=== PATIENT | female | born 1970 | race Caucasian/White ===

== ENCOUNTER 2017-11-16 12:12 | Emergency (ER) | payer OTHER, SELFPAY ==
[2017-11-16] VITALS (9 sets, daily range): BP systolic 144–177; BP diastolic 87–101; PULSE 101–111; RESP 16–23; TEMP 36.3; O2SAT 100
--- NOTE | 2017-11-16 12:49 | PC.NURSE ---
Pt alert and oriented x3. States she had a minor seizure this am, witnessed by her mother. She said she was able to sit down and does not recall the event, but her mother states it was short lived and she was visibly shaking. No injuries sustained. Maintaining her own airway. Feeling nauseated. Vomiting bile. States she is being worked up for gastric paresis at . She is being considered for a feeding tube. Hx of type 1 diabetes. She has had DKA in the past and been hospitalized for it. States she has not been eating or drinking much for past week.
[2017-11-16 12:51] LABS: pH VBG 7.44 (7.31-7.41)
[2017-11-16] MEDS: SODIUM CHLORIDE 0.9% 1,000 ML 1000 ML IV ×2 (13:00→17:30)
--- NOTE | 2017-11-16 13:15 | ED.SEIZURE ---
HPI - Seizure General Chief Complaint: Seizure Stated Complaint: DIABETIC,VOMITING,NOT EATING OR DRINKING,SEIZURE Time Seen by Provider: 11/16/17 12:25 Source: patient Mode of arrival: ambulatory Limitations: no limitations History of Present Illness HPI Narrative: Patient is a 47-year-old female who has a history of type 1 diabetes presenting with vomiting for 6 days. She has an insulin pump she has been trying to keep tabs on her sugar. 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 She did not lose urine or bite her tongue this was a very brief 1. She is being worked up for possible gastroparesis. She is unable to take Reglan it causes multiple side effects for her. She has anti nausea medication at home and has really not been able to keep any of it down. She has diffuse overall abdominal pain. Related Data Home Medications Medication Instructions Recorded Confirmed albuterol sulfate [Ventolin HFA] 2 puff INHALATION PRN PRN 11/16/17 11/16/17 calcipotriene [Dovonex] 1 applic TOPICAL PRN PRN 11/16/17 11/16/17 cholecalciferol (vitamin D3) 2,000 units PO DAILY 11/16/17 11/16/17 [Vitamin D3] cyanocobalamin (vitamin B-12) 1 ml IM QMONTH 11/16/17 11/16/17 escitalopram oxalate 20 mg PO DAILY 11/16/17 11/16/17 gabapentin 300 - 600 mg PO DAILY 11/16/17 11/16/17 glucagon (human recombinant) 1 dose IM DIRECTED 11/16/17 11/16/17 [Glucagon Emergency Kit (human)] insulin lispro [Humalog U-100 1 dose CONTINUOUS IV INFUSION PRN 11/16/17 11/16/17 Insulin] PRN levothyroxine 1 tab PO DAILY 11/16/17 11/16/17 lovastatin 5 mg PO DAILY 11/16/17 11/16/17 multivitamin with iron 1 tab PO DAILY 11/16/17 11/16/17 omeprazole 20 mg PO DAILY 11/16/17 11/16/17 ondansetron 4 mg PO PRN PRN 11/16/17 11/16/17 potassium chloride 10 meq PO BID 11/16/17 11/16/17 promethazine 12.5 mg PO PRN PRN 11/16/17 11/16/17 ranitidine HCl 300 mg PO DAILY 11/16/17 11/16/17 tacrolimus [Protopic] 1 applic TOPICAL PRN PRN 11/16/17 11/16/17 Previous Rx's Medication Instructions Recorded promethazine 25 mg [place] Q6H PRN #10 each 11/16/17 Allergies Allergy/AdvReac Type Severity Reaction Status Date / Time latex [LATEX] Allergy Intermediate Verified 11/16/17 13:51 Review of Systems Review of Systems All systems reviewed & are unremarkable except as noted in HPI and below Constitutional Denies chills, Denies fever(s), Denies lethargy and Denies weakness Cardiovascular Denies chest pain, Denies irregular heart rhythm, Denies lightheadedness, Denies palpitations, Denies dyspnea, Denies dyspnea on exertion and Denies orthopnea Respiratory Denies cough, Denies dyspnea, Denies dyspnea on exertion and Denies wheezing Gastrointestinal Gastrointestinal: Reports as per HPI, Denies constipation and Denies diarrhea Genitourinary Denies hematuria, Denies flank pain, Denies urinary incontinence and Denies urinary urgency Musculoskeletal Denies back pain, Denies muscle weakness, Denies numbness and Denies tingling Integumentary/Breasts Denies pruritus, Denies erythema, Denies rash and Denies wounds Neurologic Denies numbness, Denies tingling and Denies weakness Endocrine Denies palpitations Allergic/Immunologic Denies wheezing PFSH Medical History Type 1 diabetes (Acute) Exam Initial Vital Signs Initial Vital Signs: Vital Signs Temperature 97.4 F L 11/16/17 12:23 Pulse Rate 111 H 11/16/17 12:23 Respiratory Rate 18 11/16/17 12:23 Blood Pressure 144/91 H 11/16/17 12:23 Pulse Oximetry 100 11/16/17 12:23 GENERAL: Alert female appears in [id number] distress HEENT: Head atraumatic,EOMI, pupils reactive, face symmetric, dry mucous membranes CARDIOVASCULAR: Regular rate and rhythm without murmurs, rubs or gallops. RESPIRATORY: Breath sounds equal bilaterally, no wheezes rales or rhonchi. ABDOMEN: Soft, diffuse abdominal pain no guarding no rebound no distension : No CVA tenderness EXTREMITIES: Normal range of motion, no clubbing or edema. Neurovascularly intact NEUROLOGICAL: Alert and oriented x4.Normal gait and speech. Cranial nerves II through XII grossly intact. SKIN: Warm, dry, no laceration, no petechiae, no rashes or lesions. Course Orders Ordered: ED Orders 11/16/17 12:31 Complete Blood Count AUTO DIFF Stat Comprehensive Metabolic Panel Stat Ketones (Beta-Hydroxybutyrate) Stat Lactate (Lactic Acid) Stat Procalcitonin Stat 11/16/17 12:36 pH VBG Routine 11/16/17 13:16 EKG-12 Lead Stat 11/16/17 13:19 Lipase Stat 11/16/17 13:56 Blood Culture Stat 11/16/17 14:40 Urine Culture Stat Urine Microscopic Stat 11/16/17 18:47 Electrolytes Stat Discontinued Medications Sodium Chloride (Normal Saline 0.9%) 1,000 mls @ 1,000 mls/hr IV BOLUS ONE Stop: 11/16/17 14:14 Last Infusion: 11/16/17 14:03 Dose: 0 mls/hr Admin: 11/16/17 13:00 Dose: 1,000 mls/hr Potassium Chloride 40 meq/ (Sodium Chloride) 520 mls @ 130 mls/hr IV NOW ONE Stop: 11/16/17 17:50 Last Infusion: 11/16/17 19:08 Dose: 0 mls/hr Admin: 11/16/17 14:47 Dose: 130 mls/hr Sodium Chloride (Normal Saline 0.9%) 1,000 mls @ 1,000 mls/hr IV BOLUS ONE Stop: 11/16/17 18:33 Last Infusion: 11/16/17 19:08 Dose: 0 mls/hr Admin: 11/16/17 17:30 Dose: 1,000 mls/hr Ondansetron HCl (Zofran) 4 mg IV NOW ONE Stop: 11/16/17 13:25 Last Admin: 11/16/17 13:24 Dose: 4 mg Pantoprazole Sodium (Protonix) 40 mg IV NOW ONE Stop: 11/16/17 13:24 Last Admin: 11/16/17 13:24 Dose: 40 mg Potassium Chloride (Potassium Chloride) 40 meq PO NOW ONE Stop: 11/16/17 13:52 Last Admin: 11/16/17 14:04 Dose: 40 meq Vital Signs - 8 hr 11/16/17 12:23 11/16/17 13:00 11/16/17 14:05 Temperature 97.4 F L Pulse Rate 110 H 105 H 105 H Respiratory Rate 18 Blood Pressure 144/90 H Blood Pressure [Right Arm] 144/91 H 163/95 H 163/95 H Pulse Oximetry 100 100 100 11/16/17 14:47 11/16/17 16:30 11/16/17 18:19 Temperature Pulse Rate 101 H 110 H 110 H Respiratory Rate 20 19 23 Blood Pressure Blood Pressure [Right Arm] 168/95 H 154/92 H 155/101 H Pulse Oximetry 100 100 11/16/17 18:39 Temperature Pulse Rate 108 H Respiratory Rate 21 Blood Pressure Blood Pressure [Right Arm] 177/92 H Pulse Oximetry 100 MDM - Seizure Lab Data Attestation: I reviewed the patient's lab results. Anion gap 31 Repeat anion gap 16 Result diagrams: 11/16/17 12:31 11/16/17 18:47 Lab Results 11/16/17 11/16/17 11/16/17 Range/Units 12:31 12:31 12:31 WBC 9.3 (4.5-11.0) X10^3/uL RBC 4.58 (4.0-5.2) X10^6/uL Hgb 13.6 (12.0-16.0) g/dL Hct 41.3 (36-46) % MCV 90.2 (80-100) fL MCH 29.6 (26-34) PG MCHC 32.8 (30-36) % RDW 19.0 H (11.6-14.8) % Plt Count 215 (150-400) X10^3/uL Neut % (Auto) 74.3 (50-75) % Lymph % (Auto) 11.3 L (25-40) % Boy[place] % (Auto) 13.8 (3-14) % Eos % (Auto) 0.3 L (2-4) % Baso % (Auto) 0.3 (0-2) % Neut # (Auto) 6900 H (6798-5842) /uL VBG pH (7.31-7.41) Sodium 127 L (137-145) mmol/L Potassium 2.6 L* (3.4-5.1) mmol/L Chloride 78 L (98-107) mmol/L Carbon Dioxide 21 L (22-32) mmol/L BUN 23 H (7-17) mg/dL Creatinine 0.80 (0.52-1.04) mg/dL Estimated GFR > 60.0 (>60) mL/min BUN/Creatinine Ratio 28.8 H (6-22) Glucose 275 H (70-100) mg/dL Lactate (0.7-2.1) mmol/L Calcium 10.2 (8.4-10.2) mg/dL Total Bilirubin 1.5 H (0.2-1.3) mg/dL AST 70 H (14-36) IU/L ALT 45 (9-52) IU/L Alkaline Phosphatase 118 (38-126) U/L Total Protein 8.3 H (6.3-8.2) g/dL Albumin 5.0 (3.5-5.0) g/dL Globulin 3.3 (1.7-4.1) g/dL Albumin/Globulin Ratio 1.5 (1.0-2.8) Lipase (23-300) U/L Procalcitonin 0.18 (<0.5) ng/mL Urine RBC (0-5/HPF) Urine WBC (0-5/HPF) Ur Squamous Epith Cells Urine Bacteria (None) Urine Mucus (Negative) Urine Yeast (None) Ur Culture Indicated? Micro UA Comment Ketones 9.20 H (<0.27) mmol/L 11/16/17 11/16/17 11/16/17 Range/Units 12:31 12:36 13:19 WBC (4.5-11.0) X10^3/uL RBC (4.0-5.2) X10^6/uL Hgb (12.0-16.0) g/dL Hct (36-46) % MCV (80-100) fL MCH (26-34) PG MCHC (30-36) % RDW (11.6-14.8) % Plt Count (150-400) X10^3/uL Neut % (Auto) (50-75) % Lymph % (Auto) (25-40) % Boyle % (Auto) (3-14) % Eos % (Auto) (2-4) % Baso % (Auto) (0-2) % Neut # (Auto) (4545-9223) /uL VBG pH 7.44 H (7.31-7.41) Sodium (137-145) mmol/L Potassium (3.4-5.1) mmol/L Chloride (98-107) mmol/L Carbon Dioxide (22-32) mmol/L BUN (7-17) mg/dL Creatinine (0.52-1.04) mg/dL Estimated GFR (>60) mL/min BUN/Creatinine Ratio (6-22) Glucose (70-100) mg/dL Lactate 1.9 (0.7-2.1) mmol/L Calcium (8.4-10.2) mg/dL Total Bilirubin (0.2-1.3) mg/dL AST (14-36) IU/L ALT (9-52) IU/L Alkaline Phosphatase (38-126) U/L Total Protein (6.3-8.2) g/dL Albumin (3.5-5.0) g/dL Globulin (1.7-4.1) g/dL Albumin/Globulin Ratio (1.0-2.8) Lipase 372 H (23-300) U/L Procalcitonin (<0.5) ng/mL Urine RBC (0-5/HPF) Urine WBC (0-5/HPF) Ur Squamous Epith Cells Urine Bacteria (None) Urine Mucus (Negative) Urine Yeast (None) Ur Culture Indicated? Micro UA Comment Ketones (<0.27) mmol/L 11/16/17 11/16/17 Range/Units 14:40 18:47 WBC (4.5-11.0) X10^3/uL RBC (4.0-5.2) X10^6/uL Hgb (12.0-16.0) g/dL Hct (36-46) % MCV (80-100) fL MCH (26-34) PG MCHC (30-36) % RDW (11.6-14.8) % Plt Count (150-400) X10^3/uL Neut % (Auto) (50-75) % Lymph % (Auto) (25-40) % Boyle % (Auto) (3-14) % Eos % (Auto) (2-4) % Baso % (Auto) (0-2) % Neut # (Auto) (7907-9520) /uL VBG pH (7.31-7.41) Sodium 127 L (137-145) mmol/L Potassium 3.9 D (3.4-5.1) mmol/L Chloride 89 L (98-107) mmol/L Carbon Dioxide 22 (22-32) mmol/L BUN (7-17) mg/dL Creatinine (0.52-1.04) mg/dL Estimated GFR (>60) mL/min BUN/Creatinine Ratio (6-22) Glucose (70-100) mg/dL Lactate (0.7-2.1) mmol/L Calcium (8.4-10.2) mg/dL Total Bilirubin (0.2-1.3) mg/dL AST (14-36) IU/L ALT (9-52) IU/L Alkaline Phosphatase (38-126) U/L Total Protein (6.3-8.2) g/dL Albumin (3.5-5.0) g/dL Globulin (1.7-4.1) g/dL Albumin/Globulin Ratio (1.0-2.8) Lipase (23-300) U/L Procalcitonin (<0.5) ng/mL Urine RBC None seen (0-5/HPF) Urine WBC 1-5/hpf (0-5/HPF) Ur Squamous Epith Cells 1-5 /hpf Urine Bacteria Moderate (10-30) H (None) Urine Mucus 1+ H (Negative) Urine Yeast 5-10/hpf H (None) Ur Culture Indicated? Specimen cultured Micro UA Comment Not Reportable Ketones (<0.27) mmol/L Point of Care Testing Glucose POC 265 Urine Dip Bedside Urine Glucose 100 mg/dl Bedside Urine Bilirubin - Negative Bedside Urine Ketone +++ 80 Urine Specific [place] 1.030 Bedside Urine Occult Blood - Negative Bedside Urine pH 6.0 Bedside Urine Protein + 30 Bedside Urine Urobilinogen +/- 1mg Bedside Urine Nitrite - Negative Bedside Urine Leukocytes - Negative Esterase MDM Narrative Medical decision making narrative: Patient is not acidotic on VBG she does have an initial anion gap of 31 of glucose of 275, she does have ketones. She is hydrated with multiple L of IV fluids her potassium has been replaced. She has been monitored in the ED for 6 hr she has had no repeat vomiting her abdomen remained soft. She is tolerating crackers and juice. She overall is feeling much better. Her sodium remains of slightly low- she says that her sodium has been low that been monitoring as an outpatient. She is scheduled to have her calcium recheck his they said that was slightly high it is on the higher end of normal today. Overall patient a better ready and able to go home. Discharge Plan Departure Patient Disposition: Home Clinical Impression: Diabetic gastroparesis, Acute hypokalemia Instructions: Gastroparesis Activity Restrictions/Additional Instructions: *You have been diagnosed with gastroparesis, hypokalemia *What to do: Increase the fluids as tolerated recommend Gatorade or Gatorade like substance may increase diet as tolerated as well *Continue to take medications as directed Phenergan 25 mg suppositories if unable to tolerate Zofran or oral medication *Follow up with your primary care provider in 2-3 days *Return to ER if you should have persistent or worsening vomiting inability to tolerate fluids or any new, worsening or concerning symptoms Prescriptions: New promethazine 25 mg suppository 25 mg IL Q6H PRN (Reason: nausea and vomiting) Qty: 10 RF: 0 No Action glucagon (human recombinant) [Glucagon Emergency Kit (human)] 1 mg kit 1 dose IM DIRECTED RF: 0 ranitidine HCl 300 mg tablet 300 mg PO DAILY RF: 0 potassium chloride 10 mEq tablet extended release 10 meq PO BID RF: 0 lovastatin 10 mg tablet 5 mg PO DAILY RF: 0 levothyroxine 50 mcg tablet 1 tab PO DAILY RF: 0 cyanocobalamin (vitamin B-12) 1,000 mcg/mL solution 1 ml IM QMONTH RF: 0 gabapentin 300 mg capsule 300 - 600 mg PO DAILY RF: 0 omeprazole 20 mg capsule,delayed release(DR/EC) 20 mg PO DAILY RF: 0 insulin lispro [Humalog U-100 Insulin] 100 unit/mL solution 1 dose Continuous IV Infusion PRN PRN (Reason: bolus) RF: 0 escitalopram oxalate 20 mg tablet 20 mg PO DAILY RF: 0 promethazine 12.5 mg tablet 12.5 mg PO PRN PRN (Reason: Nausea) RF: 0 tacrolimus [Protopic] 0.1 % Ointment 1 applic Topical PRN PRN (Reason: as directed) RF: 0 calcipotriene [Dovonex] 0.005 % Cream 1 applic Topical PRN PRN (Reason: as directed) RF: 0 albuterol sulfate [Ventolin HFA] 90 mcg/actuation Hfa Aerosol Inhaler 2 puff Inhalation PRN PRN (Reason: Shortness Of Breath) RF: 0 ondansetron 4 mg tablet,disintegrating 4 mg PO PRN PRN (Reason: Nausea And Vomiting) RF: 0 multivitamin with iron Tablet 1 tab PO DAILY RF: 0 cholecalciferol (vitamin D3) [Vitamin D3] 2,000 unit Capsule 2,000 units PO DAILY RF: 0 Referrals: Sandra Nathan PA-C [Primary Care Provider] -
[2017-11-16 13:23] LABS: Add Manual Diff / Slide Review NO; Basophils Percent Auto 0.3 % (0-2); Eosinophils Percent Auto 0.3 % (2-4); Hematocrit 41.3 % (36-46); Hemoglobin 13.6 g/dL (12.0-16.0); Lymphocytes Percent Auto 11.3 % (25-40); Mean Corpuscular HGB Conc 32.8 % (30-36); Mean Corpuscular Hemoglobin 29.6 PG (26-34); Mean Corpuscular Volume 90.2 fL (80-100); Monocytes Percent Auto 13.8 % (3-14); Neutrophils Absolute Auto 6900 /uL (3000-5900); Neutrophils Percent Auto 74.3 % (50-75); Platelet Count 215 X10^3/uL (150-400); Red Blood Cell Count 4.58 X10^6/uL (4.0-5.2); White Blood Cell Count 9.3 X10^3/uL (4.5-11.0)
[2017-11-16] MEDS: PANTOPRAZOLE 40 MG VIAL IV (13:24)
[2017-11-16] MEDS: ONDANSETRON 4 MG/2 ML INJ IV (13:24)
[2017-11-16 13:25] LABS: HEMOLYSIS < 15 (0-50)
[2017-11-16 13:31] LABS: Alanine Aminotransferase 45 IU/L (9-52); Albumin Globulin Ratio 1.5 (1.0-2.8); Alkaline Phosphatase 118 U/L (38-126); Aspartate Aminotransferase 70 IU/L (14-36); BUN Creatinine Ratio 28.8 (6-22); Bilirubin Total 1.5 mg/dL (0.2-1.3); Blood Urea Nitrogen 23 mg/dL (7-17); Calcium 10.2 mg/dL (8.4-10.2); Carbon Dioxide 21 mmol/L (22-32); Chloride 78 mmol/L (98-107); Estimated Glomerular Filt Rate > 60.0 mL/min (>60); Globulin 3.3 g/dL (1.7-4.1); Glucose 275 mg/dL (70-100); Lactate (Lactic Acid) 1.9 mmol/L (0.7-2.1); Sodium 127 mmol/L (137-145); Total Protein 8.3 g/dL (6.3-8.2)
[2017-11-16 13:38] LABS: Potassium 2.6 mmol/L (3.4-5.1)
[2017-11-16 13:46] LABS: Procalcitonin 0.18 ng/mL (<0.5)
[2017-11-16 13:51] LABS: Lipase 372 U/L (23-300)
[2017-11-16] MEDS: POTASSIUM CHLORIDE 20 MEQ/15 ML UDC 40 MEQ PO (14:04)
[2017-11-16] MEDS: POTASSIUM CHLORIDE 40 MEQ in SODIUM CHLORIDE 0.9% 500 ML 130 ML IV (14:47)
[2017-11-16 14:56] LABS: RBC Urine None Seen (0-5/HPF)
[2017-11-16 15:08] LABS: Bacteria Urine Moderate (10-30); Culture Indicated Urine Specimen Cultured; Mucus Urine 1+ (Negative); Squamous Epithelial Cell Urine 1-5 /HPF; WBC Urine 1-5/HPF (0-5/HPF)
[2017-11-16 19:39] LABS: Carbon Dioxide 22 mmol/L (22-32); Chloride 89 mmol/L (98-107); HEMOLYSIS < 15 (0-50); Potassium 3.9 mmol/L (3.4-5.1); Sodium 127 mmol/L (137-145)
== END 2017-11-16 20:02 | disposition home or self-care (01) ==
PROVIDERS: Emergency Provider Emergency Medicine; Family Provider Physician Assistant Medical; PCP Physician Assistant Medical
DX: E10.43 Type 1 diabetes mellitus with diabetic autonomic (poly)neuropathy (principal); K31.84 Gastroparesis; E87.6 Hypokalemia; Z96.41 Presence of insulin pump (external) (internal)
CPT/HCPCS: 36415; 36591; 80051; 80053; 81003; 81015; 82009; 82962; 83605; 83690; 83986; 84145; 85025; 87040; 87086; 93005; 93010; 96361; 96365; 96366; 96375; 99285; C9113; J2405; J3480

== ENCOUNTER 2017-12-22 07:32 | Emergency (ER) | payer OTHER, SELFPAY ==
[2017-12-22 07:38] VITALS: BP 153/96; PULSE 102; RESP 14; TEMP 36.8; O2SAT 97; BMI 20.3
--- NOTE | 2017-12-22 07:40 | ED.WOUNDLAC ---
HPI - Wound/Laceration General Chief Complaint: Wound/Laceration Stated Complaint: FELL Time Seen by Provider: 12/22/17 07:40 Source: patient Mode of arrival: ambulatory Limitations: no limitations History of Present Illness HPI narrative: 47-year-old female here for evaluation of a laceration that she sustained from a fall approximately 8 hr ago. Patient states that at 1 o'clock in the morning she was walking through her garage when she tripped over her cat. She states she fell and hit her face on the ground. No loss of consciousness. Was able to get up afterwards. She states she did not know that she injured her nose until she woke up this morning and noticed that there was blood. No extremity injuries. She was ambulatory afterwards. The patient is a type 1 diabetic but she states she tripped and fell and this was not related to her diabetes. Related Data Home Medications Medication Instructions Recorded Confirmed albuterol sulfate [Ventolin HFA] 2 puff INHALATION PRN PRN 11/16/17 11/16/17 calcipotriene [Dovonex] 1 applic TOPICAL PRN PRN 11/16/17 11/16/17 cholecalciferol (vitamin D3) 2,000 units PO DAILY 11/16/17 11/16/17 [Vitamin D3] cyanocobalamin (vitamin B-12) 1 ml IM QMONTH 11/16/17 11/16/17 escitalopram oxalate 20 mg PO DAILY 11/16/17 11/16/17 gabapentin 300 - 600 mg PO DAILY 11/16/17 11/16/17 glucagon (human recombinant) 1 dose IM DIRECTED 11/16/17 11/16/17 [Glucagon Emergency Kit (human)] insulin lispro [Humalog U-100 1 dose CONTINUOUS IV INFUSION PRN 11/16/17 11/16/17 Insulin] PRN levothyroxine 1 tab PO DAILY 11/16/17 11/16/17 lovastatin 5 mg PO DAILY 11/16/17 11/16/17 multivitamin with iron 1 tab PO DAILY 11/16/17 11/16/17 omeprazole 20 mg PO DAILY 11/16/17 11/16/17 ondansetron 4 mg PO PRN PRN 11/16/17 11/16/17 potassium chloride 10 meq PO BID 11/16/17 11/16/17 promethazine 12.5 mg PO PRN PRN 11/16/17 11/16/17 ranitidine HCl 300 mg PO DAILY 11/16/17 11/16/17 tacrolimus [Protopic] 1 applic TOPICAL PRN PRN 11/16/17 11/16/17 Previous Rx's Medication Instructions Recorded promethazine 25 mg [place] Q6H PRN #10 each 11/16/17 Allergies Allergy/AdvReac Type Severity Reaction Status Date / Time latex [LATEX] Allergy Intermediate Verified 12/22/17 07:38 Review of Systems Constitutional Denies frequent falls and Denies headache(s) Eyes Denies blurry vision, Denies diplopia, Denies loss of peripheral vision and Denies loss of vision ENT Ears, Nose, Mouth, and Throat: Denies dental pain, Denies vertigo, Denies dizziness, Denies dry mouth, Denies headache(s), Denies hearing loss, Denies nasal congestion, Reports nasal trauma, Reports nose pain, Denies disequilibrium, Denies tinnitus, Denies sinus pressure, Denies sore throat, Denies throat swelling and Denies tongue swelling Comments: Cut over the bridge of the nose Cardiovascular Denies chest pain and Denies dyspnea Respiratory Denies dyspnea Gastrointestinal Gastrointestinal: Denies abdominal pain Musculoskeletal Denies myalgias, Denies arthralgias and Denies numbness Integumentary/Breasts Comments: Cut over the bridge of the nose, abrasions to face Neurologic Denies confusion, Denies vertigo, Denies dizziness, Denies frequent falls, Denies headache(s), Denies loss of vision, Denies memory loss, Denies numbness and Denies disequilibrium Psychiatric Denies confusion and Denies memory loss Hematologic/Lymphatic Denies easy bleeding and Denies easy bruising Allergic/Immunologic Denies throat swelling and Denies tongue swelling [facility] Medical History Type 1 diabetes (Acute) Surgical History No pertinent past surgical history (Acute) Social History Smoking Status: Current some day smoker Exam Initial Vital Signs Initial Vital Signs: Vital Signs Temperature 98.2 F 12/22/17 07:38 Pulse Rate 102 H 12/22/17 07:38 Respiratory Rate 14 12/22/17 07:38 Blood Pressure 153/96 H 12/22/17 07:38 Pulse Oximetry 97 10 07:38 Const General: cooperative, healthy appearing, comfortable, well developed, well groomed and No acute distress Orientation: alert, awake and oriented x3 HENMT Head: contusion, No palpable skull fracture and No raccoon eyes Ears: TM's normal bilaterally Nose: No external nose normal, septum normal, No epistaxis, No nasal discharge, No TMJ tender and other (Cut over the bridge of the nose) Face and sinus: face symmetric, abrasion, laceration (Over bridge of nose), no sinus tenderness and no tenderness Mouth: oral mucosae normal Teeth and gingiva: dentition normal Throat: posterior oropharynx normal Eyes Pupils: PERRL EOM: EOM intact bilaterally Resp Effort & Inspection: normal respiratory effort Back/Spine/Pelvis Cervical Spine: No collar present, No cervical muscular tenderness, No pain with cervical ROM, No scars present, No cervical spasm, No cervical spinal tenderness and No step off deformity Skin Other: 2 cm cut over the bridge of the nose Multiple abrasions to the face Neuro General: alert, awake and oriented x3 Extrem General: normal to inspection and capillary refill normal Psych Appearance: grossly normal and well kempt Procedures Laceration Repair Laceration 1: Site: face Size (cm): 2 Description: irregular Depth: simple, single layer Local Anesthetic: lidocaine 1% Amount of anesthesia used (mL): 3 Pre-repair: wound explored, irrigated extensively and deep structures intact Skin layer closed with: other (Chromic) Size (cm): 5-0 Number of sutures: 7 Technique: simple, interrupted Course Vital Signs - 8 hr 12/22/17 07:38 Temperature 98.2 F Pulse Rate 102 H Respiratory Rate 14 Blood Pressure 153/96 H Pulse Oximetry 97 MDM - Wound/Laceration MDM Narrative Medical decision making narrative: Patient with what appears to be a mechanical fall. Has abrasions to her face. Laceration over the bridge of the nose closed as described above. No cervical spine tenderness. No palpable fractures. Patient is ambulatory. She is up-to-date on tetanus. Will hold on radiologic studies for now. Patient was given care instructions with regard to the cut on her face and also the abrasions. She was given return precautions. She expressed understanding and agreement with plan. Discharge Plan Departure Patient Disposition: Home Clinical Impression: Laceration Instructions: How to Care for a Laceration After Repair Activity Restrictions/Additional Instructions: The stitches are absorbable the should not need to be removed. You can shower like normal. Use soap and water like normal. Do not scrub the area over your nose. The the wounds that you sustained could potentially lead to some black eyes. At this happens this is not unexpected. Return to the emergency department for any new or worsening symptoms. Call your primary care doctor for follow-up. Prescriptions: No Action glucagon (human recombinant) [Glucagon Emergency Kit (human)] 1 mg kit 1 dose IM DIRECTED RF: 0 ranitidine HCl 300 mg tablet 300 mg PO DAILY RF: 0 potassium chloride 10 mEq tablet extended release 10 meq PO BID RF: 0 lovastatin 10 mg tablet 5 mg PO DAILY RF: 0 levothyroxine 50 mcg tablet 1 tab PO DAILY RF: 0 cyanocobalamin (vitamin B-12) 1,000 mcg/mL solution 1 ml IM QMONTH RF: 0 gabapentin 300 mg capsule 300 - 600 mg PO DAILY RF: 0 omeprazole 20 mg capsule,delayed release(DR/EC) 20 mg PO DAILY RF: 0 insulin lispro [Humalog U-100 Insulin] 100 unit/mL solution 1 dose Continuous IV Infusion PRN PRN (Reason: bolus) RF: 0 escitalopram oxalate 20 mg tablet 20 mg PO DAILY RF: 0 promethazine 12.5 mg tablet 12.5 mg PO PRN PRN (Reason: Nausea) RF: 0 tacrolimus [Protopic] 0.1 % Ointment 1 applic Topical PRN PRN (Reason: as directed) RF: 0 calcipotriene [Dovonex] 0.005 % Cream 1 applic Topical PRN PRN (Reason: as directed) RF: 0 albuterol sulfate [Ventolin HFA] 90 mcg/actuation Hfa Aerosol Inhaler 2 puff Inhalation PRN PRN (Reason: Shortness Of Breath) RF: 0 ondansetron 4 mg tablet,disintegrating 4 mg PO PRN PRN (Reason: Nausea And Vomiting) RF: 0 multivitamin with iron Tablet 1 tab PO DAILY RF: 0 cholecalciferol (vitamin D3) [Vitamin D3] 2,000 unit Capsule 2,000 units PO DAILY RF: 0 promethazine 25 mg suppository 25 mg HI Q6H PRN (Reason: nausea and vomiting) Qty: 10 RF: 0
[2017-12-22 08:22] VITALS: BP 146/90; PULSE 90; RESP 15; O2SAT 97
--- NOTE | 2017-12-22 08:22 | PC.NURSE ---
dr couch placed 7 absorable sutures to bridge of nose.
== END 2017-12-22 08:23 | disposition home or self-care (01) ==
PROVIDERS: Emergency Provider Emergency Medicine; Family Provider Physician Assistant Medical; PCP Physician Assistant Medical
DX: S01.21XA Laceration without foreign body of nose, initial encounter (principal); W01.198A Fall on same level from slipping, tripping and stumbling with subsequent striking against other object, initial encounter
CPT/HCPCS: 12001; 12011; 99282; 99283

== ENCOUNTER 2018-05-15 14:29 | Inpatient (IN) | payer OTHER, SELFPAY ==
[2018-05-15] VITALS (8 sets, daily range): BP systolic 154–185; BP diastolic 78–99; PULSE 95–125; RESP 18–20; TEMP 36.9–38.8; O2SAT 95–100; BMI 23.7; BMI 25.7
--- NOTE | 2018-05-15 15:55 | ED_ITS ---
HPI - Extremity Injury (Upper) <Audra Steinberg PA-C - Last Filed: 05/15/18 21:40> General Chief Complaint: Extremity Injury, Upper Stated Complaint: SWELLING/REDNESS IN LEFT ARM/HAND Time Seen by Provider: 05/15/18 16:21 Source: patient Mode of arrival: ambulatory Limitations: no limitations History of Present Illness HPI narrative: This 47-year-old female comes to ED due to worsening pain and swelling in her left arm. She had a fall and states that she fractured for ribs on Wednesday. She also had a cut on her left elbow, but was moving her arm okay and had an x-ray, no acute fracture was found. She states that she has had some gradual increase in pain and swelling, but yesterday noted that the arm was starting to get red and then she had acutely worsening pain and rapidly sweating redness along with chills and sweats since awakening this morning. The arm is swollen and she is having a lot of difficulty moving the elbow due to pain. She has been taking some [place] as needed for the rib pain, not on any other new medications. She states that her ribs are also tender but nothing acutely worse, no shortness of breath. (She has mild asthma but has not needed her inhaler). She states her blood sugars are high today. She denies any other acute symptoms or injury. She does have psoriasis and states that she has had a lot of red patches on that arm and elsewhere. Related Data Home Medications Medication Instructions Recorded Confirmed albuterol sulfate [Ventolin HFA] 2 puff INHALATION PRN PRN 11/16/17 05/15/18 calcipotriene [Dovonex] 1 applic TOPICAL PRN PRN 11/16/17 05/15/18 cholecalciferol (vitamin D3) 2,000 units PO DAILY 11/16/17 05/15/18 [Vitamin D3] cyanocobalamin (vitamin B-12) 1 ml IM QMONTH 11/16/17 05/16/18 escitalopram oxalate 20 mg PO DAILY 11/16/17 05/15/18 gabapentin 300 mg PO BID 11/16/17 05/15/18 glucagon (human recombinant) 1 dose IM DIRECTED 11/16/17 05/16/18 [Glucagon Emergency Kit (human)] insulin lispro [Humalog U-100 1 dose CONTINUOUS IV INFUSION PRN 11/16/17 05/15/18 Insulin] PRN levothyroxine 1 tab PO DAILY 11/16/17 05/15/18 lovastatin 5 mg PO BEDTIME 11/16/17 05/15/18 multivitamin with iron 1 tab PO DAILY 11/16/17 05/15/18 omeprazole 20 mg PO DAILY 11/16/17 05/15/18 ondansetron 4 mg PO PRN PRN 11/16/17 05/15/18 potassium chloride 10 meq PO BID 11/16/17 05/15/18 promethazine 12.5 mg PO PRN PRN 11/16/17 05/16/18 ranitidine HCl 300 mg PO BEDTIME 11/16/17 05/15/18 tacrolimus [Protopic] 1 applic TOPICAL PRN PRN 11/16/17 05/15/18 gabapentin 600 mg PO BEDTIME 05/15/18 05/15/18 Previous Rx's Medication Instructions Recorded promethazine 25 mg UT Q6H PRN #10 each 11/16/17 Allergies Allergy/AdvReac Type Severity Reaction Status Date / Time latex [LATEX] Allergy Intermediate Verified 05/15/18 14:49 Review of Systems <Audra Steinberg PA-C - Last Filed: 05/15/18 21:40> Review of Systems ROS Unobtainable: All systems reviewed & are unremarkable except as noted in HPI and below PFSH <Audra Steinberg PA-C - Last Filed: 05/15/18 21:40> Medical History Guttate psoriasis (Acute) Left rib fracture (Acute) Asthma, mild (Chronic) Gastroparesis (Chronic) Psoriasis (Chronic) Type 1 diabetes (Chronic) Surgical History History of (Acute) History of carpal tunnel release of both wrists (Acute) No pertinent past surgical history (Chronic) Family History Father Trauma Mother Hypertension Diabetes mellitus COPD (chronic obstructive pulmonary disease) Social History household members: spouse Smoking Status: Former smoker alcohol intake: never Social History household members: spouse Smoking Status: Former smoker alcohol intake: never Exam <Audra Steinberg PA-C - Last Filed: 05/15/18 21:40> Narrative Exam Narrative: GENERAL APPEARANCE: Patient sitting comfortably, in no distress. HEENT: PERRL, EOMI NECK: Supple LUNGS: Clear to auscultation bilaterally. HEART: Rate and rhythm regular without murmur, normal S1 and S2, no S3 or S4. MUSCULOSKELETAL: There is effusion over the left elbow joint that extends proximally and distally to the elbow, most notable over the olecranon. She is tender over the elbow and surrounding areas, and has limited flexion /extension of the elbow secondary to tenderness. No tenderness over the shoulder, wrist, or left hand fingers where she has normal range of motion. DERMATOLOGIC: There is a scabbed laceration over the left olecranon that has some yellowish hard slough centrally. There is erythema over the olecranon and posterior upper arm and forearm. This does not extend to the shoulder or wrist but does extend to the anterior surfaces, not quite circumferential. This overlies numerous pink plaques. Skin is tender. Warm to touch. On repeat exam warmth and erythema are a bit improved, there is a mix of pus and serous fluid draining from the olecrannon NEUROLOGIC: Patient is alert and oriented, normal speech, good historian Initial Vital Signs Initial Vital Signs: Vital Signs Temperature 101.9 F H 05/15/18 14:44 Pulse Rate 123 H 05/15/18 14:44 Respiratory Rate 18 05/15/18 14:44 Blood Pressure 185/96 H 05/15/18 14:44 Pulse Oximetry 100 05/15/18 14:44 <Renny Pryor MD - Last Filed: 05/16/18 19:27> Initial Vital Signs Initial Vital Signs: Vital Signs Temperature 101.9 F H 05/15/18 14:44 Pulse Rate 123 H 05/15/18 14:44 Respiratory Rate 18 05/15/18 14:44 Blood Pressure 185/96 H 05/15/18 14:44 Pulse Oximetry 100 05/15/18 14:44 Course <Audra Steinberg PA-C - Last Filed: 05/15/18 21:40> Additional Information: Dr. Pryor has also evaluated patient and we have reviewed labwork and radiology findings. he is in agreement that patient needs hospital admission with orthopedics consult in the morning. I have spoken with Dr. Alexis, access control specialist hospitalist who agrees with admission and also Dr. Bacon access control specialist for orthopedics who is agreeable with consult tomorrow. I have added on ESR and CRP per his request Orders Ordered: ED Orders 05/17/18 09:30 Vancomycin Trough Urgent Hydrocodone Bitart/Acetaminophen ([place] 5/325) 1 tab PO Q4HR PRN PRN Reason: Pain, Moderate (4-6) Last Admin: 05/16/18 15:49 Dose: 1 tab Admin: 05/16/18 10:31 Dose: 1 tab Admin: 05/15/18 21:09 Dose: 1 tab Albuterol (Ventolin Hfa) 2 puff INH Q4H PRN PRN Reason: Shortness Of Breath Enoxaparin Sodium (Lovenox) 40 mg SUBCUT DAILY [facility] Last Admin: 05/16/18 09:15 Dose: 40 mg Escitalopram Oxalate (Lexapro) 20 mg PO DAILY [facility] Last Admin: 05/16/18 09:15 Dose: 20 mg Gabapentin (Neurontin) 600 mg PO BEDTIME [facility] Last Admin: 05/16/18 00:45 Dose: 600 mg Gabapentin (Neurontin) 300 mg PO BID@0900,1500 [facility] Last Admin: 05/16/18 14:46 Dose: 300 mg Admin: 05/16/18 09:15 Dose: 300 mg Sodium Chloride (Normal Saline 0.9%) 1,000 mls @ 100 mls/hr IV CONT [facility] Last Admin: 05/16/18 13:01 Dose: 100 mls/hr Infusion: 05/16/18 12:11 Dose: 100 mls/hr Admin: 05/16/18 02:11 Dose: 100 mls/hr Infusion: 05/16/18 02:11 Dose: 100 mls/hr Admin: 05/15/18 19:41 Dose: 100 mls/hr Piperacillin/Tazobactam/Dextrose (Zosyn) 3.375 gm in 50 mls @ 100 mls/hr IV Q6HR [facility] Last Admin: 05/16/18 18:50 Dose: 50 mls/hr Infusion: 05/16/18 14:00 Dose: 50 mls/hr Admin: 05/16/18 13:00 Dose: 50 mls/hr Infusion: 05/16/18 07:22 Dose: 50 mls/hr Admin: 05/16/18 06:22 Dose: 50 mls/hr Infusion: 05/16/18 00:46 Dose: 0 mls/hr Admin: 05/15/18 23:35 Dose: 100 mls/hr Vancomycin HCl/Dextrose (Vancomycin) 1,000 mg in 200 mls @ 200 mls/hr IV Q6H [facility] Last Infusion: 05/16/18 18:33 Dose: 200 mls/hr Admin: 05/16/18 15:52 Dose: 200 mls/hr Infusion: 05/16/18 11:21 Dose: 200 mls/hr Admin: 05/16/18 10:21 Dose: 200 mls/hr Influenza Virus Vaccine (Flu Vaccine) 0.5 ml IM .ONCE ONE Stop: 05/17/18 09:01 Levothyroxine Sodium (Synthroid) 50 mcg PO QACBREAK [facility] Last Admin: 05/16/18 09:15 Dose: 50 mcg Lovastatin (Mevacor) 5 mg PO NOW [facility] Morphine Sulfate (Morphine) 4 mg IV Q4HR PRN PRN Reason: Pain, Severe (7-10) Last Admin: 05/16/18 18:49 Dose: 4 mg Admin: 05/16/18 06:28 Dose: 4 mg Insulin Lispro 1 (Pump) 1 dose INJ ACHS [facility] Last Admin: 05/16/18 18:18 Dose: 1 dose Admin: 05/16/18 12:46 Dose: 1 dose Tacrolimus (Protopic () 1 Application) 1 applictn TOP PRN PRN PRN Reason: as directed Calcipotriene ( Dovonex) 1 Application 1 applictn TOP PRN PRN PRN Reason: as directed Ondansetron HCl (Zofran Odt) 4 mg PO Q6H PRN PRN Reason: Nausea And Vomiting Pantoprazole Sodium (Protonix) 20 mg PO 0600 [facility] Last Admin: 05/16/18 06:22 Dose: 20 mg Promethazine HCl (Phenadoz) 25 mg UT Q6H PRN PRN Reason: nausea and vomiting Ranitidine HCl (Zantac) 300 mg PO NOW [facility] Vancomycin HCl (Vancomycin Trough) 1 request MIS 1130 [facility] Stop: 05/17/18 09:31 Vitamin D (Vitamin D3) 2,000 unit PO DAILY [facility] Last Admin: 05/16/18 09:15 Dose: 2,000 unit Discontinued Medications Diphtheria/Tetanus/Acell Pertussis (Adacel) 0.5 ml IM .ONCE ONE Stop: 05/16/18 09:28 Last Admin: 05/16/18 10:21 Dose: 0.5 ml Gabapentin (Neurontin) 600 mg PO DAILY [facility] Gabapentin (Neurontin) 300 mg PO DAILY [facility] Clindamycin Phosphate (Cleocin) 600 mg in 50 mls @ 50 mls/hr IV NOW ONE Stop: 05/15/18 17:28 Last Infusion: 05/15/18 17:48 Dose: 0 mls/hr Admin: 05/15/18 16:39 Dose: 50 mls/hr Sodium Chloride (Normal Saline 0.9%) 1,000 mls @ 1,000 mls/hr IV BOLUS ONE Stop: 05/15/18 17:31 Last Infusion: 05/15/18 18:28 Dose: 0 mls/hr Admin: 05/15/18 16:39 Dose: 1,000 mls/hr Sodium Chloride (Normal Saline 0.9%) 1,000 mls @ 1,000 mls/hr IV BOLUS ONE Stop: 05/15/18 19:15 Last Infusion: 05/15/18 18:50 Dose: 0 mls/hr Admin: 05/15/18 18:27 Dose: 1,000 mls/hr Vancomycin HCl/Dextrose (Vancomycin) 1,000 mg in 200 mls @ 200 mls/hr IV Q12H [facility] Last Admin: 05/16/18 09:59 Dose: Not Given Admin: 05/15/18 21:00 Dose: 200 mls/hr Influenza Virus Vaccine (Flu Vaccine) 0.5 ml IM .ONCE ONE Stop: 05/15/18 19:41 Last Admin: 05/15/18 20:45 Dose: Not Given Influenza Virus Vaccine (Flu Vaccine) 0.5 ml IM .ONCE ONE Stop: 05/16/18 09:01 Last Admin: 05/16/18 12:55 Dose: Not Given Ketorolac Tromethamine (Toradol) 30 mg IV NOW ONE Stop: 05/15/18 17:00 Last Admin: 05/15/18 17:01 Dose: 30 mg Lovastatin (Mevacor) 5 mg PO DAILY [facility] Morphine Sulfate (Morphine) 4 mg IV NOW ONE Stop: 05/15/18 16:30 Last Admin: 05/15/18 16:38 Dose: 4 mg Ondansetron HCl (Zofran) 4 mg IV NOW ONE Stop: 05/15/18 16:30 Last Admin: 05/15/18 16:39 Dose: 4 mg Ranitidine HCl (Zantac) 300 mg PO DAILY [facility] Vital Signs - 8 hr 05/16/18 15:00 05/16/18 16:27 Temperature 98.2 F Pulse Rate 85 Respiratory Rate 13 Blood Pressure 147/92 H Pulse Oximetry 96 96 <Renny Pryor MD - Last Filed: 05/16/18 19:27> Orders Ordered: ED Orders 05/17/18 09:30 Vancomycin Trough Urgent Hydrocodone Bitart/Acetaminophen ([place] 5/325) 1 tab PO Q4HR PRN PRN Reason: Pain, Moderate (4-6) Last Admin: 05/16/18 15:49 Dose: 1 tab Admin: 05/16/18 10:31 Dose: 1 tab Admin: 05/15/18 21:09 Dose: 1 tab Albuterol (Ventolin Hfa) 2 puff INH Q4H PRN PRN Reason: Shortness Of Breath Enoxaparin Sodium (Lovenox) 40 mg SUBCUT DAILY [facility] Last Admin: 05/16/18 09:15 Dose: 40 mg Escitalopram Oxalate (Lexapro) 20 mg PO DAILY [facility] Last Admin: 05/16/18 09:15 Dose: 20 mg Gabapentin (Neurontin) 600 mg PO BEDTIME [facility] Last Admin: 05/16/18 00:45 Dose: 600 mg Gabapentin (Neurontin) 300 mg PO BID@0900,1500 [facility] Last Admin: 05/16/18 14:46 Dose: 300 mg Admin: 05/16/18 09:15 Dose: 300 mg Sodium Chloride (Normal Saline 0.9%) 1,000 mls @ 100 mls/hr IV CONT [facility] Last Admin: 05/16/18 13:01 Dose: 100 mls/hr Infusion: 05/16/18 12:11 Dose: 100 mls/hr Admin: 05/16/18 02:11 Dose: 100 mls/hr Infusion: 05/16/18 02:11 Dose: 100 mls/hr Admin: 05/15/18 19:41 Dose: 100 mls/hr Piperacillin/Tazobactam/Dextrose (Zosyn) 3.375 gm in 50 mls @ 100 mls/hr IV Q6HR [facility] Last Admin: 05/16/18 18:50 Dose: 50 mls/hr Infusion: 05/16/18 14:00 Dose: 50 mls/hr Admin: 05/16/18 13:00 Dose: 50 mls/hr Infusion: 05/16/18 07:22 Dose: 50 mls/hr Admin: 05/16/18 06:22 Dose: 50 mls/hr Infusion: 05/16/18 00:46 Dose: 0 mls/hr Admin: 05/15/18 23:35 Dose: 100 mls/hr Vancomycin HCl/Dextrose (Vancomycin) 1,000 mg in 200 mls @ 200 mls/hr IV Q6H [facility] Last Infusion: 05/16/18 18:33 Dose: 200 mls/hr Admin: 05/16/18 15:52 Dose: 200 mls/hr Infusion: 05/16/18 11:21 Dose: 200 mls/hr Admin: 05/16/18 10:21 Dose: 200 mls/hr Influenza Virus Vaccine (Flu Vaccine) 0.5 ml IM .ONCE ONE Stop: 05/17/18 09:01 Levothyroxine Sodium (Synthroid) 50 mcg PO QACBREAK [facility] Last Admin: 05/16/18 09:15 Dose: 50 mcg Lovastatin (Mevacor) 5 mg PO NOW [facility] Morphine Sulfate (Morphine) 4 mg IV Q4HR PRN PRN Reason: Pain, Severe (7-10) Last Admin: 05/16/18 18:49 Dose: 4 mg Admin: 05/16/18 06:28 Dose: 4 mg Insulin Lispro 1 (Pump) 1 dose INJ ACHS [facility] Last Admin: 05/16/18 18:18 Dose: 1 dose Admin: 05/16/18 12:46 Dose: 1 dose Tacrolimus (Protopic () 1 Application) 1 applictn TOP PRN PRN PRN Reason: as directed Calcipotriene ( Dovonex) 1 Application 1 applictn TOP PRN PRN PRN Reason: as directed Ondansetron HCl (Zofran Odt) 4 mg PO Q6H PRN PRN Reason: Nausea And Vomiting Pantoprazole Sodium (Protonix) 20 mg PO 0600 [facility] Last Admin: 05/16/18 06:22 Dose: 20 mg Promethazine HCl (Phenadoz) 25 mg UT Q6H PRN PRN Reason: nausea and vomiting Ranitidine HCl (Zantac) 300 mg PO NOW [facility] Vancomycin HCl (Vancomycin Trough) 1 request MIS 0930 [facility] Stop: 05/17/18 09:31 Vitamin D (Vitamin D3) 2,000 unit PO DAILY [facility] Last Admin: 05/16/18 09:15 Dose: 2,000 unit Discontinued Medications Diphtheria/Tetanus/Acell Pertussis (Adacel) 0.5 ml IM .ONCE ONE Stop: 05/16/18 09:28 Last Admin: 05/16/18 10:21 Dose: 0.5 ml Gabapentin (Neurontin) 600 mg PO DAILY [facility] Gabapentin (Neurontin) 300 mg PO DAILY [facility] Clindamycin Phosphate (Cleocin) 600 mg in 50 mls @ 50 mls/hr IV NOW ONE Stop: 05/15/18 17:28 Last Infusion: 05/15/18 17:48 Dose: 0 mls/hr Admin: 05/15/18 16:39 Dose: 50 mls/hr Sodium Chloride (Normal Saline 0.9%) 1,000 mls @ 1,000 mls/hr IV BOLUS ONE Stop: 05/15/18 17:31 Last Infusion: 05/15/18 18:28 Dose: 0 mls/hr Admin: 05/15/18 16:39 Dose: 1,000 mls/hr Sodium Chloride (Normal Saline 0.9%) 1,000 mls @ 1,000 mls/hr IV BOLUS ONE Stop: 05/15/18 19:15 Last Infusion: 05/15/18 18:50 Dose: 0 mls/hr Admin: 05/15/18 18:27 Dose: 1,000 mls/hr Vancomycin HCl/Dextrose (Vancomycin) 1,000 mg in 200 mls @ 200 mls/hr IV Q12H [facility] Last Admin: 05/16/18 09:59 Dose: Not Given Admin: 05/15/18 21:00 Dose: 200 mls/hr Influenza Virus Vaccine (Flu Vaccine) 0.5 ml IM .ONCE ONE Stop: 05/15/18 19:41 Last Admin: 05/15/18 20:45 Dose: Not Given Influenza Virus Vaccine (Flu Vaccine) 0.5 ml IM .ONCE ONE Stop: 05/16/18 09:01 Last Admin: 05/16/18 12:55 Dose: Not Given Ketorolac Tromethamine (Toradol) 30 mg IV NOW ONE Stop: 05/15/18 17:00 Last Admin: 05/15/18 17:01 Dose: 30 mg Lovastatin (Mevacor) 5 mg PO DAILY [facility] Morphine Sulfate (Morphine) 4 mg IV NOW ONE Stop: 05/15/18 16:30 Last Admin: 05/15/18 16:38 Dose: 4 mg Ondansetron HCl (Zofran) 4 mg IV NOW ONE Stop: 05/15/18 16:30 Last Admin: 05/15/18 16:39 Dose: 4 mg Ranitidine HCl (Zantac) 300 mg PO DAILY [facility] Vital Signs - 8 hr 05/16/18 15:00 05/16/18 16:27 Temperature 98.2 F Pulse Rate 85 Respiratory Rate 13 Blood Pressure 147/92 H Pulse Oximetry 96 96 MDM - Extremity Injury (Upper) <Audra Steinberg PA-C - Last Filed: 05/15/18 21:40> Lab Data Attestation: I reviewed the patient's lab results. Result diagrams: 05/16/18 04:55 05/16/18 04:55 Lab Results 05/15/18 05/15/18 05/15/18 Range/Units 16:15 16:15 16:15 WBC 9.8 (4.5-11.0) X10^3/uL RBC 3.43 L (4.0-5.2) X10^6/uL Hgb 10.3 L (12.0-16.0) g/dL Hct 31.6 L (36-46) % MCV 92.1 (80-100) fL MCH 29.9 (26-34) PG MCHC 32.5 (30-36) % RDW 18.2 H (11.6-14.8) % Plt Count 237 (150-400) X10^3/uL Neut % (Auto) 67.3 (50-75) % Lymph % (Auto) 15.2 L (25-40) % [place] % (Auto) 16.1 H (3-14) % Eos % (Auto) 0.8 L (2-4) % Baso % (Auto) 0.6 (0-2) % Neut # (Auto) 6600 (9728-6106) /uL Lymph # (Auto) 1500 (7103-3707) /uL [place] # (Auto) 1600 H (0-900) /uL Eos # (Auto) 100 (0-450) /uL Baso # (Auto) 100 (0-100) /uL ESR (0-20) MM/HR PT 11.1 (10.1-12.7) SECONDS INR 1.0 (0.9-1.3) APTT 30 (26.4-36.2) SECONDS Sodium 126 L (137-145) mmol/L Potassium 4.7 (3.4-5.1) mmol/L Chloride 88 L (98-107) mmol/L Carbon Dioxide 28 (22-32) mmol/L BUN 12 (7-17) mg/dL Creatinine 0.50 L (0.52-1.04) mg/dL Estimated GFR > 60.0 (>60) mL/min BUN/Creatinine Ratio 24.0 H (6-22) Glucose 321 H (70-100) mg/dL Lactate (0.7-2.1) mmol/L Calcium 9.1 (8.4-10.2) mg/dL Total Bilirubin 0.4 (0.2-1.3) mg/dL AST 31 (14-36) IU/L ALT 23 (9-52) IU/L Alkaline Phosphatase 119 (38-126) U/L C-Reactive Protein (<1.0) mg/dL Total Protein 6.5 (6.3-8.2) g/dL Albumin 3.7 (3.5-5.0) g/dL Globulin 2.8 (1.7-4.1) g/dL Albumin/Globulin Ratio 1.3 (1.0-2.8) 05/15/18 05/15/18 05/15/18 Range/Units 16:15 16:32 16:32 WBC (4.5-11.0) X10^3/uL RBC (4.0-5.2) X10^6/uL Hgb (12.0-16.0) g/dL Hct (36-46) % MCV (80-100) fL MCH (26-34) PG MCHC (30-36) % RDW (11.6-14.8) % Plt Count (150-400) X10^3/uL Neut % (Auto) (50-75) % Lymph % (Auto) (25-40) % [place] % (Auto) (3-14) % Eos % (Auto) (2-4) % Baso % (Auto) (0-2) % Neut # (Auto) (0798-7949) /uL Lymph # (Auto) (8360-1436) /uL [place] # (Auto) (0-900) /uL Eos # (Auto) (0-450) /uL Baso # (Auto) (0-100) /uL ESR 52 H (0-20) MM/HR PT (10.1-12.7) SECONDS INR (0.9-1.3) APTT (26.4-36.2) SECONDS Sodium (137-145) mmol/L Potassium (3.4-5.1) mmol/L Chloride (98-107) mmol/L Carbon Dioxide (22-32) mmol/L BUN (7-17) mg/dL Creatinine (0.52-1.04) mg/dL Estimated GFR (>60) mL/min BUN/Creatinine Ratio (6-22) Glucose (70-100) mg/dL Lactate 2.1 (0.7-2.1) mmol/L Calcium (8.4-10.2) mg/dL Total Bilirubin (0.2-1.3) mg/dL AST (14-36) IU/L ALT (9-52) IU/L Alkaline Phosphatase (38-126) U/L C-Reactive Protein 8.6 H (<1.0) mg/dL Total Protein (6.3-8.2) g/dL Albumin (3.5-5.0) g/dL Globulin (1.7-4.1) g/dL Albumin/Globulin Ratio (1.0-2.8) 05/16/18 05/16/18 Range/Units 04:55 04:55 WBC 7.5 (4.5-11.0) X10^3/uL RBC 3.05 L (4.0-5.2) X10^6/uL Hgb 9.3 L (12.0-16.0) g/dL Hct 28.3 L (36-46) % MCV 92.7 (80-100) fL MCH 30.6 (26-34) PG MCHC 33.0 (30-36) % RDW 17.9 H (11.6-14.8) % Plt Count 200 (150-400) X10^3/uL Neut % (Auto) 62.4 (50-75) % Lymph % (Auto) 19.5 L (25-40) % [place] % (Auto) 14.6 H (3-14) % Eos % (Auto) 2.9 (2-4) % Baso % (Auto) 0.6 (0-2) % Neut # (Auto) 4700 (2079-3578) /uL Lymph # (Auto) 1500 (1004-0596) /uL [place] # (Auto) 1100 H (0-900) /uL Eos # (Auto) 200 (0-450) /uL Baso # (Auto) 0 (0-100) /uL ESR (0-20) MM/HR PT (10.1-12.7) SECONDS INR (0.9-1.3) APTT (26.4-36.2) SECONDS Sodium 133 L (137-145) mmol/L Potassium 4.0 (3.4-5.1) mmol/L Chloride 101 (98-107) mmol/L Carbon Dioxide 27 (22-32) mmol/L BUN 10 (7-17) mg/dL Creatinine 0.50 L (0.52-1.04) mg/dL Estimated GFR > 60.0 (>60) mL/min BUN/Creatinine Ratio 20.0 (6-22) Glucose 178 H D (70-100) mg/dL Lactate (0.7-2.1) mmol/L Calcium 8.8 (8.4-10.2) mg/dL Total Bilirubin (0.2-1.3) mg/dL AST (14-36) IU/L ALT (9-52) IU/L Alkaline Phosphatase (38-126) U/L C-Reactive Protein (<1.0) mg/dL Total Protein (6.3-8.2) g/dL Albumin (3.5-5.0) g/dL Globulin (1.7-4.1) g/dL Albumin/Globulin Ratio (1.0-2.8) Point of Care Testing Glucose POC 278 Urine Dip Bedside Urine Glucose 500 mg/dl Bedside Urine Bilirubin - Negative Bedside Urine Ketone - Negative Urine Specific [place] 1.015 Bedside Urine Occult Blood - Negative Bedside Urine pH 8.0 Bedside Urine Protein - Negative Bedside Urine Urobilinogen - Negative Bedside Urine Nitrite - Negative Bedside Urine Leukocytes - Negative Esterase Imaging Data elbow: Radiologist's impression: [address] [address] XRay Report Signed Patient: Micki Jimenez [facility]#: [id number] : 1970Acct:[id number] Age/Sex: 47 / FDate of Service: 05/15/18 Loc: ED Accession Number: [id number] Procedure: XR elbow LT min 3V Ordering Provider: Audra Steinberg P.A-C PROCEDURE: XR ELBOW LT MIN 3V INDICATIONS: pain, swelling s/p fall, cellulitis TECHNIQUE: 3 views of the elbow were acquired. COMPARISON: None. FINDINGS: Bones: No acute fractures or dislocations. No suspicious bony lesions. Soft tissues: No elbow joint effusion. No suspicious soft tissue calcifications. There is soft tissue swelling overlying the posterior left elbow with subcutaneous foci of gas. Soft tissue swelling extends a short distance proximal and distal to the elbow. No other areas of subcutaneous gas identified. IMPRESSION: Focal soft tissue swelling centered predominantly over the posterior elbow at the level of the olecranon process with a few locules of soft tissue gas. Findings may represent sequela of penetrating injury. However, recommend correlating with physical examination. Findings are discussed with АЛЕКСАНДР Steinberg at 1758 hours. Dictated by: Jose Hodge M.D. on 05/15/2018 at 17:54 Approved by: Jose Hodge M.D. on 05/15/2018 at 18:01 <Renny Pryor MD - Last Filed: 05/16/18 19:27> Lab Data Lab Results 05/15/18 05/15/18 05/15/18 Range/Units 16:15 16:15 16:15 WBC 9.8 (4.5-11.0) X10^3/uL RBC 3.43 L (4.0-5.2) X10^6/uL Hgb 10.3 L (12.0-16.0) g/dL Hct 31.6 L (36-46) % MCV 92.1 (80-100) fL MCH 29.9 (26-34) PG MCHC 32.5 (30-36) % RDW 18.2 H (11.6-14.8) % Plt Count 237 (150-400) X10^3/uL Neut % (Auto) 67.3 (50-75) % Lymph % (Auto) 15.2 L (25-40) % [place] % (Auto) 16.1 H (3-14) % Eos % (Auto) 0.8 L (2-4) % Baso % (Auto) 0.6 (0-2) % Neut # (Auto) 6600 (9570-6241) /uL Lymph # (Auto) 1500 (8774-6574) /uL [place] # (Auto) 1600 H (0-900) /uL Eos # (Auto) 100 (0-450) /uL Baso # (Auto) 100 (0-100) /uL ESR (0-20) MM/HR PT 11.1 (10.1-12.7) SECONDS INR 1.0 (0.9-1.3) APTT 30 (26.4-36.2) SECONDS Sodium 126 L (137-145) mmol/L Potassium 4.7 (3.4-5.1) mmol/L Chloride 88 L (98-107) mmol/L Carbon Dioxide 28 (22-32) mmol/L BUN 12 (7-17) mg/dL Creatinine 0.50 L (0.52-1.04) mg/dL Estimated GFR > 60.0 (>60) mL/min BUN/Creatinine Ratio 24.0 H (6-22) Glucose 321 H (70-100) mg/dL Lactate (0.7-2.1) mmol/L Calcium 9.1 (8.4-10.2) mg/dL Total Bilirubin 0.4 (0.2-1.3) mg/dL AST 31 (14-36) IU/L ALT 23 (9-52) IU/L Alkaline Phosphatase 119 (38-126) U/L C-Reactive Protein (<1.0) mg/dL Total Protein 6.5 (6.3-8.2) g/dL Albumin 3.7 (3.5-5.0) g/dL Globulin 2.8 (1.7-4.1) g/dL Albumin/Globulin Ratio 1.3 (1.0-2.8) 05/15/18 05/15/18 05/15/18 Range/Units 16:15 16:32 16:32 WBC (4.5-11.0) X10^3/uL RBC (4.0-5.2) X10^6/uL Hgb (12.0-16.0) g/dL Hct (36-46) % MCV (80-100) fL MCH (26-34) PG MCHC (30-36) % RDW (11.6-14.8) % Plt Count (150-400) X10^3/uL Neut % (Auto) (50-75) % Lymph % (Auto) (25-40) % [place] % (Auto) (3-14) % Eos % (Auto) (2-4) % Baso % (Auto) (0-2) % Neut # (Auto) (9663-7904) /uL Lymph # (Auto) (4497-9858) /uL [place] # (Auto) (0-900) /uL Eos # (Auto) (0-450) /uL Baso # (Auto) (0-100) /uL ESR 52 H (0-20) MM/HR PT (10.1-12.7) SECONDS INR (0.9-1.3) APTT (26.4-36.2) SECONDS Sodium (137-145) mmol/L Potassium (3.4-5.1) mmol/L Chloride (98-107) mmol/L Carbon Dioxide (22-32) mmol/L BUN (7-17) mg/dL Creatinine (0.52-1.04) mg/dL Estimated GFR (>60) mL/min BUN/Creatinine Ratio (6-22) Glucose (70-100) mg/dL Lactate 2.1 (0.7-2.1) mmol/L Calcium (8.4-10.2) mg/dL Total Bilirubin (0.2-1.3) mg/dL AST (14-36) IU/L ALT (9-52) IU/L Alkaline Phosphatase (38-126) U/L C-Reactive Protein 8.6 H (<1.0) mg/dL Total Protein (6.3-8.2) g/dL Albumin (3.5-5.0) g/dL Globulin (1.7-4.1) g/dL Albumin/Globulin Ratio (1.0-2.8) 05/16/18 05/16/18 Range/Units 04:55 04:55 WBC 7.5 (4.5-11.0) X10^3/uL RBC 3.05 L (4.0-5.2) X10^6/uL Hgb 9.3 L (12.0-16.0) g/dL Hct 28.3 L (36-46) % MCV 92.7 (80-100) fL MCH 30.6 (26-34) PG MCHC 33.0 (30-36) % RDW 17.9 H (11.6-14.8) % Plt Count 200 (150-400) X10^3/uL Neut % (Auto) 62.4 (50-75) % Lymph % (Auto) 19.5 L (25-40) % [place] % (Auto) 14.6 H (3-14) % Eos % (Auto) 2.9 (2-4) % Baso % (Auto) 0.6 (0-2) % Neut # (Auto) 4700 (7817-7697) /uL Lymph # (Auto) 1500 (9787-9950) /uL [place] # (Auto) 1100 H (0-900) /uL Eos # (Auto) 200 (0-450) /uL Baso # (Auto) 0 (0-100) /uL ESR (0-20) MM/HR PT (10.1-12.7) SECONDS INR (0.9-1.3) APTT (26.4-36.2) SECONDS Sodium 133 L (137-145) mmol/L Potassium 4.0 (3.4-5.1) mmol/L Chloride 101 (98-107) mmol/L Carbon Dioxide 27 (22-32) mmol/L BUN 10 (7-17) mg/dL Creatinine 0.50 L (0.52-1.04) mg/dL Estimated GFR > 60.0 (>60) mL/min BUN/Creatinine Ratio 20.0 (6-22) Glucose 178 H D (70-100) mg/dL Lactate (0.7-2.1) mmol/L Calcium 8.8 (8.4-10.2) mg/dL Total Bilirubin (0.2-1.3) mg/dL AST (14-36) IU/L ALT (9-52) IU/L Alkaline Phosphatase (38-126) U/L C-Reactive Protein (<1.0) mg/dL Total Protein (6.3-8.2) g/dL Albumin (3.5-5.0) g/dL Globulin (1.7-4.1) g/dL Albumin/Globulin Ratio (1.0-2.8) Point of Care Testing Glucose POC 278 Urine Dip Bedside Urine Glucose 500 mg/dl Bedside Urine Bilirubin - Negative Bedside Urine Ketone - Negative Urine Specific [place] 1.015 Bedside Urine Occult Blood - Negative Bedside Urine pH 8.0 Bedside Urine Protein - Negative Bedside Urine Urobilinogen - Negative Bedside Urine Nitrite - Negative Bedside Urine Leukocytes - Negative Esterase Discharge Plan Departure Patient Disposition: Admitted As Inpatient Clinical Impression: Cellulitis of left elbow Discharge Date/Time: 05/15/18 18:53 Interventions: ED Discharge Assessment Last Done: 05/15/18 18:53 Admit Date/Time: 05/15/18 18:33 Admit Provider: Harrison Alexis <Renny Pryor MD - Last Filed: 05/16/18 19:27> Cosign ED Attending Cosignature Attestation: I reviewed the case with the provider, examined the patient. I agree with the evaluation and disposition plan.
--- NOTE | 2018-05-15 16:29 | DI.RAD.S_ITS ---
PROCEDURE: XR ELBOW LT MIN 3V INDICATIONS: pain, swelling s/p fall, cellulitis TECHNIQUE: 3 views of the elbow were acquired. COMPARISON: None. FINDINGS: Bones: No acute fractures or dislocations. No suspicious bony lesions. Soft tissues: No elbow joint effusion. No suspicious soft tissue calcifications. There is soft tissue swelling overlying the posterior left elbow with subcutaneous foci of gas. Soft tissue swelling extends a short distance proximal and distal to the elbow. No other areas of subcutaneous gas identified. IMPRESSION: Focal soft tissue swelling centered predominantly over the posterior elbow at the level of the olecranon process with a few locules of soft tissue gas. Findings may represent sequela of penetrating injury. However, recommend correlating with physical examination. Findings are discussed with АЛЕКСАНДР Steinberg at 1758 hours. Dictated by: Jose Hodge M.D. on 05/15/2018 at 17:54 Approved by: Jose Hodge M.D. on 05/15/2018 at 18:01
[2018-05-15] MEDS: MORPHINE 4 MG/ML INJ IV (16:38)
[2018-05-15] MEDS: SODIUM CHLORIDE 0.9% 1,000 ML 1000 ML IV ×2 (16:39→18:27)
[2018-05-15] MEDS: CLINDAMYCIN 600 MG/50 ML PIGGYBACK 50 MG IV (16:39)
[2018-05-15] MEDS: ONDANSETRON 4 MG/2 ML INJ IV (16:39)
[2018-05-15 16:43] LABS: Prothrombin Time 11.1 SECONDS (10.1-12.7)
[2018-05-15 16:45] LABS: Add Manual Diff / Slide Review NO; Basophils Absolute Auto 100 /uL (0-100); Basophils Percent Auto 0.6 % (0-2); Eosinophils Absolute Auto 100 /uL (0-450); Eosinophils Percent Auto 0.8 % (2-4); Hematocrit 31.6 % (36-46); Hemoglobin 10.3 g/dL (12.0-16.0); Lymphocytes Absolute Auto 1500 /uL (1100-4500); Lymphocytes Percent Auto 15.2 % (25-40); Mean Corpuscular HGB Conc 32.5 % (30-36); Mean Corpuscular Hemoglobin 29.9 PG (26-34); Mean Corpuscular Volume 92.1 fL (80-100); Monocytes Absolute Auto 1600 /uL (0-900); Monocytes Percent Auto 16.1 % (3-14); Neutrophils Absolute Auto 6600 /uL (1500-7000); Neutrophils Percent Auto 67.3 % (50-75); Platelet Count 237 X10^3/uL (150-400); Red Blood Cell Count 3.43 X10^6/uL (4.0-5.2); Red Cell Distribution Width 18.2 % (11.6-14.8); White Blood Cell Count 9.8 X10^3/uL (4.5-11.0)
[2018-05-15 16:46] LABS: PTT Partial Thromboplastin Tim 30 SECONDS (26.4-36.2)
[2018-05-15 16:48] LABS: Alanine Aminotransferase 23 IU/L (9-52); Albumin 3.7 g/dL (3.5-5.0); Albumin Globulin Ratio 1.3 (1.0-2.8); Alkaline Phosphatase 119 U/L (38-126); Aspartate Aminotransferase 31 IU/L (14-36); Bilirubin Total 0.4 mg/dL (0.2-1.3); Blood Urea Nitrogen 12 mg/dL (7-17); Calcium 9.1 mg/dL (8.4-10.2); Carbon Dioxide 28 mmol/L (22-32); Chloride 88 mmol/L (98-107); Estimated Glomerular Filt Rate > 60.0 mL/min (>60); Globulin 2.8 g/dL (1.7-4.1); Glucose 321 mg/dL (70-100); HEMOLYSIS < 15 (0-50); Lactate (Lactic Acid) 2.1 mmol/L (0.7-2.1); Potassium 4.7 mmol/L (3.4-5.1); Sodium 126 mmol/L (137-145); Total Protein 6.5 g/dL (6.3-8.2)
[2018-05-15] MEDS: KETOROLAC 60 MG/2 ML VIAL 30 MG IV (17:01)
--- NOTE | 2018-05-15 18:42 | P.HP_ITS ---
History of Present Illness Date Patient Seen: 05/15/18 Time Patient Seen: 18:43 Chief complaint: SWELLING/REEDNESS IN LEFT ARM/HAND Narrative: This is a 47-year-old type 1 diabetic on an insulin pump who has severe peripheral neuropathy and falls frequently. During 1 of her recent falls she badly contused the left elbow and broke 4 ribs on that side. She was evaluated in the [facility] Emergency Department a few days ago. She also followed up with her physician security assistant Karli Nathan in [place] a few days ago. She says at that time the left elbow just had a small abrasion on it. She presents now to the emergency department with severe cellulitis of the left elbow and infectious bursitis of the olecranon on that side. There is an open wound draining yellow pus at the tip of the olecranon, now being cultured. She has felt feverish and has had increased pain and swelling in the left arm along with noticing the redness in the last 3 or 4 days. Her last A1c was 9.5. She is on an insulin pump receiving 0.5 units of regular insulin basal and 2-3 units bolus per meal. Her lactate level is 2.1 and her white blood cell count is not elevated. She also has chronic hyponatremia with her last recorded sodium here of 127 consistent with the 126 we are finding now. 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 Soft tissue gas is seen in the x-ray of the elbow. This does not clinically appear to be necrotizing fasciitis at this time. Patient History Medical History Guttate psoriasis (Acute) Left rib fracture (Acute) Asthma, mild (Chronic) Gastroparesis (Chronic) Psoriasis (Chronic) Type 1 diabetes (Chronic) Surgical History History of (Acute) History of carpal tunnel release of both wrists (Acute) No pertinent past surgical history (Chronic) Family History Father Trauma Mother Hypertension Diabetes mellitus COPD (chronic obstructive pulmonary disease) Social History Smoking Status: Current some day smoker Family & Social History Family History Father Trauma Mother Hypertension Diabetes mellitus COPD (chronic obstructive pulmonary disease) Social History: 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 No smoking, no alcohol use, no marijuana, no drugs. Her primary care is PETER Nathan in [place] Safety & Behavioral: Feels Safe in Current Yes Environment Been Physically Hurt or No Threatened By a Person Tobacco & Substance use: Smoking Status Current some day smoker Substance Use Type does not use Meds Home Medications Medication Instructions Recorded Confirmed Type albuterol sulfate [Ventolin HFA] 2 puff INHALATION PRN PRN 11/16/17 11/16/17 History calcipotriene [Dovonex] 1 applic TOPICAL PRN PRN 11/16/17 11/16/17 History cholecalciferol (vitamin D3) 2,000 units PO DAILY 11/16/17 11/16/17 History [Vitamin D3] cyanocobalamin (vitamin B-12) 1 ml IM QMONTH 11/16/17 11/16/17 History escitalopram oxalate 20 mg PO DAILY 11/16/17 11/16/17 History gabapentin 300 - 600 mg PO DAILY 11/16/17 11/16/17 History glucagon (human recombinant) 1 dose IM DIRECTED 11/16/17 11/16/17 History [Glucagon Emergency Kit (human)] insulin lispro [Humalog U-100 1 dose CONTINUOUS IV INFUSION PRN 11/16/17 11/16/17 History Insulin] PRN levothyroxine 1 tab PO DAILY 11/16/17 11/16/17 History lovastatin 5 mg PO DAILY 11/16/17 11/16/17 History multivitamin with iron 1 tab PO DAILY 11/16/17 11/16/17 History omeprazole 20 mg PO DAILY 11/16/17 11/16/17 History ondansetron 4 mg PO PRN PRN 11/16/17 11/16/17 History potassium chloride 10 meq PO BID 11/16/17 11/16/17 History promethazine 12.5 mg PO PRN PRN 11/16/17 11/16/17 History promethazine 25 mg [place] Q6H PRN #10 each 11/16/17 Rx ranitidine HCl 300 mg PO DAILY 11/16/17 11/16/17 History tacrolimus [Protopic] 1 applic TOPICAL PRN PRN 11/16/17 11/16/17 History Allergies Allergy/AdvReac Type Severity Reaction Status Date / Time latex [LATEX] Allergy Intermediate Verified 05/15/18 14:49 Review of Systems Review of Systems Positive for fever, left arm pain, left arm redness, peripheral neuropathy numbness. Negative for coughing, nausea, vomiting, abdominal pain,, joint pain, seizures, headaches, trouble talking, new allergies, bleeding, dysuria, diarrhea. All systems reviewed & are unremarkable except as noted in HPI and below Exam Vital Signs (past 8 hours): - 05/15/18 14:44 05/15/18 17:05 05/15/18 17:30 Temperature 101.9 F H Pulse Rate 123 H 125 H 118 H Respiratory Rate 18 18 20 Blood Pressure 185/96 H Blood Pressure [Right Arm] 161/78 H 159/78 H Pulse Oximetry 100 95 97 05/15/18 17:33 05/15/18 17:47 Temperature 99.4 F Pulse Rate 120 H Respiratory Rate Blood Pressure Blood Pressure [Right Arm] Pulse Oximetry 96 Oxygen Delivery Method Room Air Narrative Exam Narrative: Alert and oriented x3. She appears to be in mild distress from left arm swelling and pain/stiffness. Pupils are equally round and reactive to light and accommodation. Sclerae are pink And nonicteric. Extraocular muscles are tested intact. There is no lymph nodes felt head, neck, supraclavicular Area. There is no thyromegaly. JVD is less than 6 cm and there are no carotid bruits heard. Heart is regular rate and rhythm without murmur. Lungs are clear to auscultation bilaterally. Abdomen is soft, bowel sounds positive, mildly tender diffusely, no organomegaly. Extremities have no ankle edema. The right arm is normal. The left arm is diffusely swollen from the fingers which are puffy up to just below the shoulder. There is a 1 cm draining pus scabbed at the tip of the left olecranon. Diffusely out from that area is pinkness and swelling going about correction up to the shoulder and correction down to the wrist. The neuro exam. Cranial nerves 2-12 tested intact. Deep tendon reflexes are normal. She has diffuse decreased sensation in a stocking and glove distribution. Motor function is 4/5 throughout. Objective Labs Result Diagrams: 05/15/18 16:15 05/15/18 16:15 Labs: Laboratory Results - last 24 hr 05/15/18 05/15/18 05/15/18 16:15 16:15 16:15 WBC 9.8 RBC 3.43 L Hgb 10.3 L Hct 31.6 L MCV 92.1 MCH 29.9 MCHC 32.5 RDW 18.2 H Plt Count 237 Neut % (Auto) 67.3 Lymph % (Auto) 15.2 L [place] % (Auto) 16.1 H Eos % (Auto) 0.8 L Baso % (Auto) 0.6 Neut # (Auto) 6600 Lymph # (Auto) 1500 [place] # (Auto) 1600 H Eos # (Auto) 100 Baso # (Auto) 100 PT 11.1 INR 1.0 APTT 30 Sodium 126 L Potassium 4.7 Chloride 88 L Carbon Dioxide 28 BUN 12 Creatinine 0.50 L Estimated GFR > 60.0 BUN/Creatinine Ratio 24.0 H Glucose 321 H Lactate Calcium 9.1 Total Bilirubin 0.4 AST 31 ALT 23 Alkaline Phosphatase 119 Total Protein 6.5 Albumin 3.7 Globulin 2.8 Albumin/Globulin Ratio 1.3 05/15/18 16:15 WBC RBC Hgb Hct MCV MCH MCHC RDW Plt Count Neut % (Auto) Lymph % (Auto) [place] % (Auto) Eos % (Auto) Baso % (Auto) Neut # (Auto) Lymph # (Auto) [place] # (Auto) Eos # (Auto) Baso # (Auto) PT INR APTT Sodium Potassium Chloride Carbon Dioxide BUN Creatinine Estimated GFR BUN/Creatinine Ratio Glucose Lactate 2.1 Calcium Total Bilirubin AST ALT Alkaline Phosphatase Total Protein Albumin Globulin Albumin/Globulin Ratio Assessment & Plan Assessment & Plan narrative: 1. Left arm Cellulitis -a culture was done in the emergency department. Pending that culture result she will be on vancomycin and Zosyn. She received 1 dose of clindamycin in the emergency department. 2. Left Olecranon Infectious Bursitis -ortho has been contacted and will see her in the morning for possible elbow washout if indicated. -she will be kept NPO after midnight in case she goes for surgery in the morning. Dextrose will need to be given IV if her blood sugars drop out because of that. Her reported recent A1c is 9.5 so she may not need dextrose, we will have to see. -soft tissue gas was seen on the x-ray. This is most likely because of the open wound at the area. Watch for signs of necrotizing fasciitis. 3. DM 1 -she will continue on her insulin pump at a basal rate of 0.5 units per hour with 2-3 units bolus with each meal. Blood sugars will be followed and optimized. 4. Diabetic Gastroparesis -she will be continued on her Zantac and omeprazole along with her usual antiemetics. 5. Depression -continue escitalopram. 6. Diabetic Peripheral Neuropathy -continue gabapentin. 6. Anemia, probably secondary to chronic disease. -repeat CBC tomorrow and treat if indicated. 8. Hyponatremia -this is reportedly stable and most likely related to her diabetes/gastroparesis .
[2018-05-15 19:21] LABS: C-Reactive Protein Quant 8.6 mg/dL (<1.0)
[2018-05-15 19:27] LABS: Erythrocyte Sedimentation Rate 52 MM/HR (0-20)
[2018-05-15] MEDS: SODIUM CHLORIDE 0.9% 1,000 ML 100 ML IV (19:41)
[2018-05-15] MEDS: VANCOMYCIN 1,000 MG/200 ML FROZ.PIGGY 200 MG IV (21:00)
[2018-05-15] MEDS: HYDROCODONE/ACET 5/325 TABLET 1 TAB PO (21:09)
--- NOTE | 2018-05-15 23:31 | PC.NURSE ---
Admit note: Pt brought from ER to rm 227 via gurney, able to transfer to bed, gait steady. Does report falling several days ago, w/injury to elbow & ribs. Left elbow with drsg CDI, cellulitis extending from upper arm to hand, redness within pen lucy from ER assessment. IV Vanco infused. Home meds reviewed with patient. Pt has own insulin pump, insertion site to left upper abd, site CDI. Has own supplies for pump, states basal rate of 0.5 units/hour. CBG at bedtime was 282, pt gave own sliding scale bolus via pump & home regimen. I called Dr Nathan to obtain correct order for Gabapentin as patient states takes three times/day. Statin & Ranitidine dose changed from AM to PM. aware patient is to be NPO at midnight, new order given for IV Morphine prn overnight as patient reports she gets nauseated if takes [place] on empty stomach. Pt oriented to room & call button, aware bed alarm is on & to call staff & have them present before getting OOB. Asked me to turn off bed alarm but I repeated fall precaution rationale & hospital protocol. Full report given to Zahira SHINE RN.
[2018-05-15] MEDS: PIPERACILLIN-TAZO 3.375 GM/50 ML FROZ.PIGGY IV (23:35)
[2018-05-16] VITALS (8 sets, daily range): BP systolic 147–154; BP diastolic 84–97; PULSE 85–95; RESP 13–19; TEMP 36.8–37.2; O2SAT 96–100
[2018-05-16] MEDS: GABAPENTIN 600 MG TABLET PO ×2 (00:45→20:23)
[2018-05-16] MEDS: SODIUM CHLORIDE 0.9% 1,000 ML 100 ML IV ×2 (02:11→13:01)
[2018-05-16 05:37] LABS: Add Manual Diff / Slide Review NO; Basophils Absolute Auto 0 /uL (0-100); Basophils Percent Auto 0.6 % (0-2); Eosinophils Absolute Auto 200 /uL (0-450); Eosinophils Percent Auto 2.9 % (2-4); Hematocrit 28.3 % (36-46); Hemoglobin 9.3 g/dL (12.0-16.0); Lymphocytes Absolute Auto 1500 /uL (1100-4500); Lymphocytes Percent Auto 19.5 % (25-40); Mean Corpuscular Hemoglobin 30.6 PG (26-34); Mean Corpuscular Volume 92.7 fL (80-100); Monocytes Absolute Auto 1100 /uL (0-900); Monocytes Percent Auto 14.6 % (3-14); Neutrophils Absolute Auto 4700 /uL (1500-7000); Neutrophils Percent Auto 62.4 % (50-75); Platelet Count 200 X10^3/uL (150-400); Red Blood Cell Count 3.05 X10^6/uL (4.0-5.2); Red Cell Distribution Width 17.9 % (11.6-14.8); White Blood Cell Count 7.5 X10^3/uL (4.5-11.0)
[2018-05-16 05:44] LABS: Blood Urea Nitrogen 10 mg/dL (7-17); Calcium 8.8 mg/dL (8.4-10.2); Carbon Dioxide 27 mmol/L (22-32); Chloride 101 mmol/L (98-107); Estimated Glomerular Filt Rate > 60.0 mL/min (>60); Glucose 178 mg/dL (70-100); HEMOLYSIS < 15 (0-50); Sodium 133 mmol/L (137-145)
[2018-05-16] MEDS: PANTOPRAZOLE 20 MG TABLET PO (06:22)
[2018-05-16] MEDS: PIPERACILLIN-TAZO 3.375 GM/50 ML FROZ.PIGGY IV ×4 (06:22→23:37)
[2018-05-16] MEDS: MORPHINE 4 MG/ML INJ IV ×2 (06:28→18:49)
--- NOTE | 2018-05-16 08:41 | CM.DANOTE ---
Addendum entered by Cynthia Lua LPN 05/16/18 09:11: Followed up on insurance status with [facility]. Gabby Nicole has just confirmed that pt has active [facility] PPO. Original Note: Discharge Planning/Care Management DCP: assessment: case received, EMR reviewed and met with pt. Introduced self and role. Pt is a 47 year old female who admitted to care of hospitalist team yesterday evening. Payer: listed as self pay at this time. Will followup with [facility] for further info re this. PCP: DR. Pato Nathan Pt carries a dx of type I IDDM and is on an insulin pump. Pt confirms that she lives with her Rafael in the [facility]. P: follow prn for any d/c needs that arise. Full dx and POC are currently in process. CM Discharge Assessment Start: 05/16/18 08:39 Freq: Status: Active Protocol: Document 05/16/18 08:39 ITV (Rec: 05/16/18 08:41 ITV [id number]) Discharge Planning Assessment Advance Directives? No History Provided By Patient Medical Record Prior Living Arrangements House Household Members spouse Whiteboard Updated in Patient Room with Yes name and ext. # of Criminal Justice Professor Review Status In Process Next Review Type Continued Stay Review
[2018-05-16] MEDS: CHOLECALCIFEROL (VITAMIN D3) 1,000 UNIT TABLET 2000 UNIT PO (09:15)
[2018-05-16] MEDS: ENOXAPARIN 40 MG/0.4 ML SYRINGE SUBCUT (09:15)
[2018-05-16] MEDS: ESCITALOPRAM 10 MG TABLET 20 MG PO (09:15)
[2018-05-16] MEDS: LEVOTHYROXINE 50 MCG TABLET PO (09:15)
[2018-05-16] MEDS: GABAPENTIN 300 MG CAPSULE PO ×2 (09:15→14:46)
[2018-05-16] MEDS: VANCOMYCIN 1,000 MG/200 ML FROZ.PIGGY 200 MG IV ×3 (10:21→21:22)
[2018-05-16] MEDS: TET,DIPH,PERTUSS(ACELL),VAC/PF 0.5 ML SYRINGE IM (10:21)
[2018-05-16] MEDS: HYDROCODONE/ACET 5/325 TABLET 1 TAB PO ×4 (10:31→23:41)
--- NOTE | 2018-05-16 12:15 | PC.NURSE ---
Day shift Pt is A&O able to make needs known. Left elbow has redness and warmth but is receding from outlined boarders, has scab to elbow that is intact with moderate amount of serous fluid draining of dressing and sheets. cleaned site with NS and covered with gauze and rolled gauze, arm is elevated with pillow in bed. Left hand continues to be swollen reports slight improvement. Pt has insulin pump is managing per home routine. Call light within reach and bed alarm on. Received VVO from dr bell this am for diabetic diet, no surgery states will continue with abx.
[2018-05-16] MEDS: INSULIN LISPRO PUMP 1 EACH INJ ×2 (12:46→18:18)
--- NOTE | 2018-05-16 16:53 | PC.NURSE ---
Addendum entered by Gabriella Roman R.N. 05/16/18 21:44: Pt had shower earlier this evening. Dsg changed to left elbow, small spot w/drainage noted Redness decreasing from original borders. IVF contiue as per orders. Call light w/in reach. Condition remains essentially unchanged. Original Note: Pt awake, med at 1550 w/ Vicodin for discomfort w/good relief. Dsg to the left elbow CDI. Lungs clear, SpO2 97% RA. IV NS infusing @ 100cc/hr via pump into the RFA w/o incidence. Pt states insulin pump functioning properly. Call light w/in reach.
--- NOTE | 2018-05-16 19:27 | PM.PN.1 ---
Subjective Date Patient Seen: 05/16/18 Interval history: Patient is 47-year-old female with type 1 diabetes, on insulin pump, admitted due to left arm cellulitis and infectious bursitis of the olecranon. She states there is still a lot of pain in the elbow area but notes improvement of the redness. 1. Left olecranon infectious bursitis with cellulitis of the left arm -this is secondary to abrasion of elbow due to recent fall -the left elbow continues to drain pus but with improvement of erythema on the arm -wound cultures negative at 24 hr -ortho re-evaluated patient and recommending to continue IV antibiotic therapy at this time -continue antibiotic therapy with vancomycin and Zosyn 2. DM 1, poor control, last A1c 9.5 -she will continue on her insulin pump at a basal rate of 0.5 units per hour with 2-3 units bolus with each meal. Blood sugars will be followed and optimized. 3. Diabetic Gastroparesis -she will be continued on her Zantac and omeprazole along with her usual antiemetics. 4. Depression -continue escitalopram. 5. Diabetic Peripheral Neuropathy -continue gabapentin. 6. Anemia, probably secondary to chronic disease. -slight worsening anemia likely inflammatory block, no intervention required 7. Hyponatremia -mild, stable Exam Vital Signs (past 8 hours): - 05/16/18 15:00 05/16/18 16:27 Temperature 98.2 F Pulse Rate 85 Respiratory Rate 13 Blood Pressure 147/92 H Pulse Oximetry 96 96 Oxygen Delivery Method Room Air Narrative Exam Narrative: General: Alert very pleasant female no acute distress Extremities: There is improvement of macular erythema of the left upper and lower arm, erythema now more concentrated around the olecranon, there is abrasion on olecranon where pus has been reported draining, currently no pus drainage seen Objective Labs Result Diagrams: 05/16/18 04:55 05/16/18 04:55 Labs: Laboratory Results - last 24 hr 05/15/18 05/16/18 05/16/18 16:32 04:55 04:55 WBC 7.5 RBC 3.05 L Hgb 9.3 L Hct 28.3 L MCV 92.7 MCH 30.6 MCHC 33.0 RDW 17.9 H Plt Count 200 Neut % (Auto) 62.4 Lymph % (Auto) 19.5 L [place] % (Auto) 14.6 H Eos % (Auto) 2.9 Baso % (Auto) 0.6 Neut # (Auto) 4700 Lymph # (Auto) 1500 [place] # (Auto) 1100 H Eos # (Auto) 200 Baso # (Auto) 0 ESR 52 H Sodium 133 L Potassium 4.0 Chloride 101 Carbon Dioxide 27 BUN 10 Creatinine 0.50 L Estimated GFR > 60.0 BUN/Creatinine Ratio 20.0 Glucose 178 H D Calcium 8.8 Quality VTE Deep Vein Thrombosis/Pulmonary Embolism Present on Admission: No
[2018-05-17] VITALS (9 sets, daily range): BP systolic 129–173; BP diastolic 76–100; PULSE 87–116; RESP 15–21; TEMP 36.6–37.6; O2SAT 92–100
[2018-05-17] MEDS: VANCOMYCIN 1,000 MG/200 ML FROZ.PIGGY 200 MG IV ×3 (03:59→21:10)
[2018-05-17] MEDS: SODIUM CHLORIDE 0.9% 1,000 ML 100 ML IV ×2 (03:59→17:43)
[2018-05-17] MEDS: HYDROCODONE/ACET 5/325 TABLET 1 TAB PO ×2 (04:06→08:44)
[2018-05-17] MEDS: LEVOTHYROXINE 50 MCG TABLET PO (06:25)
[2018-05-17] MEDS: PANTOPRAZOLE 20 MG TABLET PO (06:25)
[2018-05-17] MEDS: PIPERACILLIN-TAZO 3.375 GM/50 ML FROZ.PIGGY IV ×3 (06:25→18:10)
[2018-05-17] MEDS: ESCITALOPRAM 10 MG TABLET 20 MG PO (08:43)
[2018-05-17] MEDS: ENOXAPARIN 40 MG/0.4 ML SYRINGE SUBCUT (08:43)
[2018-05-17] MEDS: CHOLECALCIFEROL (VITAMIN D3) 1,000 UNIT TABLET 2000 UNIT PO (08:43)
[2018-05-17] MEDS: GABAPENTIN 300 MG CAPSULE PO ×2 (08:44→13:38)
--- NOTE | 2018-05-17 08:56 | PC.NURSE ---
Addendum entered by Jocelyne Allen R.N. 05/17/18 10:57: received call from lab and vanco trough 22.8 holding vanco called pharmacy awaiting new dosing. Original Note: Day Shift Pt is A&O able to make needs known. Rates pain to left elbow 7/10 medicated per emar. dressing is dry and intact with shadow drainage, redness and warmth has decreased since yesterdays assessment. continues to have edema to elbow hand Brisk cap refill, denies numbness or tingling, Strong pulse to left hand. pt is not able to bend left elbow fully. Call light within reach and bed alarm on.
[2018-05-17] MEDS: INSULIN LISPRO PUMP 1 EACH INJ ×4 (10:29→21:07)
[2018-05-17 10:52] LABS: Vancomycin Trough 22.8 ug/mL (10-20)
[2018-05-17] MEDS: VANCOMYCIN TROUGH 1 REQUEST MISC (11:23)
[2018-05-17] MEDS: OXYCODONE IR 5 MG TABLET PO ×4 (11:57→21:05)
[2018-05-17] MEDS: INFLUENZA VACCINE 0.5 ML SYRINGE IM (11:58)
--- NOTE | 2018-05-17 18:18 | PM.CN ---
History of Present Illness Date Patient Seen: 05/16/18 Time Patient Seen: 08:00 Chief complaint: SWELLING/REEDNESS IN LEFT ARM/HAND Narrative: 48-year-old female diabetic approximately 1 week after a fall on her left elbow with resultant abrasion. Patient states that she was seemingly recovering well from her fall with minor soreness in the elbow but the day prior to admission developed marked increased pain, swelling and redness, and small amount of drainage from the posterior aspect of the elbow. Patient was admitted to the hospitalist for assessment evaluation for probable cellulitis and a consultation requested for evaluation of possible abscess or bursitis. Patient has been afebrile but has significant pain and stiffness in the left elbow. PFSH Medical History Guttate psoriasis (Acute) Left rib fracture (Acute) Asthma, mild (Chronic) Gastroparesis (Chronic) Psoriasis (Chronic) Type 1 diabetes (Chronic) Surgical History History of (Acute) History of carpal tunnel release of both wrists (Acute) No pertinent past surgical history (Chronic) Family History Father Trauma Mother Hypertension Diabetes mellitus COPD (chronic obstructive pulmonary disease) Social History household members: spouse Smoking Status: Former smoker alcohol intake: never Social History household members: spouse Smoking Status: Former smoker alcohol intake: never Meds Home Medications Medication Instructions Recorded Confirmed Type albuterol sulfate [Ventolin HFA] 2 puff INHALATION PRN PRN 11/16/17 05/15/18 History calcipotriene [Dovonex] 1 applic TOPICAL PRN PRN 11/16/17 05/15/18 History cholecalciferol (vitamin D3) 2,000 units PO DAILY 11/16/17 05/15/18 History [Vitamin D3] cyanocobalamin (vitamin B-12) 1 ml IM QMONTH 11/16/17 05/16/18 History escitalopram oxalate 20 mg PO DAILY 11/16/17 05/15/18 History gabapentin 300 mg PO BID 11/16/17 05/15/18 History glucagon (human recombinant) 1 dose IM DIRECTED 11/16/17 05/16/18 History [Glucagon Emergency Kit (human)] insulin lispro [Humalog U-100 1 dose CONTINUOUS IV INFUSION PRN 11/16/17 05/15/18 History Insulin] PRN levothyroxine 1 tab PO DAILY 11/16/17 05/15/18 History lovastatin 5 mg PO BEDTIME 11/16/17 05/15/18 History multivitamin with iron 1 tab PO DAILY 11/16/17 05/15/18 History omeprazole 20 mg PO DAILY 11/16/17 05/15/18 History ondansetron 4 mg PO PRN PRN 11/16/17 05/15/18 History potassium chloride 10 meq PO BID 11/16/17 05/15/18 History promethazine 12.5 mg PO PRN PRN 11/16/17 05/16/18 History promethazine 25 mg [place] Q6H PRN #10 each 11/16/17 05/16/18 Rx ranitidine HCl 300 mg PO BEDTIME 11/16/17 05/15/18 History tacrolimus [Protopic] 1 applic TOPICAL PRN PRN 11/16/17 05/15/18 History gabapentin 600 mg PO BEDTIME 05/15/18 05/15/18 History Allergies Allergy/AdvReac Type Severity Reaction Status Date / Time latex [LATEX] Allergy Intermediate Verified 05/15/18 14:49 Review of Systems Review of Systems All systems reviewed & are unremarkable except as noted in HPI and below Exam Vital Signs (past 8 hours): - 05/17/18 12:00 05/17/18 16:52 Temperature 97.8 F 98.2 F Pulse Rate 99 H 94 H Respiratory Rate 16 20 Blood Pressure 146/82 H 162/100 H Pulse Oximetry 98 98 Oxygen Delivery Method Room Air Narrative Exam Narrative: Patient is awake, alert, oriented and in no obvious distress other than discomfort due to left elbow pain. Patient is afebrile and her vital signs are stable. HEENT normocephalic atraumatic, lungs clear to auscultation, heart regular rate rhythm, abdomen benign. Examination of left upper extremity demonstrates diffuse erythema over the posterior olecranon with a small punctate opening area with a small amount of granulation tissue. The erythema appears to be decreased relative to a sharpie marker around the posterior aspect of the elbow and the patient's perception is that this is improved since admission after starting intravenous antibiotics. Elbow range of motion is 30-120 degrees with posterior pain on forced flexion. Sensation and circulation are intact distally. There is no purulent drainage at this time. Objective Labs Result Diagrams: 05/16/18 04:55 05/16/18 04:55 Labs: Laboratory Results - last 24 hr 05/17/18 05/17/18 09:46 13:42 Nasal Screen MRSA (PCR) Negative for mrsa Vancomycin Trough 22.8 H* Assessment & Plan Assessment & Plan narrative: Patient with posterior elbow cellulitis and possible olecranon bursitis with a small area of open drainage. The drainage has been cultured the patient appears to be on appropriate antibiotics and has already seen some clinical improvement and less than 24 hr. Recommend continued IV antibiotics and monitor progress. We discussed the option of irrigation and debridement should her symptoms and infection fail to resolve on IV antibiotics alone. Patient understands and agrees and will be reassessed tomorrow.
--- NOTE | 2018-05-17 18:23 | P.CONS_ITS ---
History of Present Illness Date Patient Seen: 05/16/18 Time Patient Seen: 08:00 Chief complaint: SWELLING/REEDNESS IN LEFT ARM/HAND Narrative: 48-year-old female diabetic approximately 1 week after a fall on her left elbow with resultant abrasion. Patient states that she was seemingly re covering well from her fall with minor soreness in the elbow but the day prior to admission developed marked increased pain, swelling and redness, and small amount of drainage from the posterior aspect of the elbow. Patient was admitted to the hospitalist for assessment evaluation for probable cellulitis and a consultation requested for evaluation of possible abscess or bursitis. Patient has been afebrile but has significant pain and stiffness in the left elbow. PFSH Medical History Guttate psoriasis (Acute) Left rib fracture (Acute) Asthma, mild (Chronic) Gastroparesis (Chronic) Psoriasis (Chronic) Type 1 diabetes (Chronic) Surgical History History of (Acute) History of carpal tunnel release of both wrists (Acute) No pertinent past surgical history (Chronic) Family History Father Trauma Mother Hypertension Diabetes mellitus COPD (chronic obstructive pulmonary disease) Social History household members: spouse Smoking Status: Former smoker alcohol intake: never Social History household members: spouse Smoking Status: Former smoker alcohol intake: never Meds Home Medications Medication Instructions Recorded Confirmed Type albuterol sulfate [Ventolin HFA] 2 puff INHALATION PRN PRN 11/16/17 05/15/18 History calcipotriene [Dovonex] 1 applic TOPICAL PRN PRN 11/16/17 05/15/18 History cholecalciferol (vitamin D3) 2,000 units PO DAILY 11/16/17 05/15/18 History [Vitamin D3] cyanocobalamin (vitamin B-12) 1 ml IM QMONTH 11/16/17 05/16/18 History escitalopram oxalate 20 mg PO DAILY 11/16/17 05/15/18 History gabapentin 300 mg PO BID 11/16/17 05/15/18 History glucagon (human recombinant) 1 dose IM DIRECTED 11/16/17 05/16/18 History [Glucagon Emergency Kit (human)] insulin lispro [Humalog U-100 1 dose CONTINUOUS IV INFUSION PRN 11/16/1705/31 History Insulin] PRN levothyroxine 1 tab PO DAILY 11/16/17 05/15/18 History lovastatin 5 mg PO BEDTIME 11/16/17 05/15/18 History multivitamin with iron 1 tab PO DAILY 11/16/17 05/15/18 History omeprazole 20 mg PO DAILY 11/16/17 05/15/18 History ondansetron 4 mg PO PRN PRN 11/16/17 05/15/18 History potassium chloride 10 meq PO BID 11/16/17 05/15/18 History promethazine 12.5 mg PO PRN PRN 11/16/17 05/16/18 History promethazine 25 mg NC Q6H PRN #10 each 11/16/17 05/16/18 Rx ranitidine HCl 300 mg PO BEDTIME 11/16/17 05/15/18 History tacrolimus [Protopic] 1 applic TOPICAL PRN PRN 11/16/17 05/15/18 History gabapentin 600 mg PO BEDTIME 05/15/18 05/15/18 History Allergies Allergy/AdvReac Type Severity Reaction Status Date / Time latex [LATEX] Allergy Intermediate Verified 05/15/18 14:49 Review of Systems Review of Systems All systems reviewed & are unremarkable except as noted in HPI and below Exam Vital Signs (past 8 hours): - 05/17/18 12:00 05/17/18 16:52 Temperature 97.8 F 98.2 F Pulse Rate 99 H 94 H Respiratory Rate 16 20 Blood Pressure 146/82 H 162/100 H Pulse Oximetry 98 98 Oxygen Delivery Method Room Air Narrative Exam Narrative: Patient is awake, alert, oriented and in no obvious distress other than discomfort due to left elbow pain. Patient is afebrile and her vital signs are stable. HEENT normocephalic atraumatic, lungs clear to auscultation, heart regular rate rhythm, abdomen benign. Examination of left upper extremity demonstrates diffuse erythema over the posterior olecranon with a small punctate opening area with a small amount of granulation tissue. The erythema appears to be decreased relative to a sharpie marker around the posterior aspect of the elbow and the patient's perception is that this is improved since admission after starting intravenous antibiotics. Elbow range of motion is 30- 120 degrees with posterior pain on forced flexion. Sensation and circulation are intact distally. There is no purulent drainage at this time. Objective Labs Result Diagrams: 05/16/18 04:55 05/16/18 04:55 Labs: Laboratory Results - last 24 hr 05/17/18 05/17/18 09:46 13:42 Nasal Screen MRSA (PCR) Negative for mrsa Vancomycin Trough 22.8 H* Assessment & Plan Assessment & Plan narrative: Patient with posterior elbow cellulitis and possible olecranon bursitis with a small area of open drainage. The drainage has been cultured the patient appears to be on appropriate antibiotics and has already seen some clinical improvement and less than 24 hr. Recommend continued IV antibiotics and monitor progress. We discussed the option of irrigation and debridement should her symptoms and infection fail to resolve on IV antibiotics alone. Patient understands and agrees and will be reassessed tomorrow.
--- NOTE | 2018-05-17 18:26 | P.PN_ITS ---
Subjective Date Patient Seen: 05/17/18 Time Patient Seen: 18:23 Interval history: Although patient's condition appeared to be improving this morning on reassessment this evening patient stating that she is having increasing pain yet again and feels that she has lost some mobility of her e lbow. She states that her dressing was changed just recently and there was further drainage of clear fluid. Her cultures have come back with no growth. Exam Vital Signs (past 8 hours): - 05/17/18 12:00 05/17/18 16:52 Temperature 97.8 F 98.2 F Pulse Rate 99 H 94 H Respiratory Rate 16 20 Blood Pressure 146/82 H 162/100 H Pulse Oximetry 98 98 Oxygen Delivery Method Room Air Narrative Exam Narrative: Patient remains afebrile and her vital signs are stable. Examination of left elbow demonstrates a focal area of fairly significant erythema directly over the posterior olecranon, the small open area remains open with granulation tissue although there is no obvious purulence or drainage. Range of motion of the elbow is 30 to about 100? and there is pain on extremes of motion. Objective Labs Result Diagrams: 05/16/18 04:55 05/16/18 04:55 Labs: Laboratory Results - last 24 hr 05/17/18 05/17/18 09:46 13:42 Nasal Screen MRSA (PCR) Negative for mrsa Vancomycin Trough 22.8 H* Assessment & Plan Assessment & Plan narrative: After initial positive response to intravenous antibiotics the patient appears to have had worsening of her symptoms during the course of the day today. We discussed the nature of condition and options and I would recommend proceeding with incision and drainage irrigation debridement and bursectomy tomorrow. Patient understands and agrees. Quality VTE Deep Vein Thrombosis/Pulmonary Embolism Present on Admission: No
--- NOTE | 2018-05-17 18:47 | PC.NURSE ---
Addendum entered by Gabriella Roman R.N. 05/17/18 21:58: Med at 2100 for discomfort w/minimal relief. IVF continue a per orders. Condition remains sessentilaly unchanged. Relatively uneventful evening. Call light w/in reach, call appropriately for needs. Continue w/plan of care. Original Note: Pt up ad min in room. Lungs clear, SpO2 97% RA Ledt elbow redened and painful. Small amount white oozing present. NS infusing @ 100cc/hr via pump into the RFA w/o incidence. Pt states CBG 219; pt gave herself 2u insulin from pump. Med @ 1800 w/ oxycodone for discomfort. Call light w/in reach.
--- NOTE | 2018-05-17 19:20 | P.PN_ITS ---
Subjective Date Patient Seen: 05/17/18 Interval history: Patient is 47-year-old female with type 1 diabetes, on insulin pump, admitted due to left arm cellulitis and infectious bursitis of the olecranon. She states there is still a lot of pain in the elbow area with slight drainage. Exam Vital Signs (past 8 hours): - 05/17/18 12:00 05/17/18 16:52 05/17/18 18:47 Temperature 97.8 F 98.2 F Pulse Rate 99 H 94 H Respiratory Rate 16 20 Blood Pressure 146/82 H 162/100 H Pulse Oximetry 98 98 97 Oxygen Delivery Method Room Air Narrative Exam Narrative: General: Alert very pleasant female no acute distress Extremities: There is still significant edema and erythema above and below the elbow, concentrated around the olecranon, there is abrasion on olecranon where pus has been reported draining, currently no pus drainage seen Objective Labs Result Diagrams: 05/16/18 04:55 05/16/18 04:55 Labs: Laboratory Results - last 24 hr 05/17/18 05/17/18 09:46 13:42 Nasal Screen MRSA (PCR) Negative for mrsa Vancomycin Trough 22.8 H* Assessment & Plan Assessment & Plan narrative: 1. Left olecranon infectious bursitis with cell ulitis of the left arm -this is secondary to abrasion of elbow due to recent fall -the olecranon bursitis does not seem significantly better, and Dr. Bacon planning to I and D and washout in OR tomorrow afternoon -wound cultures negative, final -continue antibiotic therapy with vancomycin and Zosyn, noting elevated vancomycin trough level, pharmacy adjusting dose 2. DM 1, poor control, last A1c 9.5 -she will continue on her insulin pump at a basal rate of 0.5 units per hour with 2-3 units bolus with each meal. Blood sugars will be followed and optimized. 3. Diabetic Gastroparesis -she will be continued on her Zantac and omeprazole along with her usual antiemetics. 4. Depression -continue escitalopram. 5. Diabetic Peripheral Neuropathy -continue gabapentin. 6. Anemia, probably secondary to chronic disease. -worsening anemia likely inflammatory block, no intervention required -recheck in a.m. 7. Hyponatremia -mild, stable Quality VTE Deep Vein Thrombosis/Pulmonary Embolism Present on Admission: No
[2018-05-17] MEDS: GABAPENTIN 600 MG TABLET PO (21:06)
[2018-05-18] VITALS (28 sets, daily range): BP systolic 119–192; BP diastolic 65–110; PULSE 82–104; RESP 12–20; TEMP 36.4–37.6; O2SAT 88–98; BMI 25.7
[2018-05-18] MEDS: OXYCODONE IR 5 MG TABLET PO ×3 (00:07→06:17)
[2018-05-18] MEDS: PIPERACILLIN-TAZO 3.375 GM/50 ML FROZ.PIGGY IV ×4 (00:07→18:35)
[2018-05-18] MEDS: VANCOMYCIN 1,000 MG/200 ML FROZ.PIGGY 200 MG IV ×3 (04:52→22:01)
[2018-05-18 05:54] LABS: Add Manual Diff / Slide Review NO; Basophils Absolute Auto 100 /uL (0-100); Basophils Percent Auto 0.7 % (0-2); Eosinophils Absolute Auto 200 /uL (0-450); Eosinophils Percent Auto 2.4 % (2-4); Hemoglobin 9.9 g/dL (12.0-16.0); Lymphocytes Absolute Auto 1300 /uL (1100-4500); Lymphocytes Percent Auto 17.5 % (25-40); Mean Corpuscular HGB Conc 32.1 % (30-36); Mean Corpuscular Hemoglobin 29.9 PG (26-34); Mean Corpuscular Volume 93.2 fL (80-100); Monocytes Absolute Auto 1600 /uL (0-900); Monocytes Percent Auto 21.4 % (3-14); Neutrophils Absolute Auto 4200 /uL (1500-7000); Platelet Count 328 X10^3/uL (150-400); Red Blood Cell Count 3.32 X10^6/uL (4.0-5.2); Red Cell Distribution Width 18.1 % (11.6-14.8); White Blood Cell Count 7.3 X10^3/uL (4.5-11.0)
[2018-05-18 05:56] LABS: BUN Creatinine Ratio 8.3 (6-22); Blood Urea Nitrogen 5 mg/dL (7-17); Carbon Dioxide 29 mmol/L (22-32); Chloride 96 mmol/L (98-107); Estimated Glomerular Filt Rate > 60.0 mL/min (>60); Glucose 273 mg/dL (70-100); HEMOLYSIS < 15 (0-50); Sodium 131 mmol/L (137-145)
[2018-05-18] MEDS: LEVOTHYROXINE 50 MCG TABLET PO (06:17)
[2018-05-18] MEDS: PANTOPRAZOLE 20 MG TABLET PO (06:17)
[2018-05-18] MEDS: SODIUM CHLORIDE 0.9% 1,000 ML 100 ML IV (08:20)
[2018-05-18] MEDS: GABAPENTIN 300 MG CAPSULE PO (08:26)
[2018-05-18] MEDS: INSULIN LISPRO PUMP 1 EACH INJ ×3 (08:28→22:01)
--- NOTE | 2018-05-18 09:34 | P.PN_ITS ---
Subjective Date Patient Seen: 05/18/18 Time Patient Seen: 09:31 Interval history: Hospital day 4. Patient has left elbow olecranon cellulitis/bursitis. She initially improved with IV antibiotic within symptoms worsened yesterday. She does note some increase in pain today and more limitat ion and elbow motion. She was seen by Dr. Bacon yesterday and he plans on doing I and D of her posterior elbow later today. She has been on vancomycin and Zosyn. Exam Vital Signs (past 8 hours): - 05/18/18 03:58 05/18/18 07:00 Temperature 98.7 F 98.6 F Pulse Rate 101 H 97 H Respiratory Rate 20 16 Blood Pressure 152/65 H 160/95 H Pulse Oximetry 94 95 Oxygen Delivery Method Room Air Narrative Exam Narrative: Left arm. Mild to moderate edema noted to the elbow area with mild erythema. There is a small hole noted at the olecranon point without active drainage. Moderate tenderness on palpation around the posterior elbow. Elbow active motion 90-110 degrees with pain. Objective Labs Result Diagrams: 05/18/18 05:10 05/18/18 05:10 Labs: Laboratory Results - last 24 hr 05/17/18 05/17/18 05/18/18 09:46 13:42 05:10 WBC 7.3 RBC 3.32 L Hgb 9.9 L Hct 31.0 L MCV 93.2 MCH 29.9 MCHC 32.1 RDW 18.1 H Plt Count 328 Neut % (Auto) 58.0 Lymph % (Auto) 17.5 L [place] % (Auto) 21.4 H Eos % (Auto) 2.4 Baso % (Auto) 0.7 Neut # (Auto) 4200 Lymph # (Auto) 1300 [place] # (Auto) 1600 H Eos # (Auto) 200 Baso # (Auto) 100 Sodium Potassium Chloride Carbon Dioxide BUN Creatinine Estimated GFR BUN/Creatinine Ratio Glucose Calcium Nasal Screen MRSA (PCR) Negative for mrsa Vancomycin Trough 22.8 H* 05/18/18 05:10 WBC RBC Hgb Hct MCV MCH MCHC RDW Plt Count Neut % (Auto) Lymph % (Auto) [place] % (Auto) Eos % (Auto) Baso % (Auto) Neut # (Auto) Lymph # (Auto) [place] # (Auto) Eos # (Auto) Baso # (Auto) Sodium 131 L Potassium 4.0 Chloride 96 L Carbon Dioxide 29 BUN 5 L Creatinine 0.60 Estimated GFR > 60.0 BUN/Creatinine Ratio 8.3 Glucose 273 H Calcium 9.0 Nasal Screen MRSA (PCR) Vancomycin Trough Assessment & Plan Assessment & Plan narrative: Plan: Patient scheduled for left elbow I and D later this afternoon by Dr. Bacon. Anticipate that she will probably be in the hospital another 1-2 days after that. Quality VTE Deep Vein Thrombosis/Pulmonary Embolism Present on Admission: No
[2018-05-18] MEDS: ENOXAPARIN 40 MG/0.4 ML SYRINGE SUBCUT (10:12)
[2018-05-18] MEDS: MORPHINE 4 MG/ML INJ IV ×2 (10:13→14:07)
--- NOTE | 2018-05-18 10:49 | PC.NURSE ---
Addendum entered by Jocelyne Allen R.N. 05/18/18 13:35: pt checked self bs and was 171. Original Note: Day Shift Pt is A&O able to make needs known. Continues to be NPO for I&D this afternoon with ortho. Pt has increased pain to left elbow, noted to having increased swelling around scab site, decrease ROM to elbow, unable to tolerate having dressing on elbow. Spoke with АЛЕКСАНДР lópez to give Lovenox and and gabapentin and switch pain medication to IV until surgery. Rates pain 7/10 to elbow medicated with IV MS. Is elevated in bed. Checked own BS at 1020 and 188. spouse at bedside. call light within reach and bed alarm for safety
[2018-05-18 13:24] LABS: Vancomycin Trough 18.7 ug/mL (10-20)
[2018-05-18] MEDS: VANCOMYCIN TROUGH 1 REQUEST MISC (13:34)
--- NOTE | 2018-05-18 15:53 | PC.NURSE ---
Addendum entered by Gabriella Roman R.N. 05/18/18 22:15: Pt returned to room in stable condition. Left elbow dsg CDI. Pulses ++ IVF restarted as per orders. Pt pain at a 10/10, med w/dilaudid w/minimal relief Give MS 0.5 IVP w/ improved results. Stable post op course. Call light with in reach, call appropriately for needs. Continue w/plan of care. Original Note: Pt assisted to BR IV NS @ 100cc/hr infusing into the RFA w/o incidence. Pt awaiting surgery this afternoon. Left elbow remains reddened, warm and tender to touch. Small oozing white liquid noted. Call light w/in reach. Calls appropriately for needs.
[2018-05-18] MEDS: LACTATED RINGERS 1,000 ML 42 ML IV (16:18)
--- NOTE | 2018-05-18 16:49 | PM.PREOP ---
Pre-operative Note Interval Note History & Physical reviewed/Exam performed by Physician: Yes Changes to H&P: No
--- NOTE | 2018-05-18 17:15 | SUR.OPER ---
Supine on padded OR bed, head on pillow, arms secured on padded arm boards at <90 degrees abduction, legs uncrossed, safety belt at thigh, tape over blanket over lower legs.
[2018-05-18] MEDS: fentaNYL 100 MCG/2 ML INJ 50 MCG IV ×5 (17:50→18:45)
--- NOTE | 2018-05-18 17:54 | PM.OP.1 ---
Operative Date/Time/Diagnoses Date of procedure: 05/18/18 Time of procedure: 17:54 Pre-op diagnosis: Septic olecranon bursitis left elbow Post-op diagnosis: same Procedure & Clinicians Procedure: incision and drainage, irrigation and debridement of left elbow including olecranon bursectomy Same procedure as scheduled: Yes Indications: 48-year-old female status post fall with contusion and abrasion over the posterior elbow. Approximately 1 week after injury developed sudden onset of pain swelling and erythema including a small punctate area of drainage. Patient was admitted to [facility] where she was placed on intravenous antibiotics and initially had good response to the antibiotics with significant improvement in pain, erythema, and swelling. After the initial improvement however symptoms persisted and in fact slightly worsened so we have discussed the nature of condition, treatment options, risks, and benefits and recommend incision and drainage, irrigation debridement and removal of the bursa. Patient understands and agrees and gives informed consent. Surgeon: Romulo Bacon Click Yes if Unassisted: Yes Anesthesia Type: General Operative Notes Findings: small subcutaneous pocket directly overlying the posterior border of the olecranon including a moderately thickened bursa with only a small amount of purulent material contained. Closure Type: primary Specimen(s): none sent Prosthetic devices, grafts, tissues, transplants, or devices: Quarter-inch Nu Gauze through the subcutaneous layer to be pulled on postop day 2. Estimated Blood Loss (mL): 20 Tourniquet time (min): 20 Procedure in detail: after satisfactory induction of a general anesthetic and administration of IV antibiotics, a tourniquet was placed high on the left arm and the left upper extremities prepped draped in usual sterile fashion. Posterolateral elliptical incision was made, ellipsing out the small punctate open area of granulation tissue. The ellipse of skin along with a segment of the olecranon bursa was then sharply removed, the incision was approximately 3 in. The olecranon bursa was identified and dissected off of the posterior triceps expansion. There was no tracking medially but a small amount of tracking ( approximately 1-2 cm) anteriorly. This area was cleared of all fibrinous material and granulation tissue which was minimal using combination of sponge, curette, and rongeur. After satisfactory debridement back to normal-appearing tissue the wound was copiously irrigated. A quarter-inch Nu Gauze was placed entering through a puncture wound proximal laterally and exiting through the distal extent of the incision. The incision was closed loosely over the Nu Gauze with interrupted mattress sutures of 2 0 nylon. and Adaptic was placed over the wound and then a well-padded bandage in Everardo over wrap were applied. The anesthetic was terminated. Complications: none Condition: stable Disposition: PACU Plan for aftercare: Patient will be undergoing care of the hospitalist and continue IV antibiotics until there are no further signs of cellulitis. The Nu Gauze can be removed postop day 1 (tomorrow) and dressing changes as needed sutures removed at approximately 2 weeks postop depending on healing.
[2018-05-18] MEDS: LABETALOL 20 MG/4 ML SYRINGE 5 MG IV (18:17)
--- NOTE | 2018-05-18 18:27 | SUR.PHASEI ---
Prolonged PACU stay due to VS management. Analgesic without significant difference, but post Labvetolol sig change seen. ? if neuropathy shielding actual sensory response but BP indicating somatic pain.
--- NOTE | 2018-05-18 19:39 | SUR.PHASEI ---
Prolonged PACU stay related to untoward VS, O2 needs, pain control. IV also stopped running, ?internal pressure > IV rate after fluids slowed. Need to stay determined as well by timing of med receipt. Patient was quite patient and wholey awake throughout.
[2018-05-18] MEDS: LACTATED RINGERS 1,000 ML 125 ML IV (20:30)
[2018-05-18] MEDS: HYDROMORPHONE 2 MG TABLET PO (21:10)
[2018-05-18] MEDS: MORPHINE 2 MG/ML INJ 0.5 MG IV ×2 (21:54→23:08)
[2018-05-18] MEDS: POTASSIUM CHLORIDE 10 MEQ TAB PO (21:57)
[2018-05-18] MEDS: GABAPENTIN 600 MG TABLET PO (21:57)
--- NOTE | 2018-05-18 22:07 | PM.PN.1 ---
Subjective Date Patient Seen: 05/18/18 Interval history: Micki Jimenez is a 47-year-old female with type 1 diabetes, on insulin pump, admitted due to left arm cellulitis and infectious bursitis of the olecranon. The patient is resting in bed comfortably and in no acute distress. She continues to endorse significant pain around left elbow. Fluctuent area present with purulent cone without drainage today. She is unable to have full range of motion due to infection bursitis. She denies headache, cough, shortness of breath, chest pain, abdominal pain, nausea, vomiting, fever, chills, dysuria, diarrhea or constipation. She is voiding and eliminating without difficulty. She is up ambulating independently. Exam Vital Signs (past 8 hours): - 05/18/18 15:43 05/18/18 15:45 05/18/18 16:20 Temperature 97.9 F 99.6 F Pulse Rate 97 H 84 Respiratory Rate 20 20 Blood Pressure 141/95 H 165/88 H Pulse Oximetry 97 92 98 05/18/18 17:37 05/18/18 17:42 05/18/18 17:47 Temperature 97.6 F Pulse Rate 100 H 98 H 100 H Respiratory Rate 12 15 16 Blood Pressure 165/105 H 163/101 H 181/107 H Pulse Oximetry 93 88 L 98 05/18/18 17:57 05/18/18 18:02 05/18/18 18:07 Temperature Pulse Rate 96 H 98 H 84 Respiratory Rate 14 12 16 Blood Pressure 181/95 H 188/100 H 192/110 H Pulse Oximetry 97 94 95 05/18/18 18:12 05/18/18 18:17 05/18/18 18:18 Temperature Pulse Rate 90 96 H 82 Respiratory Rate 16 14 Blood Pressure 176/97 H 192/110 H 163/93 H Pulse Oximetry 95 97 05/18/18 18:23 05/18/18 18:28 05/18/18 18:37 Temperature 98.6 F 98.4 F Pulse Rate 82 88 90 Respiratory Rate 18 18 14 Blood Pressure 161/91 H 166/93 H 164/98 H Pulse Oximetry 96 97 96 05/18/18 18:47 05/18/18 18:59 05/18/18 19:02 Temperature 98.1 F Pulse Rate 90 88 88 Respiratory Rate 15 15 16 Blood Pressure 171/96 H 163/91 H 163/91 H Pulse Oximetry 97 97 96 05/18/18 19:15 05/18/18 19:45 05/18/18 20:15 Temperature 97.7 F 97.8 F Pulse Rate 87 104 H 103 H Respiratory Rate 20 20 20 Blood Pressure 151/92 H 147/80 H 119/73 Pulse Oximetry 90 L 05/18/18 21:15 Temperature Pulse Rate 95 H Respiratory Rate Blood Pressure 156/83 H Pulse Oximetry Oxygen Delivery Method Nasal Cannula Oxygen Flow Rate 0 Narrative Exam Narrative: General: Middle-aged female lying in bed and in no acute distress, well-developed, well-nourished, appropriately interactive. HEENT: Normocephalic, atraumatic. External ears without defect. Pupils equal, round, and reactive to light. Anicteric sclerae, moist conjunctivae, and no lid lag. Oropharynx free of erythema and cobble stoning with moist mucosa. Flushed appearing cheeks bilaterally. Neck: Supple with full range of motion. No lymphadenopathy or thyromegaly. Cardiovascular: Regular rate and rhythm without murmurs, rubs, or gallops appreciated Pulmonary: Clear to auscultation bilaterally without crackles, wheezes, or rhonchi. Normal respiratory effort with no use of accessory muscles. Abdomen: soft, bowel sounds present, nontender, nondistended. No hepatosplenomegaly or masses appreciated. Extremities: Significant erythema around left olecranon with fluctuant mass and purulent cone without drainage. Significant tenderness to palpation of left olecranon and left forearm.No clubbing, cyanosis, or edema Of other extremities. Skin: Normal temperature, turgor, and texture; no rash, ulcers, or subcutaneous nodules appreciated. Neurological: Cranial nerves grossly intact. Psychiatric: Normal mood and affect. Alert and oriented to person, place, and time. Objective Labs Result Diagrams: 05/19/18 05:15 05/19/18 08:34 Labs: Laboratory Results - last 24 hr 05/18/18 05/18/18 05/18/18 05:10 05:10 12:45 WBC 7.3 RBC 3.32 L Hgb 9.9 L Hct 31.0 L MCV 93.2 MCH 29.9 MCHC 32.1 RDW 18.1 H Plt Count 328 Neut % (Auto) 58.0 Lymph % (Auto) 17.5 L [place] % (Auto) 21.4 H Eos % (Auto) 2.4 Baso % (Auto) 0.7 Neut # (Auto) 4200 Lymph # (Auto) 1300 [place] # (Auto) 1600 H Eos # (Auto) 200 Baso # (Auto) 100 Sodium 131 L Potassium 4.0 Chloride 96 L Carbon Dioxide 29 BUN 5 L Creatinine 0.60 Estimated GFR > 60.0 BUN/Creatinine Ratio 8.3 Glucose 273 H Calcium 9.0 Vancomycin Trough 18.7 Assessment & Plan Assessment & Plan narrative: Micki Jimenez is a 47-year-old female with type 1 diabetes, on insulin pump, admitted due to left arm cellulitis and infectious bursitis of the olecranon. 1. Left olecranon infectious bursitis with cellulitis of the left arm, present on admission. Active. -This is secondary to abrasion of elbow due to recent fall. -Wound cultures positive for MSSA. -Continue antibiotic therapy with Zosyn for now to cover anaerobes. Plan for I &D with washout today and then will plan to narrow antibiotic coverage. -Consulted Orthopedic surgery and we appreciate their time and care of the patient. Due to minimal improvement in olecranon infectious bursitis, Dr. Bacon planning to I&D and washout this afternoon. 2. diabetes mellitus type 1 on insulin pump, present on admission. Stable. -Poor control, last A1c 9.5%. -She will continue on her insulin pump at a basal rate of 0.5 units per hour with 2-3 units bolus with each meal. Blood sugars will be followed and optimized. 3. Diabetic gastroparesis, present on admission. Stable. -She will be continued on her Zantac and omeprazole along with her usual antiemetics. 4. Diabetic peripheral neuropathy -Continue gabapentin. 5. Depression, present on admission. Stable. -Continue escitalopram. 6. Acute on chronic anemia, present on admission. Acute portion resolved. -Worsening anemia likely inflammatory block, no intervention required. Chronic portion is anemia of chronic disease related to diabetes. -Continue to monitor CBC daily. 7. Chronic hyponatremia, present on admission. Stable. -Mild, stable. Disposition: Likely discharge in several days depending on improvement in infectious bursitis after I&D with washout. Quality VTE Deep Vein Thrombosis/Pulmonary Embolism Present on Admission: No
[2018-05-19] MEDS: HYDROMORPHONE 2 MG TABLET PO ×10 (00:10→22:51)
[2018-05-19] MEDS: INSULIN LISPRO PUMP 1 EACH INJ ×4 (00:21→20:33)
[2018-05-19 03:47] VITALS: BP 144/88; PULSE 101; RESP 16; TEMP 36.9; O2SAT 95
[2018-05-19] MEDS: VANCOMYCIN 1,000 MG/200 ML FROZ.PIGGY 200 MG IV (04:39)
--- NOTE | 2018-05-19 04:55 | PC.NURSE ---
NOC SHIFT/Pain-- Patient in a lot of pain at beginning of shift. Patient very worried about hand swelling. Patient educated on cellulitis and symptoms of the infection/inflammation process, education on I and D surgery also discussed with patient with verbal understanding received. CMS intact, 2+ edema to L hand/wrist, 2+ radial pulse palpated. Dilaudid helpful for pain management. Ice packs and elevation encouraged with patient for comfort. Patient able to rest after multiple pain interventions. No acute distress, will continue to monitor.
[2018-05-19 05:55] LABS: Hematocrit 31.8 % (36-46); Hemoglobin 10.3 g/dL (12.0-16.0); Mean Corpuscular HGB Conc 32.2 % (30-36); Mean Corpuscular Hemoglobin 30.1 PG (26-34); Mean Corpuscular Volume 93.5 fL (80-100); Platelet Count 359 X10^3/uL (150-400); Red Cell Distribution Width 18.3 % (11.6-14.8); White Blood Cell Count 8.9 X10^3/uL (4.5-11.0)
[2018-05-19] MEDS: LACTATED RINGERS 1,000 ML 125 ML IV (06:15)
[2018-05-19 08:00] VITALS: BP 158/90; PULSE 104; RESP 16; TEMP 37; O2SAT 96
[2018-05-19] MEDS: LEVOTHYROXINE 50 MCG TABLET PO (08:07)
[2018-05-19] MEDS: GABAPENTIN 300 MG CAPSULE PO (08:07)
[2018-05-19] MEDS: ESCITALOPRAM 10 MG TABLET 20 MG PO (08:08)
[2018-05-19] MEDS: POTASSIUM CHLORIDE 10 MEQ TAB PO ×2 (08:09→20:31)
[2018-05-19] MEDS: MULTIVIT,CALC,MINS/IRON/FOLIC 1 TABLET 1 TAB PO (08:09)
--- NOTE | 2018-05-19 08:51 | PM.PNPO.1 ---
Subjective Date Patient Seen: 05/19/18 Time Patient Seen: 08:51 Interval history: Hospital day 5, postop day 1 following left elbow olecranon bursectomy and I and D by Dr. Bacon. She was found have a small pocket of purulence and thickened bursa. Dressing was packed with Nu Gauze. Patient has remained stable postoperatively. She was restarted on vancomycin By Dr. Bacon postoperatively. Her culture did note moderate growth of Staph aureus which was pansensitive. Patient is being followed by hospitalist who wishes to discontinue the vancomycin and change her to a different antibiotic. Pain controlled with Dilaudid. Exam Vital Signs (past 8 hours): - 05/19/18 03:47 Temperature 98.4 F Pulse Rate 101 H Respiratory Rate 16 Blood Pressure 144/88 H Pulse Oximetry 95 Oxygen Delivery Method Nasal Cannula Oxygen Flow Rate 0 Narrative Exam Narrative: Left arm. Good blanching and sensation to hand. 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 There is moderate swelling of her hand which I think is related to her Everardo wrap around the elbow restricting return of flow. Everardo wrap in place without drainage. Objective Labs Result Diagrams: 05/19/18 05:15 05/18/18 05:10 Labs: Laboratory Results - last 24 hr 05/18/18 05/19/18 12:45 05:15 WBC 8.9 RBC 3.40 L Hgb 10.3 L Hct 31.8 L MCV 93.5 MCH 30.1 MCHC 32.2 RDW 18.3 H Plt Count 359 Vancomycin Trough 18.7 Assessment & Plan Post-op Postoperative Procedures Operation Date: 05/18/18 16:15 Actual Procedures Side Surgeon p Incision and Drainage Wound/Extremity-Elbow Left Romulo Bacon MD Plan: Patient will have her dressing changed and the Nu Gauze removed later today by orthopedic PA with dry dressing applied. Patient will be changed to a different antibiotic chosen by hospitalist since culture was pansensitive. Patient will be discharged home pending clearance by hospitalist. She will need a postop visit with Dr. Bacon at the [facility] office at 2 weeks postop. Quality VTE Deep Vein Thrombosis/Pulmonary Embolism Present on Admission: No
[2018-05-19 09:45] LABS: Alanine Aminotransferase 36 IU/L (9-52); Albumin 3.6 g/dL (3.5-5.0); Albumin Globulin Ratio 1.1 (1.0-2.8); Alkaline Phosphatase 166 U/L (38-126); Aspartate Aminotransferase 53 IU/L (14-36); Bilirubin Total 0.3 mg/dL (0.2-1.3); Blood Urea Nitrogen 3 mg/dL (7-17); Calcium 8.9 mg/dL (8.4-10.2); Carbon Dioxide 28 mmol/L (22-32); Chloride 91 mmol/L (98-107); Estimated Glomerular Filt Rate > 60.0 mL/min (>60); Globulin 3.2 g/dL (1.7-4.1); Glucose 258 mg/dL (70-100); HEMOLYSIS < 15 (0-50); Magnesium 1.2 mg/dL (1.6-2.3); Potassium 3.7 mmol/L (3.4-5.1); Sodium 130 mmol/L (137-145); Total Protein 6.8 g/dL (6.3-8.2)
--- NOTE | 2018-05-19 10:56 | PC.NURSE ---
Pt up to bathroom independently. States pain in elbow gets worse towards the end of the 3 hour interval. Receiving 2mg Dilaudid. Noted left upper ext has swelling distal to the operated site. Everardo wrap CDI, plan for PA to remove packing later this afternoon and replace with gauze dressing.
--- NOTE | 2018-05-19 12:00 | PT.IIE ---
Current Diagnoses Cellulitis of left upper limb (05/15/18) Surgery Performed Operation Date: 05/18/18 16:15 Actual Procedures p Incision and Drainage Wound/Extremity-Elbow(Left) - Romulo Bacon MD Surgical History (Last Updated 05/15/18 @ 18:47 by Harrison Alexis MD) History of (Acute) History of carpal tunnel release of both wrists (Acute) No pertinent past surgical history (Chronic) Medical History (Last Updated 05/15/18 @ 18:48 by Harrison Alexis MD) Guttate psoriasis (Acute) Left rib fracture (Acute) Asthma, mild (Chronic) Gastroparesis (Chronic) Psoriasis (Chronic) Type 1 diabetes (Chronic) Physical Therapy Inpatient Evaluation/Re-Eval M1 PT/OT-IP Prior Functional Status Start: 05/19/18 12:06 Freq: NEEDED Status: Active Protocol: Document 05/19/18 11:30 HH (Rec: 05/19/18 12:41 [id number]) Medical Review Prior Functional Status Medical History Reviewed Yes Communication no deficits noted. able to make needs known Mobility and Gait Pt was an independent ambulator at home and community. Pt states she has low energy level depends on the day due to her gastroparesis and type 1 IDDM. Pt mostly stays home and able to go to grocery store or town for errands if it's a good day. Activities of Daily Living and IADL's Pt was independent for ADLs and IADLs. Social History Household Members spouse family Living Arrangements House Number of Floors (Floors) One Floor Number of Stairs To Enter/Railing? 1 JENIFFER without railing Home Environment High Toilet Tub/Shower Home Equipment Shower Seat with Backrest Grab Bars In Shower Employment Status Unemployed Additional Social History Comment Pt lives with her and her mom in a 1 level home with 1 JENIFFER. Pt's mom is an independent ambulator with 4WW at home SPC for community mobility. She is also independent for ADLs but some assist for IADLs from pt and pt's Rafael. Pt is currently unemployed due to her ongoing medical issues. Pt fell last week and broke her L ribs and contusion and abrasion over the L posterior elbow. Her elbow was infected and had erthema with drainage. Pt has gastroparesis, type I IDDM and peripheral neuropathy which causes to have multiple episodes a month that she feels extremely weak. Pt states she fell multiple times before due to her occasional L knee buckling and L foot drop. Pt currently received tx at for gastroparesis and outpatient PT for her L foot drop. Pt also mentioned she has episodes of vertigo primarily positional changes that gives her spinning sensation for 30s to 60s each, which causes LOB sometimes. M2 PT-IP Current Condition Start: 05/19/18 12:06 Freq: NEEDED Status: Active Protocol: Document 05/19/18 11:30 HH (Rec: 05/19/18 12:41 [email or web address]) Physical Therapy Current Condition Current Condition Evaluation Date 05/19/18 Treatment Diagnosis s/p debridement of left elbow, L elbow cellulitis, generalized weakness Onset Date 05/18/18 Weight Bearing Status Weight Bearing Status Weight Bear as Tolerated M3 PT-IP Subjective Start: 05/19/18 12:06 Freq: NEEDED Status: Active Protocol: Document 05/19/18 11:30 HH (Rec: 05/19/18 12:41 [email or web address]) Subjective Physical Therapy Visit Type Type Initial Evaluation Visit Start Time 11:30 Visit Stop Time 11:50 Total Visit Minutes 20 Notes Per RN, pt up and amb independently within her room. Everardo wrap on L elbow. 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 Patient Goals To return home with her . Therapy Pain Assessment Pain When Pain Assessed During Mobility Pain Present Pain Present Pain Reported Location Left Arm Intensity 5 Scale Used Numeric (1 - 10) Description Acute Pain Management Techniques Apply Cold Modification of Treatment Re-positioning Timing of Activity with Medications M4 PT-IP Mobility and Gait Start: 05/19/18 12:06 Freq: NEEDED Status: Active Protocol: Document 05/19/18 11:30 HH (Rec: 05/19/18 12:41 [email or web address]) PT-Bed Mobility Assessment Rolling Type of Rolling Roll to Right Level of Assist Independent Supine to Sit Supine to Sit Independent Sit to Supine Sit to Supine Independent Scooting Scooting to Edge of Bed Independent Scooting Up and Down in Bed Independent PT-Transfer Assessment Sit to and From Stand Sit to and from Stand Independent Equipment Transfer Assistive Device None Gait Belt Orthotic/Prosthetic Devices or Brace: No Transfers Transfer Destination Bed Chair Transfer Technique Stand Step Pivot Transfer Ability Level of Assist Independent Comments Mobility Comments Pt got up from bed and transferred to chair/ bed multiple times independently. Gait Assessment Gait Gait Assistance Required: Standby Assistance Distance (Feet) 350 Able to Maintain Weight Bearing Status Yes During Gait Assistive Devices Assistive Device None Gait Belt Gait Deviations General Gait Pattern Decreased Stride Length Decreased Feet Clearance Wide Based Gait Factors Limiting Gait Function Factors Limiting Gait Function Decreased Activity Tolerance Decreased Sensation Decreased Strength Pain Poor Balance Comments Gait Comments Pt amb from EOB to hallway for a total of 350 ft without AD SBA. Pt amb with L foot turned out and L antaglic gait. She presented increase lateral weight shift and decreased foot clearance as amb distance increases. Pt states I tend to get more wobbly and my feet tends to hurt if i walk further. Stair Climbing Assessment Evaluation Level of Assist On Stairs Contact Guard Assistance Devices Stair Climbing Assistive Devices None Left Railing Right Railing Technique/Endurance Stair Climbing Direction Ascend and Descend Stair Climbing Technique Step Over Step Step to Step Number of Steps Climbed 3 Query Text: Stair Climbing Set # Repetitions (reps) 2 Comments Stair Climbing Comments step over for ascending step to for descending PT-Balance Assessment Sitting Balance and Reactions Static Sitting Balance Ability Normal Dynamic Sitting Balance Ability Normal Standing Balance and Reactions Static Standing Balance Ability Good Dynamic Standing Balance Ability Good M5 PT-IP Objective Assessments Start: 05/19/18 12:06 Freq: NEEDED Status: Active Protocol: Document 05/19/18 11:30 (Rec: 05/19/18 12:41 [email or web address]) Orientation Orientation/Cognition Level of Alertness Alert Orientation Name Age Birthday Month Date Year Day of Week Place Situation Language Function Ability No Deficits Noted Safety Awareness Understands Safety Issues Memory Description No Deficits Noted Gross Range of Motion Upper Extremity ROM Assessment Left Impaired Lower Extremity ROM Assessment Within Functional Limits Strength Upper Extremity Strength Assessment Left Impaired Lower Extremity Strength Assessment Bilaterally Impaired Ankle L 3/5, R 4+/5 Comments Strength Comments R LE 4/5 L LE 3+/% Coordination Assessment Gross Coordination Gross Coordination WNL Assessment Finger to Nose Test Normal Performance Pronation/Supination Test Normal Performance Foot Tapping Test Normal Performance Heel on Dutton Test Normal Performance Sensation Assessment Sensation Gross Sensation Right LE Impaired Left LE Impaired Light Touch Impaired Proprioception (Position) Impaired Sensation Description Hyperesthesia Comments Sensation Comments Pt states my feet are very sensitive Muscle Tone Muscle Tone WNL Yes M6 PT-IP Treatment Start: 05/19/18 12:06 Freq: NEEDED Status: Active Protocol: Document 05/19/18 11:30 HH (Rec: 05/19/18 12:41 HH [email or web address]) Physical Therapy Treatment Exercises Exercises Ankle Pumps Gluteal Sets Quad Sets Education Education Provided Safety M7 PT-IP Assessment and Plan Start: 05/19/18 12:06 Freq: NEEDED Status: Active Protocol: Document 05/19/18 11:30 HH (Rec: 05/19/18 12:41 HH [email or web address]) PT Summary Assessment and Plan Potential Rehabilitation Potential Good Status of Condition at Evaluation Evolving Summary Impairments Pain ROM Strength Balance Sensation Bed Mobility Transfers Gait Activity Tolerance Assessment Summary Pt is a very pleasant 48yo female POD#2 s/p debridement of left elbow bursaectomy due to L elbow cellulitis and infectious bursa after GLF. Pt has a chronic PMH with type 1 IDDM and gastroparesis which caused her ongoing episodes of sudden weakness and multiple falls. Pt also has possible BPPV which increases her fall risks. Pt presented mod I for overall mobility upon assessment, but she tends to increase L foot weakness/ decrease balance as amb distance increases. Pt will cont to be monitored her mobility and strength during hospitalization. Pt should be able to d/c home with assistance as needed once she is medically stable, but she will benefit to participate outpatient PT for her possible BPPV and overall strengthening. Goals Bed Mobility Goal Independent Transfer Goal Independent Gait Goal Independent Gait Distance 500 Days to Meet Goals 3 Frequency of Treatment Frequency Of Treatment Once a Day Treatment Plan Physical Therapy Treatment Plan Gait Training Therapeutic Exercise Balance Retraining Discharge Planning Hot or Cold Pack Other Recommendations and Next Treatment LE strengthening Focus foot strengthening with thera band gait training assess her foot drop pattern Recommendations To Nursing Amount of Assist Needed Standby Assistance Discharge Recommendations PT Discharge Recommendations Home with Assistance Outpatient PT Other Discharge Recommendations Pt should be able to d/c home with assistance as needed once she is medically stable, but she will benefit to participate outpatient PT for her possible BPPV and overall strengthening. Equipment Needed for Home Before 4WW and SPC due to her ongoing Discharge sudden weakness.
[2018-05-19 13:00] VITALS: BP 164/89; PULSE 96; RESP 16; TEMP 36.8; O2SAT 94
[2018-05-19] MEDS: cephALEXin 250 MG CAPSULE 500 MG PO ×2 (14:19→20:32)
--- NOTE | 2018-05-19 15:22 | CM.DPC ---
DCP Cont: Discussed patient during team rounds with Richard Escoto. Patient is on Vancomycin for purlence secondary to bursectomy. Patient may be getting a different antibiotic. Hospitalist is to follow up with patient, and determine appropriate antibiotic pending culture. Patient will be discharged home on oral antibiotic. P: DCP to continue to follow. Patient will be able to be discharged home when she is able to go on oral antibiotics. She is also to follow up with Dr. Bacon in his office as follow up as well. Pamella Enriquez RN/Warehouse Person
[2018-05-19 16:30] VITALS: BP 161/98; PULSE 106; RESP 20; TEMP 36.8; O2SAT 91
[2018-05-19] MEDS: MORPHINE 4 MG/ML INJ IV (16:30)
--- NOTE | 2018-05-19 18:05 | P.PN_ITS ---
Subjective Date Patient Seen: 05/19/18 Interval history: Micki Jimenez is a 47-year-old female with type 1 diabetes, on insulin pump, admitted due to left arm cellulitis and infectious bursitis of the olecranon. The patient is resting in bed comfortably and in no acute distress. The patient reports significant postoperative pain that has been difficult to control. She has significant swelling of the dorsum of her left hand and left forearm. Her arm is slightly raised but not significant enough to improve venous drainage. She has no other complaints. She denies headache, cough, shortness of breath, chest pain, abdominal pain, nausea, vomiting, fever, chills, dysuria, diarrhea or constipation. She is voiding and eliminating without difficulty. She is up ambulating independently. Exam Vital Signs (past 8 hours): - 05/19/18 13:00 05/19/18 16:30 Temperature 98.3 F 98.3 F Pulse Rate 96 H 106 H Respiratory Rate 16 20 Blood Pressure 164/89 H 161/98 H Pulse Oximetry 94 91 Oxygen Delivery Method Nasal Cannula Oxygen Flow Rate 0 Narrative Exam Narrative: General: Middle-aged female lying in bed and in no acute distress, well- developed, well-nourished, appropriately interactive. HEENT: Normocephalic, atraumatic. External ears without defect. Pupils equal, round, and reactive to light. Anicteric sclerae, moist conjunctivae, and no lid lag. Oropharynx free of erythema and cobble stoning with moist mucosa. Flushed appearing cheeks bilaterally. Neck: Supple with full range of motion. No lymphadenopathy or thyromegaly. Cardiovascular: Regular rate and rhythm without murmurs, rubs, or gallops appr eciated Pulmonary: Clear to auscultation bilaterally without crackles, wheezes, or rhonchi. Normal respiratory effort with no use of accessory muscles. Abdomen: Soft, bowel sounds present, nontender, nondistended. No hepatosplenomegaly or masses appreciated. Extremities: Significant swelling of dorsum of left hand and left forearm. Bandage in place over olecranon C/D/I. No clubbing, cyanosis, or edema of other extremities. Skin: Normal temperature, turgor, and texture; no ulcers, or subcutaneous nodules appreciated. Scattered psoriasis throughout whole body especially on right forearm and neck and chest. Neurological: Cranial nerves grossly intact. Psychiatric: Normal mood and affect. Alert and oriented to person, place, and time. Objective Labs Result Diagrams: 05/19/18 05:15 05/19/18 08:34 Labs: Laboratory Results - last 24 hr 05/19/18 05/19/18 05:15 08:34 WBC 8.9 RBC 3.40 L Hgb 10.3 L Hct 31.8 L MCV 93.5 MCH 30.1 MCHC 32.2 RDW 18.3 H Plt Count 359 Sodium 130 L Potassium 3.7 Chloride 91 L Carbon Dioxide 28 BUN 3 L Creatinine 0.50 L Estimated GFR > 60.0 BUN/Creatinine Ratio 6.0 Glucose 258 H Calcium 8.9 Magnesium 1.2 L Total Bilirubin 0.3 AST 53 H ALT 36 Alkaline Phosphatase 166 H Total Protein 6.8 Albumin 3.6 Globulin 3.2 Albumin/Globulin Ratio 1.1 Assessment & Plan Assessment & Plan narrative: Micki Jimenez is a 47-year-old female with type 1 diabetes, on insulin pump, admitted due to left arm cellulitis and infectious bursitis of the olecranon. 1. Left olecranon infectious bursitis with cellulitis of the left arm, present on admission. Active. -This is secondary to abrasion of elbow due to recent fall. -Wound cultures positive for MSSA. -Discontinued IV antibiotics and switched to Keflex 500 mg 4 times daily to complete a total of 14 day course. -Consulted Orthopedic surgery and we appreciate their time and care of the patient. Due to minimal improvement in olecranon infectious bursitis, Dr. Bacon performed I&D and washout with removal of bursa. Plan for patient to follow up with Orthopedic surgery in 2 weeks. 2. Diabetes mellitus type 1 on insulin pump, present on admission. Stable. -Poor control, last A1c 9.5%. -She will continue on her insulin pump at a basal rate of 0.5 units per hour with 2-3 units bolus with each meal. Blood sugars will be followed and optimized. 3. Diabetic gastroparesis, present on admission. Stable. -She will be continued on her Zantac and omeprazole along with her usual antiemetics. 4. Diabetic peripheral neuropathy, present on admission. Stable. -Continue gabapentin. 5. Depression, present on admission. Stable. -Continue escitalopram. 6. Acute on chronic anemia, present on admission. Acute portion resolved. -Worsening anemia likely inflammatory block, no intervention required. Chronic portion is anemia of chronic disease related to diabetes. -Continue to monitor CBC daily. 7. Chronic hyponatremia, present on admission. Stable. -Mild, stable. Disposition: Likely discharge in 1-2 days depending on pain control and improvement in left olecranon bursitis/cellulitis. Quality VTE Deep Vein Thrombosis/Pulmonary Embolism Present on Admission: No
[2018-05-19] MEDS: MAGNESIUM SULFATE 4 GM/100 ML PIGGYBACK IV (18:25)
[2018-05-19] MEDS: GABAPENTIN 600 MG TABLET PO (20:32)
[2018-05-19] MEDS: LOVASTATIN 10 MG TABLET 5 MG PO (20:33)
[2018-05-19 20:42] VITALS: BP 156/90; PULSE 100; RESP 20; TEMP 36.7; O2SAT 97
--- NOTE | 2018-05-19 21:02 | PC.NURSE ---
perry note-pt has been up independently in room, pain okay with po dilaudid q2hr. Lf arm elevated. Packing and couple sutures and drsg changed by [id number] [place] around 1600, pt didnt tolerate pain very well so got a one time dose of 4mg IVP Morphine, which helped. Pt now resting in bed. Has been A&O, calm and cooperative.
--- NOTE | 2018-05-19 23:43 | PC.NURSE ---
Addendum entered by Yodit Prakash R.N. 05/20/18 03:24: 0320 - RX given for pain per pt request. LUE edema. Warm to touch. 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 Denies change in sensation. Using call light appropriately. Original Note: 3242 - Pt awake and alert, reports that she just changed her insulin pump site independently, RLQ, States that she monitors her own BG up to 10 times per day, especially when I am sick. Reports pain 5 of 10, Elevated on pillows, natan wrap cdi, adjusted per request, ice packs. Discussed pain medication dose times. I.S. education provided r/t fx ribs. Call light in reach.
[2018-05-20 00:15] VITALS: BP 150/99; PULSE 101; RESP 16; TEMP 36.7; O2SAT 94
[2018-05-20] MEDS: HYDROMORPHONE 2 MG TABLET PO ×6 (01:09→11:16)
[2018-05-20 02:55] VITALS: BP 143/79; PULSE 92; RESP 16; TEMP 36.4; O2SAT 100
[2018-05-20 03:24] VITALS: BP 152/95; PULSE 90; RESP 16; TEMP 36.2; O2SAT 95
[2018-05-20] MEDS: LEVOTHYROXINE 50 MCG TABLET PO (05:12)
[2018-05-20 05:44] LABS: Add Manual Diff / Slide Review NO; Basophils Absolute Auto 0 /uL (0-100); Basophils Percent Auto 0.4 % (0-2); Eosinophils Absolute Auto 200 /uL (0-450); Eosinophils Percent Auto 2.4 % (2-4); Hematocrit 31.2 % (36-46); Hemoglobin 10.1 g/dL (12.0-16.0); Lymphocytes Absolute Auto 1900 /uL (1100-4500); Lymphocytes Percent Auto 20.8 % (25-40); Mean Corpuscular HGB Conc 32.3 % (30-36); Mean Corpuscular Hemoglobin 30.1 PG (26-34); Mean Corpuscular Volume 93.1 fL (80-100); Monocytes Absolute Auto 1800 /uL (0-900); Monocytes Percent Auto 20.2 % (3-14); Neutrophils Absolute Auto 5100 /uL (1500-7000); Neutrophils Percent Auto 56.2 % (50-75); Platelet Count 388 X10^3/uL (150-400); Red Blood Cell Count 3.35 X10^6/uL (4.0-5.2); White Blood Cell Count 9.1 X10^3/uL (4.5-11.0)
[2018-05-20 05:47] LABS: Alanine Aminotransferase 29 IU/L (9-52); Albumin 3.2 g/dL (3.5-5.0); Albumin Globulin Ratio 1.1 (1.0-2.8); Alkaline Phosphatase 136 U/L (38-126); Aspartate Aminotransferase 23 IU/L (14-36); Bilirubin Total 0.2 mg/dL (0.2-1.3); Blood Urea Nitrogen 3 mg/dL (7-17); Calcium 8.8 mg/dL (8.4-10.2); Carbon Dioxide 29 mmol/L (22-32); Chloride 96 mmol/L (98-107); Estimated Glomerular Filt Rate > 60.0 mL/min (>60); Globulin 2.9 g/dL (1.7-4.1); Glucose 250 mg/dL (70-100); HEMOLYSIS < 15 (0-50); Potassium 3.5 mmol/L (3.4-5.1); Sodium 132 mmol/L (137-145); Total Protein 6.1 g/dL (6.3-8.2)
[2018-05-20] MEDS: INSULIN LISPRO PUMP 1 EACH INJ (08:36)
[2018-05-20] MEDS: cephALEXin 250 MG CAPSULE 500 MG PO (08:36)
[2018-05-20] MEDS: POTASSIUM CHLORIDE 10 MEQ TAB PO (08:37)
[2018-05-20] MEDS: MULTIVIT,CALC,MINS/IRON/FOLIC 1 TABLET 1 TAB PO (08:37)
[2018-05-20] MEDS: ESCITALOPRAM 10 MG TABLET 20 MG PO (08:37)
[2018-05-20] MEDS: GABAPENTIN 300 MG CAPSULE PO (08:37)
--- NOTE | 2018-05-20 10:07 | PM.PNPO.1 ---
Subjective Date Patient Seen: 05/20/18 Time Patient Seen: 10:07 Interval history: POD 2 s/p left elbow olecranon bursectomy and I + D by Dr. Bacon. She was found have a small pocket of purulence and thickened bursa. Dressing was packed with Nu Gauze. Patient has remained stable postoperatively. Patient is being followed by hospitalist who discontinued IV antibiotics and switched to Keflex 500 mg 4 times daily to complete a total of 14 day course. Pain controlled with Dilaudid. Dressing was changed yesterday afternoon. Patient is a type 1 diabetic. Exam Vital Signs (past 8 hours): - 05/20/18 02:55 05/20/18 03:24 Temperature 97.6 F 97.2 F L Pulse Rate 92 H 90 Respiratory Rate 16 16 Blood Pressure 143/79 H 152/95 H Pulse Oximetry 100 95 Oxygen Delivery Method Nasal Cannula Oxygen Flow Rate 0 Narrative Exam Narrative: Patient sitting up in bed in NAD. She is alert and oriented x3. Dressing on left arm CDI. Radial pulses are symmetrical. Sensation intact to light touch throughout bilateral lower extremities. Objective Labs Result Diagrams: 05/20/18 05:04 05/20/18 05:04 Labs: Laboratory Results - last 24 hr 05/20/18 05/20/18 05:04 05:04 WBC 9.1 RBC 3.35 L Hgb 10.1 L Hct 31.2 L MCV 93.1 MCH 30.1 MCHC 32.3 RDW 18.0 H Plt Count 388 Neut % (Auto) 56.2 Lymph % (Auto) 20.8 L Woodruff % (Auto) 20.2 H Eos % (Auto) 2.4 Baso % (Auto) 0.4 Neut # (Auto) 5100 Lymph # (Auto) 1900 Woodruff # (Auto) 1800 H Eos # (Auto) 200 Baso # (Auto) 0 Sodium 132 L Potassium 3.5 Chloride 96 L Carbon Dioxide 29 BUN 3 L Creatinine 0.60 Estimated GFR > 60.0 BUN/Creatinine Ratio 5.0 L Glucose 250 H Calcium 8.8 Magnesium 2.0 Total Bilirubin 0.2 AST 23 ALT 29 Alkaline Phosphatase 136 H Total Protein 6.1 L Albumin 3.2 L Globulin 2.9 Albumin/Globulin Ratio 1.1 Assessment & Plan Post-op Postoperative Procedures Operation Date: 05/18/18 16:15 Actual Procedures Side Surgeon p Incision and Drainage Wound/Extremity-Elbow Left Romulo Bacon MD She can continue to elevate, ice, and use the compression wrap. Patient will need to follow up with Dr. Bacon in 2 weeks. Hospitalist will continue to manage antibiotics and pain. Quality VTE Deep Vein Thrombosis/Pulmonary Embolism Present on Admission: No
--- NOTE | 2018-05-20 11:35 | P.DS_ITS ---
History of Present Illness Date Patient Seen: 05/15/18 Chief complaint: SWELLING/REEDNESS IN LEFT ARM/HAND Narrative: Written by Dr. Alexis: This is a 47-year-old type 1 diabetic on an insulin pump who has severe peripheral neuropathy and falls frequently. During 1 of her recent falls she badly contused the left elbow and broke 4 ribs on that side. She was evaluated in the [facility] Emergency Department a few days ago. She also followed up with her physician nursing home assistant administrator Karli Nathan in [place] a few days ago. She says at that time the left elbow just had a small abrasion on it. She presents now to the emergency department with severe cellulitis of the left elbow and infectious bursitis of the olecranon on that side. There is an open wound draining yellow pus at the tip of the olecranon, now being cultured. She has felt feverish and has had increased pain and swelling in the left arm along with noticing the redness in the last 3 or 4 days. Her last A1c was 9.5. She is on an insulin pump receiving 0.5 units of regular insulin basal and 2-3 units bolus per meal. Her lactate level is 2.1 and her white blood cell count is not elevated. She also has chronic hyponatremia with her last recorded sodium here of 127 consistent with the 126 we are finding now. 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 Soft tissue gas is seen in the x-ray of the elbow. This does not clinically appear to be necrotizing fasciitis at this time. Discharge Providers Date of admission: 05/15/18 18:33 Discharge Date: 05/20/18 Primary care physician: Sandra Nathan PA-C Consults: 05/17/18 10:26 Consult to Orthopedic Surgery Routine Comment: Consulting Provider: Romulo Bacon Reason for consultation: elbow cellulitis Has provider been notified: Yes 05/18/18 20:09 Consult to Discharge Planning Routine Comment: Consult to Physical Therapy Evaluate & Treat Comment: Physician Instructions: Evaluate and Treat Consult to Respiratory Therapy Evaluate & Treat Comment: Physician Instructions: Evaluate and treat Discharge provider: Yolette Renee DO Summary Discharge Diagnosis: 1. Left olecranon infectious bursitis with cellulitis of the left arm, present on admission. Resolving. 2. Diabetes mellitus type 1 on insulin pump, present on admission. Stable. 3. Diabetic gastroparesis, present on admission. Stable. 4. Diabetic peripheral neuropathy, present on admission. Stable. 5. Depression, present on admission. Stable. 6. Acute on chronic anemia, present on admission. Acute portion resolved. 7. Chronic hyponatremia, present on admission. Stable. Hospital Course: Micki Jimenez is a 47-year-old female with type 1 diabetes, on insulin pump, admitted due to left arm cellulitis and infectious bursitis of the olecranon. 1. Left olecranon infectious bursitis with cellulitis of the left arm, present on admission. Resolving. -This is secondary to abrasion of elbow due to recent fall. -Wound cultures positive for MSSA. -Discontinued IV antibiotics and switched and prescribed Keflex 500 mg 4 times daily to complete a total of 14 day course. -Patient started on Dilaudid 2 mg p.o. every 2 hr discharged with prescription Dilaudid 2 mg every 2-4 hr to last 1-2 weeks. Informed patient of risk of narcotic use in regard to respiratory depression and . -recommended continue supportive therapy including RICE for which she was provided a handout. -Consulted Orthopedic surgery and we appreciate their time and care of the patient. Due to minimal improvement in olecranon infectious bursitis, Dr. Bacon performed I&D and washout with removal of bursa. Plan for patient to follow up with Orthopedic surgery in 2 weeks. 2. Diabetes mellitus type 1 on insulin pump, present on admission. Stable. -Poor control, last A1c 9.5%. Patient reports she is usually well controlled and in the 7's. -She will continue on her insulin pump at a basal rate of 0.5 units per hour with 2-3 units bolus with each meal. Blood sugars will be followed and optimized. -Recommend outpatient referral to Endocrinology for oversight with insulin pump and assessment of osteoporosis and treatment if present. Patient is a high fall risk. 3. Diabetic gastroparesis, present on admission. Stable. -She will be continued on her Zantac and omeprazole along with her usual ant iemetics. 4. Diabetic peripheral neuropathy, present on admission. Stable. -Continued gabapentin. 5. Depression, present on admission. Stable. -Continued escitalopram. 6. Acute on chronic anemia, present on admission. Acute portion resolved. -Worsening anemia likely inflammatory block, no intervention required. Chronic portion is anemia of chronic disease related to diabetes. -Continued to monitor CBC daily. 7. Chronic hyponatremia, present on admission. Stable. -Mild, stable. Likely secondary to polyuria from DM type 1. Status at Discharge Functional status at discharge: independent ambulation Overall status at discharge: patient is progressing back to baseline Exam Vital Signs (past 8 hours): Oxygen Delivery Method Nasal Cannula Oxygen Flow Rate 0 Narrative Exam Narrative: General: Middle-aged female lying in bed and in no acute distress, well- developed, well-nourished, appropriately interactive. HEENT: Normocephalic, atraumatic. External ears without defect. Pupils equal, round, and reactive to light. Anicteric sclerae, moist conjunctivae, and no lid lag. Oropharynx free of erythema and cobble stoning with moist mucosa. Flushed appearing cheeks bilaterally. Neck: Supple with full range of motion. No lymphadenopathy or thyromegaly. Cardiovascular: Regular rate and rhythm without murmurs, rubs, or gallops appreciated Pulmonary: Clear to auscultation bilaterally without crackles, wheezes, or rhonchi. Normal respiratory effort with no use of accessory muscles. Abdomen: Soft, bowel sounds present, nontender, nondistended. No h epatosplenomegaly or masses appreciated. Extremities: Swelling of dorsum of left hand and left forearm with moderate improvement since last examination. Bandage in place over olecranon C/D/I. No clubbing, cyanosis, or edema of other extremities. Skin: Normal temperature, turgor, and texture; no ulcers, or subcutaneous nodules appreciated. Scattered psoriasis throughout whole body especially on right forearm and neck and chest. Neurological: Cranial nerves grossly intact. Psychiatric: Normal mood and affect. Alert and oriented to person, place, and time. Objective Labs Result Diagrams: 05/20/18 05:04 05/20/18 05:04 Labs: Laboratory Results - last 24 hr 05/20/18 05/20/18 05:04 05:04 WBC 9.1 RBC 3.35 L Hgb 10.1 L Hct 31.2 L MCV 93.1 MCH 30.1 MCHC 32.3 RDW 18.0 H Plt Count 388 Neut % (Auto) 56.2 Lymph % (Auto) 20.8 L [place] % (Auto) 20.2 H Eos % (Auto) 2.4 Baso % (Auto) 0.4 Neut # (Auto) 5100 Lymph # (Auto) 1900 [place] # (Auto) 1800 H Eos # (Auto) 200 Baso # (Auto) 0 Sodium 132 L Potassium 3.5 Chloride 96 L Carbon Dioxide 29 BUN 3 L Creatinine 0.60 Estimated GFR > 60.0 BUN/Creatinine Ratio 5.0 L Glucose 250 H Calcium 8.8 Magnesium 2.0 Total Bilirubin 0.2 AST 23 ALT 29 Alkaline Phosphatase 136 H Total Protein 6.1 L Albumin 3.2 L Globulin 2.9 Albumin/Globulin Ratio 1.1 Discharge Plan Discharge Plan Patient Disposition: Home Discharge comment: You are being discharged home. Please follow-up with your primary care physician, KRISTIN Nathan, regarding your hospitalization. Recommend that you be referred to Endocrinology to have oversight on your insulin pump 1 to 2 times year and assess for osteoporosis and treatment. Please continue physical therapy that you were previously referred to. You were prescribed Dilaudid 2 mg every 2-4 hours as needed for moderate to severe pain. As your pain improves over the next several days you should need less medication for pain control. As discussed, narcotics can cause drowsiness and respiratory sup pression. Please have someone with you at all times and please do not drive. Please continue supportive therapy including rest, ice (no more than 20 min at a time), compression, and elevation (above the level of the heart) as provided in handout. Discharge Med Rec/Prescriptions Prescriptions: New hydromorphone [Dilaudid] 2 mg tablet 2 mg PO Q2-4H PRN (Reason: pain) Qty: 120 RF: 0 cephalexin [Keflex] 500 mg capsule 500 mg PO QID 9 Days Qty: 36 RF: 0 Continued glucagon (human recombinant) 1 mg kit 1 dose IM DIRECTED RF: 0 ranitidine HCl 300 mg tablet 300 mg PO BEDTIME RF: 0 potassium chloride 10 mEq tablet extended release 10 meq PO BID RF: 0 lovastatin 10 mg tablet 5 mg PO BEDTIME RF: 0 levothyroxine 50 mcg tablet 1 tab PO DAILY RF: 0 cyanocobalamin (vitamin B-12) 1,000 mcg/mL solution 1 ml IM QMONTH RF: 0 gabapentin 300 mg capsule 300 mg PO BID RF: 0 omeprazole 20 mg capsule,delayed release(DR/EC) 20 mg PO DAILY RF: 0 insulin lispro 100 unit/mL solution 1 dose Continuous IV Infusion PRN PRN (Reason: bolus) RF: 0 escitalopram oxalate 20 mg tablet 20 mg PO DAILY RF: 0 promethazine 12.5 mg tablet 12.5 mg PO PRN PRN (Reason: Nausea) RF: 0 tacrolimus [Protopic] 0.1 % Ointment 1 applic Topical PRN PRN (Reason: as directed) RF: 0 calcipotriene [Dovonex] 0.005 % Cream 1 applic Topical PRN PRN (Reason: as directed) RF: 0 Ventolin HFA 90 mcg/actuation Hfa Aerosol Inhaler 2 puff Inhalation PRN PRN (Reason: Shortness Of Breath) RF: 0 ondansetron 4 mg tablet,disintegrating 4 mg PO PRN PRN (Reason: Nausea And Vomiting) RF: 0 multivitamin with iron Tablet 1 tab PO DAILY RF: 0 cholecalciferol (vitamin D3) [Vitamin D3] 2,000 unit Capsule 2,000 units PO DAILY RF: 0 promethazine 25 mg suppository 25 mg AR Q6H PRN (Reason: nausea and vomiting) Qty: 10 RF: 0 gabapentin 600 mg Tablet 600 mg PO BEDTIME RF: 0 Follow up/Referrals: Romulo Bacon MD [Physician] - 2 Weeks ( *appt:06/01 @ 1:[address] bacon at the [address] [place] [address] ) Sandra Nathan PA-C [Primary Care Provider] - 1 Week (appt:05/30 @ 2:30 w/ joyce oleary [phone]) Provider Discharge Instructions Diet: Carb-consistent/Diabetic Activity: Activity as tolerated. Visit Report/Discharge Packet Instructions: How To Perform RICE (Rest, Ice, Compress, Elevate) Discharge Data Primary Care Provider: Sandra Nathan Attending Provider: Harrison Alexis Admit Date/Time: 05/15/18 18:33 Discharges patient from system. Discharge Date/Time: 05/20/18 12:15 Quality VTE Deep Vein Thrombosis/Pulmonary Embolism Present on Admission: No
== END 2018-05-20 12:15 | disposition home or self-care (01) | DRG 501 ==
LOC: ED 18:13 → AC 18:34
PROVIDERS: Internal Medicine; Orthopaedic Surgery; Admitting Provider Family Medicine; Emergency Provider Internal Medicine; PCP Physician Assistant Medical; Visit Provider Family Medicine
PROC: 0MT40ZZ Resection of Left Elbow Bursa and Ligament, Open Approach (ICD-10-PCS; principal; 2018-05-18 16:15)
DX: M71.522 Other bursitis, not elsewhere classified, left elbow (principal); L03.114 Cellulitis of left upper limb; E87.1 Hypo-osmolality and hyponatremia; E10.42 Type 1 diabetes mellitus with diabetic polyneuropathy; E10.43 Type 1 diabetes mellitus with diabetic autonomic (poly)neuropathy; K31.84 Gastroparesis; Z96.41 Presence of insulin pump (external) (internal); Z79.4 Long term (current) use of insulin; L40.4 Guttate psoriasis; D64.89 Other specified anemias; F17.200 Nicotine dependence, unspecified, uncomplicated; S22.42XD Multiple fractures of ribs, left side, subsequent encounter for fracture with routine healing; Z91.81 History of falling; F17.210 Nicotine dependence, cigarettes, uncomplicated; F32.9 Major depressive disorder, single episode, unspecified; W19.XXXA Unspecified fall, initial encounter; B95.61 Methicillin susceptible Staphylococcus aureus infection as the cause of diseases classified elsewhere
CPT/HCPCS: 36415; 36591; 73080; 80048; 80053; 80202; 81003; 82962; 83605; 83735; 85025; 85027; 85610; 85651; 85730; 86140; 87040; 87070; 87075; 87077; 87147; 87186; 87205; 87797; 90471; 90656; 96361; 96365; 96375; 97162; 99284; 90715; J1650; J1885; J2270; J2405; J2543; J2704; J3010; J3370; J3475; Q2038

== ENCOUNTER → 2018-06-30 13:21 | Outpatient (CLI) | payer OTHER, SELFPAY ==
[2018-05-15 18:43] VITALS: BMI 25.7
== END ==
PROVIDERS: PCP Physician Assistant Medical; Visit Provider Family Medicine
DX: S51.002A Unspecified open wound of left elbow, initial encounter (principal); L03.114 Cellulitis of left upper limb; E10.622 Type 1 diabetes mellitus with other skin ulcer
CPT/HCPCS: 11043; 36415; 73080; 80053; 85025; 85651; 86140; 87070; 87075; 87205; 99203; 99213

== ENCOUNTER → 2018-06-30 15:24 | Outpatient (CLI) | payer OTHER, SELFPAY ==
[2018-05-15 18:43] VITALS: BMI 25.7
--- NOTE | 2018-06-30 | DI.RAD.S_ITS ---
PROCEDURE: XR ELBOW LT MIN 3V INDICATIONS: LEFT ELBOW PAIN TECHNIQUE: 3 views of the elbow were acquired. COMPARISON: [facility], CR, XR ELBOW LT MIN 3V, 05/15/2018, 17:10. FINDINGS: Bones: No fractures or dislocations. No suspicious bony lesions. There is no evidence of periostitis at the tip of the olecranon process, however there may be a subtle subcortical lucency not definitely present previously. Questionable loss of cortex just distal to the tip. Soft tissues: No elbow joint effusion. Mild surrounding soft tissue thickening. No subcutaneous gas. No suspicious soft tissue calcifications. IMPRESSION: Questionable changes to the tip of the olecranon may indicate early osteomyelitis, however MR imaging for confirmation is recommended. Dictated by: Rehana Gallegos M.D. on 06/30/2018 at 16:23 Approved by: Rehana Gallegos M.D. on 06/30/2018 at 16:30
[2018-06-30 16:38] LABS: Add Manual Diff / Slide Review NO; Basophils Absolute Auto 100 /uL (0-100); Basophils Percent Auto 0.9 % (0-2); Eosinophils Absolute Auto 300 /uL (0-450); Eosinophils Percent Auto 4.5 % (2-4); Hematocrit 37.5 % (36-46); Hemoglobin 12.1 g/dL (12.0-16.0); Lymphocytes Absolute Auto 2500 /uL (1100-4500); Lymphocytes Percent Auto 39.3 % (25-40); Mean Corpuscular HGB Conc 32.3 % (30-36); Mean Corpuscular Hemoglobin 30.1 PG (26-34); Mean Corpuscular Volume 93.1 fL (80-100); Monocytes Absolute Auto 500 /uL (0-900); Monocytes Percent Auto 8.7 % (3-14); Neutrophils Absolute Auto 2900 /uL (1500-7000); Neutrophils Percent Auto 46.6 % (50-75); Platelet Count 276 X10^3/uL (150-400); Red Blood Cell Count 4.03 X10^6/uL (4.0-5.2); Red Cell Distribution Width 16.6 % (11.6-14.8); White Blood Cell Count 6.3 X10^3/uL (4.5-11.0)
[2018-06-30 17:19] LABS: Erythrocyte Sedimentation Rate 8 MM/HR (0-20)
[2018-06-30 18:37] LABS: Alanine Aminotransferase 22 IU/L (9-52); Albumin 3.8 g/dL (3.5-5.0); Albumin Globulin Ratio 1.5 (1.0-2.8); Alkaline Phosphatase 100 U/L (38-126); Aspartate Aminotransferase 42 IU/L (14-36); BUN Creatinine Ratio 13.3 (6-22); Bilirubin Total 0.7 mg/dL (0.2-1.3); Blood Urea Nitrogen 8 mg/dL (7-17); Calcium 9.5 mg/dL (8.4-10.2); Carbon Dioxide 28 mmol/L (22-32); Chloride 97 mmol/L (98-107); Estimated Glomerular Filt Rate > 60.0 mL/min (>60); Globulin 2.5 g/dL (1.7-4.1); Glucose 180 mg/dL (70-100); HEMOLYSIS < 15 (0-50); Potassium 4.3 mmol/L (3.4-5.1); Sodium 134 mmol/L (137-145); Total Protein 6.3 g/dL (6.3-8.2)
[2018-06-30 19:45] LABS: C-Reactive Protein Quant < 0.5 mg/dL (<1.0)
== END ==
PROVIDERS: PCP Physician Assistant Medical; Visit Provider Family Medicine
DX: M25.522 Pain in left elbow (principal); S51.002A Unspecified open wound of left elbow, initial encounter
CPT/HCPCS: 36415; 73080; 80053; 85025; 85651; 86140

== ENCOUNTER → 2018-07-07 13:04 | Outpatient (CLI) | payer OTHER, SELFPAY ==
[2018-05-15 18:43] VITALS: BMI 25.7
== END ==
PROVIDERS: PCP Physician Assistant Medical; Visit Provider Family Medicine
DX: S51.002A Unspecified open wound of left elbow, initial encounter (principal); L03.114 Cellulitis of left upper limb; E10.622 Type 1 diabetes mellitus with other skin ulcer
CPT/HCPCS: 99213

== ENCOUNTER → 2018-07-11 19:45 | Outpatient (CLI) | payer OTHER, SELFPAY ==
[2018-05-15 18:43] VITALS: BMI 25.7
--- NOTE | 2018-07-11 19:48 | DI.MRI.S_ITS ---
PROCEDURE: MR ELBOW LT W CON INDICATIONS: OTHER INFECTIVE BURSITIS,LEFT ELBOW TECHNIQUE: Noncontrast coronal proton density fast spin echo and T2 fast spin echo with fat saturation, axial and sagittal T1 spin echo and T2 fast spin echo with fat saturation through the elbow. COMPARISON: None. FINDINGS: Image quality: Excellent. Lateral structures: The lateral ulnar collateral ligament and radial collateral ligament both appear intact. The overlying common extensor tendon also appears normal. Medial structures: The ulnar collateral ligament appears intact. The overlying common flexor tendon appears normal. The ulnar nerve appears normal in size and signal within the cubital tunnel. Anterior structures: The biceps and brachialis tendons both appear intact as they insert onto the proximal radius and ulna, respectively. No bicipitoradial bursal fluid. The median and radial neurovascular bundles appear normal; no focal muscle atrophy to suggest nerve impingement. Posterior structures: Moderate partial thickness tear involving long head and the lateral head of the distal triceps tendon at its chondroid insertion on the proximal olecranon is seen with surrounding soft tissue edema. The medial head of the triceps tendon appears normal, with direct muscle insertion onto the olecranon. No olecranon bursal fluid. Bone and cartilage: Marrow edema throughout proximal olecranon is seen with ill-defined and subtle linear hypointense signal cortical disruption near triceps tendon insertion site suggestive of a nondisplaced fracture involving proximal olecranon. No other area of abnormal marrow signal is noted. Small amount of joint effusion is seen, no gross loose body. IMPRESSION: 1. Moderate grade partial-thickness tear involving the distal triceps tendon at its insertion on proximal olecranon with extensive marrow edema and subtle internal hypointense signal involving proximal olecranon suggestive of a nondisplaced fracture. 2. Rest of the elbow tendons and ligaments are intact. 3. Small to moderate joint effusion, no gross loose body. Dictated by: Lam Gruber M.D. on 07/12/2018 at 13:04 Approved by: Lam Gruber M.D. on 07/12/2018 at 13:45
== END ==
PROVIDERS: PCP Physician Assistant Medical; Visit Provider Physician Assistant
DX: M71.122 Other infective bursitis, left elbow (principal); S46.312A Strain of muscle, fascia and tendon of triceps, left arm, initial encounter
CPT/HCPCS: 73221

== ENCOUNTER → 2018-07-14 13:01 | Outpatient (CLI) | payer OTHER, SELFPAY ==
[2018-05-15 18:43] VITALS: BMI 25.7
== END ==
PROVIDERS: PCP Physician Assistant Medical; Visit Provider Family Medicine
DX: S51.002A Unspecified open wound of left elbow, initial encounter (principal); E10.622 Type 1 diabetes mellitus with other skin ulcer; S52.026A Nondisplaced fracture of olecranon process without intraarticular extension of unspecified ulna, initial encounter for closed fracture; S46.392A Other injury of muscle, fascia and tendon of triceps, left arm, initial encounter
CPT/HCPCS: 97597; 99213

== ENCOUNTER 2018-10-21 17:53 | Inpatient (IN) | payer OTHER, SELFPAY ==
[2018-05-15 18:43] VITALS: BMI 25.7
[2018-10-21 17:58] VITALS: BP 143/87; PULSE 113; RESP 18; TEMP 36.6; O2SAT 98; BMI 26.5
[2018-10-21] MEDS: SODIUM CHLORIDE 0.9% 1,000 ML 125 ML IV (18:15)
[2018-10-21 18:21] LABS: Add Manual Diff / Slide Review NO; Basophils Absolute Auto 100 /uL (0-100); Basophils Percent Auto 0.5 % (0-2); Eosinophils Absolute Auto 0 /uL (0-450); Hematocrit 33.2 % (36-46); Hemoglobin 11.2 g/dL (12.0-16.0); Lymphocytes Absolute Auto 800 /uL (1100-4500); Lymphocytes Percent Auto 7.3 % (25-40); Mean Corpuscular HGB Conc 33.9 % (30-36); Mean Corpuscular Hemoglobin 33.8 PG (26-34); Mean Corpuscular Volume 99.9 fL (80-100); Monocytes Absolute Auto 1000 /uL (0-900); Monocytes Percent Auto 9.8 % (3-14); Neutrophils Absolute Auto 8500 /uL (1500-7000); Neutrophils Percent Auto 82.4 % (50-75); Platelet Count 203 X10^3/uL (150-400); Red Blood Cell Count 3.32 X10^6/uL (4.0-5.2); Red Cell Distribution Width 13.8 % (11.6-14.8); White Blood Cell Count 10.3 X10^3/uL (4.5-11.0)
--- NOTE | 2018-10-21 18:31 | ED_ITS ---
HPI - General Adult General Chief complaint: Diabetic Problem Stated complaint: Weakness with syncope Time Seen by Provider: 10/21/18 18:00 Source: patient Mode of arrival: EMS Limitations: no limitations History of Present Illness HPI narrative: Patient is a 48-year-old female. She is a type 1 diabetic with also a history of gastroparesis. She states that on Wednesday she started to have a episode of gastroparesis. It has continued until this morning. States she has had very little intake both of liquid and solids. She has been doing her home regiment of nausea medications but has not seemed to help. States that today she has become very weak and tired. States over the past couple days she has had trouble controlling her blood sugars. She does have an insulin pump in place. She did notice that when the symptoms started there was a kink in her insulin pump and she did not think that she was getting her proper insulin. She has been supplementing with insulin injections. Related Data Home Medications Medication Instructions Recorded Confirmed Ventolin HFA 2 puff INHALATION PRN PRN 11/16/17 05/15/18 calcipotriene [Dovonex] 1 applic TOPICAL PRN PRN 11/16/17 05/15/18 cholecalciferol (vitamin D3) 2,000 units PO DAILY 11/16/17 05/15/18 [Vitamin D3] cyanocobalamin (vitamin B-12) 1 ml IM QMONTH 11/16/17 05/16/18 escitalopram oxalate 20 mg PO DAILY 11/16/17 05/15/18 gabapentin 300 mg PO BID 11/16/17 05/15/18 glucagon (human recombinant) 1 dose IM DIRECTED 11/16/17 05/16/18 insulin lispro 1 dose CONTINUOUS IV INFUSION PRN 11/16/17 05/15/18 PRN levothyroxine 1 tab PO DAILY 11/16/17 05/15/18 lovastatin 5 mg PO BEDTIME 11/16/17 05/15/18 multivitamin with iron 1 tab PO DAILY 11/16/17 05/15/18 omeprazole 20 mg PO DAILY 11/16/17 05/15/18 ondansetron 4 mg PO PRN PRN 11/16/17 05/15/18 potassium chloride 10 meq PO BID 11/16/17 05/15/18 promethazine 12.5 mg PO PRN PRN 11/16/17 05/16/18 ranitidine HCl 300 mg PO BEDTIME 11/16/17 05/15/18 tacrolimus [Protopic] 1 applic TOPICAL PRN PRN 11/16/17 05/15/18 gabapentin 600 mg PO BEDTIME 05/15/18 05/15/18 Previous Rx's Medication Instructions Recorded promethazine 25 mg KS Q6H PRN #10 each 11/16/17 hydromorphone [Dilaudid] 2 mg PO Q2-4H PRN #120 tab 05/20/18 Allergies Allergy/AdvReac Type Severity Reaction Status Date / Time latex [LATEX] Allergy Intermediate Verified 05/15/18 14:49 Review of Systems Constitutional Denies fever(s), Reports headache(s) and Reports weakness ENT Ears, Nose, Mouth, and Throat: Denies vertigo, Denies dizziness and Reports headache(s) Cardiovascular Denies chest pain, Denies palpitations and Denies dyspnea Respiratory Denies dyspnea Gastrointestinal Gastrointestinal: Reports abdominal pain, Denies change in stool character, Reports nausea and Reports vomiting Genitourinary Denies dysuria Musculoskeletal Denies myalgias and Denies arthralgias Integumentary/Breasts Denies rash Neurologic Denies behavioral changes, Denies confusion, Denies vertigo, Denies dizziness, Reports headache(s) and Reports weakness Psychiatric Denies behavioral changes, Reports change in appetite, Denies confusion and Denies depression Endocrine Denies palpitations Hematologic/Lymphatic Denies easy bleeding and Denies easy bruising Allergic/Immunologic Denies urticaria [facility] Medical History Guttate psoriasis (Acute) Left rib fracture (Acute) Asthma, mild (Chronic) Gastroparesis (Chronic) Psoriasis (Chronic) Type 1 diabetes (Chronic) Surgical History History of (Acute) History of carpal tunnel release of both wrists (Acute) No pertinent past surgical history (Chronic) Family History (Updated 05/15/18 @ 18:48 by Harrison Alexis MD) Father Trauma Mother Hypertension Diabetes mellitus COPD (chronic obstructive pulmonary disease) Social History household members: spouse and family Smoking Status: Former smoker alcohol intake: never Family History Father Trauma Mother Hypertension Diabetes mellitus COPD (chronic obstructive pulmonary disease) Social History household members: spouse and family Smoking Status: Former smoker alcohol intake: never Exam Initial Vital Signs Initial Vital Signs: Vital Signs Temperature 97.9 F 10/21/18 17:58 Pulse Rate 113 H 10/21/18 17:58 Respiratory Rate 18 10/21/18 17:58 Blood Pressure 143/87 H 10/21/18 17:58 Pulse Oximetry 98 10/21/18 17:58 Const General: cooperative, well groomed, No acute distress and ill appearing Orientation: alert, awake and oriented x3 HENMT Head: normal to inspection and normocephalic Nose: external nose normal Eyes Pupils: PERRL Resp Effort & Inspection: normal respiratory effort Auscultation: clear to auscultation bilaterally Cardio Rate: tachycardic Rhythm: regular rhythm Pulses: radial pulses present GI Inspection: non-distended Palpation: soft, No firm and No tender Skin Lesions: no lesions Rashes: no rashes Neuro General: alert, awake and oriented x3 Cognition: normal cognition Speech: speech normal Extrem General: normal to inspection and capillary refill normal Psych Appearance: grossly normal and well kempt Scores GCS Altus coma scale eye opening: Spontaneous Altus coma scale verbal response: Orientated Altus coma scale motor response: Obey commands Altus coma scale total score: 15 Course Orders Ordered: ED Orders 10/21/18 18:03 Venous Blood Gas Stat 10/21/18 18:12 CBC [Complete Blood Count AUTO DIFF] Stat Comprehensive Metabolic Panel Stat Ketones (Beta-Hydroxybutyrate) Stat Lactate (Lactic Acid) Stat Magnesium Stat Osmolality, Serum Urgent Phosphorous Stat Test Serum,Qual Stat Thyroid Stimulating Hormone Stat Troponin I Stat 10/21/18 18:16 EKG-12 Lead Stat 10/21/18 19:48 Urine Microscopic Stat 10/21/18 20:42 Arterial Blood Gas Stat 10/21/18 21:50 MRSA PCR Stat 10/21/18 22:07 Lactate (Lactic Acid) Urgent Magnesium Q4H Renal Function Panel Q4H Troponin & CK Cardiac Panel Q4H 10/21/18 22:15 Urine Drug Screen, Rapid Stat 10/21/18 22:34 Arterial Blood Gas Stat 10/22/18 02:00 Renal Function Panel Q4H Troponin & CK Cardiac Panel Q4H 10/22/18 06:00 Hemoglobin A1C% w Est Avg Glu Routine Lipid Panel Routine Renal Function Panel Q4H Troponin & CK Cardiac Panel Q4H 10/22/18 10:00 Renal Function Panel Q4H 10/22/18 14:00 Renal Function Panel Q4H 10/22/18 18:00 Renal Function Panel Q4H Acetaminophen (Tylenol) 650 mg [place] Q4HR PRN PRN Reason: As Needed for Fever/Mild Pain Dextrose (D50w) 25 gm IV PRN PRN PRN Reason: Hypoglycemia Insulin Human Regular 100 unit (/ Sodium Chloride) 100 mls @ 6 mls/hr IV TITRATE TREMAYNE; Protocol Last Titration: 10/21/18 23:30 Dose: 0 mls/hr Titration: 10/21/18 22:30 Dose: 5 mls/hr Titration: 10/21/18 20:55 Dose: 6 mls/hr Admin: 10/21/18 20:30 Dose: 6 ml /hr, 6 mls/hr Insulin Human Regular 100 unit (/ Sodium Chloride) 100 mls @ 6 mls/hr IV TITRATE TREMAYNE; Protocol Last Admin: 10/21/18 21:18 Dose: Not Given Sodium Chloride (Normal Saline 0.9%) 1,000 mls @ 500 mls/hr IV CONT TREMAYNE Stop: 11/20/18 22:44 Last Admin: 10/21/18 21:55 Dose: 500 mls/hr Dextrose/Sodium Chloride (Dextrose 5%-0.45% Ns) 1,000 mls @ 150 mls/hr IV CONT TREMAYNE Last Infusion: 10/21/18 23:30 Dose: 250 mls/hr Admin: 10/21/18 22:48 Dose: 150 mls/hr Levothyroxine Sodium (Synthroid Inj) 25 mcg IV 1700 TREMAYNE Levothyroxine Sodium (Synthroid) 50 mcg PO DAILY TREMAYNE Metoclopramide HCl (Reglan) 10 mg IV Q6HR PRN PRN Reason: Nausea And Vomiting Ondansetron HCl (Zofran) 4 mg IV Q4HR PRN PRN Reason: Nausea And Vomiting Sodium Chloride (Normal Saline 0.9% Flush) 10 ml IV NOW ONE Stop: 10/22/18 00:05 Last Admin: 10/22/18 00:04 Dose: 10 ml Sodium Chloride (Normal Saline 0.9% Flush) 10 ml IV PRN PRN PRN Reason: Flush Discontinued Medications Aspirin (Aspirin Supp) 300 mg KS NOW ONE Stop: 10/21/18 20:49 Last Admin: 10/21/18 21:54 Dose: 300 mg Sodium Chloride (Normal Saline 0.9%) 1,000 mls @ 125 mls/hr IV CONT TREMAYNE Last Infusion: 10/21/18 20:56 Dose: 125 mls/hr Admin: 10/21/18 18:15 Dose: 125 mls/hr Sodium Chloride (Normal Saline 0.9%) 1,000 mls @ 1,000 mls/hr IV BOLUS ONE Stop: 10/21/18 19:55 Last Infusion: 10/21/18 19:59 Dose: 0 mls/hr Admin: 10/21/18 18:59 Dose: 1,000 mls/hr Potassium Chloride 40 meq/ (Sodium Chloride) 520 mls @ 130 mls/hr IV NOW ONE Stop: 10/21/18 23:03 Last Infusion: 10/22/18 00:05 Dose: 0 mls/hr Infusion: 10/21/18 20:56 Dose: 130 mls/hr Admin: 10/21/18 19:30 Dose: 130 mls/hr Ondansetron HCl (Zofran) 4 mg IV NOW ONE Stop: 10/21/18 18:32 Last Admin: 10/21/18 18:38 Dose: 4 mg Vital Signs - 8 hr 10/21/18 17:58 10/21/18 18:51 10/21/18 19:47 Temperature 97.9 F Pulse Rate 113 H 112 H 104 H Respiratory Rate 18 20 Blood Pressure 143/87 H Blood Pressure [Right Arm] 112/87 141/70 H Pulse Oximetry 98 99 99 10/21/18 21:20 10/21/18 22:10 10/21/18 23:00 Temperature 98.1 F 100.0 F H Pulse Rate 116 H 115 H 115 H Respiratory Rate 18 17 19 Blood Pressure 128/71 131/74 129/71 Blood Pressure [Right Arm] Pulse Oximetry 100 100 96 10/22/18 00:00 Temperature Pulse Rate 112 H Respiratory Rate 35 H Blood Pressure 119/60 Blood Pressure [Right Arm] Pulse Oximetry 100 Medical Decision Making Lab Data Lab results reviewed: Yes I reviewed the patient's lab results. Result diagrams: 10/21/18 18:12 10/21/18 22:07 Lab Results 10/21/18 10/21/18 10/21/18 Range/Units 18:03 18:12 18:12 WBC 10.3 (4.5-11.0) X10^3/uL RBC 3.32 L (4.0-5.2) X10^6/uL Hgb 11.2 L (12.0-16.0) g/dL Hct 33.2 L (36-46) % MCV 99.9 (80-100) fL MCH 33.8 (26-34) PG MCHC 33.9 (30-36) % RDW 13.8 (11.6-14.8) % Plt Count 203 (150-400) X10^3/uL Neut % (Auto) 82.4 H (50-75) % Lymph % (Auto) 7.3 L (25-40) % Elbert % (Auto) 9.8 (3-14) % Eos % (Auto) 0.0 L (2-4) % Baso % (Auto) 0.5 (0-2) % Neut # (Auto) 8500 H (7351-2947) /uL Lymph # (Auto) 800 L (3035-3571) /uL Elbert # (Auto) 1000 H (0-900) /uL Eos # (Auto) 0 (0-450) /uL Baso # (Auto) 100 (0-100) /uL ABG pH (7.35-7.45) ABG pCO2 (35-45) mmHg ABG pO2 (80-100) mmHg ABG HCO3 (22-26) mmol/L ABG Total CO2 (21-31) mmol/L ABG O2 Saturation (95-100) % ABG Base Excess (-2-2) mmol/L VBG pH 7.34 (7.33-7.43) VBG pCO2 45.2 (45-50) mmHg VBG pO2 21 L (35-45) mmHg VBG HCO3 24 (23-28) mmol/L VBG Total CO2 26 (24-29) mmol/L VBG O2 Saturation 30 L (70-75) % VBG Base Excess -2.0 L (0-4) mmol/L FiO2 Sodium (137-145) mmol/L Potassium (3.4-5.1) mmol/L Chloride (98-107) mmol/L Carbon Dioxide (22-32) mmol/L BUN (7-17) mg/dL Creatinine (0.52-1.04) mg/dL Estimated GFR (>60) mL/min BUN/Creatinine Ratio (6-22) Glucose (70-100) mg/dL Lactate (0.7-2.1) mmol/L Calcium (8.4-10.2) mg/dL Phosphorus 2.9 (2.5-4.5) mg/dL Magnesium 2.0 (1.6-2.3) mg/dL Total Bilirubin (0.2-1.3) mg/dL AST (14-36) IU/L ALT (9-52) IU/L Alkaline Phosphatase (38-126) U/L Total Creatine Kinase (30-135) U/L CK-MB (CK-2) CK-MB (CK-2) Rel Index Troponin I (0.01-0.034) ng/mL Total Protein (6.3-8.2) g/dL Albumin (3.5-5.0) g/dL Globulin (1.7-4.1) g/dL Albumin/Globulin Ratio (1.0-2.8) TSH (0.47-4.68) uIU/mL Serum , Qual (Negative) Urine RBC (0-5/HPF) Urine WBC (0-5/HPF) Ur Squamous Epith Cells (0-5/HPF) Urine Bacteria (None) Urine Yeast (None) Ur Culture Indicated? Nasal Screen MRSA (PCR) (Negative) Urine Opiates Screen (Negative) Ur Oxycodone Screen (Negative) Urine Methadone Screen (Negative) Ur Barbiturates Screen (Negative) U Tricyclic Antidepress (Negative) Ur Phencyclidine Scrn (Negative) Ur Amphetamines Screen (Negative) U Methamphetamines Scrn (Negative) Ur MDMA Scrn (Ecstasy) (Negative) U Benzodiazepines Scrn (Negative) Urine Cocaine Screen (Negative) U Marijuana (THC) Screen (Negative) Ketones (<0.27) mmol/L 10/21/18 10/21/18 10/21/18 Range/Units 18:12 18:12 18:12 WBC (4.5-11.0) X10^3/uL RBC (4.0-5.2) X10^6/uL Hgb (12.0-16.0) g/dL Hct (36-46) % MCV (80-100) fL MCH (26-34) PG MCHC (30-36) % RDW (11.6-14.8) % Plt Count (150-400) X10^3/uL Neut % (Auto) (50-75) % Lymph % (Auto) (25-40) % Elbert % (Auto) (3-14) % Eos % (Auto) (2-4) % Baso % (Auto) (0-2) % Neut # (Auto) (5878-3493) /uL Lymph # (Auto) (5226-3196) /uL Elbert # (Auto) (0-900) /uL Eos # (Auto) (0-450) /uL Baso # (Auto) (0-100) /uL ABG pH (7.35-7.45) ABG pCO2 (35-45) mmHg ABG pO2 (80-100) mmHg ABG HCO3 (22-26) mmol/L ABG Total CO2 (21-31) mmol/L ABG O2 Saturation (95-100) % ABG Base Excess (-2-2) mmol/L VBG pH (7.33-7.43) VBG pCO2 (45-50) mmHg VBG pO2 (35-45) mmHg VBG HCO3 (23-28) mmol/L VBG Total CO2 (24-29) mmol/L VBG O2 Saturation (70-75) % VBG Base Excess (0-4) mmol/L FiO2 Sodium 125 L (137-145) mmol/L Potassium 3.5 (3.4-5.1) mmol/L Chloride 76 L* (98-107) mmol/L Carbon Dioxide 24 (22-32) mmol/L BUN 120 H* (7-17) mg/dL Creatinine 2.30 H (0.52-1.04) mg/dL Estimated GFR 22.7 L (>60) mL/min BUN/Creatinine Ratio 52.2 H (6-22) Glucose 440 H (70-100) mg/dL Lactate 2.6 H (0.7-2.1) mmol/L Calcium 8.6 (8.4-10.2) mg/dL Phosphorus (2.5-4.5) mg/dL Magnesium (1.6-2.3) mg/dL Total Bilirubin 0.8 (0.2-1.3) mg/dL AST 25 (14-36) IU/L ALT 20 (9-52) IU/L Alkaline Phosphatase 129 H (38-126) U/L Total Creatine Kinase (30-135) U/L CK-MB (CK-2) CK-MB (CK-2) Rel Index Troponin I 0.044 H (0.01-0.034) ng/mL Total Protein 6.6 (6.3-8.2) g/dL Albumin 4.2 (3.5-5.0) g/dL Globulin 2.4 (1.7-4.1) g/dL Albumin/Globulin Ratio 1.8 (1.0-2.8) TSH (0.47-4.68) uIU/mL Serum , Qual (Negative) Urine RBC (0-5/HPF) Urine WBC (0-5/HPF) Ur Squamous Epith Cells (0-5/HPF) Urine Bacteria (None) Urine Yeast (None) Ur Culture Indicated? Nasal Screen MRSA (PCR) (Negative) Urine Opiates Screen (Negative) Ur Oxycodone Screen (Negative) Urine Methadone Screen (Negative) Ur Barbiturates Screen (Negative) U Tricyclic Antidepress (Negative) Ur Phencyclidine Scrn (Negative) Ur Amphetamines Screen (Negative) U Methamphetamines Scrn (Negative) Ur MDMA Scrn (Ecstasy) (Negative) U Benzodiazepines Scrn (Negative) Urine Cocaine Screen (Negative) U Marijuana (THC) Screen (Negative) Ketones 7.04 H (<0.27) mmol/L 10/21/18 10/21/18 10/21/18 Range/Units 18:12 18:12 19:48 WBC (4.5-11.0) X10^3/uL RBC (4.0-5.2) X10^6/uL Hgb (12.0-16.0) g/dL Hct (36-46) % MCV (80-100) fL MCH (26-34) PG MCHC (30-36) % RDW (11.6-14.8) % Plt Count (150-400) X10^3/uL Neut % (Auto) (50-75) % Lymph % (Auto) (25-40) % Elbert % (Auto) (3-14) % Eos % (Auto) (2-4) % Baso % (Auto) (0-2) % Neut # (Auto) (2265-3741) /uL Lymph # (Auto) (2054-2528) /uL Elbert # (Auto) (0-900) /uL Eos # (Auto) (0-450) /uL Baso # (Auto) (0-100) /uL ABG pH (7.35-7.45) ABG pCO2 (35-45) mmHg ABG pO2 (80-100) mmHg ABG HCO3 (22-26) mmol/L ABG Total CO2 (21-31) mmol/L ABG O2 Saturation (95-100) % ABG Base Excess (-2-2) mmol/L VBG pH (7.33-7.43) VBG pCO2 (45-50) mmHg VBG pO2 (35-45) mmHg VBG HCO3 (23-28) mmol/L VBG Total CO2 (24-29) mmol/L VBG O2 Saturation (70-75) % VBG Base Excess (0-4) mmol/L FiO2 Sodium (137-145) mmol/L Potassium (3.4-5.1) mmol/L Chloride (98-107) mmol/L Carbon Dioxide (22-32) mmol/L BUN (7-17) mg/dL Creatinine (0.52-1.04) mg/dL Estimated GFR (>60) mL/min BUN/Creatinine Ratio (6-22) Glucose (70-100) mg/dL Lactate (0.7-2.1) mmol/L Calcium (8.4-10.2) mg/dL Phosphorus (2.5-4.5) mg/dL Magnesium (1.6-2.3) mg/dL Total Bilirubin (0.2-1.3) mg/dL AST (14-36) IU/L ALT (9-52) IU/L Alkaline Phosphatase (38-126) U/L Total Creatine Kinase (30-135) U/L CK-MB (CK-2) CK-MB (CK-2) Rel Index Troponin I (0.01-0.034) ng/mL Total Protein (6.3-8.2) g/dL Albumin (3.5-5.0) g/dL Globulin (1.7-4.1) g/dL Albumin/Globulin Ratio (1.0-2.8) TSH 1.25 (0.47-4.68) uIU/mL Serum , Qual Negative (Negative) Urine RBC >100/hpf H (0-5/HPF) Urine WBC 1-5/hpf (0-5/HPF) Ur Squamous Epith Cells 1-5 /hpf (0-5/HPF) Urine Bacteria Moderate (10-30) H (None) Urine Yeast 10-30/hpf H (None) Ur Culture Indicated? Cult not indicated Nasal Screen MRSA (PCR) (Negative) Urine Opiates Screen (Negative) Ur Oxycodone Screen (Negative) Urine Methadone Screen (Negative) Ur Barbiturates Screen (Negative) U Tricyclic Antidepress (Negative) Ur Phencyclidine Scrn (Negative) Ur Amphetamines Screen (Negative) U Methamphetamines Scrn (Negative) Ur MDMA Scrn (Ecstasy) (Negative) U Benzodiazepines Scrn (Negative) Urine Cocaine Screen (Negative) U Marijuana (THC) Screen (Negative) Ketones (<0.27) mmol/L 10/21/18 10/21/18 10/21/18 Range/Units 20:27 21:50 22:07 WBC (4.5-11.0) X10^3/uL RBC (4.0-5.2) X10^6/uL Hgb (12.0-16.0) g/dL Hct (36-46) % MCV (80-100) fL MCH (26-34) PG MCHC (30-36) % RDW (11.6-14.8) % Plt Count (150-400) X10^3/uL Neut % (Auto) (50-75) % Lymph % (Auto) (25-40) % Elbert % (Auto) (3-14) % Eos % (Auto) (2-4) % Baso % (Auto) (0-2) % Neut # (Auto) (4464-6969) /uL Lymph # (Auto) (2152-4389) /uL Elbert # (Auto) (0-900) /uL Eos # (Auto) (0-450) /uL Baso # (Auto) (0-100) /uL ABG pH (7.35-7.45) ABG pCO2 (35-45) mmHg ABG pO2 (80-100) mmHg ABG HCO3 (22-26) mmol/L ABG Total CO2 (21-31) mmol/L ABG O2 Saturation (95-100) % ABG Base Excess (-2-2) mmol/L VBG pH (7.33-7.43) VBG pCO2 (45-50) mmHg VBG pO2 (35-45) mmHg VBG HCO3 (23-28) mmol/L VBG Total CO2 (24-29) mmol/L VBG O2 Saturation (70-75) % VBG Base Excess (0-4) mmol/L FiO2 Sodium 132 L (137-145) mmol/L Potassium 3.8 (3.4-5.1) mmol/L Chloride 93 L (98-107) mmol/L Carbon Dioxide 27 (22-32) mmol/L BUN 89 H (7-17) mg/dL Creatinine 1.50 H (0.52-1.04) mg/dL Estimated GFR 37.2 L (>60) mL/min BUN/Creatinine Ratio 59.3 H (6-22) Glucose 122 H D (70-100) mg/dL Lactate 1.2 (0.7-2.1) mmol/L Calcium 7.7 L (8.4-10.2) mg/dL Phosphorus 1.3 L D (2.5-4.5) mg/dL Magnesium 1.8 (1.6-2.3) mg/dL Total Bilirubin (0.2-1.3) mg/dL AST (14-36) IU/L ALT (9-52) IU/L Alkaline Phosphatase (38-126) U/L Total Creatine Kinase 56 (30-135) U/L CK-MB (CK-2) TNP CK-MB (CK-2) Rel Index TNP Troponin I 0.053 H (0.01-0.034) ng/mL Total Protein (6.3-8.2) g/dL Albumin 3.1 L (3.5-5.0) g/dL Globulin (1.7-4.1) g/dL Albumin/Globulin Ratio (1.0-2.8) TSH (0.47-4.68) uIU/mL Serum , Qual (Negative) Urine RBC (0-5/HPF) Urine WBC (0-5/HPF) Ur Squamous Epith Cells (0-5/HPF) Urine Bacteria (None) Urine Yeast (None) Ur Culture Indicated? Nasal Screen MRSA (PCR) Negative for mrsa (Negative) Urine Opiates Screen (Negative) Ur Oxycodone Screen (Negative) Urine Methadone Screen (Negative) Ur Barbiturates Screen (Negative) U Tricyclic Antidepress (Negative) Ur Phencyclidine Scrn (Negative) Ur Amphetamines Screen (Negative) U Methamphetamines Scrn (Negative) Ur MDMA Scrn (Ecstasy) (Negative) U Benzodiazepines Scrn (Negative) Urine Cocaine Screen (Negative) U Marijuana (THC) Screen (Negative) Ketones (<0.27) mmol/L 10/21/18 10/21/18 10/21/18 Range/Units 22:07 22:15 22:34 WBC (4.5-11.0) X10^3/uL RBC (4.0-5.2) X10^6/uL Hgb (12.0-16.0) g/dL Hct (36-46) % MCV (80-100) fL MCH (26-34) PG MCHC (30-36) % RDW (11.6-14.8) % Plt Count (150-400) X10^3/uL Neut % (Auto) (50-75) % Lymph % (Auto) (25-40) % Elbert % (Auto) (3-14) % Eos % (Auto) (2-4) % Baso % (Auto) (0-2) % Neut # (Auto) (7353-1019) /uL Lymph # (Auto) (4130-4937) /uL Elbert # (Auto) (0-900) /uL Eos # (Auto) (0-450) /uL Baso # (Auto) (0-100) /uL ABG pH 7.43 (7.35-7.45) ABG pCO2 36.7 (35-45) mmHg ABG pO2 84 (80-100) mmHg ABG HCO3 24 (22-26) mmol/L ABG Total CO2 25 (21-31) mmol/L ABG O2 Saturation 97 (95-100) % ABG Base Excess 0.0 (-2-2) mmol/L VBG pH (7.33-7.43) VBG pCO2 (45-50) mmHg VBG pO2 (35-45) mmHg VBG HCO3 (23-28) mmol/L VBG Total CO2 (24-29) mmol/L VBG O2 Saturation (70-75) % VBG Base Excess (0-4) mmol/L FiO2 21 Sodium (137-145) mmol/L Potassium (3.4-5.1) mmol/L Chloride (98-107) mmol/L Carbon Dioxide (22-32) mmol/L BUN (7-17) mg/dL Creatinine (0.52-1.04) mg/dL Estimated GFR (>60) mL/min BUN/Creatinine Ratio (6-22) Glucose (70-100) mg/dL Lactate 2.2 H (0.7-2.1) mmol/L Calcium (8.4-10.2) mg/dL Phosphorus (2.5-4.5) mg/dL Magnesium (1.6-2.3) mg/dL Total Bilirubin (0.2-1.3) mg/dL AST (14-36) IU/L ALT (9-52) IU/L Alkaline Phosphatase (38-126) U/L Total Creatine Kinase (30-135) U/L CK-MB (CK-2) CK-MB (CK-2) Rel Index Troponin I (0.01-0.034) ng/mL Total Protein (6.3-8.2) g/dL Albumin (3.5-5.0) g/dL Globulin (1.7-4.1) g/dL Albumin/Globulin Ratio (1.0-2.8) TSH (0.47-4.68) uIU/mL Serum , Qual (Negative) Urine RBC (0-5/HPF) Urine WBC (0-5/HPF) Ur Squamous Epith Cells (0-5/HPF) Urine Bacteria (None) Urine Yeast (None) Ur Culture Indicated? Nasal Screen MRSA (PCR) (Negative) Urine Opiates Screen Negative (Negative) Ur Oxycodone Screen Negative (Negative) Urine Methadone Screen Negative (Negative) Ur Barbiturates Screen Negative (Negative) U Tricyclic Antidepress Negative (Negative) Ur Phencyclidine Scrn Negative (Negative) Ur Amphetamines Screen Negative (Negative) U Methamphetamines Scrn Negative (Negative) Ur MDMA Scrn (Ecstasy) Negative (Negative) U Benzodiazepines Scrn Negative (Negative) Urine Cocaine Screen Negative (Negative) U Marijuana (THC) Screen Negative (Negative) Ketones (<0.27) mmol/L Point of Care Testing Glucose POC 182 Urine Dip Bedside Urine Glucose 1000 mg/dl Bedside Urine Bilirubin - Negative Bedside Urine Ketone +/- 5 Urine Specific [place] 1.015 Bedside Urine Occult Blood +++ Bedside Urine pH 5.5 Bedside Urine Protein +/- 15 Bedside Urine Urobilinogen - Negative Bedside Urine Nitrite - Negative Bedside Urine Leukocytes +/- 15 Esterase Point of care testing: Point of Care Testing Glucose POC 182 Urine Dip Bedside Urine Glucose 1000 mg/dl Bedside Urine Bilirubin - Negative Bedside Urine Ketone +/- 5 Urine Specific [place] 1.015 Bedside Urine Occult Blood +++ Bedside Urine pH 5.5 Bedside Urine Protein +/- 15 Bedside Urine Urobilinogen - Negative Bedside Urine Nitrite - Negative Bedside Urine Leukocytes +/- 15 Esterase ECG Data Attestation: I personally reviewed and interpreted this ECG as follows: Prior ECG tracings: not available for review Interpretation: Sinus tachycardia Ventricular rate of [address] elevation V1 V2 likely early report Normal QRS Nonspecific ST T wave changes MDM Narrative Medical decision making narrative: Patient arrives tachycardic. Hyperglycemic. VBG does show an acidosis. Has an anion gap of 25. Also has acute kidney injury. Most likely secondary to dehydration. I did have the patient stop her insulin pump. She was given fluids. Potassium replacement. Will treat as DKA. Insulin drip ordered. I did discuss the case with on-call Cardiology who did review her EKG who stated that they recommended admitting in treating for DKA. Trending the troponins and also obtaining an echo. They are available for consultation if any new changes occur. I did discuss the case with the night hospitalist who accepted further evaluation and treatment. Discussed admission with the patient who expressed understanding. Critical Care Time Critical Care Time: Yes Total Critical Care Time: 35 Attestation: The high probability of a clinically significant, sudden or life threatening deterioration of the endocrine system(s) required my full and direct attention, intervention and personal management. The aggregate critical care time was 35 minutes. This time is in addition to time spent performing reported procedures but includes the following: [] Data Review and interpretation [] Patient assessment and monitoring of vital signs [] Documentation [] Medication orders and management Discharge Plan Departure Patient Disposition: Admitted As Inpatient Clinical Impression: Dehydration, Diabetic gastroparesis, Acute kidney injury DKA (diabetic ketoacidoses) Qualifiers: Diabetes mellitus type: type 1 Diabetes mellitus complication detail: without coma Qualified Code(s): E10.10 - Type 1 diabetes mellitus with ketoacidosis without coma Discharge Date/Time: 10/21/18 20:45 Interventions: ED Discharge Assessment Last Done: 10/21/18 20:59 Admit Date/Time: 10/21/18 20:27 Admit Provider: Henry Linton
[2018-10-21 18:33] LABS: HCO3 VBG 24 mmol/L (23-28); Oxygen Saturation VBG 30 % (70-75); PCO2 VBG 45.2 mmHg (45-50); PO2 VBG 21 mmHg (35-45); Total CO2 VBG 26 mmol/L (24-29); pH VBG 7.34 (7.33-7.43)
[2018-10-21 18:36] LABS: Lactate (Lactic Acid) 2.6 mmol/L (0.7-2.1)
[2018-10-21 18:38] LABS: Phosphorous 2.9 mg/dL (2.5-4.5)
[2018-10-21] MEDS: ONDANSETRON 4 MG/2 ML INJ IV (18:38)
[2018-10-21 18:39] LABS: Alanine Aminotransferase 20 IU/L (9-52); Albumin 4.2 g/dL (3.5-5.0); Albumin Globulin Ratio 1.8 (1.0-2.8); Alkaline Phosphatase 129 U/L (38-126); Aspartate Aminotransferase 25 IU/L (14-36); BUN Creatinine Ratio 52.2 (6-22); Bilirubin Total 0.8 mg/dL (0.2-1.3); Calcium 8.6 mg/dL (8.4-10.2); Carbon Dioxide 24 mmol/L (22-32); Estimated Glomerular Filt Rate 22.7 mL/min (>60); Globulin 2.4 g/dL (1.7-4.1); Glucose 440 mg/dL (70-100); HEMOLYSIS < 15 (0-50); Potassium 3.5 mmol/L (3.4-5.1); Sodium 125 mmol/L (137-145); Total Protein 6.6 g/dL (6.3-8.2)
[2018-10-21 18:50] LABS: Chloride 76 mmol/L (98-107)
[2018-10-21 18:51] VITALS: BP 112/87; PULSE 112; O2SAT 99
[2018-10-21 18:51] LABS: Blood Urea Nitrogen 120 mg/dL (7-17)
[2018-10-21 18:57] LABS: Pregnancy Test Serum,Qual Negative (Negative)
[2018-10-21] MEDS: SODIUM CHLORIDE 0.9% 1,000 ML 1000 ML IV (18:59)
[2018-10-21 19:03] LABS: Ketones (Beta-Hydroxybutyrate) 7.04 mmol/L (<0.27)
--- NOTE | 2018-10-21 19:09 | CM.SWNOTE ---
ED Social Work Note Pt is a type 1 diabetic presenting to the ED with severe nausea, vomiting, weakness relating to 6-days of complications from her insulin pump malfunctioning. She is alone, however she and her spouse reside with her mother, and her mom was the person who called EMS. Her mother will be coming later to the ED to pick her up once she's ready for d/c. RE[employer]URANCE CLAIMS ANALYST offered emotional and coping support. Pt's PCP has already been working on a referral for pt to establish with a new [employer] [place], Dr. King at [facility], and she has just received a new [employer] insulin pump in the mail. She's hoping to have assistance from the [facility] diabetes program in setting up her new pump and continuous glucose monitoring system (CGM), or, sensor. She was found to be alert and oriented x3, expressed her own understanding of the need to seek emergency assistance sooner than she had this time, and is familiar with the signs/symptoms of DKA. Pt calm and expressed appreciation of REINSURANCE CLAIMS ANALYST visit and support. No further needs identified at this time.
[2018-10-21 19:14] LABS: Troponin I 0.044 ng/mL (0.01-0.034)
[2018-10-21 19:27] LABS: Thyroid Stimulating Hormone 1.25 uIU/mL (0.47-4.68)
[2018-10-21] MEDS: POTASSIUM CHLORIDE 40 MEQ in SODIUM CHLORIDE 0.9% 500 ML 130 ML IV (19:30)
[2018-10-21 19:47] VITALS: BP 141/70; PULSE 104; RESP 20; O2SAT 99
[2018-10-21 20:12] LABS: Bacteria Urine Moderate (10-30); RBC Urine >100/HPF (0-5/HPF); Squamous Epithelial Cell Urine 1-5 /HPF (0-5/HPF); WBC Urine 1-5/HPF (0-5/HPF)
[2018-10-21 20:13] LABS: Culture Indicated Urine Cult Not Indicated
[2018-10-21 20:16] LABS: Reflexed Lactate in 2 Hours Y
[2018-10-21] MEDS: INSULIN REGULAR, HUMAN 100 UNIT in SODIUM CHLORIDE 0.9% 100 ML 6 ML IV (20:30)
[2018-10-21 20:43] LABS: Lactate 2HR (Lactic Acid Rflx) 1.2 mmol/L (0.7-2.1)
[2018-10-21 21:04] VITALS: BMI 26.5
[2018-10-21 21:20] VITALS: BP 128/71; PULSE 116; RESP 18; TEMP 36.7; O2SAT 100
--- NOTE | 2018-10-21 21:33 | PM.HP.1 ---
History of Present Illness Date Patient Seen: 10/21/18 Time Patient Seen: 20:33 Chief complaint: Weakness with syncope Narrative: The patient is a 42-year-old female with PMHx of DM 1T (+ insulin pump) w/ complications of diabetic neuropathy and gastroparesis, hypothyroidism, HLD, pernicious anemia (on monthly B12 injections), asthma, guttate psoriasis, prior tobacco use, h/o cellulitis of elbow, depression, and seizure disorder. Patient also reports prior history of hypertension, however BP has been well controlled w/ anti-hypertensives. Also notes prior history of hypoglycemia induced seizures. Patient presented to the ED out of concern for malaise, fatigue, and generalized weakness. Symptom onset is acute, initially noted on Wednesday10/16/2018, progressively worsening. Patient reports an exacerbation underlying gastroparesis. Specifically reports developing symptoms of nausea, bilious vomiting (5-10 episodes daily), and epigastric discomfort (intermittent). Additional GI symptoms included diarrhea (3-4 episodes of loose, watery stools) and abdominal bloating. Denies hematemesis and blood loss per rectum. Reports having menses and notes frequent exacerbation of GI symptoms during this time. Patient attempted to treat aforementioned anomalies with Zofran and promethazine suppository with partial relief. It is not entirely clear the basis for the diagnosis of gastroparesis, however review of available records shows a negative gastric emptying study in April of 2016. Since Wednesday patient reports diminished appetite, food and fluid intake. She attempted to keep self hydrated with liquid an ice chips. Additional symptoms include headache, shortness of breath, dizziness and lightheadedness. Patient reports having exertional dyspnea at baseline, which started 2 years ago. Denies associated chest pain, palpitations, or diaphoresis. Reports inability to ambulate more than 25-50 feet without needing to rest. In the past week, exertional dyspnea has been worse. Patient herself associates this with DKA. Denies prior history of an ischemic work-up; however, she may have had an echocardiogram in the past (no records available for review). In addition, patient reports dizziness/lightheadedness with position change and potentially suffering a syncopal event. Patient herself does not recall loss of consciousness, however notes finding herself on the ground with poor recollection of events prior to the fall. There was loss bladder control. The event was witnessed by patient's mother and has taken place when patient was getting up from sitting to standing position. No injury to the head. Post event no headache, lethargy or symptoms of post-ictal state. ED presentation & work-up T 97.9F BP 143/87 HR 113 RR 18 SpO2 98% (room air). GCS 15. Labs 10/21/2018 @ 1812 Lactate 2.6 Ketones (serum) 7.04 AG 25 CO2 24 Trop 0.044 WBC 10.3 HGB 11.2 PLT 203 Na 125 K 3.5 Mg 2.0 Cl 76 Ca 8.6 Alb 4.2 PO4 2.9 Glu 440 (Glu POC on arrival 482) BUN 120 Cr 2.3 GFR 22.7 BUN/Cr 52.2 T.Bili 0.8 AST 25 ALT 20 Alk Phos 129 TSH 1.25 Hcg (qual) negative EKG, sinus tachycardia, ST elevation w/ normally inflected T wave vs. non-specific T wave abnormality Patient's case was discussed with on-call Cardiology at [facility], per ED provider EKG was sent for review, recommendation was made to treat patient for DKA, trend troponins, and obtain an echocardiogram. Patient History Medical History Guttate psoriasis (Acute) Left rib fracture (Acute) Asthma, mild (Chronic) Gastroparesis (Chronic) Psoriasis (Chronic) Type 1 diabetes (Chronic) Surgical History History of (Acute) History of carpal tunnel release of both wrists (Acute) No pertinent past surgical history (Chronic) Family History (Updated 05/15/18 @ 18:48 by Harrison Alexis MD) Father Trauma Mother Hypertension Diabetes mellitus COPD (chronic obstructive pulmonary disease) Social History household members: spouse and family Smoking Status: Former smoker alcohol intake: never Family & Social History Family History Father Trauma Mother Hypertension Diabetes mellitus COPD (chronic obstructive pulmonary disease) Social History: household members spouse,family Safety & Behavioral: Feels Safe in Current Yes Environment Been Physically Hurt or No Threatened By a Person Tobacco & Substance use: Smoking Status Former smoker alcohol intake never Substance Use Type does not use Meds Home Medications Medication Instructions Recorded Confirmed Type Ventolin HFA 2 puff INHALATION PRN PRN 11/16/17 05/15/18 History calcipotriene [Dovonex] 1 applic TOPICAL PRN PRN 11/16/17 05/15/18 History cholecalciferol (vitamin D3) 2,000 units PO DAILY 11/16/17 05/15/18 History [Vitamin D3] cyanocobalamin (vitamin B-12) 1 ml IM QMONTH 11/16/17 05/16/18 History escitalopram oxalate 20 mg PO DAILY 11/16/17 05/15/18 History gabapentin 300 mg PO BID 11/16/17 05/15/18 History glucagon (human recombinant) 1 dose IM DIRECTED 11/16/17 05/16/18 History insulin lispro 1 dose CONTINUOUS IV INFUSION PRN 11/16/17 05/15/18 History PRN levothyroxine 1 tab PO DAILY 11/16/17 05/15/18 History lovastatin 5 mg PO BEDTIME 11/16/17 05/15/18 History multivitamin with iron 1 tab PO DAILY 11/16/17 05/15/18 History omeprazole 20 mg PO DAILY 11/16/17 05/15/18 History ondansetron 4 mg PO PRN PRN 11/16/17 05/15/18 History potassium chloride 10 meq PO BID 11/16/17 05/15/18 History promethazine 12.5 mg PO PRN PRN 11/16/17 05/16/18 History promethazine 25 mg MO Q6H PRN #10 each 11/16/17 05/16/18 Rx ranitidine HCl 300 mg PO BEDTIME 11/16/17 05/15/18 History tacrolimus [Protopic] 1 applic TOPICAL PRN PRN 11/16/17 05/15/18 History gabapentin 600 mg PO BEDTIME 05/15/18 05/15/18 History hydromorphone [Dilaudid] 2 mg PO Q2-4H PRN #120 tab 05/20/18 Rx Allergies Allergy/AdvReac Type Severity Reaction Status Date / Time latex [LATEX] Allergy Intermediate Verified 03/03/19 14:49 Review of Systems Review of Systems All systems reviewed & are unremarkable except as noted in HPI and below Exam Vital Signs (past 8 hours): - 10/21/18 17:58 10/21/18 18:51 10/21/18 19:47 Temperature 97.9 F Pulse Rate 113 H 112 H 104 H Respiratory Rate 18 20 Blood Pressure 143/87 H Blood Pressure [Right Arm] 112/87 141/70 H Pulse Oximetry 98 99 99 Oxygen Delivery Method Room Air Narrative Exam Narrative: Constitutional Seen in ICU. Frail appearing. Head: NC, AT Eyes: pupils equal and reactive, EOMI ENT: normal external ears, normal external nose, no epistaxis, dry MM Neck: no JVD, adequate ROM, reports dizziness w/ neck/head rotation Chest / Resp: symmetrical chest rise, no dyspnea or tachypnea at rest, on room air Cardio: S1S2, tachycardia range 112-120 on monitor, no report of active CP; no murmur Ext: bi-pedal pulses thready, palpable; no edema GI: soft, NT, ND, + BS : suprapubic distention on palpation Skin: pale in appearance, diminished turgor, generalized dryness RLE (pre-tibial) bruising / hyperpigmentation, Left elbow hyperpigmentation, scar Musc: generalized weakness in both upper and lower extremities, LUE - diminished muscle tone Neuro: awake and alert, oriented x3, forgetful, fair memory recall, no tremor, sensation intact Psych: mildly anxious Objective Labs Result Diagrams: 10/22/18 05:50 10/22/18 05:58 Labs: Laboratory Results - last 24 hr 10/21/18 10/21/18 10/21/18 18:03 18:12 18:12 WBC 10.3 RBC 3.32 L Hgb 11.2 L Hct 33.2 L MCV 99.9 MCH 33.8 MCHC 33.9 RDW 13.8 Plt Count 203 Neut % (Auto) 82.4 H Lymph % (Auto) 7.3 L Miner % (Auto) 9.8 Eos % (Auto) 0.0 L Baso % (Auto) 0.5 Neut # (Auto) 8500 H Lymph # (Auto) 800 L Miner # (Auto) 1000 H Eos # (Auto) 0 Baso # (Auto) 100 VBG pH 7.34 VBG pCO2 45.2 VBG pO2 21 L VBG HCO3 24 VBG Total CO2 26 VBG O2 Saturation 30 L VBG Base Excess -2.0 L Sodium Potassium Chloride Carbon Dioxide BUN Creatinine Estimated GFR BUN/Creatinine Ratio Glucose Lactate Calcium Phosphorus 2.9 Magnesium 2.0 Total Bilirubin AST ALT Alkaline Phosphatase Troponin I Total Protein Albumin Globulin Albumin/Globulin Ratio TSH Serum , Qual Urine RBC Urine WBC Ur Squamous Epith Cells Urine Bacteria Urine Yeast Ur Culture Indicated? Ketones 10/21/18 10/21/18 10/21/18 18:12 18:12 18:12 WBC RBC Hgb Hct MCV MCH MCHC RDW Plt Count Neut % (Auto) Lymph % (Auto) Miner % (Auto) Eos % (Auto) Baso % (Auto) Neut # (Auto) Lymph # (Auto) Miner # (Auto) Eos # (Auto) Baso # (Auto) VBG pH VBG pCO2 VBG pO2 VBG HCO3 VBG Total CO2 VBG O2 Saturation VBG Base Excess Sodium 125 L Potassium 3.5 Chloride 76 L* Carbon Dioxide 24 BUN 120 H* Creatinine 2.30 H Estimated GFR 22.7 L BUN/Creatinine Ratio 52.2 H Glucose 440 H Lactate 2.6 H Calcium 8.6 Phosphorus Magnesium Total Bilirubin 0.8 AST 25 ALT 20 Alkaline Phosphatase 129 H Troponin I 0.044 H Total Protein 6.6 Albumin 4.2 Globulin 2.4 Albumin/Globulin Ratio 1.8 TSH Serum , Qual Urine RBC Urine WBC Ur Squamous Epith Cells Urine Bacteria Urine Yeast Ur Culture Indicated? Ketones 7.04 H 10/21/18 10/21/18 10/21/18 18:12 18:12 19:48 WBC RBC Hgb Hct MCV MCH MCHC RDW Plt Count Neut % (Auto) Lymph % (Auto) Miner % (Auto) Eos % (Auto) Baso % (Auto) Neut # (Auto) Lymph # (Auto) Miner # (Auto) Eos # (Auto) Baso # (Auto) VBG pH VBG pCO2 VBG pO2 VBG HCO3 VBG Total CO2 VBG O2 Saturation VBG Base Excess Sodium Potassium Chloride Carbon Dioxide BUN Creatinine Estimated GFR BUN/Creatinine Ratio Glucose Lactate Calcium Phosphorus Magnesium Total Bilirubin AST ALT Alkaline Phosphatase Troponin I Total Protein Albumin Globulin Albumin/Globulin Ratio TSH 1.25 Serum , Qual Negative Urine RBC >100/hpf H Urine WBC 1-5/hpf Ur Squamous Epith Cells 1-5 /hpf Urine Bacteria Moderate (10-30) H Urine Yeast 10-30/hpf H Ur Culture Indicated? Cult not indicated Ketones 10/21/18 20:27 WBC RBC Hgb Hct MCV MCH MCHC RDW Plt Count Neut % (Auto) Lymph % (Auto) Miner % (Auto) Eos % (Auto) Baso % (Auto) Neut # (Auto) Lymph # (Auto) Miner # (Auto) Eos # (Auto) Baso # (Auto) VBG pH VBG pCO2 VBG pO2 VBG HCO3 VBG Total CO2 VBG O2 Saturation VBG Base Excess Sodium Potassium Chloride Carbon Dioxide BUN Creatinine Estimated GFR BUN/Creatinine Ratio Glucose Lactate 1.2 Calcium Phosphorus Magnesium Total Bilirubin AST ALT Alkaline Phosphatase Troponin I Total Protein Albumin Globulin Albumin/Globulin Ratio TSH Serum , Qual Urine RBC Urine WBC Ur Squamous Epith Cells Urine Bacteria Urine Yeast Ur Culture Indicated? Ketones Assessment & Plan Assessment & Plan narrative: Patient is being admitted for DKA, MALLIKA, and elevated troponin. DKA (mild) in a Type I diabetic w/o coma, acute, present on admission, active Ketonemia w/ hyperglycemia. AG 25. CO2 24 - Hospital DKA protocol - insulin gtt until anion gap closes, IVF, e-lyte replacement, Q4H labs draws MALLIKA, acute , present on admission, active - suspected to be of pre-renal etiology, multi-factorial... hypovolemia, GI losses, osmotic diuresis - sCr 2.3 (baseline 0.6) - place adithya, re: MALLIKA, in ICU, I/Os monitoring - strict I/O - trend renal function NSTEMI, acute, present on admission, active YULI risk score for UA/NSTEMI is 2 (CAD RF & positive cardiac marker); HEART Score 5 (hx 1, ekg 1, RF 2, & initial trop 1) No prior history of an ischemic work-up. S/S: exertional dysnea, fatigue - Trop 0.044, trend Q4H - EKG, sinus tachycardia, ST elevation w/ normally inflected T wave vs. non-specific T wave abnormality - 300 mg ASA tonight and daily until able to tolerate PO, thereafter may change to 81 mg QD - 10/22 if able, if not then tuesday 10/24 - Risk stratify: A1C, FLP - In lieu of underlying history and risk factors, an ischemic work-up is highly recommended Diabetic gastroparesis, [id number], present on admission, active - Zofran and Reglan prn - Optimize glycemic control - Hydration DM 1T w/ complications, chronic condition, present on admission, stable prior to acute illness Diabetic disease is complicated by diabetic neuropathy and gastroparesis. Her most recent A1c is 8.4% by report. Considered to have poorly controlled diabetes, however she may have a higher A1c goal if brittle diabetic. Hypothyroidism, chronic condition, present on admission, stable - TSH 1.25. 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 Currently having menses. - Trend Hgb level Diabetic neuropathy, chronic condition, present on admission - FI[employer]AR[employer] SALES ASSOCIATE on gabapentin 600 mg QAM, 600 mg QNOON, and 1200 mg QPM, will need to hold gabapentin due to MALLIKA Full Code. No formal health directive, designates spouse, Otto Jimenez, as a proxy decision maker. Home medications reviewed. VTE prophylaxis w/ SCDs.
--- NOTE | 2018-10-21 21:42 | P.HP_ITS ---
History of Present Illness Date Patient Seen: 10/21/18 Time Patient Seen: 20:33 Chief complaint: Weakness with syncope Narrative: The patient is a 42-year-old female with PMHx of DM 1T (+ insulin pump) w/ complications of diabetic neuropathy and gastroparesis, hypothyroidism, HLD, pernicious anemia (on monthly B12 injections), asthma, guttate psoriasis, prior tobacco use, h/o cellulitis of elbow, depression, and seizure disorder. Patient also reports prior history of hypertension, however BP has been well controlled w/ anti-hypertensives. Also notes prior history of hypoglycemia induced seizures. Patient presented to the ED out of concern for malaise, fatigue, and generalized weakness. Symptom onset is acute, initially noted on Wednesday10/16/2018, progressively worsening. Patient reports an exacerbation underlying gastroparesis. Specifically reports developing symptoms of nausea, bilious vomiting (5-10 episodes daily), and epigastric discomfort (intermittent). Additional GI symptoms included diarrhea (3-4 episodes of loose, watery stools) and abdominal bloating. Denies hematemesis and blood loss per rectum. Reports having menses and notes frequent exacerbation of GI symptoms during this time. Patient attempted to treat aforementioned anomalies with Zofran and promethazine suppository with partial relief. It is not entirely clear the basis for the di agnosis of gastroparesis, however review of available records shows a negative gastric emptying study in April of 2016. Since Wednesday patient reports diminished appetite, food and fluid intake. She attempted to keep self hydrated with liquid an ice chips. Additional symptoms include headache, shortness of breath, dizziness and lightheadedness. Patient reports having exertional dyspnea at baseline, which started 2 years ago. Denies associated chest pain, palpitations, or diaphoresis. Reports inability to ambulate more than 25-50 feet without needing to rest. In the past week, exertional dyspnea has been worse. Patient herself associates this with DKA. Denies prior history of an ischemic work-up; however, she may have had an echocardiogram in the past (no records available for review). In addition, patient reports dizziness/lightheadedness with position change and potentially suffering a syncopal event. Patient herself does not recall loss of consciousness, however notes finding herself on the ground with poor recollection of events prior to the fall. There was loss bladder control. The event was witnessed by patient's mother and has taken place when patient was getting up from sitting to standing position. No injury to the head. Post event no headache, lethargy or symptoms of post-ictal state. ED presentation & work-up T 97.9F BP 143/87 HR 113 RR 18 SpO2 98% (room air). GCS 15. Labs 10/21/2018 @ 1812 Lactate 2.6 Ketones (serum) 7.04 AG 25 CO2 24 Trop 0.044 WBC 10.3 HGB 11.2 PLT 203 Na 125 K 3.5 Mg 2.0 Cl 76 Ca 8.6 Alb 4.2 PO4 2.9 Glu 440 (Glu POC on arrival 482) BUN 120 Cr 2.3 GFR 22.7 BUN/Cr 52.2 T.Bili 0.8 AST 25 ALT 20 Alk Phos 129 TSH 1.25 Hcg (qual) negative EKG, sinus tachycardia, ST elevation w/ normally inflected T wave vs. non- specific T wave abnormality Patient's case was discussed with on-call Cardiology at [facility], per ED provider EKG was sent for review, recommendation was made to treat patient for DKA, trend troponins, and obtain an echocardiogram. Patient History Medical History Guttate psoriasis (Acute) Left rib fracture (Acute) Asthma, mild (Chronic) Gastroparesis (Chronic) Psoriasis (Chronic) Type 1 diabetes (Chronic) Surgical History History of (Acute) History of carpal tunnel release of both wrists (Acute) No pertinent past surgical history (Chronic) Family History (Updated 05/15/18 @ 18:48 by Harrison Alexis MD) Father Trauma Mother Hypertension Diabetes mellitus COPD (chronic obstructive pulmonary disease) Social History household members: spouse and family Smoking Status: Former smoker alcohol intake: never Family & Social History Family History Father Trauma Mother Hypertension Diabetes mellitus COPD (chronic obstructive pulmonary disease) Social History: household members spouse,family Safety & Behavioral: Feels Safe in Current Yes Environment Been Physically Hurt or No Threatened By a Person Tobacco & Substance use: Smoking Status Former smoker alcohol intake never Substance Use Type does not use Meds Home Medications Medication Instructions Recorded Confirmed Type Ventolin HFA 2 puff INHALATION PRN PRN 11/16/17 05/15/18 History calcipotriene [Dovonex] 1 applic TOPICAL PRN PRN 11/16/17 05/15/18 History cholecalciferol (vitamin D3) 2,000 units PO DAILY 11/16/17 05/15/18 History [Vitamin D3] cyanocobalamin (vitamin B-12) 1 ml IM QMONTH 11/16/17 05/16/18 History escitalopram oxalate 20 mg PO DAILY 11/16/17 05/15/18 History gabapentin 300 mg PO BID 11/16/17 05/15/18 History glucagon (human recombinant) 1 dose IM DIRECTED 11/16/17 05/16/18 History insulin lispro 1 dose CONTINUOUS IV INFUSION PRN 11/16/17 05/15/18 History PRN levothyroxine 1 tab PO DAILY 11/16/17 05/15/18 History lovastatin 5 mg PO BEDTIME 11/16/17 05/15/18 History multivitamin with iron 1 tab PO DAILY 11/16/17 05/15/18 History omeprazole 20 mg PO DAILY 11/16/17 05/15/18 History ondansetron 4 mg PO PRN PRN 11/16/17 05/15/18 History potassium chloride 10 meq PO BID 11/16/17 05/15/18 History promethazine 12.5 mg PO PRN PRN 11/16/17 05/16/18 History promethazine 25 mg WA Q6H PRN #10 each 11/16/17 05/16/18 Rx ranitidine HCl 300 mg PO BEDTIME 11/16/17 05/15/18 History tacrolimus [Protopic] 1 applic TOPICAL PRN PRN 11/16/17 05/15/18 History gabapentin 600 mg PO BEDTIME 05/15/18 05/15/18 History hydromorphone [Dilaudid] 2 mg PO Q2-4H PRN #120 tab 05/20/18 Rx Allergies Allergy/AdvReac Type Severity Reaction Status Date / Time latex [LATEX] Allergy Intermediate Verified 05/15/18 14:49 Review of Systems Review of Systems All systems reviewed & are unremarkable except as noted in HPI and below Exam Vital Signs (past 8 hours): - 10/21/18 17:58 10/21/18 18:51 10/21/18 19:47 Temperature 97.9 F Pulse Rate 113 H 112 H 104 H Respiratory Rate 18 20 Blood Pressure 143/87 H Blood Pressure [Right Arm] 112/87 141/70 H Pulse Oximetry 98 99 99 Oxygen Delivery Method Room Air Narrative Exam Narrative: Constitutional Seen in ICU. Frail appearing. Head: NC, AT Eyes: pupils equal and reactive, EOMI ENT: normal external ears, normal external nose, no epistaxis, dry MM Neck: no JVD, adequate ROM, reports dizziness w/ neck/head rotation Chest / Resp: symmetrical chest rise, no dyspnea or tachypnea at rest, on room air Cardio: S1S2, tachycardia range 112-120 on monitor, no report of active CP; no murmur Ext: bi-pedal pulses thready, palpable; no edema GI: soft, NT, ND, + BS : suprapubic distention on palpation Skin: pale in appearance, diminished turgor, generalized dryness RLE (pre-tibial) bruising / hyperpigmentation, Left elbow hyperpigm entation, scar Musc: generalized weakness in both upper and lower extremities, LUE - diminished muscle tone Neuro: awake and alert, oriented x3, forgetful, fair memory recall, no tremor, sensation intact Psych: mildly anxious Objective Labs Result Diagrams: 10/22/18 05:50 10/22/18 05:58 Labs: Laboratory Results - last 24 hr 10/21/18 10/21/18 10/21/18 18:03 18:12 18:12 WBC 10.3 RBC 3.32 L Hgb 11.2 L Hct 33.2 L MCV 99.9 MCH 33.8 MCHC 33.9 RDW 13.8 Plt Count 203 Neut % (Auto) 82.4 H Lymph % (Auto) 7.3 L [place] % (Auto) 9.8 Eos % (Auto) 0.0 L Baso % (Auto) 0.5 Neut # (Auto) 8500 H Lymph # (Auto) 800 L [place] # (Auto) 1000 H Eos # (Auto) 0 Baso # (Auto) 100 VBG pH 7.34 VBG pCO2 45.2 VBG pO2 21 L VBG HCO3 24 VBG Total CO2 26 VBG O2 Saturation 30 L VBG Base Excess -2.0 L Sodium Potassium Chloride Carbon Dioxide BUN Creatinine Estimated GFR BUN/Creatinine Ratio Glucose Lactate Calcium Phosphorus 2.9 Magnesium 2.0 Total Bilirubin AST ALT Alkaline Phosphatase Troponin I Total Protein Albumin Globulin Albumin/Globulin Ratio TSH Serum , Qual Urine RBC Urine WBC Ur Squamous Epith Cells Urine Bacteria Urine Yeast Ur Culture Indicated? Ketones 10/21/18 10/21/18 10/21/18 18:12 18:12 18:12 WBC RBC Hgb Hct MCV MCH MCHC RDW Plt Count Neut % (Auto) Lymph % (Auto) [place] % (Auto) Eos % (Auto) Baso % (Auto) Neut # (Auto) Lymph # (Auto) [place] # (Auto) Eos # (Auto) Baso # (Auto) VBG pH VBG pCO2 VBG pO2 VBG HCO3 VBG Total CO2 VBG O2 Saturation VBG Base Excess Sodium 125 L Potassium 3.5 Chloride 76 L* Carbon Dioxide 24 BUN 120 H* Creatinine 2.30 H Estimated GFR 22.7 L BUN/Creatinine Ratio 52.2 H Glucose 440 H Lactate 2.6 H Calcium 8.6 Phosphorus Magnesium Total Bilirubin 0.8 AST 25 ALT 20 Alkaline Phosphatase 129 H Troponin I 0.044 H Total Protein 6.6 Albumin 4.2 Globulin 2.4 Albumin/Globulin Ratio 1.8 TSH Serum , Qual Urine RBC Urine WBC Ur Squamous Epith Cells Urine Bacteria Urine Yeast Ur Culture Indicated? Ketones 7.04 H 10/21/18 10/21/18 10/21/18 18:12 18:12 19:48 WBC RBC Hgb Hct MCV MCH MCHC RDW Plt Count Neut % (Auto) Lymph % (Auto) [place] % (Auto) Eos % (Auto) Baso % (Auto) Neut # (Auto) Lymph # (Auto) [place] # (Auto) Eos # (Auto) Baso # (Auto) VBG pH VBG pCO2 VBG pO2 VBG HCO3 VBG Total CO2 VBG O2 Saturation VBG Base Excess Sodium Potassium Chloride Carbon Dioxide BUN Creatinine Estimated GFR BUN/Creatinine Ratio Glucose Lactate Calcium Phosphorus Magnesium Total Bilirubin AST ALT Alkaline Phosphatase Troponin I Total Protein Albumin Globulin Albumin/Globulin Ratio TSH 1.25 Serum , Qual Negative Urine RBC >100/hpf H Urine WBC 1-5/hpf Ur Squamous Epith Cells 1-5 /hpf Urine Bacteria Moderate (10-30) H Urine Yeast 10-30/hpf H Ur Culture Indicated? Cult not indicated Ketones 10/21/18 20:27 WBC RBC Hgb Hct MCV MCH MCHC RDW Plt Count Neut % (Auto) Lymph % (Auto) [place] % (Auto) Eos % (Auto) Baso % (Auto) Neut # (Auto) Lymph # (Auto) [place] # (Auto) Eos # (Auto) Baso # (Auto) VBG pH VBG pCO2 VBG pO2 VBG HCO3 VBG Total CO2 VBG O2 Saturation VBG Base Excess Sodium Potassium Chloride Carbon Dioxide BUN Creatinine Estimated GFR BUN/Creatinine Ratio Glucose Lactate 1.2 Calcium Phosphorus Magnesium Total Bilirubin AST ALT Alkaline Phosphatase Troponin I Total Protein Albumin Globulin Albumin/Globulin Ratio TSH Serum , Qual Urine RBC Urine WBC Ur Squamous Epith Cells Urine Bacteria Urine Yeast Ur Culture Indicated? Ketones Assessment & Plan Assessment & Plan narrative: Patient is being admitted for DKA, MALLIKA, and elevated troponin. DKA (mild) in a Type I diabetic w/o coma, acute, present on admission, active Ketonemia w/ hyperglycemia. AG 25. CO2 24 - Hospital DKA protocol - insulin gtt until anion gap closes, IVF, e-lyte replacement, Q4H labs draws MALLIKA, acute , present on admission, active - suspected to be of pre-renal etiology, multi-factorial... hypovolemia, GI losses, osmotic diuresis - sCr 2.3 (baseline 0.6) - place adithya, re: MALLIKA, in ICU, I/Os monitoring - strict I/O - trend renal function NSTEMI, acute, present on admission, active YULI risk score for UA/NSTEMI is 2 (CAD RF & positive cardiac marker); HEART Score 5 (hx 1, ekg 1, RF 2, & initial trop 1) No prior history of an ischemic work-up. S/S: exertional dysnea, fatigue - Trop 0.044, trend Q4H - EKG, sinus tachycardia, ST elevation w/ normally inflected T wave vs. non- specific T wave abnormality - 300 mg ASA tonight and daily until able to tolerate PO, thereafter may change to 81 mg QD - 10/22 if able, if not then tuesday 10/24 - Risk stratify: A1C, FLP - In lieu of underlying history and risk factors, an ischemic work-up is highly recommended Diabetic gastroparesis, [id number], present on admission, active - Zofran and Reglan prn - Optimize glycemic control - Hydration DM 1T w/ complications, chronic condition, present on admission, stable prior to acute illness Diabetic disease is complicated by diabetic neuropathy and gastroparesis. Her most recent A1c is 8.4% by report. Considered to have poorly controlled diabetes, however she may have a higher A1c goal if brittle diabetic. Hypothyroidism, chronic condition, present on admission, stable - TSH 1.25. [employer] on levothyroxine 50 mcg QD - Levothyroxine IV 25 mcg on 10/22/18, then resume oral [employer] formulation 50 mcg QD startign 10/23/18 Pernicious anemia (Hgb 11.2), chronic condition, present on admission, stable [employer] on B12 injections, last September 13 (has not had one this month). Currently having menses. - Trend Hgb level Diabetic neuropathy, chronic condition, present on admission - [employer] on gabapentin 600 mg QAM, 600 mg QNOON, and 1200 mg QPM, will need to hold gabapentin due to MALLIKA Full Code. No formal health directive, designates spouse, Otto Jimenez, as a proxy decision maker. Home medications reviewed. VTE prophylaxis w/ SCDs.
[2018-10-21] MEDS: ASPIRIN SUPP 600 MG SUPP.RECT 300 MG PR (21:54)
[2018-10-21] MEDS: SODIUM CHLORIDE 0.9% 1,000 ML 500 ML IV (21:55)
[2018-10-21 22:10] VITALS: BP 131/74; PULSE 115; RESP 17; O2SAT 100
[2018-10-21 22:38] LABS: Lactate (Lactic Acid) 2.2 mmol/L (0.7-2.1)
[2018-10-21 22:39] LABS: Albumin 3.1 g/dL (3.5-5.0); BUN Creatinine Ratio 59.3 (6-22); Blood Urea Nitrogen 89 mg/dL (7-17); Calcium 7.7 mg/dL (8.4-10.2); Carbon Dioxide 27 mmol/L (22-32); Chloride 93 mmol/L (98-107); Creatine Kinase 56 U/L (30-135); Estimated Glomerular Filt Rate 37.2 mL/min (>60); Glucose 122 mg/dL (70-100); HEMOLYSIS < 15 (0-50); Magnesium 1.8 mg/dL (1.6-2.3); Phosphorous 1.3 mg/dL (2.5-4.5); Potassium 3.8 mmol/L (3.4-5.1); Sodium 132 mmol/L (137-145)
--- NOTE | 2018-10-21 22:39 | PC.NURSE ---
2049- Admit from ER. Patient is alert and oriented. Monitor show sinus tachycardia. Dorsey inserted per order. Insulin gtt per order. Afebrile stable at this time.
[2018-10-21] MEDS: DEXTROSE 5%-0.45% NS 1,000 ML 150 ML IV (22:48)
[2018-10-21 22:50] LABS: Troponin I 0.053 ng/mL (0.01-0.034)
[2018-10-21 23:00] VITALS: BP 129/71; PULSE 115; RESP 19; TEMP 37.8; O2SAT 96
[2018-10-21 23:16] LABS: HCO3 ABG 24 mmol/L (22-26); Oxygen Saturation ABG 97 % (95-100); PCO2 ABG 36.7 mmHg (35-45); PO2 ABG 84 mmHg (80-100); TCO2 ABG 25 mmol/L (21-31); pH ABG 7.43 (7.35-7.45)
[2018-10-21 23:17] LABS: Fractionated Inspired Oxygen 21
[2018-10-21 23:20] LABS: Urine Amphetamines Negative (Negative); Urine Barbiturates Negative (Negative); Urine Benzodiazepines Negative (Negative); Urine Cocaine Negative (Negative); Urine MDMA Negative (Negative); Urine Methadone Negative (Negative); Urine Methamphetamines Negative (Negative); Urine Morphine/Opi cutoff 2000 Negative (Negative); Urine Oxycodone Negative (Negative); Urine Phencyclidine Negative (Negative); Urine Tetrahydrocannabinol Negative (Negative); Urine Tricyclic Antidepressant Negative (Negative)
[2018-10-22] VITALS (11 sets, daily range): BP systolic 83–139; BP diastolic 60–76; PULSE 103–114; RESP 19–35; TEMP 36.9–37.7; O2SAT 97–100
[2018-10-22] MEDS: SODIUM CHLORIDE 0.9% FLUSH 10 ML IV (00:04)
[2018-10-22 00:22] LABS: Reflexed Lactate in 2 Hours Y
[2018-10-22 02:16] LABS: Lactate 2HR (Lactic Acid Rflx) 1.4 mmol/L (0.7-2.1)
[2018-10-22 02:17] LABS: BUN Creatinine Ratio 59.2 (6-22); Blood Urea Nitrogen 71 mg/dL (7-17); Calcium 8.2 mg/dL (8.4-10.2); Carbon Dioxide 24 mmol/L (22-32); Chloride 94 mmol/L (98-107); Creatine Kinase 46 U/L (30-135); Estimated Glomerular Filt Rate 48.2 mL/min (>60); Glucose 137 mg/dL (70-100); HEMOLYSIS < 15 (0-50); Phosphorous 1.3 mg/dL (2.5-4.5); Potassium 3.4 mmol/L (3.4-5.1); Sodium 132 mmol/L (137-145)
[2018-10-22 02:28] LABS: Troponin I 0.059 ng/mL (0.01-0.034)
[2018-10-22] MEDS: POTASSIUM CHLORIDE 40 MEQ in SODIUM CHLORIDE 0.9% 500 ML 130 ML IV (02:50)
[2018-10-22] MEDS: DEXTROSE 5%-0.45% NS 1,000 ML 200 ML IV (04:02)
[2018-10-22 06:22] LABS: Magnesium 1.7 mg/dL (1.6-2.3)
[2018-10-22 06:23] LABS: Albumin 2.9 g/dL (3.5-5.0); Blood Urea Nitrogen 56 mg/dL (7-17); Calcium 8.2 mg/dL (8.4-10.2); Carbon Dioxide 26 mmol/L (22-32); Chloride 96 mmol/L (98-107); Creatine Kinase 36 U/L (30-135); Estimated Glomerular Filt Rate 59.4 mL/min (>60); Glucose 154 mg/dL (70-100); HEMOLYSIS < 15 (0-50); Phosphorous 1.5 mg/dL (2.5-4.5); Potassium 3.8 mmol/L (3.4-5.1); Sodium 132 mmol/L (137-145)
[2018-10-22 06:24] LABS: Cholesterol 151 mg/dL (140-199); HDL Cholesterol 52 mg/dL (40-60); LDL Cholesterol Calculated 63 mg/dL (<100); Triglycerides 178 mg/dL (35-150)
[2018-10-22 06:35] LABS: Troponin I 0.054 ng/mL (0.01-0.034)
[2018-10-22 06:36] LABS: Hemoglobin A1C% w Est Avg Glu 8.5 % (4.0-6.0)
[2018-10-22 06:46] LABS: Add Manual Diff / Slide Review NO; Basophils Absolute Auto 0 /uL (0-100); Basophils Percent Auto 0.4 % (0-2); Eosinophils Absolute Auto 0 /uL (0-450); Eosinophils Percent Auto 0.1 % (2-4); Hematocrit 24.5 % (36-46); Hemoglobin 8.7 g/dL (12.0-16.0); Lymphocytes Absolute Auto 800 /uL (1100-4500); Lymphocytes Percent Auto 9.1 % (25-40); Mean Corpuscular HGB Conc 35.4 % (30-36); Mean Corpuscular Hemoglobin 34.8 PG (26-34); Mean Corpuscular Volume 98.4 fL (80-100); Monocytes Absolute Auto 800 /uL (0-900); Monocytes Percent Auto 10.1 % (3-14); Neutrophils Absolute Auto 6600 /uL (1500-7000); Neutrophils Percent Auto 80.3 % (50-75); Platelet Count 157 X10^3/uL (150-400); Red Blood Cell Count 2.49 X10^6/uL (4.0-5.2); Red Cell Distribution Width 13.7 % (11.6-14.8); White Blood Cell Count 8.3 X10^3/uL (4.5-11.0)
--- NOTE | 2018-10-22 09:00 | PC.NURSE ---
Addendum entered by Joelle Gaviria R.N. 10/22/18 13:36: 1345-Echo results reviewed with Pt by Dr Renee. Echo done in room. Pt is having small meal, lunch CBG elevated 303, Pt educated about increased coverage needed to correct, printed med dose algorithm and education provided about follow up and care. Dr Renee at bedside and discussion of care rec'd while in hospital. Will work on D/c planning. Original Note: Am shift Assumed care of Pt, denies nausea, No CP or SOB. Insulin gtt infusing @ 5.3units/hr. D51/2 NS @ 200mls, CBG @ 0730 105. Orders obtained to stop IVF and start home insulin pump per home regime. 0.5 units/hr basal rate, bolus 1.5-3unit per meal. Ok to D/c IVF and offer food in 1 hr. Pt denies nausea. , set pump without assist from staff. Verified settings by this RN.
[2018-10-22] MEDS: LEVOTHYROXINE 50 MCG TABLET PO (10:30)
[2018-10-22] MEDS: ESCITALOPRAM 10 MG TABLET 20 MG PO (10:30)
--- NOTE | 2018-10-22 11:23 | DI.ECHO.S_ITS ---
[facility] +---------+ [facility] +---------+ : : [address] : : : : [id number] : : : : Phone: [phone]+ Echocardiogram Report + + :Name: EVIE TAFOYA Study Date: 10/22/2018 Height: 63 in : :[facility] Weight: 151 lb: : Gender: Female BSA: 1.7 m2 : :: 1970 Age: 48 yrs : :Reason For Study: Elevated Troponin, ROGELIO LIRIANO : :Ordering Physician: Jeanette : :Hospitalist Performed By: Natalie Acevedo : :Referring: CASSIDY VASQUEZ : + + Interpretation Summary The left ventricle is normal in size, wall thickness, and systolic function without any focal wall motion abnormalities. The right ventricle is normal in size and function. Pulmonary artery pressures cannot be estimated because of the lack of a measurable TR jet velocity but the IVC suggests a CVP of around 3 mmHg. No hemodynamically significant valvular abnormalities. -Essentially normal echocardiogram. Procedure: A two-dimensional transthoracic echocardiogram with color flow and Doppler was performed. The study quality was technically adequate. There is no prior echocardiogram noted for this patient. The patient was in normal sinus rhythm during the exam. The heart rate ranged between 92-98 bpm during the study. Left Ventricle: The left ventricle is normal in size, wall thickness, and systolic function without any focal wall motion abnormalities. There is no ventricular septal defect visualized. The ejection fraction is estimated to be 60-65%. The left ventricular ejection fraction is normal. Diastolic parameters suggest probable normal left ventricular diastolic function and normal filling pressures. Right Ventricle: The right ventricle is normal in size and function. Atria: The left atrial size is normal. Right atrial size is normal. There is no Doppler evidence for an interatrial shunt. Mitral Valve: The mitral valve is normal in structure and function. There is no mitral regurgitation noted. Aortic Valve: The aortic valve is normal in structure and function. The aortic valve is slightly calcified. No aortic regurgitation is present. Tricuspid Valve: The tricuspid valve leaflets are thin and pliable. Pulmonary artery pressures cannot be estimated because of the lack of a measurable TR jet velocity but the IVC suggests a CVP of around 3 mmHg. Pulmonic Valve: The pulmonic valve is not well visualized. Great Vessels: The aortic root is normal size. The ascending aorta is normal in size. The aortic arch is normal in size. The IVC is of normal diameter and collapses greater than 50% with a sniff. This suggests a low right atrial pressure of 3 mm Hg. Pericardium/ Pleura There is no pericardial effusion. MMode/2D Measurements & Calculations LVIDd: 4.2 cm LVOT diam: 2.2 cm LVIDs: 3.0 cm Ao root diam: 3.3 cm FS: 28.2 % Aortic Jxn: 2.5 cm EPSS: 0.05 cm asc Aorta Diam: 2.8 cm IVSd: 0.76 cm Ao Arch Diam (Prox Trans): 2.8 cm LVPWd: 0.94 cm LV burdick. diameter/BSA (cm/m^2): 2.5 LV sys. diameter/BSA (cm/m^2): 1.8 LA A2 area: 19.0 cm2 RA long axis: 4.0 cm LA A4 area: 16.1 cm2 RA area: 9.5 cm2 LA length (vol): 4.0 cm RA vol: 18.9 ml LA vol: 65.1 ml RA : 11.0 ml/m2 LA vol index: 38.0 ml/m2 IVC diam: 1.9 cm RVD1 (basal): 3.1 cm RVD2 (mid): 2.5 cm TAPSE: 2.6 cm Doppler Measurements & Calculations Ao V2 max: 141.9 cm/sec LVOT Max Garfield: 97.4 cm/sec Ao V2 mean: 104.1 cm/sec LV V1 max P.8 mmHg Ao max P.1 mmHg LV V1 VTI: 15.6 cm Ao mean P.7 mmHg NEETU(I,D): 2.5 cm2 Ao V2 VTI: 24.6 cm NEETU(V,D): 2.7 cm2 sev ratio: 0.63 NEETU indexed to BSA (cm^2/m^2): 1.4 MV E max garfield: 82.7 cm/sec PA V2 max: 105.2 cm/sec MV A max garfield: 76.2 cm/sec PA V2 mean: 72.1 cm/sec MV E/A: 1.1 PA mean P.4 mmHg Med Peak E' Garfield: 10.1 cm/sec PA Accel Time: 0.07 sec E/E' med: 8.2 Lat Peak E' Garfield: 9.7 cm/sec E/E' lat: 8.5 E/e' average: 8.4 MV dec time: 0.11 sec MV P1/2t: 31.3 msec MV P1/2t max garfield: 82.7 cm/sec SV(LVOT): 61.2 ml MVA(P1/2t): 7.0 cm2 Electronically signed by: Kit Renteria M.D. on Reading Physician:10/22/2018 01:21 PM
--- NOTE | 2018-10-22 11:25 | PM.DS.1 ---
History of Present Illness Date Patient Seen: 10/21/18 Chief complaint: Weakness with syncope Narrative: Written by Henry FUENTES: The patient is a 42-year-old female with PMHx of DM 1T (+ insulin pump) w/ complications of diabetic neuropathy and gastroparesis, hypothyroidism, HLD, pernicious anemia (on monthly B12 injections), asthma, guttate psoriasis, prior tobacco use, h/o cellulitis of elbow, depression, and seizure disorder. Patient also reports prior history of hypertension, however BP has been well controlled w/ anti-hypertensives. Also notes prior history of hypoglycemia induced seizures. Patient presented to the ED out of concern for malaise, fatigue, and generalized weakness. Symptom onset is acute, initially noted on Wednesday10/16/2018, progressively worsening. Patient reports an exacerbation underlying gastroparesis. Specifically reports developing symptoms of nausea, bilious vomiting (5-10 episodes daily), and epigastric discomfort (intermittent). Additional GI symptoms included diarrhea (3-4 episodes of loose, watery stools) and abdominal bloating. Denies hematemesis and blood loss per rectum. Reports having menses and notes frequent exacerbation of GI symptoms during this time. Patient attempted to treat aforementioned anomalies with Zofran and promethazine suppository with partial relief. It is not entirely clear the basis for the diagnosis of gastroparesis, however review of available records shows a negative gastric emptying study in April of 2016. Since Wednesday patient reports diminished appetite, food and fluid intake. She attempted to keep self hydrated with liquid an ice chips. Additional symptoms include headache, shortness of breath, dizziness and lightheadedness. Patient reports having exertional dyspnea at baseline, which started 2 years ago. Denies associated chest pain, palpitations, or diaphoresis. Reports inability to ambulate more than 25-50 feet without needing to rest. In the past week, exertional dyspnea has been worse. Patient herself associates this with DKA. Denies prior history of an ischemic work-up; however, she may have had an echocardiogram in the past (no records available for review). In addition, patient reports dizziness/lightheadedness with position change and potentially suffering a syncopal event. Patient herself does not recall loss of consciousness, however notes finding herself on the ground with poor recollection of events prior to the fall. There was loss bladder control. The event was witnessed by patient's mother and has taken place when patient was getting up from sitting to standing position. No injury to the head. Post event no headache, lethargy or symptoms of post-ictal state. ED presentation & work-up T 97.9F BP 143/87 HR 113 RR 18 SpO2 98% (room air). GCS 15. Labs 10/21/2018 @ 1812 Lactate 2.6 Ketones (serum) 7.04 AG 25 CO2 24 Trop 0.044 WBC 10.3 HGB 11.2 PLT 203 Na 125 K 3.5 Mg 2.0 Cl 76 Ca 8.6 Alb 4.2 PO4 2.9 Glu 440 (Glu POC on arrival 482) BUN 120 Cr 2.3 GFR 22.7 BUN/Cr 52.2 T.Bili 0.8 AST 25 ALT 20 Alk Phos 129 TSH 1.25 Hcg (qual) negative EKG, sinus tachycardia, ST elevation w/ normally inflected T wave vs. non-specific T wave abnormality Patient's case was discussed with on-call Cardiology at [facility], per ED provider EKG was sent for review, recommendation was made to treat patient for DKA, trend troponins, and obtain an echocardiogram. Discharge Providers Date of admission: 10/21/18 20:27 Discharge Date: 10/22/18 Primary care physician: Sandra Nathan PA-C Discharge provider: Yolette Renee DO Summary Discharge Diagnosis: 1. Diabetic ketoacidosis without coma, secondary to type 1 diabetes, present on admission. Resolved. 2. Acute Type II HI, secondary to DKA, present on admission. Resolving. 3. Probable acute UTI, present on admission. Active. 4. Acute kidney injury, present on admission. Resolved. 5. Acute on chronic hyponatremia, present on admission. Stable. 6. Acute on chronic diabetic gastroparesis, present on admission. Stable. 7. Diabetic peripheral neuropathy, chronic, present on admission. Stable. 8. Depression, chronic, present on admission. Stable. 9. Hypothyroidism, chronic, present on admission, stable 10. Pernicious anemia, acute on chronic, present on admission. Stable. Hospital Course: Micki Jimenez is a 47-year-old female with type 1 diabetes, on insulin pump, admitted due to left arm cellulitis and infectious bursitis of the olecranon. 1. Diabetic ketoacidosis without coma, secondary to type 1 diabetes, present on admission. Resolved. -Patient presented with reported gastroparesis flare including nausea, vomiting, malaise, fatigue, and generalized weakness. -Ketones 7.04 with hyperglycemia 440. Anion gap 25. -Hemoglobin A1c 8.5% which is represents slightly better glycemic control than previous hospitalization. -Started DKA protocol including IV fluid resuscitation/hydration, electrolyte replacement and insulin gtt until anion gap closes. Continued to monitor BMP every 4 hours until anion gap closed. Once anion gap was closed she continued her insulin pump at a basal rate of 0.5 units per hour with 1-3 units bolus with each meal. -Ordered respiratory viral PCR which was -Initial urinalysis appeared equivocal therefore repeat was performed which did not demonstrate grossly infected urine. -Patient has a referral to endocrinology and recommend this be expedited as this is her second hospitalization in 4 months for DKA with need for closer management and optimization of insulin pump and assessment of osteoporosis and treatment if present. Patient is a high fall risk. 2. Acute Type II HI, secondary to DKA, present on admission. Resolving. -YULI risk score is 2 (CAD RF & positive cardiac marker); HEART Score 5 (hx 1, ekg 1, RF 2, & initial trop 1) -No prior history of an ischemic work-up. S/S: Dyspnea on exertion and fatigue. Denies chest pain. -Initial troponin 0.044. Serial troponin trended up to 0.059 and now trending down 0.054 as anticipated with DKA resolution/treatment. 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 -Received aspirin 300 mg x 1. Continued aspirin 81 mg daily during hospitalization. May consider implementing aspirin 81 mg daily in to normal routine if stress test is intermediate or high risk. -Echocardiogram was within normal limits with normal RV and LV function, no wall motion abnormalities, and no significant valvular disease. -Risk stratified: Hemoglobin A1c 8.5% indicative of moderate glycemic control and fasting lipid panel which demonstrated fairly good lipid control: Total cholesterol 151, triglyceride 178, LDL 63, HDL 52. -In lieu of underlying history and risk factors, an ischemic work-up with an outpatient exercise and or nuclear medicine stress test should be considered and is highly recommended. 3. Probable acute UTI, present on admission. Active. -Patient presented with urinary symptoms including hesitancy, increased frequency, mild dysuria, and suprapubic pressure. -Repeat urinalysis appears grossly infected with positive leukocyte esterase, nitrate, WBCs, and bacteria. -Patient was discharged on nitrofurantoin 100 mg twice daily for empiric treatment of UTI with PCP to follow urine culture. 4. Acute kidney injury, present on admission. Resolved. -Secondary to prerenal azotemia from hypovolemia, GI losses, and osmotic diuresis. -Initial creatinine 2.3 which quickly corrected with IV fluid administration to 1.0. Baseline creatinine 0.6-0.9. -Dorsey catheter placed initially for close monitoring of I&O's and has been removed. -Continued IV fluids per DKA protocol as above until adequately hydrated then discontinued. -Avoided nephrotoxic agents. -Continued to monitor renal function closely. 5. Acute on chronic hyponatremia, present on admission. Stable. -Acute portion secondary to hypovolemia from GI losses and dehydration. Chronic portion likely due to polyuria from DM type 1. -Continued IV fluids per DKA protocol as above until adequately hydrated then discontinued. 6. Acute on chronic diabetic gastroparesis, present on admission. Stable. -Continued home Zantac 300 mg at bedtime and her usual antiemetics with Zofran and Reglan as needed. -Optimized glycemic control and provided IV fluid resuscitation/hydration as above. 7. Diabetic peripheral neuropathy, chronic, present on admission. Stable. -Held gabapentin initially and then restarted at discharge with gabapentin 600 in morning and at noon and 1200 mg at bedtime. 8. Depression, chronic, present on admission. Stable. -Continued escitalopram 20 mg daily and mirtazapine 50 mg daily at bedtime. 9. Hypothyroidism, chronic, present on admission, stable -TSH normal at 1.25. -Continue levothyroxine 50 mcg daily. 10. Pernicious anemia, acute on chronic, present on admission. Stable. -Decrease in hemoglobin secondary to dilution from IV fluid resuscitation/hydration. -Initial hemoglobin 11.2, now down to 8.7 and anticipate will quickly equilibrate over next several days. -Patient receives B12 injections with last 09/13/18 (has not had one this month). Currently having menses. Recommend she have her B12 injection at hospital follow-up with PCP in next 1 week. Status at Discharge Functional status at discharge: independent ambulation Overall status at discharge: patient is back to baseline Exam Vital Signs (past 8 hours): - 10/22/18 04:00 10/22/18 05:00 10/22/18 05:38 Temperature 99.4 F Pulse Rate 111 H 112 H Respiratory Rate 21 20 Blood Pressure 139/70 133/66 Pulse Oximetry 98 98 10/22/18 06:00 10/22/18 07:00 10/22/18 08:00 Temperature 98.4 F Pulse Rate 107 H 106 H 104 H Respiratory Rate 22 19 19 Blood Pressure 136/72 137/76 135/75 Pulse Oximetry 99 99 99 Oxygen Delivery Method Room Air Oxygen Flow Rate 0 Narrative Exam Narrative: General: Middle-aged female lying in bed and in no acute distress, well-developed, well-nourished, appropriately interactive. HEENT: Normocephalic, atraumatic. External ears without defect. Pupils equal, round, and reactive to light. Anicteric sclerae, moist conjunctivae, and no lid lag. Oropharynx free of erythema and cobble stoning with moist mucosa. Flushed appearing cheeks bilaterally. Neck: Supple with full range of motion. No lymphadenopathy or thyromegaly. Cardiovascular: Regular rhythm, mild tachycardia without murmurs, rubs, or gallops appreciated. Pulmonary: Clear to auscultation bilaterally without crackles, wheezes, or rhonchi. Normal respiratory effort with no use of accessory muscles. Abdomen: Soft, bowel sounds present, nontender, nondistended. No hepatosplenomegaly or masses appreciated. Extremities: No clubbing, cyanosis, or edema. Scar over left olecranon process with mild dry cracked skin but does not appear infected. Skin: Normal temperature, turgor, and texture; no ulcers, or subcutaneous nodules appreciated. Scattered psoriasis appears improved and very mild since her last hospitalization. Neurological: Cranial nerves grossly intact. Psychiatric: Normal mood and affect. Alert and oriented to person, place, and time. Objective Labs Result Diagrams: 10/22/18 05:50 10/22/18 05:58 Labs: Laboratory Results - last 24 hr 10/21/18 10/21/18 10/21/18 18:03 18:12 18:12 WBC 10.3 RBC 3.32 L Hgb 11.2 L Hct 33.2 L MCV 99.9 MCH 33.8 MCHC 33.9 RDW 13.8 Plt Count 203 Neut % (Auto) 82.4 H Lymph % (Auto) 7.3 L [place] % (Auto) 9.8 Eos % (Auto) 0.0 L Baso % (Auto) 0.5 Neut # (Auto) 8500 H Lymph # (Auto) 800 L [place] # (Auto) 1000 H Eos # (Auto) 0 Baso # (Auto) 100 ABG pH ABG pCO2 ABG pO2 ABG HCO3 ABG Total CO2 ABG O2 Saturation ABG Base Excess VBG pH 7.34 VBG pCO2 45.2 VBG pO2 21 L VBG HCO3 24 VBG Total CO2 26 VBG O2 Saturation 30 L VBG Base Excess -2.0 L FiO2 Sodium Potassium Chloride Carbon Dioxide BUN Creatinine Estimated GFR BUN/Creatinine Ratio Glucose Hemoglobin A1c Lactate Calcium Phosphorus 2.9 Magnesium 2.0 Total Bilirubin AST ALT Alkaline Phosphatase Total Creatine Kinase CK-MB (CK-2) CK-MB (CK-2) Rel Index Troponin I Total Protein Albumin Globulin Albumin/Globulin Ratio Triglycerides Cholesterol LDL Cholesterol, Calc HDL Cholesterol TSH Serum , Qual Urine RBC Urine WBC Ur Squamous Epith Cells Urine Bacteria Urine Yeast Ur Culture Indicated? Nasal Screen MRSA (PCR) Urine Opiates Screen Ur Oxycodone Screen Urine Methadone Screen Ur Barbiturates Screen U Tricyclic Antidepress Ur Phencyclidine Scrn Ur Amphetamines Screen U Methamphetamines Scrn Ur MDMA Scrn (Ecstasy) U Benzodiazepines Scrn Urine Cocaine Screen U Marijuana (THC) Screen Ketones 10/21/18 10/21/18 10/21/18 18:12 18:12 18:12 WBC RBC Hgb Hct MCV MCH MCHC RDW Plt Count Neut % (Auto) Lymph % (Auto) [place] % (Auto) Eos % (Auto) Baso % (Auto) Neut # (Auto) Lymph # (Auto) [place] # (Auto) Eos # (Auto) Baso # (Auto) ABG pH ABG pCO2 ABG pO2 ABG HCO3 ABG Total CO2 ABG O2 Saturation ABG Base Excess VBG pH VBG pCO2 VBG pO2 VBG HCO3 VBG Total CO2 VBG O2 Saturation VBG Base Excess FiO2 Sodium 125 L Potassium 3.5 Chloride 76 L* Carbon Dioxide 24 BUN 120 H* Creatinine 2.30 H Estimated GFR 22.7 L BUN/Creatinine Ratio 52.2 H Glucose 440 H Hemoglobin A1c Lactate 2.6 H Calcium 8.6 Phosphorus Magnesium Total Bilirubin 0.8 AST 25 ALT 20 Alkaline Phosphatase 129 H Total Creatine Kinase CK-MB (CK-2) CK-MB (CK-2) Rel Index Troponin I 0.044 H Total Protein 6.6 Albumin 4.2 Globulin 2.4 Albumin/Globulin Ratio 1.8 Triglycerides Cholesterol LDL Cholesterol, Calc HDL Cholesterol TSH Serum , Qual Urine RBC Urine WBC Ur Squamous Epith Cells Urine Bacteria Urine Yeast Ur Culture Indicated? Nasal Screen MRSA (PCR) Urine Opiates Screen Ur Oxycodone Screen Urine Methadone Screen Ur Barbiturates Screen U Tricyclic Antidepress Ur Phencyclidine Scrn Ur Amphetamines Screen U Methamphetamines Scrn Ur MDMA Scrn (Ecstasy) U Benzodiazepines Scrn Urine Cocaine Screen U Marijuana (THC) Screen Ketones 7.04 H 10/21/18 10/21/18 10/21/18 18:12 18:12 19:48 WBC RBC Hgb Hct MCV MCH MCHC RDW Plt Count Neut % (Auto) Lymph % (Auto) [place] % (Auto) Eos % (Auto) Baso % (Auto) Neut # (Auto) Lymph # (Auto) [place] # (Auto) Eos # (Auto) Baso # (Auto) ABG pH ABG pCO2 ABG pO2 ABG HCO3 ABG Total CO2 ABG O2 Saturation ABG Base Excess VBG pH VBG pCO2 VBG pO2 VBG HCO3 VBG Total CO2 VBG O2 Saturation VBG Base Excess FiO2 Sodium Potassium Chloride Carbon Dioxide BUN Creatinine Estimated GFR BUN/Creatinine Ratio Glucose Hemoglobin A1c Lactate Calcium Phosphorus Magnesium Total Bilirubin AST ALT Alkaline Phosphatase Total Creatine Kinase CK-MB (CK-2) CK-MB (CK-2) Rel Index Troponin I Total Protein Albumin Globulin Albumin/Globulin Ratio Triglycerides Cholesterol LDL Cholesterol, Calc HDL Cholesterol TSH 1.25 Serum , Qual Negative Urine RBC >100/hpf H Urine WBC 1-5/hpf Ur Squamous Epith Cells 1-5 /hpf Urine Bacteria Moderate (10-30) H Urine Yeast 10-30/hpf H Ur Culture Indicated? Cult not indicated Nasal Screen MRSA (PCR) Urine Opiates Screen Ur Oxycodone Screen Urine Methadone Screen Ur Barbiturates Screen U Tricyclic Antidepress Ur Phencyclidine Scrn Ur Amphetamines Screen U Methamphetamines Scrn Ur MDMA Scrn (Ecstasy) U Benzodiazepines Scrn Urine Cocaine Screen U Marijuana (THC) Screen Ketones 10/21/18 10/21/18 10/21/18 20:27 21:50 22:07 WBC RBC Hgb Hct MCV MCH MCHC RDW Plt Count Neut % (Auto) Lymph % (Auto) [place] % (Auto) Eos % (Auto) Baso % (Auto) Neut # (Auto) Lymph # (Auto) [place] # (Auto) Eos # (Auto) Baso # (Auto) ABG pH ABG pCO2 ABG pO2 ABG HCO3 ABG Total CO2 ABG O2 Saturation ABG Base Excess VBG pH VBG pCO2 VBG pO2 VBG HCO3 VBG Total CO2 VBG O2 Saturation VBG Base Excess FiO2 Sodium 132 L Potassium 3.8 Chloride 93 L Carbon Dioxide 27 BUN 89 H Creatinine 1.50 H Estimated GFR 37.2 L BUN/Creatinine Ratio 59.3 H Glucose 122 H D Hemoglobin A1c Lactate 1.2 Calcium 7.7 L Phosphorus 1.3 L D Magnesium 1.8 Total Bilirubin AST ALT Alkaline Phosphatase Total Creatine Kinase 56 CK-MB (CK-2) TNP CK-MB (CK-2) Rel Index TNP Troponin I 0.053 H Total Protein Albumin 3.1 L Globulin Albumin/Globulin Ratio Triglycerides Cholesterol LDL Cholesterol, Calc HDL Cholesterol TSH Serum , Qual Urine RBC Urine WBC Ur Squamous Epith Cells Urine Bacteria Urine Yeast Ur Culture Indicated? Nasal Screen MRSA (PCR) Negative for mrsa Urine Opiates Screen Ur Oxycodone Screen Urine Methadone Screen Ur Barbiturates Screen U Tricyclic Antidepress Ur Phencyclidine Scrn Ur Amphetamines Screen U Methamphetamines Scrn Ur MDMA Scrn (Ecstasy) U Benzodiazepines Scrn Urine Cocaine Screen U Marijuana (THC) Screen Ketones 10/21/18 10/21/18 10/21/18 22:07 22:15 22:34 WBC RBC Hgb Hct MCV MCH MCHC RDW Plt Count Neut % (Auto) Lymph % (Auto) [place] % (Auto) Eos % (Auto) Baso % (Auto) Neut # (Auto) Lymph # (Auto) [place] # (Auto) Eos # (Auto) Baso # (Auto) ABG pH 7.43 ABG pCO2 36.7 ABG pO2 84 ABG HCO3 24 ABG Total CO2 25 ABG O2 Saturation 97 ABG Base Excess 0.0 VBG pH VBG pCO2 VBG pO2 VBG HCO3 VBG Total CO2 VBG O2 Saturation VBG Base Excess FiO2 21 Sodium Potassium Chloride Carbon Dioxide BUN Creatinine Estimated GFR BUN/Creatinine Ratio Glucose Hemoglobin A1c Lactate 2.2 H Calcium Phosphorus Magnesium Total Bilirubin AST ALT Alkaline Phosphatase Total Creatine Kinase CK-MB (CK-2) CK-MB (CK-2) Rel Index Troponin I Total Protein Albumin Globulin Albumin/Globulin Ratio Triglycerides Cholesterol LDL Cholesterol, Calc HDL Cholesterol TSH Serum , Qual Urine RBC Urine WBC Ur Squamous Epith Cells Urine Bacteria Urine Yeast Ur Culture Indicated? Nasal Screen MRSA (PCR) Urine Opiates Screen Negative Ur Oxycodone Screen Negative Urine Methadone Screen Negative Ur Barbiturates Screen Negative U Tricyclic Antidepress Negative Ur Phencyclidine Scrn Negative Ur Amphetamines Screen Negative U Methamphetamines Scrn Negative Ur MDMA Scrn (Ecstasy) Negative U Benzodiazepines Scrn Negative Urine Cocaine Screen Negative U Marijuana (THC) Screen Negative Ketones 10/22/18 10/22/18 10/22/18 01:58 01:58 05:50 WBC 8.3 RBC 2.49 L Hgb 8.7 L Hct 24.5 L MCV 98.4 MCH 34.8 H MCHC 35.4 RDW 13.7 Plt Count 157 Neut % (Auto) 80.3 H Lymph % (Auto) 9.1 L [place] % (Auto) 10.1 Eos % (Auto) 0.1 L Baso % (Auto) 0.4 Neut # (Auto) 6600 Lymph # (Auto) 800 L [place] # (Auto) 800 Eos # (Auto) 0 Baso # (Auto) 0 ABG pH ABG pCO2 ABG pO2 ABG HCO3 ABG Total CO2 ABG O2 Saturation ABG Base Excess VBG pH VBG pCO2 VBG pO2 VBG HCO3 VBG Total CO2 VBG O2 Saturation VBG Base Excess FiO2 Sodium 132 L Potassium 3.4 Chloride 94 L Carbon Dioxide 24 BUN 71 H Creatinine 1.20 H Estimated GFR 48.2 L BUN/Creatinine Ratio 59.2 H Glucose 137 H Hemoglobin A1c Lactate 1.4 Calcium 8.2 L Phosphorus 1.3 L Magnesium Total Bilirubin AST ALT Alkaline Phosphatase Total Creatine Kinase 46 CK-MB (CK-2) TNP CK-MB (CK-2) Rel Index TNP Troponin I 0.059 H Total Protein Albumin 3.0 L Globulin Albumin/Globulin Ratio Triglycerides Cholesterol LDL Cholesterol, Calc HDL Cholesterol TSH Serum , Qual Urine RBC Urine WBC Ur Squamous Epith Cells Urine Bacteria Urine Yeast Ur Culture Indicated? Nasal Screen MRSA (PCR) Urine Opiates Screen Ur Oxycodone Screen Urine Methadone Screen Ur Barbiturates Screen U Tricyclic Antidepress Ur Phencyclidine Scrn Ur Amphetamines Screen U Methamphetamines Scrn Ur MDMA Scrn (Ecstasy) U Benzodiazepines Scrn Urine Cocaine Screen U Marijuana (THC) Screen Ketones 10/22/18 10/22/18 10/22/18 05:58 05:58 05:58 WBC RBC Hgb Hct MCV MCH MCHC RDW Plt Count Neut % (Auto) Lymph % (Auto) [place] % (Auto) Eos % (Auto) Baso % (Auto) Neut # (Auto) Lymph # (Auto) [place] # (Auto) Eos # (Auto) Baso # (Auto) ABG pH ABG pCO2 ABG pO2 ABG HCO3 ABG Total CO2 ABG O2 Saturation ABG Base Excess VBG pH VBG pCO2 VBG pO2 VBG HCO3 VBG Total CO2 VBG O2 Saturation VBG Base Excess FiO2 Sodium 132 L Potassium 3.8 Chloride 96 L Carbon Dioxide 26 BUN 56 H Creatinine 1.00 Estimated GFR 59.4 L BUN/Creatinine Ratio 56.0 H Glucose 154 H Hemoglobin A1c 8.5 H Lactate Calcium 8.2 L Phosphorus 1.5 L Magnesium Total Bilirubin AST ALT Alkaline Phosphatase Total Creatine Kinase 36 CK-MB (CK-2) TNP CK-MB (CK-2) Rel Index TNP Troponin I 0.054 H Total Protein Albumin 2.9 L Globulin Albumin/Globulin Ratio Triglycerides 178 H Cholesterol 151 LDL Cholesterol, Calc 63 HDL Cholesterol 52 TSH Serum , Qual Urine RBC Urine WBC Ur Squamous Epith Cells Urine Bacteria Urine Yeast Ur Culture Indicated? Nasal Screen MRSA (PCR) Urine Opiates Screen Ur Oxycodone Screen Urine Methadone Screen Ur Barbiturates Screen U Tricyclic Antidepress Ur Phencyclidine Scrn Ur Amphetamines Screen U Methamphetamines Scrn Ur MDMA Scrn (Ecstasy) U Benzodiazepines Scrn Urine Cocaine Screen U Marijuana (THC) Screen Ketones 10/22/18 05:58 WBC RBC Hgb Hct MCV MCH MCHC RDW Plt Count Neut % (Auto) Lymph % (Auto) [place] % (Auto) Eos % (Auto) Baso % (Auto) Neut # (Auto) Lymph # (Auto) [place] # (Auto) Eos # (Auto) Baso # (Auto) ABG pH ABG pCO2 ABG pO2 ABG HCO3 ABG Total CO2 ABG O2 Saturation ABG Base Excess VBG pH VBG pCO2 VBG pO2 VBG HCO3 VBG Total CO2 VBG O2 Saturation VBG Base Excess FiO2 Sodium Potassium Chloride Carbon Dioxide BUN Creatinine Estimated GFR BUN/Creatinine Ratio Glucose Hemoglobin A1c Lactate Calcium Phosphorus Magnesium 1.7 Total Bilirubin AST ALT Alkaline Phosphatase Total Creatine Kinase CK-MB (CK-2) CK-MB (CK-2) Rel Index Troponin I Total Protein Albumin Globulin Albumin/Globulin Ratio Triglycerides Cholesterol LDL Cholesterol, Calc HDL Cholesterol TSH Serum , Qual Urine RBC Urine WBC Ur Squamous Epith Cells Urine Bacteria Urine Yeast Ur Culture Indicated? Nasal Screen MRSA (PCR) Urine Opiates Screen Ur Oxycodone Screen Urine Methadone Screen Ur Barbiturates Screen U Tricyclic Antidepress Ur Phencyclidine Scrn Ur Amphetamines Screen U Methamphetamines Scrn Ur MDMA Scrn (Ecstasy) U Benzodiazepines Scrn Urine Cocaine Screen U Marijuana (THC) Screen Ketones Discharge Plan Discharge Plan Patient Disposition: Home Discharge comment: You are being discharged home. Please follow-up with your PCP, [id number] Nathan, within the next 1 week regarding your hospitalization. Recommend that your endocrinology referral be expedited as this is your second hospitalization for DKA in the last 4 months and your insulin pump may be adjusted for better glycemic control and need for assessment of osteoporosis. Also recommend diabetic education and dietitian consultation. You have been prescribed nitrofurantoin 100 mg twice daily for 5 days to treat probable urinary tract infection. Your echocardiogram was normal and you do not have congestive heart failure or heart valve disease. Recommend outpatient exercise or pharmacological stress test in the near future to assure that you do not have any underlying heart arterial/plaque disease causing your shortness of breath with exertion and fatigue. Discharge Med Rec/Prescriptions Prescriptions: New nitrofurantoin macrocrystal 100 mg capsule 100 mg PO BID Qty: 10 RF: 0 Continued ranitidine HCl 300 mg tablet 300 mg PO BEDTIME RF: 0 potassium chloride 10 mEq tablet extended release 10 meq PO BID RF: 0 lovastatin 10 mg tablet 5 mg PO BEDTIME RF: 0 levothyroxine 50 mcg tablet 1 tab PO DAILY RF: 0 cyanocobalamin (vitamin B-12) 1,000 mcg/mL solution 1 ml IM QMONTH RF: 0 gabapentin 300 mg capsule 600 mg PO 0800,1200 RF: 0 insulin lispro 100 unit/mL solution 1 dose Continuous IV Infusion PRN PRN (Reason: bolus) RF: 0 escitalopram oxalate 20 mg tablet 20 mg PO DAILY RF: 0 ondansetron 4 mg tablet,disintegrating 4 mg PO BIDAC PRN (Reason: Nausea And Vomiting) RF: 0 multivitamin with iron Tablet 1 tab PO DAILY RF: 0 cholecalciferol (vitamin D3) [Vitamin D3] 2,000 unit Capsule 5,000 units PO DAILY RF: 0 gabapentin 600 mg Tablet 1,200 mg PO BEDTIME RF: 0 fluconazole 200 mg Tablet 200 mg PO DAILY PRN (Reason: Odor) RF: 0 bethanechol chloride 10 mg tablet 20 mg PO QID RF: 0 bethanechol chloride 10 mg Tablet 20 mg PO BEDTIME RF: 0 ferrous sulfate [Iron (ferrous sulfate)] 325 mg (65 mg iron) Tablet 325 mg PO DAILY RF: 0 hydroxyzine HCl 25 mg Tablet 25 mg PO QID PRN (Reason: Muscle Spasm) RF: 0 mirtazapine 15 mg Tablet 15 mg PO BEDTIME RF: 0 Follow up/Referrals: Sandra Nathan PA-C [Primary Care Provider] - 1 Week Provider Discharge Instructions Diet: Diet as Tolerated, Carb-consistent/Diabetic, Low-fat, Low-sodium and Low-cholesterol Activity: Activity as tolerated Discharge Data Primary Care Provider: Sandra Nathan Attending Provider: Henry Linton Admit Date/Time: 10/21/18 20:27
[2018-10-22 11:43] LABS: Appearance Urine UA CLEAR; Bilirubin Urine UA NEGATIVE (NEGATIVE); Color Urine UA YELLOW; Glucose Urine UA 2+ g/dL (Negative); Ketones Urine UA 2+ (NEGATIVE); Leukocyte Esterase Urine UA 1+ (NEGATIVE); Nitrite Urine UA POSITIVE (Negative); Occult Blood Urine UA 2+ (Negative); Protein Urine UA TRACE (Negative); Urobilinogen Urine UA 0.2 E.U./dL (0.2); pH Urine UA 6.5 (4.5-8.0)
[2018-10-22 11:56] LABS: Bacteria Urine Few (2-10); RBC Urine 1-5/HPF (0-5/HPF); Squamous Epithelial Cell Urine 1-5 /HPF (0-5/HPF); WBC Urine 5-10/HPF (0-5/HPF)
[2018-10-22 11:57] LABS: Culture Indicated Urine Specimen Cultured
[2018-10-22] MEDS: ASPIRIN EC 81 MG TABLET PO (12:56)
[2018-10-22] MEDS: POTASSIUM CHLORIDE 10 MEQ TAB 40 MEQ PO (12:56)
[2018-10-22] MEDS: MAGNESIUM CHLORIDE 64 MG TABLET 128 MG PO (12:57)
[2018-10-22] MEDS: GABAPENTIN 300 MG CAPSULE 600 MG PO (13:11)
[2018-10-22 13:47] LABS: Adenovirus Not Detected (Not Detect); Bordetella pertussis Not Detected (Not Detect); Chlamydophila pneumoniae Not Detected (Not Detect); Coronavirus 229E Not Detected (Not Detect); Coronavirus HKU1 Not Detected (Not Detect); Coronavirus NL 63 Not Detected (Not Detect); Coronavirus OC43 Not Detected (Not Detect); Human Metapneumovirus Not Detected (Not Detect); Human Rhinovirus/Enterovirus Not Detected (Not Detect); Influenza A Not Detected (Not Detect); Influenza B Not Detected (Not Detect); Mycoplasma pneumoniae Not Detected (Not Detect); Parainfluenza Virus 1 Not Detected (Not Detect); Parainfluenza Virus 2 Not Detected (Not Detect); Parainfluenza Virus 3 Not Detected (Not Detect); Parainfluenza Virus 4 Not Detected (Not Detect); Respiratory Syncytial Virus Not Detected (Not Detect)
--- NOTE | 2018-10-22 14:42 | CM.DANOTE ---
*[facility]* [facility] DCP: assessment: note. Case received and discussed today in Team Rounds with Dr. Renee. In course of EMR review noted that CM SALESPERSON SURGICAL APPLIANCES Halima saw pt last evening in the ER and discussed POC going forward. Pt was admitted from ER as an INPT and placed in ICU setting. INPT admission status: confirmed by UR NETTIE Lacy (Emy Dickerson) Payer: [employer]. PCP: Sandra Nathan. Dr. Renee had planned for a d/c to home today and pt at time of review has already left for home. She will be following up with her PCP and as per the specific diabetic management as noted in her discussion last evening with CM school social worker Halima. LOS: < 24 hours Micki Jimenez Female : 1970 MedRec# [id number] 10/21/18 19:09 - CM Financial Services Professional Note by MARIA DE JESUS Rhodes Acct Num: [id number] : 1970 Patient Age: 48 ED Social Work Note Pt is a type 1 diabetic presenting to the ED with severe nausea, vomiting, weakness relating to 6-days of complications from her insulin pump malfunctioning. She is alone, however she and her spouse reside with her mother, and her mom was the person who called EMS. Her mother will be coming later to the ED to pick her up once she's ready for d/c. SALESPERSON [employer] APPLI[employer]ES offered emotional and coping support. Pt's PCP has already been working on a referral for pt to establish with a new Tailor Apprentice, Dr. King at [facility], and she has just received a new [employer] insulin pump in the mail. She's hoping to have assistance from the [facility] diabetes program in setting up her new pump and continuous glucose monitoring system (CGM), or, sensor. She was found to be alert and oriented x3, expressed her own understanding of the need to seek emergency assistance sooner than she had this time, and is familiar with the signs/symptoms of DKA. Pt calm and expressed appreciation of SAL[employer]ERSON [employer]PLI[employer]ES visit and support. No further needs identified at this time. Initialized on 10/21/18 19:09 - END OF NOTE
[2018-10-24 16:36] LABS: Osmolality, Serum 328 mosm/kg (260-310)
== END 2018-10-22 14:30 | disposition home or self-care (01) | DRG 637 ==
LOC: ED 18:57 → ICU 10-22 10:36
PROVIDERS: Internal Medicine; Admitting Provider Nurse Practitioner Gerontology; Emergency Provider Emergency Medicine; PCP Physician Assistant Medical; Visit Provider Nurse Practitioner Gerontology
DX: E10.10 Type 1 diabetes mellitus with ketoacidosis without coma (principal); I21.A1 Myocardial infarction type 2; N17.9 Acute kidney failure, unspecified; N39.0 Urinary tract infection, site not specified; E87.1 Hypo-osmolality and hyponatremia; E10.42 Type 1 diabetes mellitus with diabetic polyneuropathy; E10.43 Type 1 diabetes mellitus with diabetic autonomic (poly)neuropathy; K31.84 Gastroparesis; D51.0 Vitamin B12 deficiency anemia due to intrinsic factor deficiency; E03.9 Hypothyroidism, unspecified; F32.9 Major depressive disorder, single episode, unspecified
CPT/HCPCS: 36415; 36600; 80053; 80061; 80069; 80305; 81001; 81003; 81015; 82009; 82550; 82805; 82962; 83036; 83605; 83735; 83930; 84100; 84443; 84484; 84703; 85025; 87077; 87086; 87186; 87633; 87797; 93005; 93010; 93306; 96365; 96375; 99283; 99285; J2405; J3480

== ENCOUNTER 2018-12-28 15:44 | Emergency (ER) | payer OTHER, SELFPAY ==
[2018-12-28 15:50] VITALS: BP 188/108; PULSE 98; RESP 18; TEMP 37.6; O2SAT 98
[2018-12-28 16:13] VITALS: PULSE 88
[2018-12-28] MEDS: MORPHINE 4 MG/ML INJ IV (16:20)
[2018-12-28] MEDS: ONDANSETRON 4 MG/2 ML INJ IV (16:21)
--- NOTE | 2018-12-28 16:58 | ED_ITS ---
HPI - Extremity Injury (Upper) General Chief Complaint: Extremity Injury, Upper Stated Complaint: L shoulder displacement Time Seen by Provider: 12/28/18 15:52 Source: patient and EMS Mode of arrival: EMS Limitations: no limitations History of Present Illness HPI narrative: Patient comes emergency department complaining of left shoulder and upper arm pain after taking a fall 2 days ago. She states that she immedi ately had pain but wanted to see if it would just resolve on its own. Patient finally went to a clinic on [facility] today, where she had x-rays done and was found to have a humeral neck fracture. There was question of dislocation and no orthopedist was available would be, so the patient was sent here for further evaluation. Patient denies any new numbness or tingling. No other major injuries. Patient states she did bruise her knee and hip, and she open an old wound on her elbow, but this has since scabbed up. Patient states she has been ambulatory since the incident. Related Data Home Medications Medication Instructions Recorded Confirmed cholecalciferol (vitamin D3) 5,000 units PO DAILY 11/16/17 12/28/18 [Vitamin D3] cyanocobalamin (vitamin B-12) 1 ml IM QMONTH 11/16/17 12/28/18 escitalopram oxalate 20 mg PO DAILY 11/16/17 12/28/18 insulin lispro 1 dose CONTINUOUS IV INFUSION PRN 11/16/17 12/28/18 PRN levothyroxine 1 tab PO DAILY 11/16/17 12/28/18 lovastatin 5 mg PO BEDTIME 11/16/17 12/28/18 ondansetron 4 mg PO BIDAC PRN 11/16/17 12/28/18 potassium chloride 10 meq PO BID 11/16/17 12/28/18 ranitidine HCl 300 mg PO BEDTIME 11/16/17 12/28/18 gabapentin 1,200 mg PO BEDTIME 05/15/18 12/28/18 bethanechol chloride 20 mg PO QID 10/22/18 12/28/18 ferrous sulfate [Iron (ferrous 325 mg PO DAILY 10/22/18 12/28/18 sulfate)] fluconazole 200 mg PO DAILY PRN 10/22/18 12/28/18 hydroxyzine HCl 25 mg PO QID PRN 10/22/18 12/28/18 mirtazapine 15 mg PO BEDTIME 10/22/18 12/28/18 Probiotic 1 cap PO DAILY 12/28/18 12/28/18 albuterol sulfate [Ventolin HFA] 2 puff INHALATION PRN PRN 12/28/18 12/28/18 gabapentin 600 mg PO BID 12/28/18 12/28/18 hydromorphone 2 mg PO Q2H PRN 12/28/18 12/28/18 [id number] acid 1 tab PO DAILY 12/28/18 12/28/18 [Centrum] promethazine 25 mg MI Q6H PRN 12/28/18 12/28/18 Previous Rx's Medication Instructions Recorded hydrocodone-acetaminophen [[place]] 1 tab PO Q4-6H PRN #20 tab 12/28/18 Allergies Allergy/AdvReac Type Severity Reaction Status Date / Time latex [LATEX] Allergy Intermediate Verified 05/15/18 14:49 Review of Systems Constitutional Constitutional: Denies chills, Denies fatigue, Denies fever(s), Denies frequent falls, Denies lethargy and Denies weakness Eyes Eyes: Denies change in vision, Denies eye discharge, Denies irritation and Denies loss of vision ENT Ears, Nose, Mouth, and Throat: Denies change in voice, Denies dizziness, Denies neck pain, Denies sore throat and Denies throat swelling Cardiovascular Cardiovascular: Denies chest pain, Denies irregular heart rhythm, Denies lightheadedness, Denies palpitations, Denies dyspnea, Denies dyspnea on exertion and Denies orthopnea Respiratory Respiratory: Denies cough, Denies dyspnea, Denies dyspnea on exertion and Denies wheezing Gastrointestinal Gastrointestinal: Denies abdominal pain, Denies change in bowel habits, Denies diarrhea, Denies nausea and Denies vomiting Genitourinary Genitourinary: Denies hematuria, Denies flank pain, Denies urinary incontinence and Denies urinary urgency Musculoskeletal Musculoskeletal: Denies back pain, Denies muscle weakness, Denies neck pain, Denies numbness and Denies tingling Comments: Left shoulder pain Integumentary/Breasts Skin/Breast: Denies pruritus, Denies erythema, Denies rash and Denies wounds Neurologic Neurologic: Denies behavioral changes, Denies confusion, Denies dizziness, Denies frequent falls, Denies loss of vision, Denies numbness, Denies tingling and Denies weakness Psychiatric Psychiatric: Denies anxiety, Denies behavioral changes, Denies confusion, Denies depression, Denies homicidal ideation and Denies suicidal ideation Endocrine Endocrine: Denies fatigue, Denies flushing and Denies palpitations Hematologic/Lymphatic Hematologic/Lymphatic: Denies easy bruising Allergic/Immunologic Allergic/Immunologic: Denies urticaria, Denies throat swelling and Denies wheezing Patient History Medical History Asthma, mild (Chronic) Gastroparesis (Chronic) Guttate psoriasis (Acute) Left rib fracture (Acute) Psoriasis (Chronic) Type 1 diabetes (Chronic) Surgical History History of (Acute) History of carpal tunnel release of both wrists (Acute) No pertinent past surgical history (Chronic) Family History Father Trauma Mother Hypertension Diabetes mellitus COPD (chronic obstructive pulmonary disease) Social History household members: spouse and family Smoking Status: Former smoker alcohol intake: never Family History Father Trauma Mother Hypertension Diabetes mellitus COPD (chronic obstructive pulmonary disease) Social History household members: spouse and family Smoking Status: Former smoker alcohol intake: never alcohol intake frequency: 0-2 drinks per day Substance Use Type: does not use Exam Initial Vital Signs Initial Vital Signs: Vital Signs Temperature 99.6 F 12/28/18 15:50 Pulse Rate 98 H 12/28/18 15:50 Respiratory Rate 18 12/28/18 15:50 Blood Pressure 188/108 H 12/28/18 15:50 Pulse Oximetry 98 12/28/18 15:50 Const General: cooperative and well developed Nutritional Appearance: well nourished Orientation: alert, awake, oriented x3 and not confused [facility] Head: normocephalic and atraumatic Ears: external ears normal Nose: external nose normal and No nasal discharge Face and sinus: face symmetric and No dry mucous membranes Mouth: oral mucosae normal and moist mucous membranes Teeth and gingiva: dentition normal Eyes General: appearance normal, both eyes and all related structures Eyelids: eyelids normal Conjunctivae: conjunctivae normal Sclera: sclerae normal Pupils: PERRL EOM: EOM intact bilaterally Neck Neck: normal visual inspection, trachea midline, No lymphadenopathy, No midline deformity and No JVD Lymphatic: No lymphedema Chest Chest: normal inspection of the chest Resp Effort & Inspection: normal respiratory effort, able to speak in complete sentences, no respiratory distress and no use of accessory muscles Auscultation: clear to auscultation bilaterally, no rales, no rhonchi and no wheezes Cardio Rate: regular rate Rhythm: regular rhythm Heart Sounds: no click, no gallops, no murmurs and no rubs Pulses: normal peripheral pulses GI Inspection: non-distended Palpation: soft, no hepatosplenomegaly, No guarding, No pulsatile mass and No tender Auscultation: normal bowel sounds Back/Spine/Pelvis Back: No CVA tenderness Cervical Spine: cervical ROM normal and No pain with cervical ROM Thoracic/Lumbar Spine: thoracic and lumbar spine normal to inspection Skin General: no rashes or lesions noted, No jaundice and No petechiae Neuro General: alert, oriented x3, gait normal and no focal motor deficits Speech: speech normal Extrem Other: Patient has tenderness and mild edema without deformity of her left shoulder. She has mild contusion on the anterior aspect of her left upper arm. Psych Appearance: well kempt Mental Status: mental status grossly normal Attitude: cooperative Thought Content: normal and suicidality Judgment: judgment good Course Course Course Narrative: I did review the patient's x-rays, which showed actually good alignment of the humeral head within the glenohumeral joint, and no signs of dislocation. However, the humeral head did appear to be somewhat subluxed. A humeral neck/subcapital fracture was noted by me, that the official reading was unavailable. I spoke with Dr. Alayna Roach, who was on-call for Orthopedics, and she also did not feel that the shoulder was dislocated. She felt a pseudosubluxation secondary to the fracture was present, and recommended a shoulder immobilizer for the patient. This was placed. I have advised the patient that she will need follow-up with Orthopedics within the week, and she is advised to call them 1st thing tomorrow. Patient is agreeable to this plan. She has been treated symptomatically in the emergency department, and is also given a prescription for analgesia home. We have discussed the usual indications for return. Orders Ordered: Discontinued Medications Ibuprofen (Advil) 800 mg PO NOW ONE Stop: 12/28/18 16:57 Last Admin: 12/28/18 17:08 Dose: 800 mg Documented by: DEMIAN Morphine Sulfate (Morphine) 4 mg IV NOW ONE Stop: 12/28/18 16:02 Last Admin: 12/28/18 16:20 Dose: 4 mg Documented by: JOVANNA Ondansetron HCl (Zofran) 4 mg IV NOW ONE Stop: 12/28/18 16:02 Last Admin: 12/28/18 16:21 Dose: 4 mg Documented by: JOVANNA Oxycodone/Acetaminophen (Percocet 5/325) 2 tab PO NOW ONE Stop: 12/28/18 16:57 Last Admin: 12/28/18 17:08 Dose: 2 tab Documented by: DEMIAN Vital Signs Vital signs: Vital Signs - 8 hr 12/28/18 15:50 12/28/18 16:13 Temperature 99.6 F Pulse Rate 98 H Pulse Rate [Left Radial] 88 Respiratory Rate 18 Blood Pressure 188/108 H Pulse Oximetry 98 MDM - Extremity Injury (Upper) Medical Records Attestation: I reviewed the patient's medical records. Discharge Plan Departure Patient Disposition: Home Clinical Impression: Fracture of neck of humerus Qualifiers: Encounter type: initial encounter Fracture type: closed Laterality: left Qualified Code(s): S42.212A - Unspecified displaced fracture of surgical neck of left humerus, initial encounter for closed fracture Discharge Date/Time: 12/28/18 17:42 Instructions: DI for Shoulder Fracture Activity Restrictions/Additional Instructions: Your case has been discussed with Dr. Roach of Orthopedics. Your humerus, the upper arm bone, is broken right below the ball which helps form the shoulder joint. The ball, or top of the humerus, is properly aligned, but the joint space is slightly widened. Dr. Roach has stated that this is common in this kind of fracture, and will ultimately heal on its own. She has recommended a shoulder immobilizer with sling which we have placed today. She would like to see you in about a week. Please take the pain medication, as needed, and use ice also, as needed, to help with pain and swelling. You may remove the shoulder immobilizer for showering and dressing, but otherwise, should keep your shoulder immobilized until cleared by Ortho to do otherwise. Prescriptions: New hydrocodone-acetaminophen [[place]] 5-325 mg tablet 1 tab PO Q4-6H PRN (Reason: pain) Qty: 20 RF: 0 No Action ranitidine HCl 300 mg tablet 300 mg PO BEDTIME RF: 0 potassium chloride 10 mEq tablet extended release 10 meq PO BID RF: 0 lovastatin 10 mg tablet 5 mg PO BEDTIME RF: 0 levothyroxine 50 mcg tablet 1 tab PO DAILY RF: 0 cyanocobalamin (vitamin B-12) 1,000 mcg/mL solution 1 ml IM QMONTH RF: 0 insulin lispro 100 unit/mL solution 1 dose Continuous IV Infusion PRN PRN (Reason: bolus) RF: 0 escitalopram oxalate 20 mg tablet 20 mg PO DAILY RF: 0 ondansetron 4 mg tablet,disintegrating 4 mg PO BIDAC PRN (Reason: Nausea And Vomiting) RF: 0 cholecalciferol (vitamin D3) [Vitamin D3] 2,000 unit Capsule 5,000 units PO DAILY RF: 0 gabapentin 600 mg Tablet 1,200 mg PO BEDTIME RF: 0 gabapentin 600 mg tablet 600 mg PO BID RF: 0 promethazine 25 mg Suppository 25 mg MI Q6H PRN (Reason: Nausea) RF: 0 hydromorphone 2 mg Tablet 2 mg PO Q2H PRN (Reason: pain) RF: 0 albuterol sulfate [Ventolin HFA] 90 mcg/actuation Hfa Aerosol Inhaler 2 puff INHALATION PRN PRN (Reason: Shortness Of Breath) RF: 0 Centrum 18-400 mg-mcg Tablet 1 tab PO DAILY RF: 0 Probiotic 1 cap PO DAILY RF: 0 fluconazole 200 mg Tablet 200 mg PO DAILY PRN (Reason: Odor) RF: 0 bethanechol chloride 10 mg tablet 20 mg PO QID RF: 0 ferrous sulfate [Iron (ferrous sulfate)] 325 mg (65 mg iron) Tablet 325 mg PO DAILY RF: 0 hydroxyzine HCl 25 mg Tablet 25 mg PO QID PRN (Reason: Muscle Spasm) RF: 0 mirtazapine 15 mg Tablet 15 mg PO BEDTIME RF: 0 Referrals: Alayna Roach MD [Physician] - Sandra Nathan PA-C [Primary Care Provider] -
[2018-12-28] MEDS: OXYCODONE/ACETAMINOPHEN 5/325 TABLET 2 TAB PO (17:08)
[2018-12-28] MEDS: IBUPROFEN 400 MG TABLET 800 MG PO (17:08)
[2018-12-28 17:42] VITALS: BP 111/78; PULSE 77; RESP 16; O2SAT 97
== END 2018-12-28 17:42 | disposition home or self-care (01) ==
PROVIDERS: Emergency Provider Emergency Medicine; Family Provider Physician Assistant Medical; PCP Physician Assistant Medical
DX: S42.212A Unspecified displaced fracture of surgical neck of left humerus, initial encounter for closed fracture (principal); W19.XXXA Unspecified fall, initial encounter
CPT/HCPCS: 96374; 96375; 99282; 99284; J2270; J2405

== ENCOUNTER 2022-11-25 07:18 | Emergency (ER) | payer OTHER, MEDICARE, SELFPAY ==
[2022-11-25 07:25] VITALS: BP 181/82; PULSE 101; RESP 22; TEMP 36.6; O2SAT 100; BMI 33.6
--- NOTE | 2022-11-25 07:25 | DI.RAD.S_ITS ---
PROCEDURE: XR SHOULDER RT MIN 2V INDICATIONS: injury TECHNIQUE: 2 views of the shoulder were acquired. COMPARISON: None. FINDINGS: Bones: Comminuted displaced fracture of the right humeral head/neck. No suspicious bony lesions. Visualized ribs appear intact. Soft tissues: No suspicious soft tissue calcifications. IMPRESSION: Comminuted and displaced fracture of the right humeral head/neck. Dictated by: Lawrence Alejandre M.D. on 11/25/2022 at 8:04 Approved by: Lawrence Alejandre M.D. on 11/25/2022 at 8:05
--- NOTE | 2022-11-25 08:02 | ED_ITS ---
HPI - Extremity Injury (Upper) General Chief Complaint: Extremity Injury, Upper Stated Complaint: fell on RT shoulder can't move arm Time Seen by Provider: 11/25/22 07:54 Source: patient Mode of arrival: Family Vehicle History of Present Illness HPI narrative: Patient brought here by for complaints of right shoulder pain. Patient tripped and fell over there three-month puppy this morning at 5:00 a.m. landing on the concrete outside. Has been sitting on a couch since injury this morning. Patient is right-handed. History of left humeral fracture 4 years ago. Seen in follow up by Dr. Alayna Roach with orthopedics locally. Treated nonsurgically. Patient denies any numbness tingling weakness to the hand or arm. Limited range of motion due to pain. Patient is right handed. Patient denies hitting her head. Denies any head neck or any other injury or pain. Related Data Home Medications Medication Instructions Recorded Confirmed cholecalciferol (vitamin D3) 50 5,000 units PO DAILY 11/16/17 12/28/18 mcg (2,000 unit) capsule (Vitamin D3) cyanocobalamin (vitamin B-12) 1 ml IM QMONTH 11/16/17 12/28/18 1,000 mcg/mL injection solution escitalopram oxalate 20 mg tablet 20 mg PO DAILY 11/16/17 12/28/18 insulin lispro 100 unit/mL 1 dose continuous IV infusion PRN 11/16/17 12/28/18 subcutaneous solution PRN bolus levothyroxine 50 mcg tablet 1 tab PO DAILY 11/16/17 12/28/18 lovastatin 10 mg tablet 5 mg PO BEDTIME 11/16/17 12/28/18 ondansetron 4 mg disintegrating 4 mg PO BIDAC PRN Nausea And 11/16/17 12/28/18 tablet Vomiting potassium chloride 10 mEq 10 meq PO BID 11/16/17 12/28/18 tablet,extended release ranitidine HCl 300 mg tablet 300 mg PO BEDTIME 11/16/17 12/28/18 gabapentin 600 mg tablet 1,200 mg PO BEDTIME 05/15/18 12/28/18 bethanechol chloride 10 mg tablet 20 mg PO QID 10/22/18 12/28/18 ferrous sulfate 325 mg (65 mg 325 mg PO DAILY 10/22/18 12/28/18 iron) tablet (Iron (ferrous sulfate)) fluconazole 200 mg tablet 200 mg PO DAILY PRN Odor 10/22/18 12/28/18 hydroxyzine HCl 25 mg tablet 25 mg PO QID PRN Muscle Spasm 10/22/18 12/28/18 mirtazapine 15 mg tablet 15 mg PO BEDTIME 10/22/18 12/28/18 Probiotic 1 cap PO DAILY 12/28/18 12/28/18 albuterol sulfate 90 mcg/actuation 2 puff inhalation PRN PRN 12/28/18 12/28/18 aerosol inhaler (Ventolin HFA) Shortness Of Breath gabapentin 600 mg tablet 600 mg PO BID 12/28/18 12/28/18 hydromorphone 2 mg tablet 2 mg PO Q2H PRN pain 12/28/18 12/28/18 multivitamin-ferrous 1 tab PO DAILY 12/28/18 12/28/18 fumarate-folic acid 18 mg-400 mcg tablet (Centrum) promethazine 25 mg rectal 25 mg HI Q6H PRN Nausea 12/28/18 12/28/18 suppository Previous Rx's Medication Instructions Recorded hydrocodone 5 mg-acetaminophen 325 1 tab PO Q4-6H PRN pain #20 tabs 12/28/18 mg tablet (F[place]wood) ondansetron 4 mg disintegrating 4 mg PO Q8H PRN nausea and 11/25/22 tablet vomiting #15 tabs oxycodone-acetaminophen 5 mg-325 1 tab PO Q4-6H PRN pain #25 tabs 11/25/22 mg tablet (Percocet) Allergies Allergy/AdvReac Type Severity Reaction Status Date / Time latex [LATEX] Allergy Intermediate Verified 05/15/18 14:49 Review of Systems Review of Systems Narrative: GENERAL: negative chills, fatigue, malaise, fever, sweats. HEENT: negative sinus pain, ear pain, sore throat RESPIRATORY: negative dyspnea, cough CARDIOVASCULAR: negative chest pain, palpitations GASTROINTESTINAL: negative nausea, vomiting, abdominal pain : negative dysuria, frequency, hematuria MUSCULOSKELETAL: Positive muscle or bony pain SKIN: negative rash, skin lesions NEUROLOGIC: negative weakness, numbness ROS Unobtainable: All systems reviewed & are unremarkable except as noted in HPI and below Patient History Medical History (Updated 11/25/22 @ 08:28 by Ricky Guzman MD) Asthma, mild Gastroparesis Guttate psoriasis Left rib fracture Psoriasis Type 1 diabetes Surgical History History of History of carpal tunnel release of both wrists No pertinent past surgical history Family History Father Trauma Mother Hypertension Diabetes mellitus COPD (chronic obstructive pulmonary disease) Social History household members: spouse and family Smoking Status: Former smoker alcohol intake: never Smoking Status: Former smoker tobacco type: cigarettes alcohol intake frequency: 0-2 drinks per day Substance Use Type: does not use Exam Narrative Exam Narrative: GENERAL: in no distress, not toxic not dyspneic HEAD: Normocephalic. EYES: Pupils equal round NECK: Trachea midline. CARDIOVASCULAR: Regular rate and rhythm RESPIRATORY: Clear to auscultation. Breath sounds equal bilaterally. No wheezes, rales, or rhonchi. EXTREMITIES: No gross deformities. 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 Nontender elbow. Very limited range of motion to the right shoulder due to pain. Tender to touch diffusely. No tenting of the skin. NEURO: AOx4. SKIN: Warm and dry PSYCH: Not anxious, is cooperative Initial Vital Signs Initial Vital Signs: Vital Signs Temperature 97.8 F 11/25/22 07:25 Pulse Rate 101 H 11/25/22 07:25 Respiratory Rate 22 11/25/22 07:25 Blood Pressure 181/82 H 11/25/22 07:25 Pulse Oximetry 100 11/25/22 07:25 Oxygen Delivery Method Room Air 11/25/22 07:25 Course Orders Ordered: Discontinued Medications Hydromorphone HCl (Hydromorphone 1 Mg Inj) 2 mg IM NOW ONE Stop: 11/25/22 08:02 Last Admin: 11/25/22 08:29 Dose: 2 mg Documented By: NL Ondansetron HCl (Ondansetron 4 Mg Odt) 4 mg SL NOW ONE Stop: 11/25/22 08:02 Last Admin: 11/25/22 08:29 Dose: 4 mg Documented By: NL Vital Signs Vital signs: Vital Signs - 8 hr 11/25/22 07:25 Temperature 97.8 F Pulse Rate 101 H Respiratory Rate 22 Blood Pressure 181/82 H Pulse Oximetry 100 Oxygen Delivery Method Room Air MDM - Extremity Injury (Upper) Imaging Data Extremity x-ray #1: Radiologist's Impression: [address] [address] XRay Report Signed Patient: Micki Jimenez MR#: [id number] : 1970 Acct:[id number] Age/Sex: 52 / F Date of Service: 11/25/22 Loc: ED Accession Number: [id number] ?? Procedure: XR shoulder RT min 2V Ordering Provider: Ricky Guzman MD PROCEDURE:? XR SHOULDER RT MIN 2V ? INDICATIONS:? injury ? TECHNIQUE:? 2 views of the shoulder were acquired.? ? COMPARISON:? None. ? FINDINGS:? ? Bones:? Comminuted displaced fracture of the right humeral head/neck.? No suspicious bony lesions.? Visualized ribs appear intact.? ? Soft tissues:? No suspicious soft tissue calcifications.? ? IMPRESSION:? Comminuted and displaced fracture of the right humeral head/neck. ? ? Dictated by: Lawrence Alejandre M.D. on 11/25/2022 at 8:04 ? ? Approved by: Lawrence Alejandre M.D. on 11/25/2022 at 8:05 ? [facility] Narrative Medical decision making narrative: Patient brought here by for complaints of right shoulder pain. Patient tripped and fell over there three-month puppy this morning at 5:00 a.m. landing on the concrete outside. Has been sitting on a couch since injury this morning. Patient is right-handed. History of left humeral fracture 4 years ago. Seen in follow up by Dr. Alayna Roach with orthopedics locally. Treated nonsurgically. Patient denies any numbness tingling weakness to the hand or arm. Limited range of motion due to pain. Patient is right handed After history and exam Dilaudid Zofran x-ray right shoulder [facility] CC: Right shoulder pain/injury Complicating co-morbidities: None Data collected from: Patient and Medical records reviewed: History of left humeral fracture notes reviewed emergency department here December 2018 Differential considered: Includes but not limited to shoulder fracture shoulder dislocation shoulder contusion strain sprain subluxation Exam documented above, pertinent findings include: Tender right shoulder limited range of motion Imaging studies independently reviewed: X-ray right shoulder fracture of humeral neck Consultations: 8:[address] Roach, on-call Orthopedics, has seen patient in the past. Has reviewed x-ray imaging. Patient to be placed in sling and follow up in the office. Treatments: Dilaudid Zofran Re-evaluations: Reviewed results with patient and . As well as my discussion with orthopedic surgeon, pain is controlled at this time. Follow up instructions provided as well as return precautions. Not toxic at discharge. Discussion: Appropriate for discharge home. Reviewed imaging with Orthopedics. Pain is controlled. Patient placed in sling. is driving. Return precautions reviewed. Neurovascularly intact. Patient desires discharge home Diagnosis: Humeral neck fracture Discharge Plan Departure Patient Disposition: Home Clinical Impression: Fracture of humerus Instructions: DI for Humeral Fracture Activity Restrictions/Additional Instructions: Please call Dr. Roach office today for office appointment for re-evaluation of your broken arm. Use sling for comfort. No driving operating machinery. Prescription pain medication has been provided for you. Return if worse if any questions or concerns Prescriptions: New oxycodone-acetaminophen [Percocet] 5-325 mg tablet 1 tab PO Q4-6H PRN (Reason: pain) Qty: 25 0RF ondansetron 4 mg tablet,disintegrating 4 mg PO Q8H PRN (Reason: nausea and vomiting) Qty: 15 0RF No Action ranitidine HCl 300 mg tablet 300 mg PO BEDTIME potassium chloride 10 mEq tablet extended release 10 meq PO BID lovastatin 10 mg tablet 5 mg PO BEDTIME levothyroxine 50 mcg tablet 1 tab PO DAILY cyanocobalamin (vitamin B-12) 1,000 mcg/mL solution 1 ml IM QMONTH insulin lispro 100 unit/mL solution 1 dose Continuous IV Infusion PRN PRN (Reason: bolus) Patient Comments: in addition to 0.5/hr escitalopram oxalate 20 mg tablet 20 mg PO DAILY Patient Comments: ondansetron 4 mg tablet,disintegrating 4 mg PO BIDAC PRN (Reason: Nausea And Vomiting) cholecalciferol (vitamin D3) [Vitamin D3] 2,000 unit Capsule 5,000 units PO DAILY gabapentin 600 mg Tablet 1,200 mg PO BEDTIME gabapentin 600 mg tablet 600 mg PO BID Rx Instructions: 0800 1200 promethazine 25 mg Suppository 25 mg HI Q6H PRN (Reason: Nausea) hydromorphone 2 mg Tablet 2 mg PO Q2H PRN (Reason: pain) albuterol sulfate [Ventolin HFA] 90 mcg/actuation Hfa Aerosol Inhaler 2 puff INHALATION PRN PRN (Reason: Shortness Of Breath) Centrum 18-400 mg-mcg Tablet 1 tab PO DAILY Probiotic 1 cap PO DAILY hydrocodone-acetaminophen [[place]] 5-325 mg tablet 1 tab PO Q4-6H PRN (Reason: pain) Qty: 20 0RF fluconazole 200 mg Tablet 200 mg PO DAILY PRN (Reason: Odor) bethanechol chloride 10 mg tablet 20 mg PO QID Rx Instructions: orally with meals and at bedtime. ferrous sulfate [Iron (ferrous sulfate)] 325 mg (65 mg iron) Tablet 325 mg PO DAILY hydroxyzine HCl 25 mg Tablet 25 mg PO QID PRN (Reason: Muscle Spasm) mirtazapine 15 mg Tablet 15 mg PO BEDTIME Referrals: Alayna Roach MD [Physician] - Sandra Nathan PA-C [Primary Care Provider] - Stand Alone Forms: Patient Portal/API
[2022-11-25] MEDS: ONDANSETRON 4 MG ODT SL (08:29)
[2022-11-25] MEDS: HYDROMORPHONE 1 MG INJ 2 MG IM (08:29)
== END 2022-11-25 09:25 | disposition home or self-care (01) ==
PROVIDERS: Emergency Provider Emergency Medicine; Family Provider Physician Assistant Medical; PCP Physician Assistant Medical
DX: S42.301A Unspecified fracture of shaft of humerus, right arm, initial encounter for closed fracture (principal); W01.0XXA Fall on same level from slipping, tripping and stumbling without subsequent striking against object, initial encounter; Z79.899 Other long term (current) drug therapy
CPT/HCPCS: 73030; 96372; 99283; 99284; J1170

== ENCOUNTER 2023-06-21 19:52 | Emergency (ER) | payer OTHER, MEDICARE, SELFPAY ==
[2023-06-21] VITALS (12 sets, daily range): BP systolic 97–116; BP diastolic 55–69; PULSE 85–90; RESP 18–49; TEMP 37.1; O2SAT 90–95; BMI 33.6
--- NOTE | 2023-06-21 20:21 | PC.NURSE ---
Spouse reports patient had seizure yesterday and one again today, both brief. Patient also confused and states tongue is numb. Seizure pads in place.
[2023-06-21 20:45] LABS: Add Manual Diff / Slide Review NO; Basophils Absolute Auto 0 /uL (0-100); Basophils Percent Auto 0.2 % (0-2); Eosinophils Absolute Auto 0 /uL (0-450); Eosinophils Percent Auto 0.2 % (2-4); Hematocrit 36.8 % (36-46); Hemoglobin 11.9 g/dL (12.0-16.0); Lymphocytes Absolute Auto 1500 /uL (1100-4500); Lymphocytes Percent Auto 7.7 % (25-40); Mean Corpuscular HGB Conc 32.2 % (30-36); Mean Corpuscular Hemoglobin 28.5 PG (26-34); Mean Corpuscular Volume 88.3 fL (80-100); Monocytes Absolute Auto 2700 /uL (0-900); Monocytes Percent Auto 13.3 % (3-14); Neutrophils Absolute Auto 15600 /uL (1500-7000); Neutrophils Percent Auto 78.6 % (50-75); Platelet Count 212 X10^3/uL (150-400); Red Blood Cell Count 4.17 X10^6/uL (4.0-5.2); White Blood Cell Count 19.9 X10^3/uL (4.5-11.0)
[2023-06-21 21:03] LABS: Alanine Aminotransferase 83 IU/L (<35); Albumin 4.5 g/dL (3.5-5.0); Albumin Globulin Ratio 1.6 (1.0-2.8); Alkaline Phosphatase 110 U/L (38-126); Aspartate Aminotransferase 309 IU/L (14-36); BUN Creatinine Ratio 9.9 (6-22); Bilirubin Total 1.1 mg/dL (0.2-1.3); Blood Urea Nitrogen 86 mg/dL (7-17); Calcium 7.7 mg/dL (8.4-10.2); Carbon Dioxide 33 mmol/L (22-32); Estimated Glomerular Filt Rate 5 mL/min (>60); Globulin 2.9 g/dL (1.7-4.1); Glucose 307 mg/dL (70-100); HEMOLYSIS < 15 (0-50); Lipase 19 U/L (23-300); Magnesium 1.9 mg/dL (1.6-2.3); Phosphorous 8.5 mg/dL (2.5-4.5); Potassium 2.8 mmol/L (3.4-5.1); Sodium 122 mmol/L (137-145); Total Protein 7.4 g/dL (6.3-8.2)
--- NOTE | 2023-06-21 21:15 | ED.GENADULT ---
HPI - General Adult General Chief complaint: Diabetic Problem Stated complaint: diabetes type I, high blood sugar, seizures Time Seen by Provider: 06/21/23 20:37 Source: patient and family Mode of arrival: Wheelchair History of Present Illness HPI narrative: patient is a 53-year-old female. She was a type 1 diabetic. She is here with her for evaluation of high blood sugars, potential seizure earlier today, confusion, issues with her insulin pump and glucose monitor and nausea vomiting and diarrhea for the past 4 days. Patient recently had a new glucose monitor and insulin pump placed. There appears to have been some issues with the monitor and her thinks that it is not working appropriately. They lost the actual device that monitors the blood sugar and they think that the insulin pump has not been administering insulin appropriately. over the past couple days he has been checking her blood sugar manually with fingersticks and then dosing insulin per a sliding scale. She also has been having nausea and vomiting and diarrhea for the past 4 days. No blood in her stool. Has been trying to keep up on hydration with this. She did urinate last just prior to coming into the emergency department this evening. Patient's has been also states that she thinks she has been confused. She occasionally sees things that are not necessarily present and seems to repeat herself and not necessarily know what is going on. This has been new over the past day or so. Patient denies headache, vision changes, sinus congestion, sore throat, chest pain, shortness of breath, abdominal pain almost skin rashes. Patient has been also thinks that she had a seizure earlier today. Patient did not think that her confusion changed at all afterwards. He stated that it was short lived patient states that she has had seizures in the past but they have all been related to blood sugar and low blood sugar. They have had trouble trying to keep her blood sugar under 400 over the past 24 hours or so. Related Data Home Medications Medication Instructions Recorded Confirmed cholecalciferol (vitamin D3) 50 5,000 units PO DAILY 11/16/17 12/28/18 mcg (2,000 unit) capsule (Vitamin D3) cyanocobalamin (vitamin B-12) 1 ml IM QMONTH 11/16/17 12/28/18 1,000 mcg/mL injection solution escitalopram oxalate 20 mg tablet 20 mg PO DAILY 11/16/17 12/28/18 insulin lispro 100 unit/mL 1 dose continuous IV infusion PRN 11/16/17 12/28/18 subcutaneous solution PRN bolus levothyroxine 50 mcg tablet 1 tab PO DAILY 11/16/17 12/28/18 lovastatin 10 mg tablet 5 mg PO BEDTIME 11/16/17 12/28/18 ondansetron 4 mg disintegrating 4 mg PO BIDAC PRN Nausea And 11/16/17 12/28/18 tablet Vomiting potassium chloride 10 mEq 10 meq PO BID 11/16/17 12/28/18 tablet,extended release ranitidine HCl 300 mg tablet 300 mg PO BEDTIME 11/16/17 12/28/18 gabapentin 600 mg tablet 1,200 mg PO BEDTIME 05/15/18 12/28/18 bethanechol chloride 10 mg tablet 20 mg PO QID 10/22/18 12/28/18 ferrous sulfate 325 mg (65 mg 325 mg PO DAILY 10/22/18 12/28/18 iron) tablet (Iron (ferrous sulfate)) fluconazole 200 mg tablet 200 mg PO DAILY PRN Odor 10/22/18 12/28/18 hydroxyzine HCl 25 mg tablet 25 mg PO QID PRN Muscle Spasm 10/22/18 12/28/18 mirtazapine 15 mg tablet 15 mg PO BEDTIME 10/22/18 12/28/18 Probiotic 1 cap PO DAILY 12/28/18 12/28/18 albuterol sulfate 90 mcg/actuation 2 puff inhalation PRN PRN 12/28/18 12/28/18 aerosol inhaler (Ventolin HFA) Shortness Of Breath gabapentin 600 mg tablet 600 mg PO BID 12/28/18 12/28/18 hydromorphone 2 mg tablet 2 mg PO Q2H PRN pain 12/28/18 12/28/18 multivitamin-ferrous 1 tab PO DAILY 12/28/18 12/28/18 fumarate-folic acid 18 mg-400 mcg tablet (Centrum) promethazine 25 mg rectal 25 mg [place] Q6H PRN Nausea 12/28/18 12/28/18 suppository Previous Rx's Medication Instructions Recorded hydrocodone 5 mg-acetaminophen 325 1 tab PO Q4-6H PRN pain #20 tabs 12/28/18 mg tablet ([place]) ondansetron 4 mg disintegrating 4 mg PO Q8H PRN nausea and 11/25/22 tablet vomiting #15 tabs oxycodone-acetaminophen 5 mg-325 1 tab PO Q4-6H PRN pain #25 tabs 11/25/22 mg tablet (Percocet) Allergies Allergy/AdvReac Type Severity Reaction Status Date / Time latex [LATEX] Allergy Intermediate Verified 05/15/18 14:49 Review of Systems Review of Systems ROS Unobtainable: All systems reviewed & are unremarkable except as noted in HPI and below Patient History Medical History (Updated 06/22/23 @ 03:34 by Alfredo Lin DO) Guttate psoriasis Asthma, mild Psoriasis Left rib fracture Gastroparesis Type 1 diabetes Surgical History History of carpal tunnel release of both wrists History of No pertinent past surgical history Family History Father Trauma Mother Hypertension Diabetes mellitus COPD (chronic obstructive pulmonary disease) Social History household members: spouse and family Smoking Status: Former smoker alcohol intake: never Smoking Status: Former smoker tobacco type: cigarettes alcohol intake frequency: 0-2 drinks per day Substance Use Type: does not use Exam Initial Vital Signs Initial Vital Signs: Vital Signs Temperature 98.7 F 06/21/23 19:56 Pulse Rate 85 06/21/23 19:56 Respiratory Rate 18 06/21/23 19:56 Blood Pressure 102/58 L 06/21/23 19:56 Pulse Oximetry 94 06/21/23 19:56 Oxygen Delivery Method Room Air 06/21/23 19:56 Const General: No ill appearing HENMT Head: normal to inspection and normocephalic Resp Effort & Inspection: normal respiratory effort Auscultation: clear to auscultation bilaterally Cardio Rate: regular rate Rhythm: regular rhythm GI Inspection: normal to inspection and non-distended Palpation: soft Skin General: no rashes or lesions noted Neuro Other: Patient is alert to person and place and can provide some information as to why she is here such as issues with her glucose monitor and issues with her diabetes but she is obviously confused about a lot of the specifics. She was very repetitive when answering questions. She often is nonsensical in her answers. She can follow commands. Moves all 4 extremities equally. Extrem General: normal to inspection, capillary refill normal and No edema Scores GCS Michelle coma scale eye opening: Spontaneous [place] coma scale verbal response: Confused Michelle coma scale motor response: Obey commands [place] coma scale total score: 14 Course Orders Ordered: ED Orders 06/21/23 23:52 Creatinine Urine Random Stat Ictotest Urine Stat Sodium Urine Random Stat Urinalysis and Microscopic Stat Urine Culture Stat 06/21/23 23:59 Basic Metabolic Panel Stat 06/22/23 01:16 Blood Culture Stat Lactate (Lactic Acid) Stat Sodium Chloride (Normal Saline 0.9%) 1,000 mls @ 150 mls/hr IV CONT TREMAYNE Last Infusion: 06/22/23 01:18 Dose: Infused Documented By: Admin: 06/21/23 22:20 Dose: 150 mls/hr Documented By: JOSE Discontinued Medications Sodium Chloride (Normal Saline 0.9%) 1,000 mls @ 1,000 mls/hr IV BOLUS ONE Stop: 06/21/23 21:36 Last Infusion: 06/21/23 22:19 Dose: Infused Documented By: Admin: 06/21/23 21:16 Dose: 1,000 mls/hr Documented By: FRANSISCA Sodium Chloride (Normal Saline 0.9%) 1,000 mls @ 1,000 mls/hr IV BOLUS ONE Stop: 06/22/23 01:36 Last Infusion: 06/22/23 02:05 Dose: 150 mls/hr Documented By: Infusion: 06/22/23 01:17 Dose: 0 mls/hr Documented By: Admin: 06/22/23 01:17 Dose: 1,000 mls/hr Documented By: DOUGLAS Ceftriaxone Sodium 1,000 mg/ (Sodium Chloride) 100 mls @ 200 mls/hr IV NOW ONE Stop: 06/22/23 00:58 Last Infusion: 06/22/23 02:04 Dose: Infused Documented By: Admin: 06/22/23 01:18 Dose: 200 mls/hr Documented By: DOUGLAS Insulin Human Regular (Insulin Regular 100 Unit/Ml 3 Ml Vial) 10 unit IV NOW ONE Stop: 06/22/23 02:41 Last Admin: 06/22/23 02:48 Dose: 10 unit Documented By: DENISE Co-signed By: DENISE(2) Vital Signs Vital signs: Vital Signs - 8 hr 06/21/23 23:30 06/21/23 23:30 06/22/23 00:00 Temperature Pulse Rate 90 Respiratory Rate 26 H Blood Pressure 107/58 L 117/58 L Pulse Oximetry 91 Oxygen Delivery Method Room Air Oxygen Flow Rate 06/22/23 00:00 06/22/23 00:29 06/22/23 00:30 Temperature Pulse Rate 91 H Respiratory Rate 24 Blood Pressure 105/61 Pulse Oximetry 91 88 L Oxygen Delivery Method Room Air Oxygen Flow Rate 06/22/23 00:30 06/22/23 01:00 06/22/23 01:01 Temperature Pulse Rate 89 90 91 H Respiratory Rate 36 H 25 H 26 H Blood Pressure Pulse Oximetry 94 95 95 Oxygen Delivery Method Nasal Cannula Nasal Cannula Oxygen Flow Rate 1 1 06/22/23 01:01 06/22/23 01:30 06/22/23 01:30 Temperature Pulse Rate 91 H Respiratory Rate 26 H Blood Pressure 123/65 93/55 L Pulse Oximetry 95 Oxygen Delivery Method Oxygen Flow Rate 06/22/23 02:00 06/22/23 02:00 06/22/23 02:30 Temperature Pulse Rate 90 Respiratory Rate 24 Blood Pressure 100/60 113/56 L Pulse Oximetry 94 Oxygen Delivery Method Nasal Cannula Oxygen Flow Rate 1 06/22/23 02:30 06/22/23 03:00 06/22/23 03:00 Temperature Pulse Rate 92 H 91 H Respiratory Rate 20 20 Blood Pressure 91/55 L Pulse Oximetry 93 95 Oxygen Delivery Method Nasal Cannula Nasal Cannula Oxygen Flow Rate 1 1 06/22/23 03:30 06/22/23 03:30 06/22/23 04:00 Temperature 98.4 F Pulse Rate 90 87 Respiratory Rate 24 26 H Blood Pressure 122/60 Pulse Oximetry 96 95 Oxygen Delivery Method Room Air Oxygen Flow Rate 06/22/23 04:01 06/22/23 04:01 06/22/23 04:30 Temperature Pulse Rate 86 93 H Respiratory Rate 29 H 26 H Blood Pressure 100/51 L Pulse Oximetry 95 93 Oxygen Delivery Method Oxygen Flow Rate 06/22/23 04:31 06/22/23 04:31 06/22/23 05:00 Temperature Pulse Rate 93 H Respiratory Rate 25 H Blood Pressure 130/61 110/71 Pulse Oximetry 93 Oxygen Delivery Method Oxygen Flow Rate 06/22/23 05:00 06/22/23 05:30 06/22/23 05:30 Temperature Pulse Rate 91 H 90 Respiratory Rate 25 H 24 Blood Pressure 112/56 L Pulse Oximetry 90 L 97 Oxygen Delivery Method Room Air Nasal Cannula Oxygen Flow Rate 1 06/22/23 06:00 06/22/23 06:08 06/22/23 06:09 Temperature Pulse Rate 91 H 93 H 95 H Respiratory Rate 24 25 H 24 Blood Pressure Pulse Oximetry 96 95 94 Oxygen Delivery Method Oxygen Flow Rate 06/22/23 06:09 Temperature Pulse Rate Respiratory Rate Blood Pressure 92/52 L Pulse Oximetry Oxygen Delivery Method Oxygen Flow Rate Medical Decision Making Lab Data Lab results reviewed: Yes I reviewed the patient's lab results. 06/21/23 20:15 06/22/23 00:08 Labs: Lab Results 06/21/23 06/21/23 06/21/23 Range/Units 20:15 20:32 21:40 WBC 19.9 H (4.5-11.0) X10^3/uL RBC 4.17 (4.0-5.2) X10^6/uL Hgb 11.9 L (12.0-16.0) g/dL Hct 36.8 (36-46) % MCV 88.3 (80-100) fL MCH 28.5 (26-34) PG MCHC 32.2 (30-36) % RDW 18.0 H (11.6-14.8) % Plt Count 212 (150-400) X10^3/uL Neut % (Auto) 78.6 H (50-75) % Lymph % (Auto) 7.7 L (25-40) % [place] % (Auto) 13.3 (3-14) % Eos % (Auto) 0.2 L (2-4) % Baso % (Auto) 0.2 (0-2) % Neut # (Auto) 02545 H (8691-5787) /uL Lymph # (Auto) 1500 (2182-4460) /uL [place] # (Auto) 2700 H (0-900) /uL Eos # (Auto) 0 (0-450) /uL Baso # (Auto) 0 (0-100) /uL VBG pH 7.42 (7.33-7.43) VBG pCO2 60.1 H (45-50) mmHg VBG pO2 33 L (35-45) mmHg VBG HCO3 39 H (24-28) mmol/L VBG Total CO2 41 H (24-29) mmol/L VBG O2 Saturation 63 L (70-75) % VBG Base Excess 15.0 H (0-4) mmol/L FiO2 21 Sodium 122 L (137-145) mmol/L Potassium 2.8 L (3.4-5.1) mmol/L Chloride 57 L* (98-107) mmol/L Carbon Dioxide 33 H (22-32) mmol/L BUN 86 H (7-17) mg/dL Creatinine 8.68 H* (0.52-1.04) mg/dL Estimated GFR 5 L (>60) mL/min BUN/Creatinine Ratio 9.9 (6-22) Glucose 307 H (70-100) mg/dL Lactate (0.7-2.1) mmol/L Calcium 7.7 L (8.4-10.2) mg/dL Phosphorus 8.5 H (2.5-4.5) mg/dL Magnesium 1.9 (1.6-2.3) mg/dL Total Bilirubin 1.1 (0.2-1.3) mg/dL AST 309 H (14-36) IU/L ALT 83 H (<35) IU/L Alkaline Phosphatase 110 (38-126) U/L Total Protein 7.4 (6.3-8.2) g/dL Albumin 4.5 (3.5-5.0) g/dL Globulin 2.9 (1.7-4.1) g/dL Albumin/Globulin Ratio 1.6 (1.0-2.8) Lipase 19 L (23-300) U/L Urine Color Urine Appearance Urine pH (4.5-8.0) Ur Specific [place] (1.000-1.035) Urine Protein (Negative) Urine Glucose (UA) (Negative) g/dL Urine Ketones (NEGATIVE) Urine Occult Blood (Negative) Urine Nitrate (Negative) Urine Bilirubin (NEGATIVE) Ur Bilirubin Confirm (Negative) Urine Urobilinogen (0.2) E.U./dL Ur Leukocyte Esterase (NEGATIVE) Urine RBC (0-5/HPF) Urine WBC (0-5/HPF) Ur Squamous Epith Cells (0-5/HPF) Urine Bacteria (None) Ur Culture Indicated? Vol Urine Centrifuged Ur Random Sodium (30-90) mmol/L Urine Creatinine mg/dL Ethyl Alcohol < 10 ( - 10) mg/dL 06/21/23 06/22/23 06/22/23 Range/Units 23:52 00:08 01:16 WBC (4.5-11.0) X10^3/uL RBC (4.0-5.2) X10^6/uL Hgb (12.0-16.0) g/dL Hct (36-46) % MCV (80-100) fL MCH (26-34) PG MCHC (30-36) % RDW (11.6-14.8) % Plt Count (150-400) X10^3/uL Neut % (Auto) (50-75) % Lymph % (Auto) (25-40) % [place] % (Auto) (3-14) % Eos % (Auto) (2-4) % Baso % (Auto) (0-2) % Neut # (Auto) (8938-3470) /uL Lymph # (Auto) (3111-5038) /uL [place] # (Auto) (0-900) /uL Eos # (Auto) (0-450) /uL Baso # (Auto) (0-100) /uL VBG pH (7.33-7.43) VBG pCO2 (45-50) mmHg VBG pO2 (35-45) mmHg VBG HCO3 (24-28) mmol/L VBG Total CO2 (24-29) mmol/L VBG O2 Saturation (70-75) % VBG Base Excess (0-4) mmol/L FiO2 Sodium 122 L (137-145) mmol/L Potassium 2.7 L* (3.4-5.1) mmol/L Chloride 65 L* (98-107) mmol/L Carbon Dioxide 24 (22-32) mmol/L BUN 85 H (7-17) mg/dL Creatinine 8.28 H* (0.52-1.04) mg/dL Estimated GFR 5 L (>60) mL/min BUN/Creatinine Ratio 10.3 (6-22) Glucose 354 H (70-100) mg/dL Lactate 0.9 (0.7-2.1) mmol/L Calcium 6.6 L (8.4-10.2) mg/dL Phosphorus (2.5-4.5) mg/dL Magnesium (1.6-2.3) mg/dL Total Bilirubin (0.2-1.3) mg/dL AST (14-36) IU/L ALT (<35) IU/L Alkaline Phosphatase (38-126) U/L Total Protein (6.3-8.2) g/dL Albumin (3.5-5.0) g/dL Globulin (1.7-4.1) g/dL Albumin/Globulin Ratio (1.0-2.8) Lipase (23-300) U/L Urine Color Yellow Urine Appearance Cloudy Urine pH 5.0 (4.5-8.0) Ur Specific [place] >=1.030 H (1.000-1.035) Urine Protein 1+ H (Negative) Urine Glucose (UA) Negative (Negative) g/dL Urine Ketones 1+ H (NEGATIVE) Urine Occult Blood 3+ H (Negative) Urine Nitrate Negative (Negative) Urine Bilirubin 3+ H (NEGATIVE) Ur Bilirubin Confirm Negative (Negative) Urine Urobilinogen 1.0 (0.2) E.U./dL Ur Leukocyte Esterase 2+ H (NEGATIVE) Urine RBC 0-1/hpf (0-5/HPF) Urine WBC 30-100/hpf H (0-5/HPF) Ur Squamous Epith Cells 1-5 /hpf (0-5/HPF) Urine Bacteria Many (>30) H (None) Ur Culture Indicated? Specimen cultured Vol Urine Centrifuged 10ml (spun) Ur Random Sodium 20 L (30-90) mmol/L Urine Creatinine 286.7 mg/dL Ethyl Alcohol ( - 10) mg/dL Point of Care Testing Glucose POC 289 Point of care testing: Point of Care Testing Glucose POC 289 Imaging Data Renal ultrasound: Radiologist's Impression: PROCEDURE: US RENAL COMPLETE INDICATIONS: Acute renal failure TECHNIQUE: Real-time scanning was performed of the kidneys and bladder, with image documentation. COMPARISON: CT, ABDOMEN W&WO CONTRAST, 09/23/2015, 8:28. [facility], CT, ABDOMEN/PELVIS WITH CONTRAST, 09/10/2015, 11:29. FINDINGS: Kidneys: Kidneys are normal in size. Right kidney measures 9.7 cm long; left kidney measures 10.1 cm long. Right renal cortical thickness is 1.5 cm; left renal cortical thickness is 1.1 cm. Renal cortical echotexture is mildly increased. No hydronephrosis or nephrolithiasis. No suspicious solid mass lesions. Bladder: Pre-void bladder volume is 30 mL. Post-void residual cannot be assessed as the patient did not void. Pre-void images demonstrate no intraluminal masses or stones. On pre-void images, in the ureteral jets are noted with color Doppler interrogation. (Of note, ureteral jets may not be detectable in up to 25% of cases due to insufficient differences in specific gravity between ureteral and bladder urine). Miscellaneous: No free pelvic fluid. IMPRESSION: 1. Mildly echogenic renal cortices, suggesting medical renal disease. 2. No renal stones or hydronephrosis. MDM Narrative Medical decision making narrative: Patient is hyperglycemic but she has not in DKA. VBG shows a pH of 7.4. She was afebrile. I am not convinced that she had a seizure earlier today she did not appear to have a postictal state. she has had at least 4 days of nausea vomiting and diarrhea. She stated that the last time she urinated was before coming to the emergency department here. He was found that the patient was hyponatremic with a sodium of 122. Was hypokalemic. Has acute renal failure with a creatinine above 8. Was afebrile. Has a leukocytosis of 19. Initially I thought that the leukocytosis could be because of a potential seizure versus the nausea and vomiting and diarrhea that she has been having however once we were able to obtain a urine sample she does have bacteria and white blood cells. Blood cultures ordered. Lactate unremarkable. She was given antibiotics. Fluids were administered. After approximately 1500 cc of normal saline labs were repeated. Her creatinine improved only slightly. Renal ultrasound shows no signs of hydro. It does not appear that she is retaining urine. Her FENa is 0.5% which is consistent with prerenal. Since the urine sample that was obtained here in the emergency department (which was actually a straight cath) she has not produced any urine. More fluids were administered. Respiratory status is appropriate. We will hold on replacing her potassium for now since there is a possibility that she has an uric and is in acute renal failure. She does not require emergent dialysis. Her blood sugar has been rising slightly. She was given 10 units of IV regular insulin. This did bring her blood sugar down appropriately. We will continue to monitor. Suspect that her change in mental status is related to her renal failure/hyponatremia. Will hold on a head CT for now. She has had no seizure activity since here in the ER. I did discuss the case with hospitalist here at this facility. He felt that since she has not had an improvement of her creatinine despite the fluids and her change in mental status that she would be best transferred to a facility that has Nephrology, Endocrinology, Neurology. Will attempt to find placement. Family has been updated. Discussed the case with hospitalist at [facility] who accepts the patient for transfer. Patient stable for transport. Discharge Plan Departure Patient Disposition: [facility] Clinical Impression: Acute renal failure, Hyperglycemia, Hypokalemia, Hyponatremia, Confusion Prescriptions: No Action ranitidine HCl 300 mg tablet 300 mg PO BEDTIME potassium chloride 10 mEq tablet extended release 10 meq PO BID lovastatin 10 mg tablet 5 mg PO BEDTIME levothyroxine 50 mcg tablet 1 tab PO DAILY cyanocobalamin (vitamin B-12) 1,000 mcg/mL solution 1 ml IM QMONTH insulin lispro 100 unit/mL solution 1 dose Continuous IV Infusion PRN PRN (Reason: bolus) Patient Comments: in addition to 0.5/hr escitalopram oxalate 20 mg tablet 20 mg PO DAILY Patient Comments: ondansetron 4 mg tablet,disintegrating 4 mg PO BIDAC PRN (Reason: Nausea And Vomiting) cholecalciferol (vitamin D3) [Vitamin D3] 2,000 unit Capsule 5,000 units PO DAILY gabapentin 600 mg Tablet 1,200 mg PO BEDTIME gabapentin 600 mg tablet 600 mg PO BID Rx Instructions: 0800 1200 promethazine 25 mg Suppository 25 mg [place] Q6H PRN (Reason: Nausea) hydromorphone 2 mg Tablet 2 mg PO Q2H PRN (Reason: pain) albuterol sulfate [Ventolin HFA] 90 mcg/actuation Hfa Aerosol Inhaler 2 puff INHALATION PRN PRN (Reason: Shortness Of Breath) Centrum 18-400 mg-mcg Tablet 1 tab PO DAILY Probiotic 1 cap PO DAILY hydrocodone-acetaminophen [[place]] 5-325 mg tablet 1 tab PO Q4-6H PRN (Reason: pain) Qty: 20 0RF fluconazole 200 mg Tablet 200 mg PO DAILY PRN (Reason: Odor) bethanechol chloride 10 mg tablet 20 mg PO QID Rx Instructions: orally with meals and at bedtime. ferrous sulfate [Iron (ferrous sulfate)] 325 mg (65 mg iron) Tablet 325 mg PO DAILY hydroxyzine HCl 25 mg Tablet 25 mg PO QID PRN (Reason: Muscle Spasm) mirtazapine 15 mg Tablet 15 mg PO BEDTIME oxycodone-acetaminophen [Percocet] 5-325 mg tablet 1 tab PO Q4-6H PRN (Reason: pain) Qty: 25 0RF ondansetron 4 mg tablet,disintegrating 4 mg PO Q8H PRN (Reason: nausea and vomiting) Qty: 15 0RF Referrals: Sandra Nathan PA-C [Primary Care Provider] -
[2023-06-21] MEDS: SODIUM CHLORIDE 0.9% 1,000 ML 1000 ML IV (21:16)
[2023-06-21 21:34] LABS: Chloride 57 mmol/L (98-107)
[2023-06-21 21:50] LABS: Ethanol (ETOH) < 10 mg/dL
--- NOTE | 2023-06-21 22:02 | DI.US.S_ITS ---
PROCEDURE: US RENAL COMPLETE INDICATIONS: Acute renal failure TECHNIQUE: Real-time scanning was performed of the kidneys and bladder, with image documentation. COMPARISON: CT, ABDOMEN W&WO CONTRAST, 09/23/2015, 8:28. [facility], CT, ABDOMEN/PELVIS WITH CONTRAST, 09/10/2015, 11:29. FINDINGS: Kidneys: Kidneys are normal in size. Right kidney measures 9.7 cm long; left kidney measures 10.1 cm long. Right renal cortical thickness is 1.5 cm; left renal cortical thickness is 1.1 cm. Renal cortical echotexture is mildly increased. No hydronephrosis or nephrolithiasis. No suspicious solid mass lesions. Bladder: Pre-void bladder volume is 30 mL. Post-void residual cannot be assessed as the patient did not void. Pre-void images demonstrate no intraluminal masses or stones. On pre-void images, in the ureteral jets are noted with color Doppler interrogation. (Of note, ureteral jets may not be detectable in up to 25% of cases due to insufficient differences in specific gravity between ureteral and bladder urine). Miscellaneous: No free pelvic fluid. IMPRESSION: 1. Mildly echogenic renal cortices, suggesting medical renal disease. 2. No renal stones or hydronephrosis. Dictated by: Danny Murdock M.D. on 06/21/2023 at 23:51 Approved by: Danny Murdock M.D. on 06/21/2023 at 23:54
[2023-06-21] MEDS: SODIUM CHLORIDE 0.9% 1,000 ML 150 ML IV (22:20)
[2023-06-22] VITALS (24 sets, daily range): BP systolic 87–130; BP diastolic 48–71; PULSE 86–95; RESP 20–36; TEMP 36.9; O2SAT 88–97
[2023-06-22 00:28] LABS: BUN Creatinine Ratio 10.3 (6-22); Blood Urea Nitrogen 85 mg/dL (7-17); Calcium 6.6 mg/dL (8.4-10.2); Carbon Dioxide 24 mmol/L (22-32); Chloride 65 mmol/L (98-107); Estimated Glomerular Filt Rate 5 mL/min (>60); Glucose 354 mg/dL (70-100); HEMOLYSIS < 15 (0-50); Sodium 122 mmol/L (137-145)
[2023-06-22 00:28] LABS: Creatinine Urine Random 286.7 mg/dL; Sodium Urine Random 20 mmol/L (30-90)
[2023-06-22 00:33] LABS: Potassium 2.7 mmol/L (3.4-5.1)
[2023-06-22 00:38] LABS: Appearance Urine UA CLOUDY; Bilirubin Urine UA 3+ (NEGATIVE); Color Urine UA YELLOW; Glucose Urine UA NEGATIVE (Negative); Ketones Urine UA 1+ (NEGATIVE); Leukocyte Esterase Urine UA 2+ (NEGATIVE); Nitrite Urine UA NEGATIVE (Negative); Occult Blood Urine UA 3+ (Negative); Protein Urine UA 1+ (Negative); Specific Gravity Urine UA >=1.030 (1.000-1.035)
[2023-06-22 00:47] LABS: Bacteria Urine Many (>30); Culture Indicated Urine Specimen Cultured; Ictotest Urine Negative (Negative); RBC Urine 0-1/HPF (0-5/HPF); Squamous Epithelial Cell Urine 1-5 /HPF (0-5/HPF); Urine Volume 10mL (spun); WBC Urine 30-100/HPF (0-5/HPF)
[2023-06-22] MEDS: SODIUM CHLORIDE 0.9% 1,000 ML 1000 ML IV (01:17)
[2023-06-22] MEDS: cefTRIAXone 1,000 MG in SODIUM CHLORIDE 0.9% 100 ML 200 MG IV (01:18)
[2023-06-22 01:35] LABS: Lactate (Lactic Acid) 0.9 mmol/L (0.7-2.1)
--- NOTE | 2023-06-22 02:47 | PC.NURSE ---
Provider requests transfer to another facility with nephrology. Tech called the following facilities; [facility], [facility] at capacity until Wed/, [facility] at 130% capacity,[facility] no transfers, [facility] will only transfer through [facility], [facility] at capacity. Still waiting on Sarah tobin to call back. Pt placed on list with [facility]@ [phone]
[2023-06-22] MEDS: INSULIN REGULAR 100 UNIT/ML 3 ML VIAL 10 UNIT IV (02:48)
[2023-06-22 03:41] LABS: Fractionated Inspired Oxygen 21; HCO3 VBG 39 mmol/L (24-28); Oxygen Saturation VBG 63 % (70-75); PCO2 VBG 60.1 mmHg (45-50); PO2 VBG 33 mmHg (35-45); Total CO2 VBG 41 mmol/L (24-29); pH VBG 7.42 (7.33-7.43)
--- NOTE | 2023-06-22 04:15 | PC.NURSE ---
patient moved from ER stretcher to a hospital bed with no complications. provider okayed for patient to eat and patient given a turkey sandwich, square cheese, sugar free jello with a diet soda. patient able to swallow without any difficulties.
--- NOTE | 2023-06-22 05:41 | PC.NURSE ---
Pt placed on list with [facility]. [facility] accepts pt waiting on bed assignment
--- NOTE | 2023-06-22 07:37 | PC.NURSE ---
this RN attempted to call report to [facility] at [phone] with no answer.
== END 2023-06-22 07:30 | disposition short-term general hospital (02) ==
PROVIDERS: Emergency Provider Emergency Medicine; Family Provider Physician Assistant Medical; PCP Physician Assistant Medical
DX: E10.65 Type 1 diabetes mellitus with hyperglycemia (principal); N17.9 Acute kidney failure, unspecified; E87.6 Hypokalemia; E87.1 Hypo-osmolality and hyponatremia; R41.0 Disorientation, unspecified
CPT/HCPCS: 36415; 51701; 51798; 76770; 80048; 80053; 80320; 81001; 82570; 82805; 82962; 83605; 83690; 83735; 84100; 84300; 85025; 87040; 87077; 87086; 87186; 96365; 96375; 99285; J0696

== ENCOUNTER 2024-02-22 15:26 | Emergency (ER) | payer OTHER, MEDICARE, SELFPAY ==
[2024-02-22] VITALS (20 sets, daily range): BP systolic 99–150; BP diastolic 48–69; PULSE 79–88; RESP 16–30; TEMP 36.9; O2SAT 92–100; BMI 32.8
--- NOTE | 2024-02-22 15:38 | ED.GENADULT ---
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 Symptoms have been ongoing for the last 4 days. History is mostly obtained from EMS at bedside. EMS state that the patient seemed to have seizure-like activity EN route that self resolved after a minute or 2. She then returned to mental baseline. Patient was able to tell me that her sugars have been elevated over the last several days. Patient received approximately 800 cc of IV fluids EN route. Patient noted to have a scratch on her forehead. She told nursing staff and myself that she dropped a dish on her head. EMS states that told them she fell out of bed this morning. Patient otherwise denying pain. Related Data Home Medications Medication Instructions Recorded Confirmed cholecalciferol (vitamin D3) 50 5,000 units PO DAILY 11/16/17 12/28/18 mcg (2,000 unit) capsule (Vitamin D3) cyanocobalamin (vitamin B-12) 1 ml IM QMONTH 11/16/17 12/28/18 1,000 mcg/mL injection solution escitalopram oxalate 20 mg tablet 20 mg PO DAILY 11/16/17 12/28/18 insulin lispro 100 unit/mL 1 dose continuous IV infusion PRN 11/16/17 12/28/18 subcutaneous solution PRN bolus levothyroxine 50 mcg tablet 1 tab PO DAILY 11/16/17 12/28/18 lovastatin 10 mg tablet 5 mg PO BEDTIME 11/16/17 12/28/18 ondansetron 4 mg disintegrating 4 mg PO BIDAC PRN Nausea And 11/16/17 12/28/18 tablet Vomiting potassium chloride 10 mEq 10 meq PO BID 11/16/17 12/28/18 tablet,extended release ranitidine HCl 300 mg tablet 300 mg PO BEDTIME 11/16/17 12/28/18 gabapentin 600 mg tablet 1,200 mg PO BEDTIME 05/15/18 12/28/18 bethanechol chloride 10 mg tablet 20 mg PO QID 10/22/18 12/28/18 ferrous sulfate 325 mg (65 mg 325 mg PO DAILY 10/22/18 12/28/18 iron) tablet (Iron (ferrous sulfate)) fluconazole 200 mg tablet 200 mg PO DAILY PRN Odor 10/22/18 12/28/18 hydroxyzine HCl 25 mg tablet 25 mg PO QID PRN Muscle Spasm 10/22/18 12/28/18 mirtazapine 15 mg tablet 15 mg PO BEDTIME 10/22/18 12/28/18 Probiotic 1 cap PO DAILY 12/28/18 12/28/18 albuterol sulfate 90 mcg/actuation 2 puff inhalation PRN PRN 12/28/18 12/28/18 aerosol inhaler (Ventolin HFA) Shortness Of Breath gabapentin 600 mg tablet 600 mg PO BID 12/28/18 12/28/18 hydromorphone 2 mg tablet 2 mg PO Q2H PRN pain 12/28/18 12/28/18 multivitamin-ferrous 1 tab PO DAILY 12/28/18 12/28/18 fumarate-folic acid 18 mg-400 mcg tablet (Centrum) promethazine 25 mg rectal 25 mg MT Q6H PRN Nausea 12/28/18 12/28/18 suppository Previous Rx's Medication Instructions Recorded hydrocodone 5 mg-acetaminophen 325 1 tab PO Q4-6H PRN pain #20 tabs 12/28/18 mg tablet ([place]) ondansetron 4 mg disintegrating 4 mg PO Q8H PRN nausea and 11/25/22 tablet vomiting #15 tabs oxycodone-acetaminophen 5 mg-325 1 tab PO Q4-6H PRN pain #25 tabs 11/25/22 mg tablet (Percocet) Allergies Allergy/AdvReac Type Severity Reaction Status Date / Time latex [LATEX] Allergy Intermediate Verified 02/22/24 15:49 Patient History <Andreea Paez MD - Last Filed: 02/29/24 18:18> Medical History (Updated 02/22/24 @ 19:55 by Lev Tavera MD) Guttate psoriasis Asthma, mild Psoriasis Left rib fracture Gastroparesis Type 1 diabetes Surgical History History of carpal tunnel release of both wrists History of No pertinent past surgical history Family History Father Trauma Mother Hypertension Diabetes mellitus COPD (chronic obstructive pulmonary disease) Social History household members: spouse and family Smoking Status: Former smoker alcohol intake: never Smoking Status: Former smoker tobacco type: cigarettes alcohol intake frequency: 0-2 drinks per day Exam <Andreea Paez MD - Last Filed: 02/29/24 18:18> Initial Vital Signs Initial Vital Signs: Vital Signs Pulse Rate 83 02/22/24 15:31 Pulse Oximetry 92 02/22/24 15:31 Const: Awake, appears chronically unwell, debilitated Mouth: dry mucous membranes Cardiac: regular rate, regular rhythm RESP: unlabored, clear bilaterally, no wheezing GI: Soft, nontender, nondistended Skin: Warm, Dry, superficial abrasion L forehead Neuro: AO x2, CN II-XII grossly intact, slurred speech <Lev Tavera MD - Last Filed: 02/23/24 03:29> Initial Vital Signs Initial Vital Signs: Vital Signs Pulse Rate 83 02/22/24 15:31 Pulse Oximetry 92 02/22/24 15:31 <Andreea Walker DO - Last Filed: 02/25/24 09:31> Initial Vital Signs Initial Vital Signs: Vital Signs Pulse Rate 83 02/22/24 15:31 Pulse Oximetry 92 02/22/24 15:31 Course <Andreea Paez MD - Last Filed: 02/29/24 18:18> Orders Ordered: Discontinued Medications Sodium Chloride (Normal Saline 0.9%) 1,000 mls @ 1,000 mls/hr IV BOLUS ONE Stop: 02/22/24 16:35 Last Infusion: 02/22/24 17:49 Dose: Infused Documented By: Admin: 02/22/24 16:15 Dose: 1,000 mls/hr Documented By: BS POTASSIUM CHLORIDE IN WATER (Potassium Cl 10 Meq/100 Ml Amy) 10 meq in 100 mls @ 100 mls/hr IV Q1H TREMAYNE Stop: 02/23/24 01:14 Last Infusion: 02/23/24 03:20 Dose: Infused Documented By: HNAlicia Admin: 02/23/24 01:57 Dose: 100 mls/hr Documented By: Infusion: 02/23/24 01:57 Dose: Infused Documented By: Admin: 02/23/24 00:42 Dose: 100 mls/hr Documented By: Infusion: 02/23/24 00:38 Dose: Infused Documented By: Admin: 02/22/24 23:38 Dose: 100 mls/hr Documented By: Infusion: 02/22/24 23:38 Dose: Infused Documented By: Admin: 02/22/24 22:43 Dose: 100 mls/hr Documented By: Infusion: 02/22/24 22:40 Dose: Infused Documented By: Admin: 02/22/24 21:38 Dose: 100 mls/hr Documented By: Infusion: 02/22/24 21:30 Dose: Infused Documented By: Admin: 02/22/24 20:25 Dose: 100 mls/hr Documented By: Infusion: 02/22/24 20:24 Dose: Infused Documented By: Admin: 02/22/24 19:14 Dose: 100 mls/hr Documented By: Infusion: 02/22/24 18:48 Dose: Infused Documented By: Admin: 02/22/24 17:48 Dose: 100 mls/hr Documented By: BS Sodium Chloride (Normal Saline 0.9%) 1,000 mls @ 1,000 mls/hr IV BOLUS ONE Stop: 02/22/24 18:13 Last Infusion: 02/22/24 19:33 Dose: Infused Documented By: Admin: 02/22/24 17:51 Dose: 1,000 mls/hr Documented By: BS Sodium Chloride (Normal Saline 0.9%) 1,000 mls @ 100 mls/hr IV CONT TREMAYNE Last Admin: 02/22/24 19:53 Dose: 100 mls/hr Documented By: BS Calcium Gluconate 9.3 meq/ (Sodium Chloride) 70 mls @ 140 mls/hr IV NOW ONE Stop: 02/22/24 21:56 Last Infusion: 02/22/24 22:40 Dose: Infused Documented By: Admin: 02/22/24 22:01 Dose: 140 mls/hr Documented By: DOUGLAS Magnesium Sulfate (Magnesium Sulfate) 2 gm in 50 mls @ 25 mls/hr IV NOW ONE Stop: 02/22/24 23:49 Last Infusion: 02/22/24 23:51 Dose: Infused Documented By: KRISTINA Co-signed By: LISE Admin: 02/22/24 22:01 Dose: 25 mls/hr Documented By: DOUGLAS Co-signed By: Insulin Human Regular (Insulin Regular 100 Unit/Ml 3 Ml Vial) 5 unit SUBCUT NOW ONE Stop: 02/23/24 03:09 Last Admin: 02/23/24 03:12 Dose: 5 unit Documented By: KATHLEEN Co-signed By: LISE Ondansetron HCl (Ondansetron 4 Mg/2 Ml Inj) 4 mg IV NOW ONE Stop: 02/22/24 15:37 Last Admin: 02/22/24 16:16 Dose: 4 mg Documented By: DOUGLAS Potassium Chloride (Potassium Chloride 20 Meq/15 Ml Udc) 40 meq PO NOW ONE Stop: 02/22/24 21:30 Last Admin: 02/22/24 21:36 Dose: 40 meq Documented By: DOUGLAS Vital Signs Vital signs: Vital Signs - 8 hr 02/22/24 19:30 02/22/24 19:30 02/22/24 20:00 Pulse Rate 80 Respiratory Rate 29 H Blood Pressure 114/57 L 110/58 L Pulse Oximetry 100 Oxygen Delivery Method Nasal Cannula Oxygen Flow Rate 2 02/22/24 20:00 02/22/24 20:30 02/22/24 20:30 Pulse Rate 81 81 Respiratory Rate 22 28 H Blood Pressure 101/54 L Pulse Oximetry 100 100 Oxygen Delivery Method Oxygen Flow Rate 02/22/24 21:00 02/22/24 21:00 02/22/24 21:30 Pulse Rate 83 83 Respiratory Rate 24 27 H Blood Pressure 112/55 L Pulse Oximetry 100 100 Oxygen Delivery Method Nasal Cannula Oxygen Flow Rate 2 02/22/24 21:30 02/22/24 22:00 02/22/24 22:00 Pulse Rate 88 Respiratory Rate 18 Blood Pressure 110/55 L 126/60 Pulse Oximetry 100 Oxygen Delivery Method Oxygen Flow Rate 02/22/24 22:30 02/22/24 22:30 02/22/24 23:00 Pulse Rate 85 Respiratory Rate 24 Blood Pressure 117/56 L 106/53 L Pulse Oximetry 100 Oxygen Delivery Method Nasal Cannula Oxygen Flow Rate 2 02/22/24 23:00 02/22/24 23:30 02/22/24 23:30 Pulse Rate 88 88 Respiratory Rate 24 20 Blood Pressure 99/48 L Pulse Oximetry 100 100 Oxygen Delivery Method Oxygen Flow Rate 02/23/24 00:00 02/23/24 00:00 02/23/24 00:30 Pulse Rate 90 Respiratory Rate 20 Blood Pressure 106/53 L 104/51 L Pulse Oximetry 100 Oxygen Delivery Method Oxygen Flow Rate 02/23/24 00:30 02/23/24 01:00 02/23/24 01:00 Pulse Rate 87 89 Respiratory Rate 20 22 Blood Pressure 105/49 L Pulse Oximetry 100 100 Oxygen Delivery Method Nasal Cannula Oxygen Flow Rate 2 02/23/24 01:30 02/23/24 01:30 02/23/24 02:00 Pulse Rate 90 Respiratory Rate 24 Blood Pressure 111/53 L 107/53 L Pulse Oximetry 100 Oxygen Delivery Method Oxygen Flow Rate 2 02/23/24 02:00 02/23/24 02:30 02/23/24 02:30 Pulse Rate 92 H 95 H 94 H Respiratory Rate 20 20 Blood Pressure 109/54 L Pulse Oximetry 100 99 99 Oxygen Delivery Method Nasal Cannula Nasal Cannula Oxygen Flow Rate 2 2 02/23/24 03:00 02/23/24 03:00 Pulse Rate 93 H Respiratory Rate 24 Blood Pressure 105/52 L Pulse Oximetry 96 Oxygen Delivery Method Room Air Oxygen Flow Rate <Lev Tavera MD - Last Filed: 02/23/24 03:29> Orders Ordered: Discontinued Medications Sodium Chloride (Normal Saline 0.9%) 1,000 mls @ 1,000 mls/hr IV BOLUS ONE Stop: 02/22/24 16:35 Last Infusion: 02/22/24 17:49 Dose: Infused Documented By: Admin: 02/22/24 16:15 Dose: 1,000 mls/hr Documented By: DOUGLAS POTASSIUM CHLORIDE IN WATER (Potassium Cl 10 Meq/100 Ml Amy) 10 meq in 100 mls @ 100 mls/hr IV Q1H TREMAYNE Stop: 02/23/24 01:14 Last Infusion: 02/23/24 03:20 Dose: Infused Documented By: Admin: 02/23/24 01:57 Dose: 100 mls/hr Documented By: Infusion: 02/23/24 01:57 Dose: Infused Documented By: Admin: 02/23/24 00:42 Dose: 100 mls/hr Documented By: Infusion: 02/23/24 00:38 Dose: Infused Documented By: Admin: 02/22/24 23:38 Dose: 100 mls/hr Documented By: Infusion: 02/22/24 23:38 Dose: Infused Documented By: Admin: 02/22/24 22:43 Dose: 100 mls/hr Documented By: Infusion: 02/22/24 22:40 Dose: Infused Documented By: Admin: 02/22/24 21:38 Dose: 100 mls/hr Documented By: Infusion: 02/22/24 21:30 Dose: Infused Documented By: Admin: 02/22/24 20:25 Dose: 100 mls/hr Documented By: Infusion: 02/22/24 20:24 Dose: Infused Documented By: Admin: 02/22/24 19:14 Dose: 100 mls/hr Documented By: Infusion: 02/22/24 18:48 Dose: Infused Documented By: Admin: 02/22/24 17:48 Dose: 100 mls/hr Documented By: DOUGLAS Sodium Chloride (Normal Saline 0.9%) 1,000 mls @ 1,000 mls/hr IV BOLUS ONE Stop: 02/22/24 18:13 Last Infusion: 02/22/24 19:33 Dose: Infused Documented By: Admin: 02/22/24 17:51 Dose: 1,000 mls/hr Documented By: DOUGLAS Sodium Chloride (Normal Saline 0.9%) 1,000 mls @ 100 mls/hr IV CONT TREMAYNE Last Admin: 02/22/24 19:53 Dose: 100 mls/hr Documented By: DOUGLAS Calcium Gluconate 9.3 meq/ (Sodium Chloride) 70 mls @ 140 mls/hr IV NOW ONE Stop: 02/22/24 21:56 Last Infusion: 02/22/24 22:40 Dose: Infused Documented By: Admin: 02/22/24 22:01 Dose: 140 mls/hr Documented By: DOUGLAS Magnesium Sulfate (Magnesium Sulfate) 2 gm in 50 mls @ 25 mls/hr IV NOW ONE Stop: 02/22/24 23:49 Last Infusion: 02/22/24 23:51 Dose: Infused Documented By: KRISTINA Co-signed By: LISE Admin: 02/22/24 22:01 Dose: 25 mls/hr Documented By: DOUGLAS Co-signed By: Insulin Human Regular (Insulin Regular 100 Unit/Ml 3 Ml Vial) 5 unit SUBCUT NOW ONE Stop: 02/23/24 03:09 Last Admin: 02/23/24 03:12 Dose: 5 unit Documented By: KATHLEEN Co-signed By: LISE Ondansetron HCl (Ondansetron 4 Mg/2 Ml Inj) 4 mg IV NOW ONE Stop: 02/22/24 15:37 Last Admin: 02/22/24 16:16 Dose: 4 mg Documented By: DOUGLAS Potassium Chloride (Potassium Chloride 20 Meq/15 Ml Udc) 40 meq PO NOW ONE Stop: 02/22/24 21:30 Last Admin: 02/22/24 21:36 Dose: 40 meq Documented By: DOUGLAS Vital Signs Vital signs: Vital Signs - 8 hr 02/22/24 19:30 02/22/24 19:30 02/22/24 20:00 Pulse Rate 80 Respiratory Rate 29 H Blood Pressure 114/57 L 110/58 L Pulse Oximetry 100 Oxygen Delivery Method Nasal Cannula Oxygen Flow Rate 2 02/22/24 20:00 02/22/24 20:30 02/22/24 20:30 Pulse Rate 81 81 Respiratory Rate 22 28 H Blood Pressure 101/54 L Pulse Oximetry 100 100 Oxygen Delivery Method Oxygen Flow Rate 02/22/24 21:00 02/22/24 21:00 02/22/24 21:30 Pulse Rate 83 83 Respiratory Rate 24 27 H Blood Pressure 112/55 L Pulse Oximetry 100 100 Oxygen Delivery Method Nasal Cannula Oxygen Flow Rate 2 02/22/24 21:30 02/22/24 22:00 02/22/24 22:00 Pulse Rate 88 Respiratory Rate 18 Blood Pressure 110/55 L 126/60 Pulse Oximetry 100 Oxygen Delivery Method Oxygen Flow Rate 02/22/24 22:30 02/22/24 22:30 02/22/24 23:00 Pulse Rate 85 Respiratory Rate 24 Blood Pressure 117/56 L 106/53 L Pulse Oximetry 100 Oxygen Delivery Method Nasal Cannula Oxygen Flow Rate 2 02/22/24 23:00 02/22/24 23:30 02/22/24 23:30 Pulse Rate 88 88 Respiratory Rate 24 20 Blood Pressure 99/48 L Pulse Oximetry 100 100 Oxygen Delivery Method Oxygen Flow Rate 02/23/24 00:00 02/23/24 00:00 02/23/24 00:30 Pulse Rate 90 Respiratory Rate 20 Blood Pressure 106/53 L 104/51 L Pulse Oximetry 100 Oxygen Delivery Method Oxygen Flow Rate 02/23/24 00:30 02/23/24 01:00 02/23/24 01:00 Pulse Rate 87 89 Respiratory Rate 20 22 Blood Pressure 105/49 L Pulse Oximetry 100 100 Oxygen Delivery Method Nasal Cannula Oxygen Flow Rate 2 02/23/24 01:30 02/23/24 01:30 02/23/24 02:00 Pulse Rate 90 Respiratory Rate 24 Blood Pressure 111/53 L 107/53 L Pulse Oximetry 100 Oxygen Delivery Method Oxygen Flow Rate 2 02/23/24 02:00 02/23/24 02:30 02/23/24 02:30 Pulse Rate 92 H 95 H 94 H Respiratory Rate 20 20 Blood Pressure 109/54 L Pulse Oximetry 100 99 99 Oxygen Delivery Method Nasal Cannula Nasal Cannula Oxygen Flow Rate 2 2 02/23/24 03:00 02/23/24 03:00 Pulse Rate 93 H Respiratory Rate 24 Blood Pressure 105/52 L Pulse Oximetry 96 Oxygen Delivery Method Room Air Oxygen Flow Rate <Andreea Walker, - Last Filed: 02/25/24 09:31> Orders Ordered: Discontinued Medications Sodium Chloride (Normal Saline 0.9%) 1,000 mls @ 1,000 mls/hr IV BOLUS ONE Stop: 02/22/24 16:35 Last Infusion: 02/22/24 17:49 Dose: Infused Documented By: Admin: 02/22/24 16:15 Dose: 1,000 mls/hr Documented By: DOUGLAS POTASSIUM CHLORIDE IN WATER (Potassium Cl 10 Meq/100 Ml Amy) 10 meq in 100 mls @ 100 mls/hr IV Q1H TREMAYNE Stop: 02/23/24 01:14 Last Infusion: 02/23/24 03:20 Dose: Infused Documented By: Admin: 02/23/24 01:57 Dose: 100 mls/hr Documented By: Infusion: 02/23/24 01:57 Dose: Infused Documented By: Admin: 02/23/24 00:42 Dose: 100 mls/hr Documented By: Infusion: 02/23/24 00:38 Dose: Infused Documented By: Admin: 02/22/24 23:38 Dose: 100 mls/hr Documented By: Infusion: 02/22/24 23:38 Dose: Infused Documented By: Admin: 02/22/24 22:43 Dose: 100 mls/hr Documented By: Infusion: 02/22/24 22:40 Dose: Infused Documented By: Admin: 02/22/24 21:38 Dose: 100 mls/hr Documented By: Infusion: 02/22/24 21:30 Dose: Infused Documented By: Admin: 02/22/24 20:25 Dose: 100 mls/hr Documented By: Infusion: 02/22/24 20:24 Dose: Infused Documented By: Admin: 02/22/24 19:14 Dose: 100 mls/hr Documented By: Infusion: 02/22/24 18:48 Dose: Infused Documented By: Admin: 02/22/24 17:48 Dose: 100 mls/hr Documented By: DOUGLAS Sodium Chloride (Normal Saline 0.9%) 1,000 mls @ 1,000 mls/hr IV BOLUS ONE Stop: 02/22/24 18:13 Last Infusion: 02/22/24 19:33 Dose: Infused Documented By: Admin: 02/22/24 17:51 Dose: 1,000 mls/hr Documented By: DOUGLAS Sodium Chloride (Normal Saline 0.9%) 1,000 mls @ 100 mls/hr IV CONT TREMAYNE Last Admin: 02/22/24 19:53 Dose: 100 mls/hr Documented By: DOUGLAS Calcium Gluconate 9.3 meq/ (Sodium Chloride) 70 mls @ 140 mls/hr IV NOW ONE Stop: 02/22/24 21:56 Last Infusion: 02/22/24 22:40 Dose: Infused Documented By: Admin: 02/22/24 22:01 Dose: 140 mls/hr Documented By: DOUGLAS Magnesium Sulfate (Magnesium Sulfate) 2 gm in 50 mls @ 25 mls/hr IV NOW ONE Stop: 02/22/24 23:49 Last Infusion: 02/22/24 23:51 Dose: Infused Documented By: KRISTINA Co-signed By: LISE Admin: 02/22/24 22:01 Dose: 25 mls/hr Documented By: DOUGLAS Co-signed By: Insulin Human Regular (Insulin Regular 100 Unit/Ml 3 Ml Vial) 5 unit SUBCUT NOW ONE Stop: 02/23/24 03:09 Last Admin: 02/23/24 03:12 Dose: 5 unit Documented By: NAIDAG Co-signed By: LISE Ondansetron HCl (Ondansetron 4 Mg/2 Ml Inj) 4 mg IV NOW ONE Stop: 02/22/24 15:37 Last Admin: 02/22/24 16:16 Dose: 4 mg Documented By: DOUGLAS Potassium Chloride (Potassium Chloride 20 Meq/15 Ml Udc) 40 meq PO NOW ONE Stop: 02/22/24 21:30 Last Admin: 02/22/24 21:36 Dose: 40 meq Documented By: DOUGLAS Vital Signs Vital signs: Vital Signs - 8 hr 02/22/24 19:30 02/22/24 19:30 02/22/24 20:00 Pulse Rate 80 Respiratory Rate 29 H Blood Pressure 114/57 L 110/58 L Pulse Oximetry 100 Oxygen Delivery Method Nasal Cannula Oxygen Flow Rate 2 02/22/24 20:00 02/22/24 20:30 02/22/24 20:30 Pulse Rate 81 81 Respiratory Rate 22 28 H Blood Pressure 101/54 L Pulse Oximetry 100 100 Oxygen Delivery Method Oxygen Flow Rate 02/22/24 21:00 02/22/24 21:00 02/22/24 21:30 Pulse Rate 83 83 Respiratory Rate 24 27 H Blood Pressure 112/55 L Pulse Oximetry 100 100 Oxygen Delivery Method Nasal Cannula Oxygen Flow Rate 2 02/22/24 21:30 02/22/24 22:00 02/22/24 22:00 Pulse Rate 88 Respiratory Rate 18 Blood Pressure 110/55 L 126/60 Pulse Oximetry 100 Oxygen Delivery Method Oxygen Flow Rate 02/22/24 22:30 02/22/24 22:30 02/22/24 23:00 Pulse Rate 85 Respiratory Rate 24 Blood Pressure 117/56 L 106/53 L Pulse Oximetry 100 Oxygen Delivery Method Nasal Cannula Oxygen Flow Rate 2 02/22/24 23:00 02/22/24 23:30 02/22/24 23:30 Pulse Rate 88 88 Respiratory Rate 24 20 Blood Pressure 99/48 L Pulse Oximetry 100 100 Oxygen Delivery Method Oxygen Flow Rate 02/23/24 00:00 02/23/24 00:00 02/23/24 00:30 Pulse Rate 90 Respiratory Rate 20 Blood Pressure 106/53 L 104/51 L Pulse Oximetry 100 Oxygen Delivery Method Oxygen Flow Rate 02/23/24 00:30 02/23/24 01:00 02/23/24 01:00 Pulse Rate 87 89 Respiratory Rate 20 22 Blood Pressure 105/49 L Pulse Oximetry 100 100 Oxygen Delivery Method Nasal Cannula Oxygen Flow Rate 2 02/23/24 01:30 02/23/24 01:30 02/23/24 02:00 Pulse Rate 90 Respiratory Rate 24 Blood Pressure 111/53 L 107/53 L Pulse Oximetry 100 Oxygen Delivery Method Oxygen Flow Rate 2 02/23/24 02:00 02/23/24 02:30 02/23/24 02:30 Pulse Rate 92 H 95 H 94 H Respiratory Rate 20 20 Blood Pressure 109/54 L Pulse Oximetry 100 99 99 Oxygen Delivery Method Nasal Cannula Nasal Cannula Oxygen Flow Rate 2 2 02/23/24 03:00 02/23/24 03:00 Pulse Rate 93 H Respiratory Rate 24 Blood Pressure 105/52 L Pulse Oximetry 96 Oxygen Delivery Method Room Air Oxygen Flow Rate Medical Decision Making <Andreea Paez MD - Last Filed: 02/29/24 18:18> Lab Data 02/22/24 16:02 02/23/24 00:25 Labs: Lab Results 02/22/24 02/22/24 02/22/24 Range/Units 16:01 16:02 16:34 WBC 12.6 H (4.5-11.0) X10^3/uL RBC 2.95 L (4.0-5.2) X10^6/uL Hgb 8.0 L (12.0-16.0) g/dL Hct 24.3 L (36-46) % MCV 82.5 (80-100) fL MCH 27.2 (26-34) PG MCHC 32.9 (30-36) % RDW 20.8 H (11.6-14.8) % Plt Count 201 (150-400) X10^3/uL Neut % (Auto) 85.8 H (50-75) % Lymph % (Auto) 4.9 L (25-40) % Forrest % (Auto) 8.9 (3-14) % Eos % (Auto) 0.2 L (2-4) % Baso % (Auto) 0.2 (0-2) % Neut # (Auto) 30903 H (0365-9221) /uL Lymph # (Auto) 600 L (8116-8669) /uL Forrest # (Auto) 1100 H (0-900) /uL Eos # (Auto) 0 (0-450) /uL Baso # (Auto) 0 (0-100) /uL RBC Morphology See below Anisocytosis 1+ H VBG pH 7.40 (7.33-7.43) VBG pCO2 50.7 H (45-50) mmHg VBG pO2 22 L (35-45) mmHg VBG HCO3 32 H (24-28) mmol/L VBG Total CO2 30 H (24-29) mmol/L VBG O2 Saturation 37 L (70-75) % VBG Base Excess 5.9 H (0-4) mmol/L Sodium 112 L* (137-145) mmol/L Potassium 2.5 L* (3.4-5.1) mmol/L Chloride 59 L* (98-107) mmol/L Carbon Dioxide 33 H (22-32) mmol/L BUN 178 H* (7-17) mg/dL Creatinine 5.27 H (0.52-1.04) mg/dL Estimated GFR 9 L (>60) mL/min BUN/Creatinine Ratio 33.8 H (6-22) Glucose 606 H* (70-100) mg/dL Lactate 1.4 (0.7-2.1) mmol/L Calcium 6.4 L* (8.4-10.2) mg/dL Magnesium 1.4 L (1.6-2.3) mg/dL Total Bilirubin 0.4 (0.2-1.3) mg/dL AST 28 (14-36) IU/L ALT 21 (<35) IU/L Alkaline Phosphatase 96 (38-126) U/L Total Protein 6.1 L (6.3-8.2) g/dL Albumin 3.5 (3.5-5.0) g/dL Globulin 2.6 (1.7-4.1) g/dL Albumin/Globulin Ratio 1.3 (1.0-2.8) Lipase 21 L (23-300) U/L Urine RBC 0-1/hpf (0-5/HPF) Urine WBC 5-10/hpf H (0-5/HPF) Ur Squamous Epith Cells 5-10 /hpf H (0-5/HPF) Urine Bacteria Many (>30) H (None) Ur Culture Indicated? Specimen cultured Vol Urine Centrifuged 10ml (spun) Ketones 5.18 H (<0.27) mmol/L 02/22/24 02/23/24 Range/Units 19:00 00:25 WBC (4.5-11.0) X10^3/uL RBC (4.0-5.2) X10^6/uL Hgb (12.0-16.0) g/dL Hct (36-46) % MCV (80-100) fL MCH (26-34) PG MCHC (30-36) % RDW (11.6-14.8) % Plt Count (150-400) X10^3/uL Neut % (Auto) (50-75) % Lymph % (Auto) (25-40) % Forrest % (Auto) (3-14) % Eos % (Auto) (2-4) % Baso % (Auto) (0-2) % Neut # (Auto) (2258-4133) /uL Lymph # (Auto) (8498-2695) /uL Forrest # (Auto) (0-900) /uL Eos # (Auto) (0-450) /uL Baso # (Auto) (0-100) /uL RBC Morphology Anisocytosis VBG pH (7.33-7.43) VBG pCO2 (45-50) mmHg VBG pO2 (35-45) mmHg VBG HCO3 (24-28) mmol/L VBG Total CO2 (24-29) mmol/L VBG O2 Saturation (70-75) % VBG Base Excess (0-4) mmol/L Sodium 117 L* 120 L (137-145) mmol/L Potassium 2.8 L 4.4 D (3.4-5.1) mmol/L Chloride 71 L* 74 L* (98-107) mmol/L Carbon Dioxide 26 24 (22-32) mmol/L BUN 160 H* 147 H* (7-17) mg/dL Creatinine 4.57 H 4.56 H (0.52-1.04) mg/dL Estimated GFR 11 L 11 L (>60) mL/min BUN/Creatinine Ratio 35.0 H 32.2 H (6-22) Glucose 519 H* 684 H* (70-100) mg/dL Lactate (0.7-2.1) mmol/L Calcium 6.1 L* 7.3 L (8.4-10.2) mg/dL Magnesium 2.2 (1.6-2.3) mg/dL Total Bilirubin 0.4 (0.2-1.3) mg/dL AST 22 (14-36) IU/L ALT 20 (<35) IU/L Alkaline Phosphatase 96 (38-126) U/L Total Protein 5.7 L (6.3-8.2) g/dL Albumin 3.2 L (3.5-5.0) g/dL Globulin 2.5 (1.7-4.1) g/dL Albumin/Globulin Ratio 1.3 (1.0-2.8) Lipase (23-300) U/L Urine RBC (0-5/HPF) Urine WBC (0-5/HPF) Ur Squamous Epith Cells (0-5/HPF) Urine Bacteria (None) Ur Culture Indicated? Vol Urine Centrifuged Ketones (<0.27) mmol/L Point of Care Testing Glucose POC 500 Urine Dip Bedside Urine Glucose 1000 mg/dl Bedside Urine Bilirubin - Negative Bedside Urine Ketone + 15 Urine Specific [place] 1.030 Bedside Urine Occult Blood - Negative Bedside Urine pH 5.5 Bedside Urine Protein - Negative Bedside Urine Urobilinogen - Negative Bedside Urine Nitrite - Negative Bedside Urine Leukocytes +/- 15 Esterase Point of care testing: Point of Care Testing Glucose POC 500 Urine Dip Bedside Urine Glucose 1000 mg/dl Bedside Urine Bilirubin - Negative Bedside Urine Ketone + 15 Urine Specific [place] 1.030 Bedside Urine Occult Blood - Negative Bedside Urine pH 5.5 Bedside Urine Protein - Negative Bedside Urine Urobilinogen - Negative Bedside Urine Nitrite - Negative Bedside Urine Leukocytes +/- [address] scan - head: Radiologist's Impression: PROCEDURE: CT HEAD/BRAIN WO CON INDICATIONS: seizures, hyperglycemia TECHNIQUE: Noncontrast 4.5 mm thick angled axial sections acquired from the foramen magnum to the vertex, with coronal and sagittal reformats. For radiation dose reduction, the following was used: automated exposure control, adjustment of mA and/or kV according to patient size. COMPARISON: None. FINDINGS: Image quality: Diagnostic. CSF spaces: Basal cisterns are patent. No extra-axial fluid collections. Ventricles are normal in size and shape. Brain: No midline shift. Rounded midline hyperdensity is present.. Martinez-white matter interface is normal. Skull and face: Calvarium and visualized facial bones are intact, without suspicious lesions. Sinuses: Visualized sinuses and mastoids are clear. IMPRESSION: No acute intracranial process. Rounded midline hyperdensity which can represent colloid cyst. Dictated by: Desi Perez M.D. on 02/22/2024 at 15:56 Approved by: Desi Perez M.D. on 02/22/2024 at 16:00 [facility] Narrative Additional Information: Ill-appearing patient with nausea and vomiting for the last 4 days. History of type 1 diabetes. Point of care glucose read ?high?. Patient received approximately 800 cc of normal saline by EMS EN route. Additional IV fluids ordered. Insulin to be held until potassium values known. VBG shows pH 7.4. Not acidotic. Pending rest of laboratory work. CT brain negative for acute findings, possible colloid cyst seen. Laboratory work shows WBC count 12.6, hemoglobin 8.0, platelet count 201, sodium 112, potassium 2.5, chloride 59, BUN 178, creatinine 5.27, glucose 606, magnesium 1.4, calcium 6.4. Fluids has been continuous. Patient has not had any seizure-like activity since arrival to the emergency department, 3% normal saline held at this time. Has been it was now at bedside, he states that this is the same thing that happened back in June. Patient was initially seen at [facility] but then transferred to [facility]. Both and patient at bedside are unable to tell me what happened at [facility] other than that patient's kidneys were stabilized. She has scheduled follow up later this month with Nephrology, but she has not seen a sports equipment racker since her hospitalization back in June. Call placed to [facility] for consult. Call still pending from [facility]. No seizure activity witness in several hours while patient in ED bed. Care of patient signed to Dr. Tavera at 1830 02/22/2024, 1830Liang. Sign-out from Dr. Paez. 54-year-old female with history of diabetes, gastroparesis, nausea and vomiting last 4 days, increased glucose levels, history of intermittent seizures, might have had a seizure on transfer with the EMS, numerous electrolyte abnormalities in lab abnormalities, including sodium 112, potassium 2.5, creatinine 5, calcium low. IV potassium repletion has been initiated. Normal saline x2 L apparently has been given. No hypertonic saline has been given. No seizure activity for 2 hours so far here. Call has been placed to [address] [place] [address] where patient was apparently managed for similar presentation June 2023. Patient has apparently not seem Nephrology in follow up since that time. Await call back from [facility]. Repeat BMP requested. Assumed care. 2029, repeat labs. Sodium 117, chloride 71, P 1 160, creatinine 4.7, glucose 519, calcium 6.1. Potassium 2.8. IV potassium still infusing. We will give oral potassium 40 mEq as well. We will give IV calcium gluconate. Next labs 4-6 hours if she is still here. 2099, call back from [facility], apparently they can not take the patient, do not anticipate any beds any time soon, we will call around for other tertiary centers that have Nephrology available. 2299, discussion with [employer] system, most recent labs updated. We will be repeating another BMP with magnesium and calcium levels soon. 2354, case discussed with [facility] hospitalist Dr. Naranjo accepts patient for admission, await bed availability. Repeat labs show sodium further improved, now 120. Potassium 4.4 also improved, with glucose 684, now can tolerate some insulin, we will give regular human insulin 5 units subcutaneous dose for now. Calcium 7.1 has increased after repletion as well. Await bed assignment [facility] 0230, transfer to [facility] as planned urine culture positive for Klebsiella pneumoniae greater than 100,000 CFU, patient was transferred to [facility] last night we will send report to . <Lev Tavera MD - Last Filed: 02/23/24 03:29> Lab Data Labs: Lab Results 02/22/24 02/22/24 02/22/24 Range/Units 16:01 16:02 16:34 WBC 12.6 H (4.5-11.0) X10^3/uL RBC 2.95 L (4.0-5.2) X10^6/uL Hgb 8.0 L (12.0-16.0) g/dL Hct 24.3 L (36-46) % MCV 82.5 (80-100) fL MCH 27.2 (26-34) PG MCHC 32.9 (30-36) % RDW 20.8 H (11.6-14.8) % Plt Count 201 (150-400) X10^3/uL Neut % (Auto) 85.8 H (50-75) % Lymph % (Auto) 4.9 L (25-40) % Forrest % (Auto) 8.9 (3-14) % Eos % (Auto) 0.2 L (2-4) % Baso % (Auto) 0.2 (0-2) % Neut # (Auto) 04689 H (7689-4016) /uL Lymph # (Auto) 600 L (3637-4334) /uL Forrest # (Auto) 1100 H (0-900) /uL Eos # (Auto) 0 (0-450) /uL Baso # (Auto) 0 (0-100) /uL RBC Morphology See below Anisocytosis 1+ H VBG pH 7.40 (7.33-7.43) VBG pCO2 50.7 H (45-50) mmHg VBG pO2 22 L (35-45) mmHg VBG HCO3 32 H (24-28) mmol/L VBG Total CO2 30 H (24-29) mmol/L VBG O2 Saturation 37 L (70-75) % VBG Base Excess 5.9 H (0-4) mmol/L Sodium 112 L* (137-145) mmol/L Potassium 2.5 L* (3.4-5.1) mmol/L Chloride 59 L* (98-107) mmol/L Carbon Dioxide 33 H (22-32) mmol/L BUN 178 H* (7-17) mg/dL Creatinine 5.27 H (0.52-1.04) mg/dL Estimated GFR 9 L (>60) mL/min BUN/Creatinine Ratio 33.8 H (6-22) Glucose 606 H* (70-100) mg/dL Lactate 1.4 (0.7-2.1) mmol/L Calcium 6.4 L* (8.4-10.2) mg/dL Magnesium 1.4 L (1.6-2.3) mg/dL Total Bilirubin 0.4 (0.2-1.3) mg/dL AST 28 (14-36) IU/L ALT 21 (<35) IU/L Alkaline Phosphatase 96 (38-126) U/L Total Protein 6.1 L (6.3-8.2) g/dL Albumin 3.5 (3.5-5.0) g/dL Globulin 2.6 (1.7-4.1) g/dL Albumin/Globulin Ratio 1.3 (1.0-2.8) Lipase 21 L (23-300) U/L Urine RBC 0-1/hpf (0-5/HPF) Urine WBC 5-10/hpf H (0-5/HPF) Ur Squamous Epith Cells 5-10 /hpf H (0-5/HPF) Urine Bacteria Many (>30) H (None) Ur Culture Indicated? Specimen cultured Vol Urine Centrifuged 10ml (spun) Ketones 5.18 H (<0.27) mmol/L 02/22/24 02/23/24 Range/Units 19:00 00:25 WBC (4.5-11.0) X10^3/uL RBC (4.0-5.2) X10^6/uL Hgb (12.0-16.0) g/dL Hct (36-46) % MCV (80-100) fL MCH (26-34) PG MCHC (30-36) % RDW (11.6-14.8) % Plt Count (150-400) X10^3/uL Neut % (Auto) (50-75) % Lymph % (Auto) (25-40) % Forrest % (Auto) (3-14) % Eos % (Auto) (2-4) % Baso % (Auto) (0-2) % Neut # (Auto) (0942-5826) /uL Lymph # (Auto) (6234-9918) /uL Forrest # (Auto) (0-900) /uL Eos # (Auto) (0-450) /uL Baso # (Auto) (0-100) /uL RBC Morphology Anisocytosis VBG pH (7.33-7.43) VBG pCO2 (45-50) mmHg VBG pO2 (35-45) mmHg VBG HCO3 (24-28) mmol/L VBG Total CO2 (24-29) mmol/L VBG O2 Saturation (70-75) % VBG Base Excess (0-4) mmol/L Sodium 117 L* 120 L (137-145) mmol/L Potassium 2.8 L 4.4 D (3.4-5.1) mmol/L Chloride 71 L* 74 L* (98-107) mmol/L Carbon Dioxide 26 24 (22-32) mmol/L BUN 160 H* 147 H* (7-17) mg/dL Creatinine 4.57 H 4.56 H (0.52-1.04) mg/dL Estimated GFR 11 L 11 L (>60) mL/min BUN/Creatinine Ratio 35.0 H 32.2 H (6-22) Glucose 519 H* 684 H* (70-100) mg/dL Lactate (0.7-2.1) mmol/L Calcium 6.1 L* 7.3 L (8.4-10.2) mg/dL Magnesium 2.2 (1.6-2.3) mg/dL Total Bilirubin 0.4 (0.2-1.3) mg/dL AST 22 (14-36) IU/L ALT 20 (<35) IU/L Alkaline Phosphatase 96 (38-126) U/L Total Protein 5.7 L (6.3-8.2) g/dL Albumin 3.2 L (3.5-5.0) g/dL Globulin 2.5 (1.7-4.1) g/dL Albumin/Globulin Ratio 1.3 (1.0-2.8) Lipase (23-300) U/L Urine RBC (0-5/HPF) Urine WBC (0-5/HPF) Ur Squamous Epith Cells (0-5/HPF) Urine Bacteria (None) Ur Culture Indicated? Vol Urine Centrifuged Ketones (<0.27) mmol/L Point of Care Testing Glucose POC 500 Urine Dip Bedside Urine Glucose 1000 mg/dl Bedside Urine Bilirubin - Negative Bedside Urine Ketone + 15 Urine Specific [place] 1.030 Bedside Urine Occult Blood - Negative Bedside Urine pH 5.5 Bedside Urine Protein - Negative Bedside Urine Urobilinogen - Negative Bedside Urine Nitrite - Negative Bedside Urine Leukocytes +/- 15 Esterase Point of care testing: Point of Care Testing Glucose POC 500 Urine Dip Bedside Urine Glucose 1000 mg/dl Bedside Urine Bilirubin - Negative Bedside Urine Ketone + 15 Urine Specific [place] 1.030 Bedside Urine Occult Blood - Negative Bedside Urine pH 5.5 Bedside Urine Protein - Negative Bedside Urine Urobilinogen - Negative Bedside Urine Nitrite - Negative Bedside Urine Leukocytes +/- 15 Esterase ECG Data Attestation: I personally reviewed and interpreted this ECG as follows: Interpretation: Normal sinus rhythm with a rate of 82, no obvious ST segment elevation or depression changes. MT 168, QRS 106, QTC 495. [facility] Narrative Additional Information: Ill-appearing patient with nausea and vomiting for the last 4 days. History of type 1 diabetes. Point of care glucose read ?high?. Patient received approximately 800 cc of normal saline by EMS EN route. Additional IV fluids ordered. Insulin to be held until potassium values known. VBG shows pH 7.4. Not acidotic. Pending rest of laboratory work. CT brain negative for acute findings, possible colloid cyst seen. Laboratory work shows WBC count 12.6, hemoglobin 8.0, platelet count 201, sodium 112, potassium 2.5, chloride 59, BUN 178, creatinine 5.27, glucose 606, magnesium 1.4, calcium 6.4. Fluids has been continuous. Patient has not had any seizure-like activity since arrival to the emergency department, 3% normal saline held at this time. Has been it was now at bedside, he states that this is the same thing that happened back in June. Patient was initially seen at [facility] but then transferred to [facility]. Both and patient at bedside are unable to tell me what happened at [facility] other than that patient's kidneys were stabilized. She has scheduled follow up later this month with Nephrology, but she was not seen a sports equipment racker since her hospitalization back in June. Call placed to [facility] for consult. 02/22/2024, Liang Duvall. Sign-out from Dr. Paez. 54-year-old female with history of diabetes, gastroparesis, nausea and vomiting last 4 days, increased glucose levels, history of intermittent seizures, might have had a seizure on transfer with the EMS, numerous electrolyte abnormalities in lab abnormalities, including sodium 112, potassium 2.5, creatinine 5, calcium low. IV potassium repletion has been initiated. Normal saline x2 L apparently has been given. No hypertonic saline has been given. No seizure activity for 2 hours so far here. Call has been placed to [address] [place] [address] where patient was apparently managed for similar presentation June 2023. Patient has apparently not seem Nephrology in follow up since that time. Await call back from [facility]. Repeat BMP requested. Assumed care. 2029, repeat labs. Sodium 117, chloride 71, P 1 160, creatinine 4.7, glucose 519, calcium 6.1. Potassium 2.8. IV potassium still infusing. We will give oral potassium 40 mEq as well. We will give IV calcium gluconate. Next labs 4-6 hours if she is still here. 2099, call back from [facility], apparently they can not take the patient, do not anticipate any beds any time soon, we will call around for other tertiary centers that have Nephrology available. 2299, discussion with [facility] [employer] system, most recent labs updated. We will be repeating another BMP with magnesium and calcium levels soon. 2354, case discussed with [facility] hospitalist Dr. Naranjo accepts patient for admission, await bed availability. Repeat labs show sodium further improved, now 120. Potassium 4.4 also improved, with glucose 684, now can tolerate some insulin, we will give regular human insulin 5 units subcutaneous dose for now. Calcium 7.1 has increased after repletion as well. Await bed assignment [facility] 0230, transfer to [facility] as planned <Andreea Walker DO - Last Filed: 02/25/24 09:31> Lab Data Labs: Lab Results 02/22/24 02/22/24 02/22/24 Range/Units 16:01 16:02 16:34 WBC 12.6 H (4.5-11.0) X10^3/uL RBC 2.95 L (4.0-5.2) X10^6/uL Hgb 8.0 L (12.0-16.0) g/dL Hct 24.3 L (36-46) % MCV 82.5 (80-100) fL MCH 27.2 (26-34) PG MCHC 32.9 (30-36) % RDW 20.8 H (11.6-14.8) % Plt Count 201 (150-400) X10^3/uL Neut % (Auto) 85.8 H (50-75) % Lymph % (Auto) 4.9 L (25-40) % Forrest % (Auto) 8.9 (3-14) % Eos % (Auto) 0.2 L (2-4) % Baso % (Auto) 0.2 (0-2) % Neut # (Auto) 90497 H (3143-7781) /uL Lymph # (Auto) 600 L (6784-3875) /uL Forrest # (Auto) 1100 H (0-900) /uL Eos # (Auto) 0 (0-450) /uL Baso # (Auto) 0 (0-100) /uL RBC Morphology See below Anisocytosis 1+ H VBG pH 7.40 (7.33-7.43) VBG pCO2 50.7 H (45-50) mmHg VBG pO2 22 L (35-45) mmHg VBG HCO3 32 H (24-28) mmol/L VBG Total CO2 30 H (24-29) mmol/L VBG O2 Saturation 37 L (70-75) % VBG Base Excess 5.9 H (0-4) mmol/L Sodium 112 L* (137-145) mmol/L Potassium 2.5 L* (3.4-5.1) mmol/L Chloride 59 L* (98-107) mmol/L Carbon Dioxide 33 H (22-32) mmol/L BUN 178 H* (7-17) mg/dL Creatinine 5.27 H (0.52-1.04) mg/dL Estimated GFR 9 L (>60) mL/min BUN/Creatinine Ratio 33.8 H (6-22) Glucose 606 H* (70-100) mg/dL Lactate 1.4 (0.7-2.1) mmol/L Calcium 6.4 L* (8.4-10.2) mg/dL Magnesium 1.4 L (1.6-2.3) mg/dL Total Bilirubin 0.4 (0.2-1.3) mg/dL AST 28 (14-36) IU/L ALT 21 (<35) IU/L Alkaline Phosphatase 96 (38-126) U/L Total Protein 6.1 L (6.3-8.2) g/dL Albumin 3.5 (3.5-5.0) g/dL Globulin 2.6 (1.7-4.1) g/dL Albumin/Globulin Ratio 1.3 (1.0-2.8) Lipase 21 L (23-300) U/L Urine RBC 0-1/hpf (0-5/HPF) Urine WBC 5-10/hpf H (0-5/HPF) Ur Squamous Epith Cells 5-10 /hpf H (0-5/HPF) Urine Bacteria Many (>30) H (None) Ur Culture Indicated? Specimen cultured Vol Urine Centrifuged 10ml (spun) Ketones 5.18 H (<0.27) mmol/L 02/22/24 02/23/24 Range/Units 19:00 00:25 WBC (4.5-11.0) X10^3/uL RBC (4.0-5.2) X10^6/uL Hgb (12.0-16.0) g/dL Hct (36-46) % MCV (80-100) fL MCH (26-34) PG MCHC (30-36) % RDW (11.6-14.8) % Plt Count (150-400) X10^3/uL Neut % (Auto) (50-75) % Lymph % (Auto) (25-40) % Forrest % (Auto) (3-14) % Eos % (Auto) (2-4) % Baso % (Auto) (0-2) % Neut # (Auto) (0761-3345) /uL Lymph # (Auto) (0063-6228) /uL Forrest # (Auto) (0-900) /uL Eos # (Auto) (0-450) /uL Baso # (Auto) (0-100) /uL RBC Morphology Anisocytosis VBG pH (7.33-7.43) VBG pCO2 (45-50) mmHg VBG pO2 (35-45) mmHg VBG HCO3 (24-28) mmol/L VBG Total CO2 (24-29) mmol/L VBG O2 Saturation (70-75) % VBG Base Excess (0-4) mmol/L Sodium 117 L* 120 L (137-145) mmol/L Potassium 2.8 L 4.4 D (3.4-5.1) mmol/L Chloride 71 L* 74 L* (98-107) mmol/L Carbon Dioxide 26 24 (22-32) mmol/L BUN 160 H* 147 H* (7-17) mg/dL Creatinine 4.57 H 4.56 H (0.52-1.04) mg/dL Estimated GFR 11 L 11 L (>60) mL/min BUN/Creatinine Ratio 35.0 H 32.2 H (6-22) Glucose 519 H* 684 H* (70-100) mg/dL Lactate (0.7-2.1) mmol/L Calcium 6.1 L* 7.3 L (8.4-10.2) mg/dL Magnesium 2.2 (1.6-2.3) mg/dL Total Bilirubin 0.4 (0.2-1.3) mg/dL AST 22 (14-36) IU/L ALT 20 (<35) IU/L Alkaline Phosphatase 96 (38-126) U/L Total Protein 5.7 L (6.3-8.2) g/dL Albumin 3.2 L (3.5-5.0) g/dL Globulin 2.5 (1.7-4.1) g/dL Albumin/Globulin Ratio 1.3 (1.0-2.8) Lipase (23-300) U/L Urine RBC (0-5/HPF) Urine WBC (0-5/HPF) Ur Squamous Epith Cells (0-5/HPF) Urine Bacteria (None) Ur Culture Indicated? Vol Urine Centrifuged Ketones (<0.27) mmol/L Point of Care Testing Glucose POC 500 Urine Dip Bedside Urine Glucose 1000 mg/dl Bedside Urine Bilirubin - Negative Bedside Urine Ketone + 15 Urine Specific [place] 1.030 Bedside Urine Occult Blood - Negative Bedside Urine pH 5.5 Bedside Urine Protein - Negative Bedside Urine Urobilinogen - Negative Bedside Urine Nitrite - Negative Bedside Urine Leukocytes +/- 15 Esterase Point of care testing: Point of Care Testing Glucose POC 500 Urine Dip Bedside Urine Glucose 1000 mg/dl Bedside Urine Bilirubin - Negative Bedside Urine Ketone + 15 Urine Specific [place] 1.030 Bedside Urine Occult Blood - Negative Bedside Urine pH 5.5 Bedside Urine Protein - Negative Bedside Urine Urobilinogen - Negative Bedside Urine Nitrite - Negative Bedside Urine Leukocytes +/- 15 Esterase [facility] Narrative Additional Information: Ill-appearing patient with nausea and vomiting for the last 4 days. History of type 1 diabetes. Point of care glucose read ?high?. Patient received approximately 800 cc of normal saline by EMS EN route. Additional IV fluids ordered. Insulin to be held until potassium values known. VBG shows pH 7.4. Not acidotic. Pending rest of laboratory work. CT brain negative for acute findings, possible colloid cyst seen. Laboratory work shows WBC count 12.6, hemoglobin 8.0, platelet count 201, sodium 112, potassium 2.5, chloride 59, BUN 178, creatinine 5.27, glucose 606, magnesium 1.4, calcium 6.4. Fluids has been continuous. Patient has not had any seizure-like activity since arrival to the emergency department, 3% normal saline held at this time. Has been it was now at bedside, he states that this is the same thing that happened back in June. Patient was initially seen at [facility] but then transferred to [facility]. Both and patient at bedside are unable to tell me what happened at [facility] other than that patient's kidneys were stabilized. She has scheduled follow up later this month with Nephrology, but she was not seen a sports equipment racker since her hospitalization back in June. Call placed to [facility] for consult. 02/22/2024, 1830Liang. Sign-out from Dr. Paez. 54-year-old female with history of diabetes, gastroparesis, nausea and vomiting last 4 days, increased glucose levels, history of intermittent seizures, might have had a seizure on transfer with the EMS, numerous electrolyte abnormalities in lab abnormalities, including sodium 112, potassium 2.5, creatinine 5, calcium low. IV potassium repletion has been initiated. Normal saline x2 L apparently has been given. No hypertonic saline has been given. No seizure activity for 2 hours so far here. Call has been placed to [address] [place] [address] where patient was apparently managed for similar presentation June 2023. Patient has apparently not seem Nephrology in follow up since that time. Await call back from [facility]. Repeat BMP requested. Assumed care. 2029, repeat labs. Sodium 117, chloride 71, P 1 160, creatinine 4.7, glucose 519, calcium 6.1. Potassium 2.8. IV potassium still infusing. We will give oral potassium 40 mEq as well. We will give IV calcium gluconate. Next labs 4-6 hours if she is still here. 2100, call back from [facility], apparently they can not take the patient, do not anticipate any beds any time soon, we will call around for other tertiary centers that have Nephrology available. 2299, discussion with [facility] system, most recent labs updated. We will be repeating another BMP with magnesium and calcium levels soon. 2354, case discussed with [facility] hospitalist Dr. Naranjo accepts patient for admission, await bed availability. Repeat labs show sodium further improved, now 120. Potassium 4.4 also improved, with glucose 684, now can tolerate some insulin, we will give regular human insulin 5 units subcutaneous dose for now. Calcium 7.1 has increased after repletion as well. Await bed assignment [facility] 0230, transfer to [facility] as planned urine culture positive for Klebsiella pneumoniae greater than 100,000 CFU, patient was transferred to [facility] last night we will send report to . Critical Care Time <Andreea Paez MD - Last Filed: 02/29/24 18:18> Critical Care Time Critical Care Time: Yes Total Critical Care Time: 42 Attestation: Acute kidney injury with multiple laboratory derangements requiring emergent correction. 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 CT head tonight no acute changes. CT angiogram head and neck vessels no acute changes or significant narrowing noted. MRI brain showed no acute/recent/old stroke changes, stable increased size of brain ventricles noted. Follow up with your eye doctor as planned. Wear the new eyewear when it is available as directed. Return earlier to this/nearest emergency department for any change worsening symptoms or any concerns prior Prescriptions: No Action ranitidine HCl 300 mg tablet 300 mg PO BEDTIME potassium chloride 10 mEq tablet extended release 10 meq PO BID lovastatin 10 mg tablet 5 mg PO BEDTIME levothyroxine 50 mcg tablet 1 tab PO DAILY cyanocobalamin (vitamin B-12) 1,000 mcg/mL solution 1 ml IM QMONTH insulin lispro 100 unit/mL solution 1 dose Continuous IV Infusion PRN PRN (Reason: bolus) Patient Comments: in addition to 0.5/hr escitalopram oxalate 20 mg tablet 20 mg PO DAILY Patient Comments: ondansetron 4 mg tablet,disintegrating 4 mg PO BIDAC PRN (Reason: Nausea And Vomiting) cholecalciferol (vitamin D3) [Vitamin D3] 2,000 unit Capsule 5,000 units PO DAILY gabapentin 600 mg Tablet 1,200 mg PO BEDTIME gabapentin 600 mg tablet 600 mg PO BID Rx Instructions: 0800 1200 promethazine 25 mg Suppository 25 mg MT Q6H PRN (Reason: Nausea) hydromorphone 2 mg Tablet 2 mg PO Q2H PRN (Reason: pain) albuterol sulfate [Ventolin HFA] 90 mcg/actuation Hfa Aerosol Inhaler 2 puff INHALATION PRN PRN (Reason: Shortness Of Breath) Centrum 18-400 mg-mcg Tablet 1 tab PO DAILY Probiotic 1 cap PO DAILY hydrocodone-acetaminophen [Franklin] 5-325 mg tablet 1 tab PO Q4-6H PRN (Reason: pain) Qty: 20 0RF fluconazole 200 mg Tablet 200 mg PO DAILY PRN (Reason: Odor) bethanechol chloride 10 mg tablet 20 mg PO QID Rx Instructions: orally with meals and at bedtime. ferrous sulfate [Iron (ferrous sulfate)] 325 mg (65 mg iron) Tablet 325 mg PO DAILY hydroxyzine HCl 25 mg Tablet 25 mg PO QID PRN (Reason: Muscle Spasm) mirtazapine 15 mg Tablet 15 mg PO BEDTIME oxycodone-acetaminophen [Percocet] 5-325 mg tablet 1 tab PO Q4-6H PRN (Reason: pain) Qty: 25 0RF ondansetron 4 mg tablet,disintegrating 4 mg PO Q8H PRN (Reason: nausea and vomiting) Qty: 15 0RF Referrals: Sandra Nathan PA-C [Primary Care Provider] - Stand Alone Forms: Patient Portal/API/Survey
--- NOTE | 2024-02-22 15:51 | EKG_ITS ---
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
[2024-02-22 16:05] LABS: Base Excess VBG 5.9 mmol/L (0-4); HCO3 VBG 32 mmol/L (24-28); Oxygen Saturation VBG 37 % (70-75); PCO2 VBG 50.7 mmHg (45-50); PO2 VBG 22 mmHg (35-45); Total CO2 VBG 30 mmol/L (24-29)
[2024-02-22] MEDS: SODIUM CHLORIDE 0.9% 1,000 ML 1000 ML IV ×2 (16:15→17:51)
[2024-02-22] MEDS: ONDANSETRON 4 MG/2 ML INJ IV (16:16)
[2024-02-22 16:28] LABS: Add Manual Diff / Slide Review NO; Basophils Absolute Auto 0 /uL (0-100); Basophils Percent Auto 0.2 % (0-2); Eosinophils Absolute Auto 0 /uL (0-450); Eosinophils Percent Auto 0.2 % (2-4); Hematocrit 24.3 % (36-46); Lymphocytes Absolute Auto 600 /uL (1100-4500); Lymphocytes Percent Auto 4.9 % (25-40); Mean Corpuscular HGB Conc 32.9 % (30-36); Mean Corpuscular Hemoglobin 27.2 PG (26-34); Mean Corpuscular Volume 82.5 fL (80-100); Monocytes Absolute Auto 1100 /uL (0-900); Monocytes Percent Auto 8.9 % (3-14); Neutrophils Absolute Auto 10800 /uL (1500-7000); Neutrophils Percent Auto 85.8 % (50-75); Platelet Count 201 X10^3/uL (150-400); Red Blood Cell Count 2.95 X10^6/uL (4.0-5.2); Red Cell Distribution Width 20.8 % (11.6-14.8); White Blood Cell Count 12.6 X10^3/uL (4.5-11.0)
[2024-02-22 16:38] LABS: Lactate (Lactic Acid) 1.4 mmol/L (0.7-2.1)
[2024-02-22 16:39] LABS: Alanine Aminotransferase 21 IU/L (<35); Albumin 3.5 g/dL (3.5-5.0); Albumin Globulin Ratio 1.3 (1.0-2.8); Alkaline Phosphatase 96 U/L (38-126); Aspartate Aminotransferase 28 IU/L (14-36); Bilirubin Total 0.4 mg/dL (0.2-1.3); Carbon Dioxide 33 mmol/L (22-32); Globulin 2.6 g/dL (1.7-4.1); HEMOLYSIS < 15 (0-50); Lipase 21 U/L (23-300); Magnesium 1.4 mg/dL (1.6-2.3); Total Protein 6.1 g/dL (6.3-8.2)
[2024-02-22 16:40] LABS: Anisocytosis 1+
[2024-02-22 16:44] LABS: Ketones (Beta-Hydroxybutyrate) 5.18 mmol/L (<0.27)
[2024-02-22 16:45] LABS: Estimated Glomerular Filt Rate 9 mL/min (>60)
[2024-02-22 17:01] LABS: Bacteria Urine Many (>30); Culture Indicated Urine Specimen Cultured; RBC Urine 0-1/HPF (0-5/HPF); Squamous Epithelial Cell Urine 5-10 /HPF (0-5/HPF); Urine Volume 10mL (spun); WBC Urine 5-10/HPF (0-5/HPF)
[2024-02-22 17:03] LABS: BUN Creatinine Ratio 33.8 (6-22)
[2024-02-22 17:06] LABS: Potassium 2.5 mmol/L (3.4-5.1); Sodium 112 mmol/L (137-145)
[2024-02-22 17:07] LABS: Chloride 59 mmol/L (98-107)
[2024-02-22 17:08] LABS: Blood Urea Nitrogen 178 mg/dL (7-17)
[2024-02-22 17:09] LABS: Glucose 606 mg/dL (70-100)
[2024-02-22 17:10] LABS: Calcium 6.4 mg/dL (8.4-10.2)
[2024-02-22] MEDS: POTASSIUM CHLORIDE IN WATER 10 MEQ/100 ML PIGGYBACK 100 MEQ IV ×6 (17:48→23:38)
[2024-02-22 19:21] LABS: Carbon Dioxide 26 mmol/L (22-32); Estimated Glomerular Filt Rate 11 mL/min (>60); Potassium 2.8 mmol/L (3.4-5.1)
[2024-02-22 19:28] LABS: HEMOLYSIS 15 (0-50)
[2024-02-22 19:35] LABS: Blood Urea Nitrogen 160 mg/dL (7-17); Calcium 6.1 mg/dL (8.4-10.2); Chloride 71 mmol/L (98-107); Glucose 519 mg/dL (70-100); Sodium 117 mmol/L (137-145)
[2024-02-22] MEDS: SODIUM CHLORIDE 0.9% 1,000 ML 100 ML IV (19:53)
[2024-02-22] MEDS: POTASSIUM CHLORIDE 20 MEQ/15 ML UDC 40 MEQ PO (21:36)
[2024-02-22] MEDS: CALCIUM GLUCONATE 9.3 MEQ in SODIUM CHLORIDE 0.9% 50 ML 140 MEQ IV (22:01)
[2024-02-22] MEDS: MAGNESIUM SULFATE 2 GM/50 ML PIGGYBACK IV (22:01)
[2024-02-23] VITALS (7 sets, daily range): BP systolic 104–111; BP diastolic 49–54; PULSE 87–95; RESP 20–24; O2SAT 96–100
[2024-02-23] MEDS: POTASSIUM CHLORIDE IN WATER 10 MEQ/100 ML PIGGYBACK 100 MEQ IV ×2 (00:42→01:57)
[2024-02-23 00:53] LABS: Alanine Aminotransferase 20 IU/L (<35); Albumin 3.2 g/dL (3.5-5.0); Albumin Globulin Ratio 1.3 (1.0-2.8); Alkaline Phosphatase 96 U/L (38-126); Aspartate Aminotransferase 22 IU/L (14-36); Bilirubin Total 0.4 mg/dL (0.2-1.3); Calcium 7.3 mg/dL (8.4-10.2); Carbon Dioxide 24 mmol/L (22-32); Estimated Glomerular Filt Rate 11 mL/min (>60); Globulin 2.5 g/dL (1.7-4.1); HEMOLYSIS < 15 (0-50); Potassium 4.4 mmol/L (3.4-5.1); Sodium 120 mmol/L (137-145); Total Protein 5.7 g/dL (6.3-8.2)
[2024-02-23 00:54] LABS: Magnesium 2.2 mg/dL (1.6-2.3)
[2024-02-23 01:08] LABS: BUN Creatinine Ratio 32.2 (6-22)
[2024-02-23 01:19] LABS: Blood Urea Nitrogen 147 mg/dL (7-17); Chloride 74 mmol/L (98-107)
[2024-02-23 01:20] LABS: Glucose 684 mg/dL (70-100)
--- NOTE | 2024-02-23 02:58 | PC.NURSE ---
Called [facility] for transfer. Currently no beds available. Sarah tobin accepted by Dr Naranjo. 976 Report# [id number] [phone] [id number] [facility] ETA 0302
[2024-02-23] MEDS: INSULIN REGULAR 100 UNIT/ML 3 ML VIAL SUBCUT (03:12)
== END 2024-02-23 03:32 | disposition short-term general hospital (02) ==
PROVIDERS: Emergency Medicine; Emergency Provider Emergency Medicine; Family Provider Physician Assistant Medical; PCP Physician Assistant Medical
DX: N17.9 Acute kidney failure, unspecified (principal); R11.2 Nausea with vomiting, unspecified; E10.65 Type 1 diabetes mellitus with hyperglycemia; E87.6 Hypokalemia; E87.1 Hypo-osmolality and hyponatremia; E83.51 Hypocalcemia; Z87.19 Personal history of other diseases of the digestive system; B96.1 Klebsiella pneumoniae [K. pneumoniae] as the cause of diseases classified elsewhere
CPT/HCPCS: 36415; 70450; 80048; 80053; 81003; 81015; 82009; 82805; 82962; 83605; 83690; 83735; 85025; 87077; 87086; 87186; 93005; 93010; 96361; 96365; 96366; 96372; 96375; 99285; J0612; J2405; J3475

== ENCOUNTER → 2024-05-18 10:36 | Outpatient (CLI) | payer OTHER, MEDICARE, SELFPAY ==
--- NOTE | 2024-05-18 10:43 | DI.CT.S_ITS ---
PROCEDURE: CT FOOT LEFT WITHOUT CON INDICATIONS: CHARCOT JOINT OF LEFT FOOT TECHNIQUE: Noncontrast 1-1.5 mm axial sections acquired from above the tibiotalar joint to the bottom of the calcaneus, with coronal and sagittal reformats. COMPARISON: [facility], CR, XR ANKLE 1 OR 2 VIEWS LEFT, 05/09/2024, 14:48. [facility], CR, XR FOOT 3+ VIEWS LEFT, 05/09/2024, 14:42. [facility], RG, FOOT COMP MIN 3VW (LT), 01/16/2024, 11:15. FINDINGS: Image quality: Excellent. Bones: Diffuse osseous demineralization. Acute-subacute, comminuted, and minimally displaced fracture of the 1st digit proximal phalangeal medial base with 20-30% intra-articular extension (2/118). Chronic, ununited fracture of the tip of the lateral malleolus (4/172). No talar dome osteochondral defect. Joints: Extensive subchondral cyst formation at the midfoot articulation with fragmentation of the articulating surfaces of the cuneiforms and cuboid, with superimposed homolateral incomplete dislocation of the 2nd-5th metatarsals (2/101-130). Pes planus alignment with slight collapse of the midfoot arch (5/38). Slight widening of the lateral clear space. Otherwise, the ankle mortise is preserved (4/157). No significant tibiotalar joint effusion. Mild subtalar osteoarthritis. Muscles: Superimposed on moderate muscle atrophy, there is severe fatty replacement of the abductor digiti minimi (4/167). Tendons: No significant fluid around the tendon sheaths of the flexor and extensor tendons. The Achilles tendon is preserved. Vessels: No aneurysmal dilatation of the visualized arterial vasculature. Other soft tissues: Diffuse subcutaneous edema, predominantly along the lateral and posterior aspect of the ankle and hindfoot. IMPRESSION: 1. Acute-subacute 1st digit proximal phalangeal medial base intra-articular fracture, superimposed on neuro the pathic arthropathy and Lisfranc fracture-dislocation of the midfoot. 2. Chronic, ununited fracture at the tip of the distal fibula. 3. 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 Dictated by: Emery Gagnon M.D. on 05/18/2024 at 20:48 Approved by: Emery Gagnon M.D. on 05/18/2024 at 21:03
== END ==
LOC: CT 10:41
PROVIDERS: Family Provider Physician Assistant Medical; PCP Physician Assistant Medical; Referring Provider Podiatrist; Visit Provider Podiatrist
DX: M14.672 Charcot's joint, left ankle and foot (principal); S92.415A Nondisplaced fracture of proximal phalanx of left great toe, initial encounter for closed fracture; S93.325A Dislocation of tarsometatarsal joint of left foot, initial encounter; S82.62XS Displaced fracture of lateral malleolus of left fibula, sequela
CPT/HCPCS: 73700

== ENCOUNTER 2025-01-19 11:30 | Emergency (ER) | payer MEDICARE, OTHER, SELFPAY ==
[2025-01-19 11:34] VITALS: BP 93/52; PULSE 81; RESP 18; TEMP 36.4; O2SAT 99; BMI 33.5
--- NOTE | 2025-01-19 11:43 | DI.US.S_ITS ---
PROCEDURE: US PERIPH VENOUS LOW EXTREM LT
--- NOTE | 2025-01-19 11:43 | DI.RAD.S_ITS ---
PROCEDURE: XR KNEE LT 3V
--- NOTE | 2025-01-19 12:04 | ED_ITS ---
HPI - Extremity Injury (Lower)
--- NOTE | 2025-01-19 12:04 | ED.LOWEXIN ---
HPI - Extremity Injury (Lower) <Paulette Seo PA-C - Last Filed: 01/19/25 15:25> General Chief Complaint: Extremity Injury, Lower Stated Complaint: Fell, left knee pain 7 days Time Seen by Provider: 01/19/25 11:50 Source: patient Mode of arrival: Ambulatory History of Present Illness HPI Narrative: Ms. 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 She is here with her . Patient reports that she typically walks with a cane and a left lower extremity boot because of her Charcot's foot. While she was outside at home she tripped and stumbled on asphalt causing her to land directly on the left knee and also on her right hand. Reports that she might have hit her chin on the ground but she mainly injured the left knee. She was not able to get up on her own at this time and she had to call her to help her up. She had right hand swelling and significant left knee pain after the fall, there was no loss of consciousness, no headache, neck pain, back pain, chest pain, shortness of breath, syncope, lightheadedness, dizziness. Over the last week and a half, the patient has had persistent left knee pain however her right hand pain has gone away. She has now developed a lot of swelling and bruising on the back of her left calf which is concerning. She did not want to come to the emergency department however her was able to get her to come today. She is no longer able to wear her left lower extremity boot because of the swelling in her leg. She has been using ibuprofen for pain but her pain is not well controlled. She denies numbness tingling weakness, headache, visual disturbance. Related Data Home Medications ?Medication ?Instructions ?Recorded ?Confirmed cholecalciferol (vitamin D3) 50 5,000 units PO DAILY 11/16/17 12/28/18 mcg (2,000 unit) capsule (Vitamin D3) cyanocobalamin (vitamin B-12) 1 ml IM QMONTH 11/16/17 12/28/18 1,000 mcg/mL injection solution escitalopram oxalate 20 mg tablet 20 mg PO DAILY 11/16/17 12/28/18 insulin lispro 100 unit/mL 1 dose continuous IV infusion PRN 11/16/17 12/28/18 subcutaneous solution PRN bolus levothyroxine 50 mcg tablet 1 tab PO DAILY 11/16/17 12/28/18 lovastatin 10 mg tablet 5 mg PO BEDTIME 11/16/17 12/28/18 ondansetron 4 mg disintegrating 4 mg PO BIDAC PRN Nausea And 11/16/17 12/28/18 tablet Vomiting potassium chloride 10 mEq 10 meq PO BID 11/16/17 12/28/18 tablet,extended release ranitidine HCl 300 mg tablet 300 mg PO BEDTIME 11/16/17 12/28/18 gabapentin 600 mg tablet 1,200 mg PO BEDTIME 05/15/18 12/28/18 bethanechol chloride 10 mg tablet 20 mg PO QID 10/22/18 12/28/18 ferrous sulfate 325 mg (65 mg 325 mg PO DAILY 10/22/18 12/28/18 iron) tablet (Iron (ferrous sulfate)) fluconazole 200 mg tablet 200 mg PO DAILY PRN Odor 10/22/18 12/28/18 hydroxyzine HCl 25 mg tablet 25 mg PO QID PRN Muscle Spasm 10/22/18 12/28/18 mirtazapine 15 mg tablet 15 mg PO BEDTIME 10/22/18 12/28/18 Probiotic 1 cap PO DAILY 12/28/18 12/28/18 albuterol sulfate 90 mcg/actuation 2 puff inhalation PRN PRN 12/28/18 12/28/18 aerosol inhaler (Ventolin HFA) Shortness Of Breath gabapentin 600 mg tablet 600 mg PO BID 12/28/18 12/28/18 hydromorphone 2 mg tablet 2 mg PO Q2H PRN pain 12/28/18 12/28/18 multivitamin-ferrous 1 tab PO DAILY 12/28/18 12/28/18 fumarate-folic acid 18 mg-400 mcg tablet (Centrum) promethazine 25 mg rectal 25 mg OH Q6H PRN Nausea 12/28/18 12/28/18 suppository Previous Rx's ?Medication ?Instructions ?Recorded hydrocodone 5 mg-acetaminophen 325 1 tab PO Q4-6H PRN pain #20 tabs 10/16/19 mg tablet (Aldrich) ondansetron 4 mg disintegrating 4 mg PO Q8H PRN nausea and 11/25/22 tablet vomiting #15 tabs oxycodone-acetaminophen 5 mg-325 1 tab PO Q4-6H PRN pain #25 tabs 11/25/22 mg tablet (Percocet) Allergies Allergy/AdvReac Type Severity Reaction Status Date / Time latex (LATEX) Allergy Intermediate Verified 02/22/24 15:49 Review of Systems <Paulette Seo PA-C - Last Filed: 01/19/25 15:25> Review of Systems ROS Unobtainable: All systems reviewed & are unremarkable except as noted in HPI and below Patient History <Paulette Seo PA-C - Last Filed: 01/19/25 15:25> Medical History (Updated 01/19/25 @ 13:08 by Paultete Seo PA-C) Guttate psoriasis Asthma, mild Psoriasis Left rib fracture Gastroparesis Type 1 diabetes Surgical History History of carpal tunnel release of both wrists History of No pertinent past surgical history Family History Father Trauma Mother Hypertension Diabetes mellitus COPD (chronic obstructive pulmonary disease) Social History household members: spouse and family alcohol intake: never Smoking Status: Current every day smoker tobacco type: cigarettes alcohol intake frequency: 0-2 drinks per day Exam <Paulette Seo PA-C - Last Filed: 01/19/25 15:25> Narrative Exam Narrative: GENERAL: 54 year old patient appears stated age. Well-developed patient, in no acute distress. HEAD: Atraumatic. Normocephalic. EYES: Pupils equal, round, dilated, not reactive to light. This is reported baseline by both the patient and her . Extraocular motions intact. No scleral icterus. No injection or drainage. ENT: Nose without bleeding, purulent drainage. NECK: Trachea midline. Cervical ROM intact. No midline cervical tenderness. CARDIOVASCULAR: Regular rate and rhythm. RESPIRATORY: ?Nonlabored respirations. ?Speaking in clear, full sentences. ?Clear to auscultation. EXTREMITIES: Significant edema, tenderness, ecchymosis on the posterior aspect of the left lower extremity extending from the calf to the ankle. Patient has strong plantar and dorsiflexion of the left ankle, no medial or lateral malleolar tenderness and no Achilles tendon tenderness. She does have superficial abrasion on the left knee and tenderness to palpation of the left knee and pain with both flexion-extension of the knee. BACK: No midline spinal tenderness. NEURO: AOx3. ?Clear speech. ?Sensation intact to light touch on bilateral upper and lower extremities however she does have baseline peripheral neuropathy. SKIN: Psoriasis lesions on bilateral lower extremities. Bruising posterior left lower extremity. Abrasion left anterior knee. Initial Vital Signs Initial Vital Signs: Vital Signs Temperature 97.6 F 01/19/25 11:34 Pulse Rate 81 01/19/25 11:34 Respiratory Rate 18 01/19/25 11:34 Blood Pressure 93/52 L 01/19/25 11:34 Pulse Oximetry 99 01/19/25 11:34 Oxygen Delivery Method Room Air 01/19/25 11:34 <Zulma Catherine DO - Last Filed: 01/22/25 13:30> Initial Vital Signs Initial Vital Signs: Vital Signs Temperature 97.6 F 01/19/25 11:34 Pulse Rate 81 01/19/25 11:34 Respiratory Rate 18 01/19/25 11:34 Blood Pressure 93/52 L 01/19/25 11:34 Pulse Oximetry 99 01/19/25 11:34 Oxygen Delivery Method Room Air 01/19/25 11:34 Course <Paulette Seo PA-C - Last Filed: 01/19/25 15:25> Orders Ordered: Discontinued Medications Hydrocodone Bitart/Acetaminophen (Hydrocodone/Acet 5/325 Tablet) 1 tab PO NOW ONE Stop: 01/19/25 11:48 Last Admin: 01/19/25 12:41 Dose: 1 tab Documented By: Hydrocodone Bitart/Acetaminophen (Hydrocodone/Acet 5/325 Tablet) 1 tab PO NOW ONE Stop: 01/19/25 14:05 Last Admin: 01/19/25 14:09 Dose: 1 tab Documented By: AUSTYN Sodium Chloride (Normal Saline 0.9%) 1,000 mls @ 500 mls/hr IV BOLUS PRN PRN Reason: Fluid replacement Last Infusion: 01/19/25 14:49 Dose: Infused Documented By: Admin: 01/19/25 12:30 Dose: 500 mls/hr Documented By: Vital Signs Vital signs: Vital Signs - 8 hr 01/19/25 11:34 01/19/25 12:44 01/19/25 12:49 Temperature 97.6 F Pulse Rate 81 77 Pulse Rate [Left Dorsalis Pedis] 77 Respiratory Rate 18 19 Blood Pressure 93/52 L 106/67 Pulse Oximetry 99 96 Oxygen Delivery Method Room Air Room Air 01/19/25 14:40 Temperature 97.7 F Pulse Rate 85 Pulse Rate [Left Dorsalis Pedis] Respiratory Rate 15 Blood Pressure 119/61 Pulse Oximetry 93 Oxygen Delivery Method Room Air <Zulma Catherine DO - Last Filed: 01/22/25 13:30> Orders Ordered: Discontinued Medications Hydrocodone Bitart/Acetaminophen (Hydrocodone/Acet 5/325 Tablet) 1 tab PO NOW ONE Stop: 01/19/25 11:48 Last Admin: 01/19/25 12:41 Dose: 1 tab Documented By: Hydrocodone Bitart/Acetaminophen (Hydrocodone/Acet 5/325 Tablet) 1 tab PO NOW ONE Stop: 01/19/25 14:05 Last Admin: 01/19/25 14:09 Dose: 1 tab Documented By: AUSTYN Sodium Chloride (Normal Saline 0.9%) 1,000 mls @ 500 mls/hr IV BOLUS PRN PRN Reason: Fluid replacement Last Infusion: 01/19/25 14:49 Dose: Infused Documented By: Admin: 01/19/25 12:30 Dose: 500 mls/hr Documented By: Vital Signs Vital signs: Vital Signs - 8 hr 01/19/25 11:34 01/19/25 12:44 01/19/25 12:49 Temperature 97.6 F Pulse Rate 81 77 Pulse Rate [Left Dorsalis Pedis] 77 Respiratory Rate 18 19 Blood Pressure 93/52 L 106/67 Pulse Oximetry 99 96 Oxygen Delivery Method Room Air Room Air 01/19/25 14:40 Temperature 97.7 F Pulse Rate 85 Pulse Rate [Left Dorsalis Pedis] Respiratory Rate 15 Blood Pressure 119/61 Pulse Oximetry 93 Oxygen Delivery Method Room Air MDM - Extremity Injury (Lower) <Paulette Seo PA-C - Last Filed: 01/19/25 15:25> Medical Records Attestation: I reviewed the patient's medical records. Lab Data 01/19/25 12:04 01/19/25 12:04 Labs: Lab Results 01/19/25 Range/Units 12:04 WBC 5.7 (4.5-11.0) X10^3/uL RBC 3.31 L (4.0-5.2) X10^6/uL Hgb 11.2 L (12.0-16.0) g/dL Hct 33.5 L (36-46) % MCV 101.1 H (80-100) fL MCH 33.7 (26-34) PG MCHC 33.3 (30-36) % RDW 15.9 H (11.6-14.8) % Plt Count 245 (150-400) X10^3/uL Neut % (Auto) 45.8 L (50-75) % Lymph % (Auto) 26.0 (25-40) % Wilkinson % (Auto) 15.7 H (3-14) % Eos % (Auto) 11.2 H (2-4) % Baso % (Auto) 1.3 (0-2) % Neut # (Auto) 2600 (6057-3467) /uL Lymph # (Auto) 1500 (9079-8072) /uL Wilkinson # (Auto) 900 (0-900) /uL Eos # (Auto) 600 H (0-450) /uL Baso # (Auto) 100 (0-100) /uL PT 10.3 (9.4-12.5) SECONDS INR 0.9 (0.9-1.3) APTT 30 (25.1-36.5) SECONDS Sodium 140 (137-145) mmol/L Potassium 4.9 (3.4-5.1) mmol/L Chloride 108 H (98-107) mmol/L Carbon Dioxide 21 L (22-32) mmol/L BUN 34 H (7-17) mg/dL Creatinine 2.21 H (0.52-1.04) mg/dL Estimated GFR 26 L (>60) mL/min BUN/Creatinine Ratio 15.4 (6-22) Glucose 118 H (70-99) mg/dL Calcium 8.6 (8.4-10.2) mg/dL Total Bilirubin 0.3 (0.2-1.3) mg/dL AST 52 H (14-36) IU/L ALT 28 (<35) IU/L Alkaline Phosphatase 102 (38-126) U/L Total Protein 7.3 (6.3-8.2) g/dL Albumin 4.3 (3.5-5.0) g/dL Globulin 3.0 (1.7-4.1) g/dL Albumin/Globulin Ratio 1.4 (1.0-2.8) Imaging Data Knee X-Ray: Radiologist's Impression: PROCEDURE: XR KNEE LT 3V INDICATIONS: Fall 10 days ago with pain and swelling. TECHNIQUE: 3 views of the knee were acquired. COMPARISON: None. FINDINGS: Bones: Acute comminuted fracture involving mid to lateral portion of patella is seen with slight dorsal and lateral displacement at fracture site. Fracture line is seen extending to patellofemoral compartment.. No suspicious bony lesions. Soft tissues: Moderate joint effusion. No suspicious soft tissue calcifications. IMPRESSION: Acute comminuted and displaced patellar fracture as above. Moderate joint effusion concerning for lipohemarthrosis. Dictated by: Lam Gruber M.D. on 01/19/2025 at 11:57 Approved by: Lam Gruber M.D. on 01/19/2025 at 12:03 Venous US: Radiologist's Impression: PROCEDURE: US PERIPH VENOUS LOW EXTREM LT INDICATIONS: FALL TECHNIQUE: Real-time imaging, as well as color and pulse Doppler interrogation, were performed of the lower extremity deep veins from the inguinal ligament to the popliteal fossa, with documentation of the visualized calf veins. COMPARISON: None. FINDINGS: The common femoral, femoral, popliteal, and the visualized calf veins are normally compressible, and free of intraluminal thrombus. Color and pulse Doppler demonstrate normal phasic intraluminal flow. There is normal augmentation response to distal compression maneuver. At the posterior aspect of the left knee at the left popliteal fossa extending into the calf an anechoic fluid collection measuring up to 3.2 x 0.8 x 13.3 cm is seen, potentially a Regan cyst including a ruptured Regan cyst. IMPRESSION: No findings of lower extremity deep venous thrombosis. Suspect ruptured Regan cyst as cause of the anechoic fluid collection measuring up to 13.3 cm craniocaudad behind the knee. Dictated by: Josué Cheng M.D. on 01/19/2025 at 13:30 Approved by: Josué Cheng M.D. on 01/19/2025 at 13:32 MDM Narrative Medical decision making narrative: 54-year-old female with a past medical history of well-controlled type 1 diabetes, CKD, peripheral neuropathy with Charcot left ankle and foot, peripheral neuropathy who presents to the emergency department for left knee pain after a fall that occurred 1.5 weeks ago. Differential diagnosis includes but is not limited to left knee sprain, strain, fracture, contusion, calf sprain, strain, tear, Achilles tendon injury, DVT, hematoma, etc. On exam the patient is in no acute distress, nontoxic appearing, vital signs within normal limits except for low blood pressure of 93/52, patient takes losartan at night. She is not currently lightheaded dizzy or short of breath. She has significant edema tenderness and bruising on the back of the left lower extremity with pain primarily of the knee itself. She is tender on the anterior aspect of the knee. She is not tender on the ankle or the foot. Given patient's blood pressure, medical history, physical exam we will obtain CBC, CMP, coags, venous ultrasound left lower extremity, left knee x-ray, treat with gentle IV fluids and Aldrich for pain. 1245: SPOKE WITH ORTHOPEDIC SURGEON ON-CALL, DR. BERGER in regards to patient knee x-ray revealing acute comminuted and displaced patellar fracture with concern of lipohemarthrosis. He does not recommend CT at this time, he recommends testing patient to see if she has ability to hold leg in extension as this will help with surgical versus nonsurgical planning. Regardless he recommends knee immobilizer and follow up outpatient for further management. Ultrasound result reveals no DVT, there is fluid in the popliteal fossa, potentially a ruptured Regan's cyst. And labs reveal normal WBC count 5.7, improved hemoglobin 11.2, normal platelets 245. Sodium 140, potassium 4.9,, BUN and creatinine both grossly improved from priors with 34 and 2.21 with a GFR of 26, she does have known severe CKD. Blood pressure improved with IV fluids, I did recommend patient check her blood pressure regularly at home and avoid taking her nighttime losartan if blood pressure is significantly low and further discussion with PCP. Discussed final plan with the patient and multiple times including knee immobilizer, nonweightbearing, rice therapy, pain control, ortho follow up, ER return precautions. Discussed risks narcotic pain medications. Patient and verbalized understanding all information agreeable with the plan. She is stable for discharge home, all VS WNL. <Zulma Catherine, DO - Last Filed: 01/22/25 13:30> Lab Data Labs: Lab Results 01/19/25 Range/Units 12:04 WBC 5.7 (4.5-11.0) X10^3/uL RBC 3.31 L (4.0-5.2) X10^6/uL Hgb 11.2 L (12.0-16.0) g/dL Hct 33.5 L (36-46) % MCV 101.1 H (80-100) fL MCH 33.7 (26-34) PG MCHC 33.3 (30-36) % RDW 15.9 H (11.6-14.8) % Plt Count 245 (150-400) X10^3/uL Neut % (Auto) 45.8 L (50-75) % Lymph % (Auto) 26.0 (25-40) % Wilkinson % (Auto) 15.7 H (3-14) % Eos % (Auto) 11.2 H (2-4) % Baso % (Auto) 1.3 (0-2) % Neut # (Auto) 2600 (1652-4902) /uL Lymph # (Auto) 1500 (4249-3361) /uL Wilkinson # (Auto) 900 (0-900) /uL Eos # (Auto) 600 H (0-450) /uL Baso # (Auto) 100 (0-100) /uL PT 10.3 (9.4-12.5) SECONDS INR 0.9 (0.9-1.3) APTT 30 (25.1-36.5) SECONDS Sodium 140 (137-145) mmol/L Potassium 4.9 (3.4-5.1) mmol/L Chloride 108 H (98-107) mmol/L Carbon Dioxide 21 L (22-32) mmol/L BUN 34 H (7-17) mg/dL Creatinine 2.21 H (0.52-1.04) mg/dL Estimated GFR 26 L (>60) mL/min BUN/Creatinine Ratio 15.4 (6-22) Glucose 118 H (70-99) mg/dL Calcium 8.6 (8.4-10.2) mg/dL Total Bilirubin 0.3 (0.2-1.3) mg/dL AST 52 H (14-36) IU/L ALT 28 (<35) IU/L Alkaline Phosphatase 102 (38-126) U/L Total Protein 7.3 (6.3-8.2) g/dL Albumin 4.3 (3.5-5.0) g/dL Globulin 3.0 (1.7-4.1) g/dL Albumin/Globulin Ratio 1.4 (1.0-2.8) Discharge Plan Departure Patient Disposition: Home Clinical Impression: Patellar fracture Qualifiers: Encounter type: initial encounter Fracture type: closed Fracture morphology: comminuted Fracture alignment: displaced Laterality: left Qualified Code(s): S82.042A - Displaced comminuted fracture of left patella, initial encounter for closed fracture Fall Qualifiers: Encounter type: initial encounter Qualified Code(s): W19.XXXA - Unspecified fall, initial encounter Instructions: DI for Patella Fracture Activity Restrictions/Additional Instructions: Dear Ms. Jimenez, Thank you for coming to the emergency department. Today you were evaluated for left knee pain after a fall last week. Your ultrasound revealed no blood clot in the leg you do have fluid behind the knee. Your x-ray revealed an acute comminuted and displaced fracture of the patella which is the kneecap. I discussed strict case with the orthopedic surgeon, Dr. Berger, and he would like you to remain in a knee immobilizer and follow up with him for further management. Please do not take ibuprofen for pain as this is not appropriate with a history of CKD. Please instead use Tylenol and the prescribed hydrocodone. Your blood pressure was on the lower end of normal today. I do recommend rechecking your blood pressure at home and not taking your blood pressure medication if your blood pressure is low, such as below around 120/70. Please check your blood pressure daily and discuss your blood pressure with your primary care doctor. Please use RICE therapy for your pain in addition to acetaminophen. Rest the painful area. Ice the area of pain/swelling for at least 15 minutes, 4x a day. Compress the area of swelling using a brace, wrap, or splint if applied. Elevate the painful or swollen extremity by supporting it above the level of the heart with pillows when sitting or laying. You have been prescribed a short course of narcotic medications. These are potentially dangerous and addictive medications that should be used carefully. While on these medications you cannot drive or operate heavy machinery. Additionally, you cannot sign legal documents or perform any duties such as this. Many people get constipated on narcotic medications so it would be advisable to discuss stool softeners with the pharmacist when you crop picker your prescription. Please understand that we cannot provide further refills of narcotics or controlled substances through the ED and your pain management will need to be through your Primary Care Provider Please follow up with your primary care doctor within the next 2-3 days for ER follow-up. (If you do not have a PCP you can call [phone]. ?to schedule an appointment with an [facility] Primary Care Provider) IF YOU DEVELOP ANY NEW OR WORSENING SYMPTOMS, RETURN TO THE ER! Please read the attached instructions, they highlight more specific treatments and interventions for you at home. Thank you for letting me participate in your care, Paulette Seo PA-C Prescriptions: No Action ranitidine HCl 300 mg tablet 300 mg PO BEDTIME potassium chloride 10 mEq tablet extended release 10 meq PO BID lovastatin 10 mg tablet 5 mg PO BEDTIME levothyroxine 50 mcg tablet 1 tab PO DAILY cyanocobalamin (vitamin B-12) 1,000 mcg/mL solution 1 ml IM QMONTH insulin lispro 100 unit/mL solution 1 dose Continuous IV Infusion PRN PRN (Reason: bolus) Patient Comments: in addition to 0.5/hr escitalopram oxalate 20 mg tablet 20 mg PO DAILY Patient Comments: ondansetron 4 mg tablet,disintegrating 4 mg PO BIDAC PRN (Reason: Nausea And Vomiting) cholecalciferol (vitamin D3) [Vitamin D3] 2,000 unit Capsule 5,000 units PO DAILY gabapentin 600 mg Tablet 1,200 mg PO BEDTIME gabapentin 600 mg tablet 600 mg PO BID Rx Instructions: 0800 1200 promethazine 25 mg Suppository 25 mg OH Q6H PRN (Reason: Nausea) hydromorphone 2 mg Tablet 2 mg PO Q2H PRN (Reason: pain) albuterol sulfate [Ventolin HFA] 90 mcg/actuation Hfa Aerosol Inhaler 2 puff INHALATION PRN PRN (Reason: Shortness Of Breath) Centrum 18-400 mg-mcg Tablet 1 tab PO DAILY Probiotic 1 cap PO DAILY hydrocodone-acetaminophen [Aldrich] 5-325 mg tablet 1 tab PO Q4-6H PRN (Reason: pain) Qty: 20 0RF fluconazole 200 mg Tablet 200 mg PO DAILY PRN (Reason: Odor) bethanechol chloride 10 mg tablet 20 mg PO QID Rx Instructions: orally with meals and at bedtime. ferrous sulfate [Iron (ferrous sulfate)] 325 mg (65 mg iron) Tablet 325 mg PO DAILY hydroxyzine HCl 25 mg Tablet 25 mg PO QID PRN (Reason: Muscle Spasm) mirtazapine 15 mg Tablet 15 mg PO BEDTIME oxycodone-acetaminophen [Percocet] 5-325 mg tablet 1 tab PO Q4-6H PRN (Reason: pain) Qty: 25 0RF ondansetron 4 mg tablet,disintegrating 4 mg PO Q8H PRN (Reason: nausea and vomiting) Qty: 15 0RF Referrals: Taawnda Berger MD [Physician, Orthopedic Surgery] Referral Note: [facility] Sandra Nathan PA-C [Primary Care Provider, Family Practice] Stand Alone Forms: Patient Portal/API ED Sign-out <Zulma Catherine, - Last Filed: 01/22/25 13:30> Cosign ED Attending Von Attestation: I was available for consultation.
[2025-01-19 12:12] LABS: Add Manual Diff / Slide Review NO; Hematocrit 33.5 % (36-46); Hemoglobin 11.2 g/dL (12.0-16.0); Lymphocytes Absolute Auto 1500 /uL (1100-4500); Mean Corpuscular HGB Conc 33.3 % (30-36); Mean Corpuscular Hemoglobin 33.7 PG (26-34); Mean Corpuscular Volume 101.1 fL (80-100); Platelet Count 245 X10^3/uL (150-400)
[2025-01-19 12:20] LABS: INR 0.9 (0.9-1.3); Prothrombin Time 10.3 SECONDS (9.4-12.5)
[2025-01-19 12:23] LABS: PTT Partial Thromboplastin Tim 30 SECONDS (25.1-36.5)
[2025-01-19] MEDS: SODIUM CHLORIDE 0.9% 1,000 ML 500 ML IV (12:30)
[2025-01-19 12:41] LABS: Alanine Aminotransferase 28 IU/L (<35); Albumin 4.3 g/dL (3.5-5.0); Albumin Globulin Ratio 1.4 (1.0-2.8); Alkaline Phosphatase 102 U/L (38-126); Blood Urea Nitrogen 34 mg/dL (7-17); Calcium 8.6 mg/dL (8.4-10.2); Carbon Dioxide 21 mmol/L (22-32); Chloride 108 mmol/L (98-107); Estimated Glomerular Filt Rate 26 mL/min (>60); Globulin 3.0 g/dL (1.7-4.1); Glucose 118 mg/dL (70-99); HEMOLYSIS 27 (0-50); Potassium 4.9 mmol/L (3.4-5.1); Sodium 140 mmol/L (137-145); Total Protein 7.3 g/dL (6.3-8.2)
[2025-01-19 12:44] VITALS: PULSE 77
[2025-01-19 12:49] VITALS: BP 106/67; PULSE 77; RESP 19; O2SAT 96
[2025-01-19 14:40] VITALS: BP 119/61; PULSE 85; RESP 15; TEMP 36.5; O2SAT 93
== END 2025-01-19 15:29 | disposition home or self-care (01) ==
PROVIDERS: Emergency Provider Physician Assistant; Family Provider Physician Assistant Medical; PCP Physician Assistant Medical
DX: S82.042A Displaced comminuted fracture of left patella, initial encounter for closed fracture (principal); W19.XXXA Unspecified fall, initial encounter
CPT/HCPCS: 36415; 73562; 80053; 85025; 85610; 85730; 93971; 96360; 96361; 99284; J7030